=== PATIENT | female | born 1930 | race Caucasian/White ===

== ENCOUNTER 2017-01-17 16:22 | Outpatient (CLI) | payer MEDICARE ==
[~2017-01-17] VITALS: Ht 157.5 cm; Wt 68.5 kg
[2017-01-17 16:15] VITALS: BP 144/67
[~2017-01-17 16:22] MED LIST: AMT50T PO; ATRV10T PO; CEFU250T PO; CLCX100C PO; CLOP75TA PO; HYDR-3714 PO; LVT.1T PO; METO25TA2 PO; MULT-856 PO; TRAM1TAB7 PO; VITA-185 PO; [UNRECOGNIZED DRUG - OTHER] PO
[2017-01-17] MEDS ORDERED: NS IV 1000 ML 1,000 ML ONE (16:26)
[2017-01-17] MEDS ORDERED: NS IV 1000 ML 1,000 ML IV ONE (17:15)
[2017-01-17 17:34] LABS: ALBUMIN 3.4 GM/DL (3.2-4.5); BILIRUBIN,TOTAL 0.8 MG/DL (0.1-1.0); CALCIUM 10.3 MG/DL (8.5-10.1); CREATININE SERUM 1.24 MG/DL (0.60-1.30); POTASSIUM 4.2 MMOL/L (3.6-5.0); TOTAL PROTEIN 5.9 GM/DL (6.4-8.2)
== END 2017-01-17 19:40 | disposition home or self-care (01) ==
LOC: SDC 16:22
PROVIDERS: ATTEND Nurse Practitioner Family
DX: E86.0 Dehydration (principal); R10.11 Right upper quadrant pain
CPT/HCPCS: 36415; 80053; 96360; 96361

== ENCOUNTER → 2017-01-18 | Outpatient (CLI) | payer MEDICARE ==
--- NOTE | 2017-01-18 11:48 | Diagnostic Imaging Report ---
PROCEDURE: US Gallbladder. TECHNIQUE: Multiple real-time grayscale images were obtained over the right upper quadrant in various projections. INDICATION: Right upper quadrant pain and nausea. FINDINGS: The liver is normal in size. There is no biliary ductal dilatation. The common bile duct measures less than 5 mm. There is no cholelithiasis, gallbladder wall thickening or pericholecystic fluid. Pancreas is largely obscured by bowel gas. The right kidney is normal in appearance. There is no ascites. IMPRESSION: Essentially unremarkable right upper quadrant ultrasound Dictated by: Dictated on workstation # [id number]
== END ==
LOC: RAD 09:53
PROVIDERS: ATTEND Nurse Practitioner Family
DX: R10.11 Right upper quadrant pain (principal)
CPT/HCPCS: 76705

== ENCOUNTER → 2017-03-11 | Outpatient (CLI) | payer MEDICARE ==
--- NOTE | 2017-03-14 14:16 | Diagnostic Imaging Report ---
EXAMINATION: Bilateral screening mammogram 2D views with tomosynthesis. The current study was also evaluated with a Computer Aided Detection (CAD) system. INDICATION: Screening. PERSONAL HISTORY: No current complaints stated on the questionnaire. COMPARISON: 03/05/2016. FINDINGS: The breasts are composed of heterogeneously dense parenchyma which may decrease mammographic sensitivity. Benign-appearing calcifications are seen. Allowing for technique and positional differences, no suspicious change is seen. IMPRESSION: Dense breasts with no definite change. ACR BI-RADS Category 2: Benign findings. Result letter will be mailed to the patient. Note: At least 10% of breast cancer is not imaged by mammography. Dictated by: Dictated on workstation # [id number]
== END ==
LOC: RAD 12:50
PROVIDERS: ATTEND Nurse Practitioner Family
DX: Z12.31 Encounter for screening mammogram for malignant neoplasm of breast (principal)
CPT/HCPCS: 77067

== ENCOUNTER 2017-10-04 05:53 | Outpatient (CLI) | payer MEDICARE ==
[~2017-10-04] VITALS: Ht 157.5 cm; Wt 68.5 kg
[2017-10-04] MEDS ORDERED: AMIT50TA3 PO (14:56)
[2017-10-04] MEDS ORDERED: CLOP75TA28 PO (14:56)
[2017-10-04] MEDS ORDERED: METO-333 PO (14:56)
[2017-10-04] MEDS ORDERED: CELE-63 PO (14:56)
[2017-10-04] MEDS ORDERED: LEVO50TA6 PO (14:56)
[2017-10-04] MEDS ORDERED: PANT40TA3 PO (14:59)
[2017-10-04] MEDS ORDERED: FOLI0.8C PO (14:59)
[2017-10-04] MEDS ORDERED: CHOL100045 PO (14:59)
== END 2017-10-04 15:01 ==
LOC: PREOP 05:53
PROVIDERS: ATTEND Surgery
DX: Z01.818 Encounter for other preprocedural examination (principal); D50.9 Iron deficiency anemia, unspecified; K92.2 Gastrointestinal hemorrhage, unspecified

== ENCOUNTER 2017-10-10 09:36 | Day surgery (SDC) | payer MEDICARE ==
[~2017-10-10] VITALS: Ht 157.5 cm; Wt 68.5 kg
[~2017-10-10 09:36] MED LIST changes: +AMIT50TA3 PO; +CELE-63 PO; +CHOL100045 PO; +CLOP75TA28 PO; +FOLI0.8C PO; +LEVO50TA6 PO; +METO-333 PO; +PANT40TA3 PO
[2017-10-10] MEDS ORDERED: NS IV 500 ML 500 ML IV PRN (09:49)
[2017-10-10] MEDS ORDERED: HURRICAINE EXT TUBE (BENZOCAINE) XX PRN (10:00)
[2017-10-10 10:07] VITALS: BP 146/78
[2017-10-10] MEDS ORDERED: HURRICAINE EXT TUBE (BENZOCAINE) ONE (12:34)
[2017-10-10] MEDS ORDERED: MIDAZOLAM 2 MG/2 ML (VERSED) VIAL ONE ×4 (12:34→12:49)
[2017-10-10] MEDS ORDERED: fentaNYL INJECTION 100 MCG/2 ML AMP ONE ×2 (12:34)
[2017-10-10] MEDS: fentaNYL INJECTION 100 MCG/2 ML AMP IVP PRN ×4 (12:37→12:58)
[2017-10-10] MEDS: MIDAZOLAM 2 MG/2 ML (VERSED) VIAL IVP PRN ×4 (12:40→12:52)
--- NOTE | 2017-10-10 13:10 | Endo Procedure Record ---
Endo Procedure Report Date of Procedure Last Colonoscopy: Yes October 10, 2017 Surgeon (s) ERNA BANDA MD Post Procedure/Op Diagnosis EGD: Normal Colonoscopy: 2 mm sigmoid polyp. Incidental, 3 mm, submucosal lipoma at the cecum Procedure Performed Upper GI endoscopy Colonoscopy to cecum Hot biopsy polypectomy Description of Procedure Anesthesia Type: Conscious Sedation Specimen(s) collected/removed Sigmoid polyp Description of the Procedure Indication for the procedures: This lady came in for an upper endoscopy with colonoscopy to evaluate ongoing iron deficiency anemia with a history of melena in addition, she reported a family history of polyps as well. Informed consent was obtained after reviewing the procedures in detail. Description of the procedures: EGD: She was placed in left lateral rectus position and her vital signs were monitored. Conscious sedation was achieved using Versed and fentanyl. The flexible gastroscope was introduced down the esophagus, past the stomach, into the proximal duodenum. There was no abnormality. She tolerated the procedure well and was turned around in preparation for colonoscopy. Impression: Iron deficiency anemia with a history of melena. No ulcers found. Colonoscopy/polypectomy: Digital rectal examination was unremarkable. The colonoscope was then introduced into the rectum and advanced all the way up to the cecum. The quality of bowel preparation was reasonable. The scope was then withdrawn slowly and the mucosa examined in a systematic fashion. Findings: 1. 2 mm polyp at the mid sigmoid colon, that was excised with hot biopsy forceps 2. Very few sigmoid diverticula 3. 3 mm, incidental submucosal lipoma at the cecum. She tolerated the procedures well and was taken to the nursing area in a stable condition. Impression: Iron deficiency anemia with a history of melena. Incidental, small sigmoid polyp excised. Note: At this point, her hemoglobin will be followed serially. If there is any decrease, Endoscopy to Evaluate the Small Bowel Due To Arranged. Copy Copies To 1: TANIA STEVE MD, XAVIER M MD October 10, 2017 1:10 pm
--- NOTE | 2017-10-10 13:13 | History & Physicial ---
History of Present Illness History of Present Illness Reason for visit/HPI To undergo an upper endoscopy with concomitant colonoscopy to investigate iron deficiency anemia with a history of melena. She reports a family history of polyps as well. Date of Admission 10/10/17 Date Seen by Provider: October 10, 2017 Time Seen by Provider: 11:55 I consulted on this patient on 10/10/17 13:10 Attending Physician Erna Carmen MD Admitting Physician Marilyn Delaney MD Consult Allergies and Home Medications Allergies Coded Allergies: No Known Drug Allergies (Unverified , 02/26/11) Home Medications Amitriptyline HCl 50 Mg Tablet, 50 MG PO HS, (Reported) Celecoxib 200 Mg Capsule, 200 MG PO DAILY, (Reported) Cholecalciferol (Vitamin D3) 1,000 Unit Tablet, 1,000 UNIT PO DAILY, (Reported) Clopidogrel Bisulfate 75 Mg Tablet, 75 MG PO DAILY, (Reported) Folic Acid 0.8 Mg Capsule, 0.8 MG PO DAILY, (Reported) Levothyroxine Sodium 50 Mcg Tablet, 50 MCG PO DAILY, (Reported) Metoprolol Tartrate 25 Mg Tablet, 12.5 MG PO BID, (Reported) TAKE 1/2 OF 25MG TAB Pantoprazole Sodium 40 Mg Tablet.dr, 40 MG PO DAILY, (Reported) Patient Home Medication List Home Medication List Reviewed: Yes Past Cioaxvg-Nxoaqd-Wusbtl Hx Patient Social History Marrital Status: Employed/Student: retired Alcohol Use: Denies Use Recreational Drug Use: No Smoking Status: Never a Smoker Recent Foreign Travel: No Contact w/other who traveled: No Recent Hopitalizations: No Recent Infectious Disease Expo: No Immunizations Up To Date Tetanus Booster (TDap): Unknown Date of Influenza Vaccine: Mar 05, 2015 Seasonal Allergies Seasonal Allergies: No Surgeries Yes Respiratory No Cardiovascular No Neurological TIA Reproductive System Hx Reproductive Disorders: No Genitourinary No Gastrointestinal Yes Gastrointestinal Bleed, Ulcer Musculoskeletal Yes Arthritis Endocrine History of Endocrine Disorders: Yes Endocrine Disorders: Hypothyroidsim HEENT HEENT Disorders: Cataract Cancer No Blood Transfusions Adverse Reaction to a Blood Tr: No Constitutional: no symptoms reported EENTM: no symptoms reported Respiratory: no symptoms reported Cardiovascular: no symptoms reported Gastrointestinal: see HPI Genitourinary: no symptoms reported Musculoskeletal: joint pain Skin: no symptoms reported Psychiatric/Neurological: No Symptoms Reported Physical Exam Vital Signs Vital Signs - First Documented 10/10/17 10:07 Temp 97.8 Pulse 60 Resp 16 B/P (MAP) 146/78 (100) Pulse Ox 95 O2 Delivery Room Air Capillary Refill : General Appearance: No Apparent Distress Neck: Normal Inspection Respiratory: Lungs Clear Cardiovascular: Regular Rate, Rhythm Gastrointestinal: Non Tender, Soft Rectal: Deferred Back: Normal Inspection Extremity: Normal Inspection Neurologic/Psychiatric: Alert, Oriented x3 Skin: Warm/Dry Assessment/Plan Assessment and Plan Lady with iron deficiency anemia. History of melena. Family history of polyps. For upper endoscopy with colonoscopy Admission Diagnosis Admission Status: Other (Outpt Proc) ERNA CARMEN MD October 10, 2017 1:13 pm
--- NOTE | 2017-10-10 13:15 | Discharge Inst-Simple/Standard ---
Discharge Inst-Standard Discharge Medications New, Converted or Re-Newed RX: Other Patient Instructions/Follow Up Plan of Care/Instructions/FU: Follow hemoglobin Activity as Tolerated: Yes Discharge Diet: No Restrictions ERNA BANDA MD October 10, 2017 1:15 pm
--- NOTE | 2017-10-10 13:32 | Conscious Sedation/ASA ---
Conscious Sedation Pre-Proced Time Reviewed: 11:55 ASA Class: 2 Airway Mallampati Classification: ([place] appropriate class) I. II. III, IV Lungs Heart ASA score ASA 1: a normal healthy patient ASA 2: a patient with a mild systemic disease (mid diabetes, controlled hypertension, obesity ASA 3: a patient with a severe systemic disease that limits activity (angina , COPD, prior Myocardial infarction) ASA 4: a patient with an incapacitating disease that is a constant threat to life (CHF, renal failure) ASA 5: a moribund patient not expected to survive 24 hrs. (ruptured aneurysm) ASA 6: a declared brain patient whose organs are being harvested. For emergent operations, add the letter E after the classification Grade 1 Sedation Plan: Discussed options with patient/fam Note The patient is an appropriate candidate to undergo the planned procedure, sedation, and anesthesia. The patient immediately re-assessed prior to indication. ERNA BANDA MD October 10, 2017 1:32 pm
[2017-10-10 13:50] VITALS: BP 132/77
[2017-10-10 14:19] VITALS: BP 152/66
[2017-10-10 14:21] VITALS: BP 152/66
--- OUTSIDE RECORDS SUMMARY | 2017-10-10 18:20 | XMS REPORT | CCD ---
Author Author Marilyn Delaney Organization Marilyn Delaney MD, [facility] Address [address] [place] [address] Phone Care Team Providers Care Union Contract Representative Name Role Phone PP Unavailable CCM Unavailable Summary Purpose Interface Exchange Insurance Providers Payer name Policy type / Coverage type Covered constitution party ID Effective Begin Date Effective End Date WPS Medicare Part B Medicare Part B [id number] 2013 Unknown AARP Medicare Part B [id number] 2013 Unknown Family history Brother Diagnosis Age At Onset No Family Disease Entered N/A Daughter Diagnosis Age At Onset No Family Disease Entered N/A Father Diagnosis Age At Onset No Family Disease Entered N/A Mother Diagnosis Age At Onset Heart disease Unknown Daughter Diagnosis Age At Onset No Family Disease Entered N/A Social History Social History Element Codes Description Effective Dates Marital status Unknown 03/13/2015 Living arrangements Unknown House 02/26/[address]: 561219948 Never smoker 02/25/[address]: 863446316 Never drinks alcohol 02/25/2011 Has the patient ever used illegal drugs? Unknown Has never used illegal drugs 02/25/2011 Allergies, Adverse Reactions, Alerts Allergies, Adverse Reactions, Alerts data not found Past Medical History Illness Codes Condition Status Onset Date Resolved Date Encounter for immunization ICD-9: V04.81 ICD-10: Z23 Active 02/09/2017 Unknown Dysuria ICD-9: 788.1 ICD-10: R30.0 Active 04/20/2016 Unknown Essential (primary) hypertension ICD-9: 401.9 ICD-10: I10 Active 05/10/2016 Unknown Urinary tract infection, site not specified ICD-9: 599.0 ICD-10: N39.0 Active 07/14/2015 Unknown Dehydration ICD-9: 276.51 ICD-10: E86.0 Active 01/17/2017 Unknown Right upper quadrant pain ICD-9: 789.01 ICD-10: R10.11 Active 01/17/2017 Unknown Candidiasis of vulva and vagina ICD-9: 112.1 ICD-10: B37.3 Active 01/07/2017 Unknown Other fatigue ICD-9: 780.79 ICD-10: R53.83 Active 12/29/2016 Unknown Other malaise ICD-9: 780.79 ICD-10: R53.81 Active 12/29/2016 Unknown Migraine without aura, intractable, without status migrainosus ICD-9: 346.11 ICD-10: G43.019 Active 05/10/2016 Unknown Atrophy of thyroid (acquired) ICD-9: 244.8 ICD-10: E03.4 Active 04/19/2016 Unknown Mixed hyperlipidemia ICD-9: 272.4 ICD-10: E78.2 Active 07/17/2014 Unknown Hypothyroidism, unspecified ICD-9: 244.9 ICD-10: E03.9 Active 01/11/2014 Unknown Candidal stomatitis ICD-9: 112.0 ICD-10: B37.0 Active 03/09/2016 Unknown Gastro-esophageal reflux disease without esophagitis ICD-9: 530.81 ICD-10: K21.9 Active 03/09/2016 Unknown Major depressive disorder, recurrent, moderate ICD-9: 296.32 ICD-10: F33.1 Active 03/09/2016 Unknown Other seborrheic keratosis ICD-9: 702.19 ICD-10: L82.1 Active 11/17/2015 Unknown Epigastric pain ICD-9 : 789.06 ICD-10: R10.13 Active 08/05/2015 Unknown Low back pain ICD-9: 724.2 ICD-10: M54.5 Active 07/14/2015 Unknown Other insomnia ICD-9: 780.52 ICD-10: G47.09 Active 07/04/2015 Unknown Abdominal pain ICD-9: 789.00 Active 10/07/2014 Unknown Hematuria ICD-9: 599.70 Active 10/07/2014 Unknown HYPERLIPIDEMIA ICD-9: 272.4 Active 07/17/2014 Unknown Need for Streptococcus pneumoniae vaccination ICD-9: V03.82 Active 07/17/2014 Unknown CELLULITIS OF HAND ICD -9: 682.4 Active 01/11/2014 Unknown ESSENTIAL HYPERTENSION ICD-9: 401.9 Active 01/11/2014 Unknown HYPOTHYROIDISM ICD-9: 244.9 Active 01/11/2014 Unknown Abnormal blood sugar ICD-9: 790.29 Active 10/18/2012 Unknown History of TIA (transient ischemic attack) ICD-9: V12.54 Active 10/18/2012 Unknown Basal cell carcinoma, leg ICD-9: 173.71 Active 02/08/2012 Unknown INFLAMED SEBORR KERATOS ICD-9: 702.11 Active 11/30/2011 Unknown Skin lesion of left leg ICD-9: 709.9 Active 11/30/2011 Unknown Encounter for long-term (current) use of medications ICD-9: V58.69 Active 11/18/2011 Unknown Bruising ICD-9: 924.9 Active 10/13/2011 Unknown Chest wall pain ICD-9 : 786.52 Active 10/13/2011 Unknown ANEMIA ICD-9: 285.9 Active 05/12/2011 Unknown Migraine ICD-9: 346.90 Active 05/12/2011 Unknown Angular cheilosis ICD- 9: 528.5 Active 03/17/2011 Unknown INSOMNIA NOS ICD-9: 780.52 Active 03/17/2011 Unknown Mouth dryness ICD-9: 527.7 Active 03/17/2011 Unknown Hypertension Unknown Active 02/26/2011 Unknown BACTERIAL PNEUMONIA NEC ICD-9: 482.89 Active 02/26/2011 Unknown Dizziness ICD-9: 780.4 Active 02/26/2011 Unknown MALAISE AND FATIGUE ICD-9: 780.79 Active 02/26/2011 Unknown VACCIN FOR INFLUENZA ICD-9: V04.81 Active 02/26/2011 Unknown Arthritis Unknown Active 02/25/2011 Unknown Hyperlipidemia Unknown Active 02/25/2011 Unknown Hypothryroidism Unknown Active 02/25/2011 Unknown kidney stone Unknown Active 11/19/2008 Unknown Migraine Unknown Active 02/25/2011 Unknown Skin cancer Unknown Active 02/25/2011 Unknown Problems Condition Codes Effective Dates Condition Status Encounter for immunization ICD-9: V04.81 ICD-10: Z23 02/09/2017 Active Dysuria ICD-9: 788.1 ICD-10: R30.0 04/20/2016 Active Essential (primary) hypertension ICD-9: 401.9 ICD-10: I10 05/10/2016 Active Urinary tract infection, site not specified ICD-9: 599.0 ICD-10: N39.0 07/14/2015 Active Dehydration ICD-9: 276.51 ICD-10: E86.0 01/17/2017 Active Right upper quadrant pain ICD-9: 789.01 ICD-10: R10.11 01/17/2017 Active Candidiasis of vulva and vagina ICD-9: 112.1 ICD-10: B37.3 01/07/2017 Active Other fatigue ICD-9: 780.79 ICD-10: R53.83 12/29/2016 Active Other malaise ICD-9: 780.79 ICD-10: R53.81 12/29/2016 Active Migraine without aura, intractable, without status migrainosus ICD-9: 346.11 ICD-10: G43.019 05/10/2016 Active Atrophy of thyroid (acquired) ICD-9: 244.8 ICD-10: E03.4 04/19/2016 Active Mixed hyperlipidemia ICD-9: 272.4 ICD-10: E78.2 07/17/2014 Active Hypothyroidism, unspecified ICD-9: 244.9 ICD-10: E03.9 01/11/2014 Active Candidal stomatitis ICD-9: 112.0 ICD-10: B37.0 03/09/2016 Active Gastro-esophageal reflux disease without esophagitis ICD-9: 530.81 ICD-10: K21.9 03/09/2016 Active Major depressive disorder, recurrent, moderate ICD-9: 296.32 ICD-10: F33.1 03/09/2016 Active Other seborrheic keratosis ICD-9: 702.19 ICD-10: L82.1 11/17/2015 Active Epigastric pain ICD-9 : 789.06 ICD-10: R10.13 08/05/2015 Active Low back pain ICD-9: 724.2 ICD-10: M54.5 07/14/2015 Active Other insomnia ICD-9: 780.52 ICD-10: G47.09 07/04/2015 Active Abdominal pain ICD-9: 789.00 10/07/2014 Active Hematuria ICD-9: 599.70 10/07/2014 Active HYPERLIPIDEMIA ICD-9: 272.4 07/17/2014 Active Need for Streptococcus pneumoniae vaccination ICD-9: V03.82 07/17/2014 Active CELLULITIS OF HAND ICD -9: 682.4 01/11/2014 Active ESSENTIAL HYPERTENSION ICD-9: 401.9 01/11/2014 Active HYPOTHYROIDISM ICD-9: 244.9 01/11/2014 Active Abnormal blood sugar ICD-9: 790.29 10/18/2012 Active History of TIA (transient ischemic attack) ICD-9: V12.54 10/18/2012 Active Basal cell carcinoma, leg ICD-9: 173.71 02/08/2012 Active INFLAMED SEBORR KERATOS ICD-9: 702.11 11/30/2011 Active Skin lesion of left leg ICD-9: 709.9 11/30/2011 Active Encounter for long-term (current) use of medications ICD-9: V58.69 11/18/2011 Active Bruising ICD-9: 924.9 10/13/2011 Active Chest wall pain ICD-9 : 786.52 10/13/2011 Active ANEMIA ICD-9: 285.9 05/12/2011 Active Migraine ICD-9: 346.90 05/12/2011 Active Angular cheilosis ICD- 9: 528.5 03/17/2011 Active INSOMNIA NOS ICD-9: 780.52 03/17/2011 Active Mouth dryness ICD-9: 527.7 03/17/2011 Active Hypertension Unknown 02/26/2011 Active BACTERIAL PNEUMONIA NEC ICD-9: 482.89 02/26/2011 Active Dizziness ICD-9: 780.4 02/26/2011 Active MALAISE AND FATIGUE ICD-9: 780.79 02/26/2011 Active VACCIN FOR INFLUENZA ICD-9: V04.81 02/26/2011 Active Arthritis Unknown 02/25/2011 Active Hyperlipidemia Unknown 02/25/2011 Active Hypothryroidism Unknown 02/25/2011 Active kidney stone Unknown 11/19/2008 Active Migraine Unknown 02/25/2011 Active Skin cancer Unknown 02/25/2011 Active Medications Medication Codes Instructions Start Date Stop Date Status Fill Instructions Ultracet 37.5 mg-325 mg tablet RxNorm: 058270 TAKE 1 TABLET BY MOUTH NEEDED 06/27/2017 07/26/2017 Active Plavix 75 mg tablet RxNorm: 374652 TAKE ONE TABLET BY MOUTH ONCE DAILY 06/22/2017 No Stop Date Active triamcinolone acetonide 0.5 % topical ointment RxNorm: 0045585 APPLY OINTMENT TOPICALLY TO AFFECTED AREA EVERY 6 HOURS NEEDED 2017 No Stop Date Active metoprolol tartrate 25 mg tablet RxNorm: 329100 TAKE ONE-HALF TABLET BY MOUTH TWICE DAILY 05/30/2017 No Stop Date Active Plavix 75 mg tablet RxNorm: 218098 TAKE ONE TABLET BY MOUTH ONCE DAILY 03/28/2017 06/21/2017 Inactive Ultracet 37.5 mg-325 mg tablet RxNorm: 889991 Tablet(s) PO Q6 as needed TAKE 1 TABLET BY MOUTH NEEDED 03/16/201704/28 Inactive Synthroid 75 mcg tablet RxNorm: 450488 TAKE ONE TABLET BY MOUTH ONCE DAILY 02/24/2017 08/22/2017 Active mupirocin 2 % topical ointment RxNorm: 922106 1 Application TOP BID 01/27/2017 02/02/2017 Inactive Diflucan 150 mg tablet RxNorm: 340708 1 Tablet(s) PO daily 11/201601/31/2017 Inactive Protonix 40 mg tablet,delayed release RxNorm: 623719 1 Tablet(s) PO daily 01/17/2017 02/15/2017 Inactive Carafate 1 gram tablet RxNorm: 852968 1 Tablet(s) PO QID as needed 01/17/2017 01/26/2017 Inactive nystatin 100,000 unit/gram topical cream RxNorm: 458976 1 Application TOP TID 01/12/2017 01/16/2017 Inactive Diflucan 150 mg tablet RxNorm: 211561 1 Tablet(s) PO daily 01/07/2017 Inactive nystatin 100,000 unit/gram topical cream RxNorm: 718430 1 Application TOP TID 01/07/2017 01/11/2017 Inactive Ultracet 37.5 mg-325 mg tablet RxNorm: 487504 Tablet(s) PO TAKE 1 TABLET BY MOUTH NEEDED 01/04/2017 03/15/2017 Inactive Cipro 500 mg tablet RxNorm: 759002 1 Tablet(s) PO BID 201601/07/2017 Inactive Keflex 500 mg capsule RxNorm: 044072 1 Capsule(s) PO TID 201612/19/2016 Inactive Keflex 500 mg capsule RxNorm: 977775 1 Capsule(s) PO TID 201612/26/2016 Inactive ketorolac 60 mg/2 mL intramuscular solution RxNorm: 276826 Milliliter(s) IM 12/16/2016 12/16/2016 Inactive Topamax 25 mg tablet RxNorm: 796775 1 Tablet(s) PO daily 201601/14/2017 Inactive promethazine 25 mg/mL injection solution RxNorm: 948229 Milliliter(s) Inj 12/16/2016 12/16/2016 Inactive Ultracet 37.5 mg-325 mg tablet RxNorm: 588465 TAKE ONE TABLET BY MOUTH EVERY SIX HOURS NEEDED FOR PAIN 11/01/20162016 Inactive Celebrex 200 mg capsule RxNorm: 347324 Capsule(s) TAKE ONE CAPSULE BY MOUTH ONCE DAILY 09/21/2016 09/15/2017 Active Synthroid 75 mcg tablet RxNorm: 922989 Tablet(s) TAKE ONE TABLET BY MOUTH DAILY EXCEXPT 12TAB ON TUE AND Tuesday09/16/2016 No Stop Date Active Lipitor 20 mg tablet RxNorm: 766184 1/2 Tablet(s) PO every other day 08/25/2016 01/26/2017 Inactive amitriptyline 50 mg tablet RxNorm: 147049 1 Tablet(s) PO QPM 08/13/2017 Active Synthroid 75 mcg tablet RxNorm: 502803 TAKE ONE TABLET BY MOUTH ONCE DAILY 08/03/2016 09/15/2016 Inactive triamcinolone acetonide 0.5 % topical ointment RxNorm: 8279927 APPLY TO AFFECTED AREA(S) EVERY 6 HOURS NEEDED 06/03/2016 08/13/2016 Inactive Celebrex 200 mg capsule RxNorm: 142698 TAKE ONE CAPSULE BY MOUTH ONCE DAILY 05/18/2016 09/20/2016 Inactive promethazine 25 mg/mL injection solution RxNorm: 917330 Milliliter(s) Inj 05/11/2016 05/11/2016 Inactive ketorolac 60 mg/2 mL intramuscular solution RxNorm: 212201 Milliliter(s) IM 05/11/2016 05/11/2016 Inactive amitriptyline 50 mg tablet RxNorm: 968970 1 Tablet(s) PO QPM 08/18/2016 Inactive amitriptyline 50 mg tablet RxNorm: 041552 1 Tablet(s) PO QPM 05/04/2016 Inactive Cipro 500 mg tablet RxNorm: 052040 1 Tablet(s) PO BID 201504/27/2016 Inactive Celebrex 200 mg capsule RxNorm: 421570 TAKE ONE CAPSULE BY MOUTH ONCE DAILY 04/20/2016 05/17/2016 Inactive Ultracet 37.5 mg-325 mg tablet RxNorm: 941230 1 Tablet(s) PO QID as needed for back pain TAKE ONE TABLET BY MOUTH NEEDED 03/10/2016 11/03/2016 Inactive amitriptyline 25 mg tablet RxNorm: 136509 2 Tablet(s) PO QPM 05/02/2016 Inactive nystatin 100,000 unit/mL oral suspension RxNorm: 329772 5 Unit(s) PO TID 03/10/2016 03/23/2016 Inactive metoprolol tartrate 25 mg tablet RxNorm: 812223 TAKE ONE-HALF TABLET BY MOUTH TWICE DAILY 02/26/2016 11/21/2016 Inactive Protonix 40 mg tablet,delayed release RxNorm: 662387 TAKE ONE TABLET BY MOUTH ONCE DAILY 02/17/2016 03/23/2016 Inactive amitriptyline 25 mg tablet RxNorm: 041467 1-2 Tablet(s) PO QPM 01/27/2016 03/09/2016 Inactive Ultracet 37.5 mg-325 mg tablet RxNorm: 139970 Tablet(s) PO TAKE 1 TABLET BY MOUTH NEEDED 01/12/2016 01/12/2016 Inactive Ultracet 37.5 mg-325 mg tablet RxNorm: 528155 TAKE ONE TABLET BY MOUTH NEEDED 01/12/2016 03/09/2016 Inactive Plavix 75 mg tablet RxNorm: 296925 TAKE ONE TABLET BY MOUTH ONCE DAILY 12/23/2015 03/27/2017 Inactive amitriptyline 25 mg tablet RxNorm: 729014 1 Tablet(s) PO QPM 01/26/2016 Inactive Pennsaid 20 mg/gram/actuation (2 %) topical soln in metered -dose pump RxNorm: 3845028 1 Application TOP BID 11/03/201511/05 Inactive Celebrex 200 mg capsule RxNorm: 277034 Capsule(s) TAKE ONE CAPSULE BY MOUTH DAILY 10/22/2015 04/18/2016 Inactive Protonix 40 mg tablet,delayed release RxNorm: 838780 1 Tablet(s) PO daily 08/13/2015 02/08/2016 Inactive Lipitor 20 mg tablet RxNorm: 604712 Tablet(s) TAKE 1 TABLET BY MOUTH EVERY OTHER DAY, OR , TAKE 1/2 TABLET BY MOUTH ONCE DAILY 08/06/2015 07/30/2016 Inactive Synthroid 75 mcg tablet RxNorm: 267092 Tablet(s) PO TAKE ONE TABLET BY MOUTH EVERY DAY 08/06/2015 07/30/2016 Inactive Ultracet 37.5 mg-325 mg tablet RxNorm: 800269 Tablet(s) PO TAKE 1 TABLET BY MOUTH NEEDED 08/06/2015 01/03/2017 Inactive Protonix 40 mg tablet,delayed release RxNorm: 391987 1 Tablet(s) PO daily 08/06/2015 08/12/2015 Inactive Carafate 1 gram tablet RxNorm: 467300 1 Tablet(s) dissolved in 10mL of water PO AC and hs x 1 week then just AC thereafter 08/06/2015 11/17/2015 Inactive Ultracet 37.5 mg-325 mg tablet RxNorm: 403410 Tablet(s) PO TAKE 1 TABLET BY MOUTH NEEDED 07/22/2015 08/05/2015 Inactive Levaquin 500 mg tablet RxNorm: 729782 1 Tablet(s) PO daily 07/21/2015 Inactive amitriptyline 50 mg tablet RxNorm: 822857 1 Tablet(s) PO QPM 10/31/2015 Inactive Celebrex 200 mg capsule RxNorm: 076505 TAKE ONE CAPSULE BY MOUTH DAILY 06/23/2015 10/20/2015 Inactive Ultracet 37.5 mg-325 mg tablet RxNorm: 366342 TAKE ONE TABLET BY MOUTH EVERY 6 HOURS NEEDED FOR PAIN 04/15/20152015 Inactive amitriptyline 50 mg tablet RxNorm: 730881 1.5 Tablet(s) PO QPM 03/13/2015 07/03/2015 Inactive Plavix 75 mg tablet RxNorm: 164976 TAKE ONE TABLET BY MOUTH EVERY DAY 02/24/2015 12/20/2015 Inactive metoprolol tartrate 25 mg tablet RxNorm: 790174 TAKE 1/2 TABLET BY MOUTH TWO TIMES A DAY 01/27/2015 01/21/2016 Inactive Celebrex 200 mg capsule RxNorm: 392615 TAKE ONE CAPSULE BY MOUTH DAILY 01/20/2015 06/18/2015 Inactive Lipitor 20 mg tablet RxNorm: 707173 TAKE 1 TABLET BY MOUTH EVERY OTHER DAY, OR , TAKE 1/2 TABLET BY MOUTH ONCE DAILY 12/02/2014 08/05/2015 Inactive triamcinolone acetonide 0.5 % topical ointment RxNorm: 7143962 APPLY TO AFFECTED AREA(S) EVERY 6 HOURS NEEDED 11/25/2014 02/04/2015 Inactive Flagyl 500 mg tablet RxNorm: 630767 1 Tablet(s) PO TID 201410/17/2014 Inactive Cipro 500 mg tablet RxNorm: 763005 1 Tablet(s) PO BID 201410/14/2014 Inactive Ultracet 37.5 mg-325 mg tablet RxNorm: 333788 1 Tablet(s) PO Q6 as needed TAKE 1 TABLET BY MOUTH NEEDED 09/19/201409/19 Inactive amitriptyline 100 mg tablet RxNorm: 473793 TAKE ONE TABLET BY MOUTH EVERY NIGHT AT BEDTIME 09/19/2014 03/12/2015 Inactive Ultracet 37.5 mg-325 mg tablet RxNorm: 405603 TAKE ONE TABLET BY MOUTH EVERY 6 HOURS NEEDED FOR PAIN 09/19/20142014 Inactive (Response to an electronic controlled substance refill request - RxReferenceNumber: [id number]) Synthroid 75 mcg tablet RxNorm: 514414 Tablet(s) PO TAKE ONE TABLET BY MOUTH EVERY DAY 08/15/2014 08/05/2015 Inactive checking labs in 3 months metoprolol tartrate 25 mg tablet RxNorm: 574386 TAKE 1/2 TABLET BY MOUTH TWO TIMES A DAY 08/06/2014 01/26/2015 Inactive Celebrex 200 mg capsule RxNorm: 717635 TAKE ONE CAPSULE BY MOUTH DAILY 07/15/2014 01/10/2015 Inactive Synthroid 88 mcg tablet RxNorm: 750797 TAKE ONE TABLET BY MOUTH EVERY DAY 06/18/2014 08/14/2014 Inactive Synthroid 88 mcg tablet RxNorm: 599924 1 Tablet(s) PO 201412/14/2014 Inactive Celebrex 200 mg capsule RxNorm: 734997 TAKE ONE CAPSULE BY MOUTH EVERY DAY 05/21/2014 07/14/2014 Inactive metoprolol tartrate 25 mg tablet RxNorm: 317418 TAKE 1/2 TABLET BY MOUTH TWO TIMES A DAY 04/02/2014 07/30/2014 Inactive Plavix 75 mg tablet RxNorm: 960595 TAKE ONE TABLET BY MOUTH EVERY DAY 03/25/2014 02/17/2015 Inactive Celebrex 200 mg capsule RxNorm: 478340 TAKE ONE CAPSULE BY MOUTH EVERY DAY 02/18/2014 05/18/2014 Inactive Ultracet 37.5 mg-325 mg tablet RxNorm: 323319 Tablet(s) PO TAKE 1 TABLET BY MOUTH NEEDED 01/30/2014 07/21/2015 Inactive Vitamin D2 50,000 unit capsule RxNorm: 327087 1 Capsule(s) PO weekly x12 weeks 01/24/2014 11/17/2015 Inactive fluconazole 150 mg tablet RxNorm: 100874 1 Tablet(s) PO daily 01/11/2014 01/15/2014 Inactive sulfamethoxazole 800 mg-trimethoprim 160 mg tablet RxNorm: 069093 1 Tablet(s) PO BID 01/11/2014 01/17/2014 Inactive amitriptyline 100 mg tablet RxNorm: 444198 Tablet(s) PO TAKE ONE TABLET BY MOUTH EVERY NIGHT AT BEDTIME 10/30/20132014 Inactive Celebrex 200 mg capsule RxNorm: 261978 Capsule(s) PO TAKE ONE CAPSULE BY MOUTH EVERY DAY 10/23/2013 02/17/2014 Inactive Lipitor 20 mg tablet RxNorm: 231119 1 Tablet(s) PO every other day TAKE 1/2 TABLET BY MOUTH DAILY 09/27/20132014 Inactive Ultracet 37.5 mg-325 mg tablet RxNorm: 436895 Tablet(s) PO TAKE 1 TABLET BY MOUTH NEEDED 08/20/2013 01/29/2014 Inactive Lipitor 20 mg tablet RxNorm: 252697 1 Tablet(s) PO every other day TAKE 1/2 TABLET BY MOUTH DAILY 07/02/20132013 Inactive Synthroid 88 mcg tablet RxNorm: 517221 1 Tablet(s) PO 201306/17/2014 Inactive triamcinolone acetonide 0.5 % topical ointment RxNorm: 3876020 1 Application TOP Q6 PRN 07/02/2013 01/27/2014 Inactive Celebrex 200 mg capsule RxNorm: 091373 Capsule(s) PO TAKE ONE CAPSULE BY MOUTH EVERY DAY 05/22/2013 10/22/2013 Inactive Lipitor 20 mg tablet RxNorm: 012006 Tablet(s) PO TAKE 1/2 TABLET BY MOUTH DAILY 04/09/2013 07/01/2013 Inactive metoprolol tartrate 25 mg tablet RxNorm: 105811 Tablet(s) PO TAKE 1/2 TABLET BY MOUTH TWO TIMES A DAY 04/09/20132013 Inactive Plavix 75 mg tablet RxNorm: 863395 Tablet(s) PO TAKE ONE TABLET BY MOUTH EVERY DAY 03/26/2013 03/24/2014 Inactive Synthroid 100 mcg tablet RxNorm: 440764 100mcg alternate 88mcg Tablet(s) PO daily 03/01/2013 07/01/2013 Inactive estropipate 1.5 mg tablet RxNorm: 759893 Tablet(s) PO TAKE TWO TABLETS BY MOUTH EVERY DAY 01/18/2013 07/18/2013 Inactive Celebrex 200 mg capsule RxNorm: 313529 Capsule(s) PO TAKE ONE CAPSULE BY MOUTH EVERY DAY 11/28/2012 05/21/2013 Inactive Ultracet 37.5 mg-325 mg tablet RxNorm: 548721 Tablet(s) PO TAKE 1 TABLET BY MOUTH NEEDED 11/22/2012 08/19/2013 Inactive Ultracet 37.5 mg-325 mg tablet RxNorm: 614422 Tablet(s) PO TAKE 1 TABLET BY MOUTH NEEDED 11/22/2012 11/21/2012 Inactive amitriptyline 100 mg tablet RxNorm: 247970 Tablet(s) PO TAKE ONE TABLET BY MOUTH EVERY NIGHT AT BEDTIME 10/31/20122013 Inactive Synthroid 100 mcg tablet RxNorm: 258419 1 Tablet(s) PO daily 02/28/2013 Inactive amitriptyline 100 mg tablet RxNorm: 297294 Tablet(s) PO 1 TABLET BY MOUTH AT BEDTIME 08/30/2012 10/30/2012 Inactive Ultracet 37.5 mg-325 mg tablet RxNorm: 986074 Tablet(s) PO TAKE 1 TABLET BY MOUTH NEEDED 08/14/2012 11/21/2012 Inactive amitriptyline 100 mg tablet RxNorm: 197498 Tablet(s) PO 1 TABLET BY MOUTH AT BEDTIME 06/05/2012 08/29/2012 Inactive Celebrex 200 mg capsule RxNorm: 962031 1 Capsule(s) PO daily 11/02/2012 Inactive Lipitor 10 mg tablet RxNorm: 404061 1 Tablet(s) PO daily 201109/11/2012 Inactive levothyroxine 100 mcg capsule RxNorm: 621860 1 Capsule(s) PO daily 03/08/2012 02/27/2013 Inactive metoprolol tartrate 25 mg tablet RxNorm: 930309 1/2 Tablet(s) PO BID 03/08/2012 04/01/2013 Inactive Ultracet 37.5 mg-325 mg tablet RxNorm: 830365 1 Tablet(s) PO PRN 03/08/2012 08/13/2012 Inactive Plavix 75 mg tablet RxNorm: 739616 1 Tablet(s) PO daily 201103/25/2013 Inactive Lipitor 10 mg tablet RxNorm: 205505 1 Tablet(s) PO daily 201103/07/2012 Inactive amitriptyline 100 mg tablet RxNorm: 545808 1 Tablet(s) PO HS 06/04/2012 Inactive metoprolol tartrate 25 mg tablet RxNorm: 360287 1/2 Tablet(s) PO BID 02/11/2012 03/07/2012 Inactive Lipitor 10 mg tablet RxNorm: 573181 1 Tablet(s) PO daily 201102/10/2012 Inactive metoprolol tartrate 25 mg tablet RxNorm: 789618 1/2 Tablet(s) PO BID 02/10/2012 02/10/2012 Inactive Influenza Virus Vaccine 0.5 mL RxNorm: IM 02/08/2012 02/08/2012 Inactive amitriptyline 100 mg tablet RxNorm: 190621 1 Tablet(s) PO HS 02/10/2012 Inactive estropipate 1.5 mg tablet RxNorm: 378179 2 Tablet(s) PO daily 11/26/2011 12/19/2012 Inactive Ultracet 37.5 mg-325 mg tablet RxNorm: 658019 1 Tablet(s) PO PRN 10/04/2011 03/07/2012 Inactive Celebrex 200 mg Cap RxNorm: 259312 1 Capsule(s) PO daily 09/0609/06/2011 Inactive Celebrex 200 mg capsule RxNorm: 038465 1 Capsule(s) PO daily 04/03/2012 Inactive Ultracet 37.5 mg-325 mg Tab RxNorm: 115851 1 Tablet(s) PO PRN 08/25/2011 10/03/2011 Inactive Lipitor 10 mg tablet RxNorm: 297556 1 Tablet(s) PO daily 201102/06/2012 Inactive Ultracet 37.5 mg-325 mg Tab RxNorm: 039415 1 Tablet(s) PO Q6 PRN 07/15/2011 07/29/2011 Inactive amitriptyline 100 mg tablet RxNorm: 804385 1 Tablet(s) PO HS 11/28/2011 Inactive promethazine 25 mg/mL Injection RxNorm: 672563 Milliliter(s) Inj 05/12/2011 05/12/2011 Inactive triamcinolone acetonide 0.5 % topical ointment RxNorm: 7994027 1 Application TOP Q6 PRN 05/12/2011 09/08/2011 Inactive ketorolac 60 mg/2 mL IM RxNorm: 753426 Milliliter(s) IM 201005/12/2011 Inactive amitriptyline 100 mg Tab RxNorm: 138928 1/2 - 1 Tablet(s) PO HS PRN 05/12/2011 06/01/2011 Inactive Protonix 40 mg Tab RxNorm: 176554 1 Tablet(s) PO daily 201010/03/2011 Inactive Ultracet 37.5 mg-325 mg Tab RxNorm: 387203 1 Tablet(s) PO Q6 PRN 03/26/2011 07/14/2011 Inactive Plavix 75 mg Tab RxNorm: 316598 1 Tablet(s) PO daily 201002/09/2012 Inactive Bactroban 2 % Ointment RxNorm: 456035 1 [place] TOP TID apply three times a day x 5 days in the nose and three times a day x 7 days on the lips 03/17/2011 03/23/2011 Inactive Bactrim DS 800 mg-160 mg Tab RxNorm: 429932 1 Tablet(s) PO BID 03/17/2011 03/26/2011 Inactive amitriptyline 50 mg Tab RxNorm: 870438 2 Tablet(s) PO QHS 03/1505/11/2011 Inactive Celebrex 200 mg Cap RxNorm: 806420 1 Capsule(s) PO daily 03/1209/06/2011 Inactive Influenza Virus Vaccine 0.5 mL RxNorm: IM 02/26/2011 02/26/2011 Inactive metoprolol tartrate 25 mg Tab RxNorm: 755426 1/2 Tablet(s) PO BID 02/02/2011 04/02/2011 Inactive Lipitor 10 mg Tab RxNorm: 348724 1 Tablet(s) PO daily 201003/03/2011 Inactive Vitamin D3 2,000 unit tablet RxNorm: 635756 1 Tablet(s) PO daily No Start Date Active aspirin 81 mg Tab, Delayed Release RxNorm: 314200 1 Tablet(s) PO daily No Start Date Active Ultracet 37.5 mg-325 mg Tab RxNorm: 277942 1 Tablet(s) PO Q6 PRN No Start Date 03/25/2011 Inactive Lipitor 10 mg Tab RxNorm: 401841 1 Tablet(s) PO daily No Start Date 08/10/2011 Inactive levothyroxine 100 mcg capsule RxNorm: 941953 Capsule(s) PO No Start Date 03/07/2012 Inactive 3 times weekly amitriptyline 50 mg Tab RxNorm: 319611 2 Tablet(s) PO daily No Start Date 03/14/2011 Inactive Vitamin B-12 1,000 mcg Tab RxNorm: 685600 1 Tablet(s) PO daily No Start Date 09/11/2012 Inactive estropipate 1.5 mg Tab RxNorm: 383501 1 Tablet(s) PO daily No Start Date 11/25/2011 Inactive multivitamin Cap RxNorm: 1 Capsule(s) PO daily No Start Date 10/03/2011 Inactive metoprolol tartrate 25 mg tablet RxNorm: 795504 1/2 Tablet(s) PO BID No Start Date 02/09/2012 Inactive Celebrex 200 mg Cap RxNorm: 180448 1 Capsule(s) PO daily No Start Date 03/11/2011 Inactive Ultracet 37.5 mg-325 mg Tab RxNorm: 075068 Tablet(s) PO PRN No Start Date 08/24/2011 Inactive Vitamin B & C Cap RxNorm: 1 Capsule(s) PO daily No Start Date 10/03/2011 Inactive Lipitor 20 mg tablet RxNorm: 540659 1 Tablet(s) PO 3 x week No Start Date 04/08/2013 Inactive Plavix 75 mg tablet RxNorm: 172868 1 Tablet(s) PO daily No Start Date 02/29/2012 Inactive Vitamin D2 50,000 unit capsule RxNorm: 204335 1 Capsule(s) PO weekly x12 weeks No Start Date 01/23/2014 Inactive Medication Administered Medication Codes Instructions Start Date Status ketorolac 60 mg/2 mL intramuscular solution RxNorm: 090518 Milliliter 12/16/2016 No longer Active promethazine 25 mg/mL injection solution RxNorm: 010463 Milliliter 12/16/2016 No longer Active ketorolac 60 mg/2 mL intramuscular solution RxNorm: 639318 Milliliter 05/11/2016 No longer Active promethazine 25 mg/mL injection solution RxNorm: 683426 Milliliter 05/11/2016 No longer Active Influenza Virus Vaccine 0.5 mL RxNorm: 02/08/2012 No longer Active ketorolac 60 mg/2 mL IM RxNorm: 380041 Milliliter 05/12/2011 No longer Active promethazine 25 mg/mL Injection RxNorm: 529623 Milliliter 05/12/2011 No longer Active Influenza Virus Vaccine 0.5 mL RxNorm: 02/26/2011 No longer Active Immunizations Vaccine Codes Date Status Influenza CVX: 141 02/09/2017 completed Influenza CVX: 141 04/21/2016 completed Pneumococcal (Adult) CVX: 33 07/17/2014 completed Influenza CVX: 141 04/03/2014 completed Influenza CVX: 141 02/26/2013 completed Influenza CVX: 141 02/08/2012 completed Influenza CVX: 141 02/26/2011 completed Assessments Condition Codes Effective Dates Encounter for immunization ICD-10: Z23 ICD-9: V04.81 02/09/2017 Dysuria ICD-10: R30.0 ICD-9: 788.1 02/01/2017 Urinary tract infection, site not specified ICD-10: N39.0 ICD-9: 599.0 01/27/2017 Dehydration ICD-10: E86.0 ICD-9: 276.51 01/17/2017 Right upper quadrant pain ICD-10: R10.11 ICD-9: 789.01 01/17/2017 Candidiasis of vulva and vagina ICD-10: B37.3 ICD-9: 112.1 01/07/2017 Other fatigue ICD-10: R53.83 ICD-9: 780.79 12/29/2016 Other malaise ICD-10: R53.81 ICD-9: 780.79 12/29/2016 Migraine without aura, intractable, without status migrainosus ICD-10: G43.019 ICD-9: 346.11 12/16/2016 Atrophy of thyroid (acquired) ICD-10: E03.4 ICD-9: 244.8 08/25/2016 Mixed hyperlipidemia ICD-10: E78.2 ICD-9: 272.4 08/25/2016 Essential (primary) hypertension ICD-10: I10 ICD-9: 401.9 08/25/2016 Hypothyroidism, unspecified ICD-10: E03.9 ICD-9: 244.9 08/19/2016 Gastro-esophageal reflux disease without esophagitis ICD-10 : K21.9 ICD-9: 530.81 03/10/2016 Candidal stomatitis ICD-10: B37.0 ICD-9: 112.0 03/10/2016 Major depressive disorder, recurrent, moderate ICD-10: F33.1 ICD-9: 296.32 03/10/2016 Other seborrheic keratosis ICD-10: L82.1 ICD-9: 702.19 11/18/2015 Epigastric pain ICD-10: R10.13 ICD-9: 789.06 08/06/2015 Low back pain ICD-10: M54.5 ICD-9: 724.2 07/15/2015 Other insomnia ICD-10: G47.09 ICD-9: 780.52 07/04/2015 Abdominal pain ICD-9: 789.00 10/08/2014 Hematuria ICD-9: 599.70 10/08/2014 HYPERLIPIDEMIA ICD-9: 272.4 07/17/2014 Need for Streptococcus pneumoniae vaccination ICD-9: V03.82 07/17/2014 HYPOTHYROIDISM ICD-9: 244.9 07/17/2014 ESSENTIAL HYPERTENSION ICD-9: 401.9 07/17 CELLULITIS OF HAND ICD-9: 682.4 2013 ENCNTR LONG-RX USE NEC ICD-9: V58.69 OTHER ABNORMAL GLUCOSE ICD-9: 790.29 12/2012 ANEMIA ICD-9: 285.9 02/27/2013 VACCIN FOR INFLUENZA ICD-9: V04.81 2012 MALAISE AND FATIGUE ICD-9: 780.79 2012 History of TIA (transient ischemic attack) ICD-9: V12.54 10/18/2012 Basal cell carcinoma, leg ICD-9: 173.71 02/22/2012 Skin lesion of left leg ICD-9: 709.9 02/2012 INFLAMED SEBORR KERATOS ICD-9: 702.11 02/2012 Bruising ICD-9: 924.9 10/13/2011 Chest wall pain ICD-9: 786.52 10/13/2011 Dry mouth ICD-9: 527.7 10/04/2011 INSOMNIA NOS ICD-9: 780.52 10/04/2011 DISEASES OF LIPS ICD-9: 528.5 05/12/2011 Migraine ICD-9: 346.90 05/12/2011 Dizziness ICD-9: 780.4 02/26/2011 BACTERIAL PNEUMONIA NEC ICD-9: 482.89 11/2010 Reason For Visit Reason For Visit Effective Dates Notes vaccination against influenza 02/09/2017 abdominal pain 01/27/2017 resolved abdominal pain 01/17/2017 rash 01/07/2017 fatigue 12/29/2016 headache 12/16/2016 hypertension 08/25/2016 headache 05/11/2016 hypertension 04/20/2016 hypertension 03/10/2016 hypertension 11/18/2015 gastroesophageal reflux 09/11/2015 abdominal pain 08/06/2015 low back pain 07/15/2015 hypertension 07/04/2015 hypertension 03/13/2015 abdominal pain 10/08/2014 urinary incontinence 07/17/2014 rash 01/11/2014 between fingers on left hand hypertension 07/02/2013 hypertension 02/26/2013 hypertension 10/24/2012 hypertension 09/12/2012 hypertension 05/30/2012 Post-op wound 02/22/2012 vaccination against influenza 02/08/2012 skin lesion 11/30/2011 breast complaint 10/13/2011 hypertension 10/04/2011 insomnia 05/12/2011 hypertension 03/17/2011 dizziness 02/26/2011 Results Observation Observation Code Item Item Code Result Date Urine Culture Ucult Complete NO Growth Day 2 12/31/2016 Urine Culture Ucult Preliminary NO Growth Day 1 12/31/2016 Cbc With Differential Ord2 WBC 5.18 K/ul 12/29/2016 Cbc With Differential Ord2 RBC 3.90 M/ul 12/29/2016 Cbc With Differential Ord2 HGB 12.0 g/dl 12/29/2016 Cbc With Differential Ord2 Neut% 63.2 % 12/29/2016 Cbc With Differential Ord2 HCT 38.4 % 12/29/2016 Cbc With Differential Ord2 MCV 98.5 fl 12/29/2016 Cbc With Differential Ord2 Lymph% 21.6 % 12/29/2016 Cbc With Differential Ord2 MCH 30.8 pg 12/29/2016 Cbc With Differential Ord2 [place]% 10.6 % 12/29/2016 Cbc With Differential Ord2 MCHC 31.3 pg 12/29/2016 Cbc With Differential Ord2 Eos% 2.5 % 12/29/2016 Cbc With Differential Ord2 Baso% 2.1 % 12/29/2016 Cbc With Differential Ord2 PLT 519 K/ul 12/29/2016 Cbc With Differential Ord2 RDW 14.6 % 12/29/2016 Cbc With Differential Ord2 Neut ABS# 3.27 K/ul 12/29/2016 Cbc With Differential Ord2 Lymph ABS# 1.12 K/ul 12/29/2016 Cbc With Differential Ord2 [place] ABS# 0.6 K/ul 12/29/2016 Cbc With Differential Ord2 Eos ABS# 0.1 K/ul 12/29/2016 Cbc With Differential Ord2 Baso ABS# 0.1 K/ul 12/29/2016 Tsh Ord6 hTSH II 1.34 uIU/mL 12/29/2016 Free T4 [id number] FREE T4 1.16 ng/dL 12/29/2016 Lipid Ord30 CHOL 165 mg/dL 12/29/2016 Lipid Ord30 HDL 40.0 mg/dl 12/29/2016 Lipid Ord30 TRIG 126 mg/dL 12/29/2016 Lipid Ord30 LDL 100 mg/dL 12/29/2016 Lipid Ord30 C/HDL 4.1 Ratio 12/29/2016 Vitamin D 25 Oh [id number] VITAMIN D, 25 HYDROXY 58.55 ng/mL Culture Urine [id number] URINE CULTURE SEE NOTES 12/24/2016 Culture Urine [id number] Continued Results 12/24/2016 Urine Culture Ucult Complete >100,000 col/ml aerobic growth sent to ref lab 12/22/2016 LIPID GRP CHOLESTEROL 145 mg/dL 08/20/2016 LIPID GRP Triglyceride 132 mg/dL 08/20/2016 LIPID GRP HDL CHOLESTEROL 47 mg/dL 08/20/2016 LIPID GRP Chol/HDL Ratio 3.09 ratio 08/20/2016 LIPID GRP NON-HDL Chol 98 mg/dL 08/20/2016 LIPID GRP LDL Cholesterol 72 mg/dL 08/20/2016 CBC 8733178 WBC 5.0 10e9/L 08/20/2016 CBC 4768732 RBC 4.07 10e12/L 08/20/2016 CBC 8215620 HEMOGLOBIN 12.6 g/dL 08/20/2016 CBC 5400083 HEMATOCRIT 39.4 % 08/20/2016 CBC 3447531 MCV 96.8 fL 08/20/2016 CBC 7823353 MCH 31.0 pg 08/20/2016 CBC 4433674 MCHC 32.0 g/dL 08/20/2016 CBC 6030245 PLATELET COUNT 211 10e9/L 08/20/2016 CBC 1129792 Mean Plt Volume 10.2 fL 08/20/2016 CBC 0561099 Neut Auto 37.7 % 08/20/2016 CBC 1916523 Lymph Auto 47.1 % 08/20/2016 CBC 7150391 [place] Auto 8.2 % 08/20/2016 CBC 2574718 Eos Auto 5.0 % 08/20/2016 CBC 3813994 RDW 14.8 % 08/20/2016 CBC 9193578 Baso Auto 2.0 % 08/20/2016 CBC 7806653 Neutrophil Abs 1.88 10e9/L 08/20/2016 CBC 0823395 Lymphocyte Abs 2.36 10e9/L 08/20/2016 CBC 2444523 Monocyte Abs 0.41 10e9/L 08/20/2016 CBC 8146827 Eosinophil Abs 0.25 10e9/L 08/20/2016 CBC 6822190 Basophil Abs 0.10 10e9/L 08/20/2016 CBC 6226369 RDW-SD 50.5 fL 08/20/2016 CHEM 14 1816707 AST 18 U/L 08/20/2016 CHEM 14 8711090 ALT 14 U/L 08/20/2016 CHEM 14 0495942 BUN 22 mg/dL 08/20/2016 CHEM 14 4717090 ALBUMIN 3.6 g/dL 08/20/2016 CHEM 14 8339086 CHLORIDE 107 mmol/L 08/20/2016 CHEM 14 4125913 Bili Total 0.4 mg/dL 08/20/2016 CHEM 14 6308185 ALK PHOS 89 U/L 08/20/2016 CHEM 14 1437911 SODIUM 144 mmol/L 08/20/2016 CHEM 14 4451699 CREATININE 0.87 mg/dL 08/20/2016 CHEM 14 2998427 CALCIUM 10.5 mg/dL 08/20/2016 CHEM 14 6035365 POTASSIUM 4.3 mmol/L 08/20/2016 CHEM 14 7994806 TOTAL PROTEIN 5.6 g/dL 08/20/2016 CHEM 14 8119262 GLUCOSE 96 mg/dL 08/20/2016 CHEM 14 3394530 Bicarbonate 30 mmol/L 08/20/2016 CHEM 14 7952658 AGAP 7 mmol/L 08/20/2016 Urine Culture Ucult Complete >100,000 col/ml aerobic growth sent to ref lab 04/22/2016 Cbc With Differential Ord2 WBC 3.97 K/ul 04/14/2016 Cbc With Differential Ord2 RBC 3.79 M/ul 04/14/2016 Cbc With Differential Ord2 HGB 11.5 g/dl 04/14/2016 Cbc With Differential Ord2 Neut% 41.6 % 04/14/2016 Cbc With Differential Ord2 HCT 36.2 % 04/14/2016 Cbc With Differential Ord2 MCV 95.5 fl 04/14/2016 Cbc With Differential Ord2 Lymph% 38.5 % 04/14/2016 Cbc With Differential Ord2 [place]% 11.3 % 04/14/2016 Cbc With Differential Ord2 MCH 30.3 pg 04/14/2016 Cbc With Differential Ord2 MCHC 31.8 pg 04/14/2016 Cbc With Differential Ord2 Eos% 6.8 % 04/14/2016 Cbc With Differential Ord2 PLT 212 K/ul 04/14/2016 Cbc With Differential Ord2 Baso% 1.8 % 04/14/2016 Cbc With Differential Ord2 RDW 15.9 % 04/14/2016 Cbc With Differential Ord2 Neut ABS# 1.65 K/ul 04/14/2016 Cbc With Differential Ord2 Lymph ABS# 1.53 K/ul 04/14/2016 Cbc With Differential Ord2 [place] ABS# 0.5 K/ul 04/14/2016 Cbc With Differential Ord2 Eos ABS# 0.3 K/ul 04/14/2016 Cbc With Differential Ord2 Baso ABS# 0.1 K/ul 04/14/2016 Cbc With Differential Ord2 WBC 3.87 K/ul 03/05/2016 Cbc With Differential Ord2 RBC 3.84 M/ul 03/05/2016 Cbc With Differential Ord2 HGB 11.6 g/dl 03/05/2016 Cbc With Differential Ord2 Neut% 39.5 % 03/05/2016 Cbc With Differential Ord2 HCT 36.6 % 03/05/2016 Cbc With Differential Ord2 MCV 95.3 fl 03/05/2016 Cbc With Differential Ord2 Lymph% 42.4 % 03/05/2016 Cbc With Differential Ord2 [place]% 10.1 % 03/05/2016 Cbc With Differential Ord2 MCH 30.2 pg 03/05/2016 Cbc With Differential Ord2 Eos% 6.2 % 03/05/2016 Cbc With Differential Ord2 MCHC 31.7 pg 03/05/2016 Cbc With Differential Ord2 PLT 223 K/ul 03/05/2016 Cbc With Differential Ord2 Baso% 1.8 % 03/05/2016 Cbc With Differential Ord2 Neut ABS# 1.53 K/ul 03/05/2016 Cbc With Differential Ord2 RDW 15.6 % 03/05/2016 Cbc With Differential Ord2 Lymph ABS# 1.64 K/ul 03/05/2016 Cbc With Differential Ord2 [place] ABS# 0.4 K/ul 03/05/2016 Cbc With Differential Ord2 Eos ABS# 0.2 K/ul 03/05/2016 Cbc With Differential Ord2 Baso ABS# 0.1 K/ul 03/05/2016 Lipid Ord30 CHOL 158 mg/dL 03/05/2016 Lipid Ord30 HDL 53.0 mg/dl 03/05/2016 Lipid Ord30 TRIG 91 mg/dL 03/05/2016 Lipid Ord30 LDL 87 mg/dL 03/05/2016 Lipid Ord30 C/HDL 3.0 Ratio 03/05/2016 Comp Metabolic Zox322 NA 142 mEq/L 03/05/2016 Comp Metabolic Gbd379 K 4.2 mEq/L 03/05/2016 Comp Metabolic Egh114 CL 109 mEq/L 03/05/2016 Comp Metabolic Xba945 CO2 29.0 mEq/L 03/05/2016 Comp Metabolic Egk542 ANION GAP 8 03/05/2016 Comp Metabolic Vnn164 GLUCOSE 86 mg/dL 03/05/2016 Comp Metabolic Rpq902 Creat 0.8 mg/dL 03/05/2016 Comp Metabolic Pdq559 eGFR 75 ml/min/1.73m2 03/05/2016 Comp Metabolic Dfj694 BUN 15 mg/dL 03/05/2016 Comp Metabolic Ews284 B/C Ratio 19.2 Ratio 03/05/2016 Comp Metabolic Bhx479 CALCIUM 9.4 mg/dL 03/05/2016 Comp Metabolic Msw194 ALK PHOS 95 U/L 03/05/2016 Comp Metabolic Xml190 AST(SGOT) 20 U/L 03/05/2016 Comp Metabolic Kfj695 ALT(SGPT) 18 U/L 03/05/2016 Comp Metabolic Mip054 BILI T 0.5 mg/dL 03/05/2016 Comp Metabolic Xxv614 ALBUMIN 3.5 g/dL 03/05/2016 Comp Metabolic Mus766 TPRO 5.5 g/dL 03/05/2016 Comp Metabolic Qcj343 GLOB 2.0 g/dL 03/05/2016 Comp Metabolic Sub706 A/G Ratio 1.8 Ratio 03/05/2016 Comp Metabolic Kgu329 Osmo 283 mOsmo 03/05/2016 Free T4 Rls125 FREE T4 0.88 ng/dL 03/05/2016 Tsh Ord6 hTSH II 1.17 uIU/mL 03/05/2016 Urine Culture Ucult Complete No Growth Day 2 07/18/2015 Urine Culture Ucult Preliminary No Growth Day 1 07/18/2015 Tsh Ord6 hTSH II 0.60 uIU/mL 03/10/2015 Free T4 Idv356 FREE T4 1.05 ng/dL 03/10/2015 Comp Metabolic Pnt583 NA 139 mEq/L 03/10/2015 Comp Metabolic Gnb259 K 4.2 mEq/L 03/10/2015 Comp Metabolic Ush096 CL 104 mEq/L 03/10/2015 Comp Metabolic Emu006 CO2 33.0 mEq/L 03/10/2015 Comp Metabolic Lou871 ANION GAP 6 03/10/2015 Comp Metabolic Pmq921 GLUCOSE 95 mg/dL 03/10/2015 Comp Metabolic Azx166 Creat 0.9 mg/dL 03/10/2015 Comp Metabolic Qpf382 eGFR 68 ml/min/1.73m2 03/10/2015 Comp Metabolic Ntv168 BUN 18 mg/dL 03/10/2015 Comp Metabolic Rrs430 B/C Ratio 21.2 Ratio 03/10/2015 Comp Metabolic Wdx819 CALCIUM 10.4 mg/dL 03/10/2015 Comp Metabolic Xah283 ALK PHOS 96 U/L 03/10/2015 Comp Metabolic Sas247 AST(SGOT) 23 U/L 03/10/2015 Comp Metabolic Ona824 ALT(SGPT) 22 U/L 03/10/2015 Comp Metabolic Cah294 BILI T 0.5 mg/dL 03/10/2015 Comp Metabolic Kjp678 ALBUMIN 3.7 g/dL 03/10/2015 Comp Metabolic Ben823 TPRO 5.5 g/dL 03/10/2015 Comp Metabolic Qad869 GLOB 1.8 g/dL 03/10/2015 Comp Metabolic Szw793 A/G Ratio 2.1 Ratio 03/10/2015 Comp Metabolic Cxg450 Osmo 279 mOsmo 03/10/2015 Lipid Ord30 CHOL 158 mg/dL 03/10/2015 Lipid Ord30 HDL 50.0 mg/dl 03/10/2015 Lipid Ord30 TRIG 99 mg/dL 03/10/2015 Lipid Ord30 LDL 88 mg/dL 03/10/2015 Lipid Ord30 C/HDL 3.2 Ratio 03/10/2015 Cbc With Differential Ord2 WBC 3.9 K/uL 03/10/2015 Cbc With Differential Ord2 LYM 1.5 K/uL 03/10/2015 Cbc With Differential Ord2 LYM% 39.0 % 03/10/2015 Cbc With Differential Ord2 NEUT/GRAN 2.0 K/uL 03/10/2015 Cbc With Differential Ord2 NEUT/GRAN % 51.5 % 03/10/2015 Cbc With Differential Ord2 MID 0.4 K/uL 03/10/2015 Cbc With Differential Ord2 MID% 9.5 % 03/10/2015 Cbc With Differential Ord2 RBC 4.12 M/uL 03/10/2015 Cbc With Differential Ord2 HGB 12.6 g/dL 03/10/2015 Cbc With Differential Ord2 HCT 40.7 % 03/10/2015 Cbc With Differential Ord2 MCV 99 fL 03/10/2015 Cbc With Differential Ord2 MCH 31 pg 03/10/2015 Cbc With Differential Ord2 MCHC 31 g/dL 03/10/2015 Cbc With Differential Ord2 PLT 213 K/uL 03/10/2015 Cbc With Differential Ord2 RDW 14.2 % 03/10/2015 VIT D TOTL 0778274 VIT D TOTL 55 NG/ML 05/08/2014 TSH 2683706 TSH 0.478 uIU/ML 01/14/2014 VIT D TOTL 1717185 VIT D TOTL 15 NG/ML 01/14/2014 FREE T4 9957044 FREE T4 1.42 NG/DL 01/14/2014 CHEM 14 7876245 AST 19 U/L 01/14/2014 CHEM 14 8516529 ALT 11 IU/L 01/14/2014 CHEM 14 0683777 BUN 19 MG/DL 01/14/2014 CHEM 14 1015588 ALBUMIN 4.0 GM/DL 01/14/2014 CHEM 14 5061012 CHLORIDE 105 MMOL/L 01/14/2014 CHEM 14 6547282 BILI TOT 0.5 MG/DL 01/14/2014 CHEM 14 6108681 ALK PHOS 75 U/L 01/14/2014 CHEM 14 3271769 SODIUM 136 MMOL/L 01/14/2014 CHEM 14 7617959 CREATININE 1.12 MG/DL 01/14/2014 CHEM 14 2344893 CALCIUM 10.1 MG/DL 01/14/2014 CHEM 14 4127184 POTASSIUM 4.2 MMOL/L 01/14/2014 CHEM 14 4598701 PROT TOT 6.3 GM/DL 01/14/2014 CHEM 14 0097841 GLUCOSE 90 MG/DL 01/14/2014 CHEM 14 0253123 BICARB 26 MMOL/L 01/14/2014 CHEM 14 1511089 ANION GAP 5 MEQ/L 01/14/2014 CBC 1779868 WBC 5.0 10e9/L 01/14/2014 CBC 2773097 RBC 4.02 10e12/L 01/14/2014 CBC 5196384 HGB 12.8 g/dL 01/14/2014 CBC 9519211 HCT DET 39.1 % 01/14/2014 CBC 5243661 MCV 97.3 fL 01/14/2014 CBC 7579519 MCH 31.8 pg 01/14/2014 CBC 9273776 MCHC 32.7 g/dL 01/14/2014 CBC 8886068 PLT 256 10e9/L 01/14/2014 CBC 0723971 MPV 11.2 fL 01/14/2014 CBC 2458419 [place] % 64.4 % 01/14/2014 CBC 1020635 LY % 23.4 % 01/14/2014 CBC 5293192 MON % 8.2 % 01/14/2014 CBC 2245033 EOS % 3.0 % 01/14/2014 CBC 7562983 BASO % 1.0 % 01/14/2014 CBC 6508412 RDW 14.5 % 01/14/2014 CBC 2594340 ABS [place] 3.22 10e9/L 01/14/2014 CBC 6118464 ABS LYMPH 1.17 10e9/L 01/14/2014 CBC 2759674 ABS MONO 0.41 10e9/L 01/14/2014 CBC 2281185 ABS EOS 0.15 10e9/L 01/14/2014 CBC 6648693 ABS BASO 0.05 10e9/L 01/14/2014 CBC 6019220 RDW-SD 50.3 fL 01/14/2014 GFR CALC 7302641 GFR AA 56.0L ML/MIN 01/14/2014 GFR CALC 6165994 GFR NON-AA 47.0L ML/MIN 01/14/2014 CHEM 14 0129081 AST 14 U/L 06/08/2013 CHEM 14 0123684 ALT 11 IU/L 06/08/2013 CHEM 14 1739782 BUN 21 MG/DL 06/08/2013 CHEM 14 5230199 ALBUMIN 3.7 GM/DL 06/08/2013 CHEM 14 3484530 CHLORIDE 105 MMOL/L 06/08/2013 CHEM 14 3957370 BILI TOT 0.5 MG/DL 06/08/2013 CHEM 14 1964886 ALK PHOS 68 U/L 06/08/2013 CHEM 14 0428396 SODIUM 138 MMOL/L 06/08/2013 CHEM 14 7731476 CREATININE 0.81 MG/DL 06/08/2013 CHEM 14 4216207 CALCIUM 9.8 MG/DL 06/08/2013 CHEM 14 7388787 POTASSIUM 3.9 MMOL/L 06/08/2013 CHEM 14 3684971 PROT TOT 5.7 GM/DL 06/08/2013 CHEM 14 4900591 GLUCOSE 86 MG/DL 06/08/2013 CHEM 14 8012525 BICARB 30 MMOL/L 06/08/2013 CHEM 14 5168767 ANION GAP 3 MEQ/L 06/08/2013 TSH 6372312 TSH 4.215 uIU/ML 06/08/2013 A1C HPLC 9209358 A1C HPLC 04624-2 5.5 % 06/08/2013 LIPID GRP HDL TEST 52 MG/DL 06/08/2013 LIPID GRP TRIG 166 MG/DL 06/08/2013 LIPID GRP TEST LDL 83 MG/DL 06/08/2013 LIPID GRP CHOL 168 MG/DL 06/08/2013 LIPID GRP RCHOL/HDL 3.23 RATIO 06/08/2013 CBC 7452065 WBC 4.2 10e9/L 06/08/2013 CBC 8583240 RBC 4.03 10e12/L 06/08/2013 CBC 8255966 HGB 12.7 g/dL 06/08/2013 CBC 9268919 HCT DET 39.4 % 06/08/2013 CBC 3169535 MCV 97.8 fL 06/08/2013 CBC 7415965 MCH 31.5 pg 06/08/2013 CBC 6740938 MCHC 32.2 g/dL 06/08/2013 CBC 2992899 PLT 216 10e9/L 06/08/2013 CBC 3890706 MPV 10.9 fL 06/08/2013 CBC 1804405 [place] % 55.2 % 06/08/2013 CBC 2517850 LY % 29.0 % 06/08/2013 CBC 7710565 MON % 9.8 % 06/08/2013 CBC 7161552 EOS % 4.8 % 06/08/2013 CBC 5143086 BASO % 1.2 % 06/08/2013 CBC 7509864 RDW 14.3 % 06/08/2013 CBC 2156391 ABS [place] 2.32 10e9/L 06/08/2013 CBC 9239578 ABS LYMPH 1.22 10e9/L 06/08/2013 CBC 1751929 ABS MONO 0.41 10e9/L 06/08/2013 CBC 4328788 ABS EOS 0.20 10e9/L 06/08/2013 CBC 5692909 ABS BASO 0.05 10e9/L 06/08/2013 CBC 4738512 RDW-SD 50.0 fL 06/08/2013 FREE T4 3335290 FREE T4 1.30 NG/DL 06/08/2013 GFR CALC 9652141 GFR AA >60 ML/MIN 06/08/2013 GFR CALC 6685394 GFR NON-AA >60 ML/MIN 06/08/2013 CBC 4987603 WBC 5.2 10e9/L 02/27/2013 CBC 5918637 RBC 3.98 10e12/L 02/27/2013 CBC 6480253 HGB 12.4 g/dL 02/27/2013 CBC 9414490 HCT DET 38.4 % 02/27/2013 CBC 6118398 MCV 96.5 fL 02/27/2013 CBC 8157708 MCH 31.2 pg 02/27/2013 CBC 3836722 MCHC 32.3 g/dL 02/27/2013 CBC 0602619 PLT 228 10e9/L 02/27/2013 CBC 7671873 MPV 11.0 fL 02/27/2013 CBC 6598397 [place] % 66.0 % 02/27/2013 CBC 8651728 LY % 24.5 % 02/27/2013 CBC 6365081 MON % 7.3 % 02/27/2013 CBC 7379357 EOS % 1.4 % 02/27/2013 CBC 8100107 BASO % 0.8 % 02/27/2013 CBC 7136582 RDW 14.1 % 02/27/2013 CBC 2697066 ABS [place] 3.43 10e9/L 02/27/2013 CBC 0460135 ABS LYMPH 1.27 10e9/L 02/27/2013 CBC 6619635 ABS MONO 0.38 10e9/L 02/27/2013 CBC 8972121 ABS EOS 0.07 10e9/L 02/27/2013 CBC 9394993 ABS BASO 0.04 10e9/L 02/27/2013 CBC 9475050 RDW-SD 48.2 fL 02/27/2013 A1C HPLC 9212297 A1C HPLC 15567-4 5.1 % 02/27/2013 LIPID GRP 1403513 HDL TEST 52 MG/DL 02/27/2013 LIPID GRP TRIG 151 MG/DL 02/27/2013 LIPID GRP TEST LDL 128 MG/DL 02/27/2013 LIPID GRP 4299333 CHOL 210 MG/DL 02/27/2013 LIPID GRP 0364941 RCHOL/HDL 4.04 RATIO 02/27/2013 GFR CALC 7255033 GFR AA >60 ML/MIN 02/27/2013 GFR CALC 0390606 GFR NON-AA >60 ML/MIN 02/27/2013 TSH 6077736 TSH 0.169 uIU/ML 02/27/2013 CHEM 14 4017472 AST 14 U/L 02/27/2013 CHEM 14 6690466 ALT 9 IU/L 02/27/2013 CHEM 14 6206455 BUN 13 MG/DL 02/27/2013 CHEM 14 4600930 ALBUMIN 3.8 GM/DL 02/27/2013 CHEM 14 2742370 CHLORIDE 107 MMOL/L 02/27/2013 CHEM 14 6243298 BILI TOT 0.5 MG/DL 02/27/2013 CHEM 14 4025015 ALK PHOS 69 U/L 02/27/2013 CHEM 14 9523888 SODIUM 140 MMOL/L 02/27/2013 CHEM 14 9076240 CREATININE 0.62 MG/DL 02/27/2013 CHEM 14 5341600 CALCIUM 10.1 MG/DL 02/27/2013 CHEM 14 5430607 POTASSIUM 4.4 MMOL/L 02/27/2013 CHEM 14 8678088 PROT TOT 5.1 GM/DL 02/27/2013 CHEM 14 9282452 GLUCOSE 89 MG/DL 02/27/2013 CHEM 14 6016434 BICARB 29 MMOL/L 02/27/2013 CHEM 14 3454296 ANION GAP 4 MEQ/L 02/27/2013 FREE T4 3887960 FREE T4 1.33 NG/DL 02/27/2013 A1C HPLC 3873116 A1C HPLC 04222-4 5.6 % 10/19/2012 T3 FREE 2376306 T3 FREE 2.6 PG/ML 10/18/2012 FREE T4 2368693 FREE T4 1.10 NG/DL 10/18/2012 TSH 2285601 TSH 2.187 uIU/ML 10/18/2012 CBC 7241805 WBC 4.2 10e9/L 10/18/2012 CBC 8548284 RBC 3.97 10e12/L 10/18/2012 CBC 6848071 HGB 12.6 g/dL 10/18/2012 CBC 7258824 HCT DET 38.1 % 10/18/2012 CBC 9791577 MCV 96.0 fL 10/18/2012 CBC 3653260 MCH 31.7 pg 10/18/2012 CBC 1677590 MCHC 33.1 g/dL 10/18/2012 CBC 2299446 PLT 318 10e9/L 10/18/2012 CBC 3729073 MPV 10.2 fL 10/18/2012 CBC 5411180 [place] % 54.2 % 10/18/2012 CBC 8148471 LY % 32.1 % 10/18/2012 CBC 9214589 MON % 7.9 % 10/18/2012 CBC 8053958 EOS % 4.1 % 10/18/2012 CBC 5339400 BASO % 1.7 % 10/18/2012 CBC 5034899 RDW 13.9 % 10/18/2012 CBC 3981813 ABS [place] 2.28 10e9/L 10/18/2012 CBC 6788002 ABS LYMPH 1.35 10e9/L 10/18/2012 CBC 1656676 ABS MONO 0.33 10e9/L 10/18/2012 CBC 3918346 ABS EOS 0.17 10e9/L 10/18/2012 CBC 3210137 ABS BASO 0.07 10e9/L 10/18/2012 CBC 4367416 RDW-SD 47.5 fL 10/18/2012 GFR CALC 4507321 GFR AA >60 ML/MIN 10/18/2012 GFR CALC 9272346 GFR NON-AA >60 ML/MIN 10/18/2012 LIPID GRP HDL TEST 48 MG/DL 10/18/2012 LIPID GRP TRIG 194 MG/DL 10/18/2012 LIPID GRP TEST LDL 138 MG/DL 10/18/2012 LIPID GRP CHOL 225 MG/DL 10/18/2012 LIPID GRP RCHOL/HDL 4.69 RATIO 10/18/2012 CHEM 14 5258668 AST 16 U/L 10/18/2012 CHEM 14 20271125 ALT 15 IU/L 10/18/2012 CHEM 14 6901370 BUN 21 MG/DL 10/18/2012 CHEM 14 8871891 ALBUMIN 3.9 GM/DL 10/18/2012 CHEM 14 0936916 CHLORIDE 107 MMOL/L 10/18/2012 CHEM 14 2449163 BILI TOT 0.5 MG/DL 10/18/2012 CHEM 14 2681399 ALK PHOS 126 U/L 10/18/2012 CHEM 14 9293126 SODIUM 138 MMOL/L 10/18/2012 CHEM 14 6344153 CREATININE 0.73 MG/DL 10/18/2012 CHEM 14 9584498 CALCIUM 10.2 MG/DL 10/18/2012 CHEM 14 4339119 POTASSIUM 3.9 MMOL/L 10/18/2012 CHEM 14 9462951 PROT TOT 5.9 GM/DL 10/18/2012 CHEM 14 3495063 GLUCOSE 101 MG/DL 10/18/2012 CHEM 14 7368252 BICARB 25 MMOL/L 10/18/2012 CHEM 14 1229592 ANION GAP 6 MEQ/L 10/18/2012 CHEM 14 6268787 AST 15 U/L 06/01/2012 CHEM 14 5349884 ALT 11 IU/L 06/01/2012 CHEM 14 0906584 BUN 20 MG/DL 06/01/2012 CHEM 14 4583247 ALBUMIN 3.7 GM/DL 06/01/2012 CHEM 14 9984706 CHLORIDE 110 MMOL/L 06/01/2012 CHEM 14 7533810 BILI TOT 0.5 MG/DL 06/01/2012 CHEM 14 2176478 ALK PHOS 66 U/L 06/01/2012 CHEM 14 6964644 SODIUM 142 MMOL/L 06/01/2012 CHEM 14 2609067 CREATININE 0.69 MG/DL 06/01/2012 CHEM 14 5907532 CALCIUM 9.8 MG/DL 06/01/2012 CHEM 14 8719621 POTASSIUM 4.6 MMOL/L 06/01/2012 CHEM 14 9874414 PROT TOT 5.8 GM/DL 06/01/2012 CHEM 14 5180079 GLUCOSE 84 MG/DL 06/01/2012 CHEM 14 2850415 BICARB 25 MMOL/L 06/01/2012 CHEM 14 3883805 ANION GAP 7 MEQ/L 06/01/2012 FREE T4 6252199 FREE T4 1.24 NG/DL 06/01/2012 TSH 2275072 TSH 1.748 uIU/ML 06/01/2012 LIPID GRP HDL TEST 55 MG/DL 06/01/2012 LIPID GRP TRIG 128 MG/DL 06/01/2012 LIPID GRP TEST LDL 90 MG/DL 06/01/2012 LIPID GRP CHOL 171 MG/DL 06/01/2012 LIPID GRP RCHOL/HDL 3.11 RATIO 06/01/2012 CBC 2560353 WBC 3.7 10e9/L 06/01/2012 CBC 7841243 RBC 3.97 10e12/L 06/01/2012 CBC 7595976 HGB 12.6 g/dL 06/01/2012 CBC 5547718 HCT DET 38.9 % 06/01/2012 CBC 4653352 MCV 98.0 fL 06/01/2012 CBC 9936169 MCH 31.7 pg 06/01/2012 CBC 6587822 MCHC 32.4 g/dL 06/01/2012 CBC 2534923 PLT 217 10e9/L 06/01/2012 CBC 5708249 MPV 11.1 fL 06/01/2012 CBC 2416603 NATALYA % 60.1 % 06/01/2012 CBC 5605929 LY % 25.5 % 06/01/2012 CBC 6423037 MON % 8.1 % 06/01/2012 CBC 8773525 EOS % 4.1 % 06/01/2012 CBC 8240974 BASO % 2.2 % 06/01/2012 CBC 7298532 RDW 14.0 % 06/01/2012 CBC 7403044 ABS NATALYA 2.22 10e9/L 06/01/2012 CBC 5877501 ABS LYMPH 0.94 10e9/L 06/01/2012 CBC 5247084 ABS MONO 0.30 10e9/L 06/01/2012 CBC 3975736 ABS EOS 0.15 10e9/L 06/01/2012 CBC 5793064 ABS BASO 0.08 10e9/L 06/01/2012 CBC 7536737 RDW-SD 48.9 fL 06/01/2012 GFR CALC 7153705 GFR AA >60 ML/MIN 06/01/2012 GFR CALC 1546005 GFR NON-AA >60 ML/MIN 06/01/2012 GFR CALC 5905443 GFR AA >60 ML/MIN 11/18/2011 GFR CALC 7661819 GFR NON-AA >60 ML/MIN 11/18/2011 CBC 6169799 WBC 3.6 10e9/L 11/18/2011 CBC 9076036 RBC 4.03 10e12/L 11/18/2011 CBC 4155381 HGB 12.5 g/dL 11/18/2011 CBC 1056755 HCT DET 38.2 % 11/18/2011 CBC 6514290 MCV 94.8 fL 11/18/2011 CBC 2075144 MCH 31.0 pg 11/18/2011 CBC 2156829 MCHC 32.7 g/dL 11/18/2011 CBC 8710127 PLT 218 10e9/L 11/18/2011 CBC 3977572 MPV 10.5 fL 11/18/2011 CBC 3548475 NATALYA % 58.1 % 11/18/2011 CBC 3362362 LY % 27.1 % 11/18/2011 CBC 0633760 MON % 10.1 % 11/18/2011 CBC 9392300 EOS % 3.9 % 11/18/2011 CBC 9693452 BASO % 0.8 % 11/18/2011 CBC 2878169 RDW 14.6 % 11/18/2011 CBC 0874468 ABS NATALYA 2.09 10e9/L 11/18/2011 CBC 3182570 ABS LYMPH 0.98 10e9/L 11/18/2011 CBC 5139844 ABS MONO 0.36 10e9/L 11/18/2011 CBC 9890382 ABS EOS 0.14 10e9/L 11/18/2011 CBC 6275315 ABS BASO 0.03 10e9/L 11/18/2011 CBC 3056743 RDW-SD 49.2 fL 11/18/2011 CHEM 14 1242255 AST 14 U/L 11/18/2011 CHEM 14 6978458 ALT 9 IU/L 11/18/2011 CHEM 14 5647708 BUN 18 MG/DL 11/18/2011 CHEM 14 3692127 ALBUMIN 4.0 GM/DL 11/18/2011 CHEM 14 2917725 CHLORIDE 107 MMOL/L 11/18/2011 CHEM 14 0700830 BILI TOT 0.6 MG/DL 11/18/2011 CHEM 14 0132364 ALK PHOS 77 U/L 11/18/2011 CHEM 14 6576087 SODIUM 140 MMOL/L 11/18/2011 CHEM 14 [id number] CREATININE 0.77 MG/DL 11/18/2011 CHEM 14 [id number] CALCIUM 9.9 MG/DL 11/18/2011 CHEM 14 [id number] POTASSIUM 4.1 MMOL/L 11/18/2011 CHEM 14 [id number] PROT TOT 6.1 GM/DL 11/18/2011 CHEM 14 [id number] GLUCOSE 88 MG/DL 11/18/2011 CHEM 14 [id number] BICARB 26 MMOL/L 11/18/2011 CHEM 14 [id number] ANION GAP 7 MEQ/L 11/18/2011 LIPID GRP HDL TEST 48 MG/DL 11/18/2011 LIPID GRP TRIG 145 MG/DL 11/18/2011 LIPID GRP TEST LDL 87 MG/DL 11/18/2011 LIPID GRP CHOL 164 MG/DL 11/18/2011 LIPID GRP RCHOL/HDL 3.42 RATIO 11/18/2011 FREE T4 [id number] FREE T4 1.16 NG/DL 11/18/2011 TSH [id number] TSH 2.039 uIU/ML 11/18/2011 Review of Systems System Result Effective Dates Constitutional No recent illness 2016 Constitutional No anorexia 01/27/2017 Constitutional No diaphoresis 01/27/2017 Constitutional fatigue 01/27/2017 Constitutional No fever 01/27/2017 Constitutional No insomnia 01/27/2017 Constitutional malaise 01/27/2017 Eyes No vision change 01/27/2017 Cardiovascular No chest pain/pressure 11/2016 Cardiovascular No dyspnea 01/27/2017 Cardiovascular No edema 01/27/2017 Respiratory No chest congestion 2016 Respiratory No cough 01/27/2017 Gastrointestinal No abdominal pain 2016 Gastrointestinal No anorexia 01/27/2017 Gastrointestinal No constipation 2016 Gastrointestinal No diarrhea 01/27/2017 Gastrointestinal No gastroesophageal reflux 01/27/2017 Gastrointestinal No nausea 01/27/2017 Gastrointestinal No vomiting 01/27/2017 Genitourinary/Nephrology urinary incontinence 01/27/2017 Musculoskeletal No stiffness 01/27/2017 Musculoskeletal No swelling 01/27/2017 Musculoskeletal No back pain 01/27/2017 Musculoskeletal No bone pain 01/27/2017 Musculoskeletal No muscle weakness 2016 Musculoskeletal No myalgias 01/27/2017 Dermatologic No rash 01/27/2017 Dermatologic No sores 01/27/2017 Dermatologic No scar 01/27/2017 Neurologic No dizziness 01/27/2017 Neurologic No headache 01/27/2017 Neurologic No neck pain 01/27/2017 Neurologic No syncope 01/27/2017 Psychiatric No anxiety 01/27/2017 Psychiatric depression 01/27/2017 Genitourinary/Nephrology urinary urgency 01/27/2017 Constitutional recent illness 01/17/2017 Constitutional No chills 01/17/2017 Constitutional No diaphoresis 01/17/2017 Constitutional No fever 01/17/2017 Eyes No eye erythema 01/17/2017 Ears/Nose/Throat/Neck No nasal discharge 01/17/2017 Ears/Nose/Throat/Neck No nasal allergies 01/17/2017 Cardiovascular No chest pain/pressure Cardiovascular No dyspnea 01/17/2017 Respiratory No cough 01/17/2017 Respiratory No dyspnea 01/17/2017 Gastrointestinal abdominal pain 2016 Gastrointestinal No constipation 2016 Gastrointestinal No diarrhea 01/17/2017 Gastrointestinal gastroesophageal reflux 01/17/2017 Gastrointestinal No jaundice 01/17/2017 Gastrointestinal No hematochezia 2016 Gastrointestinal No vomiting 01/17/2017 Gastrointestinal nausea 01/17/2017 Genitourinary/Nephrology No dysuria 01/17 Neurologic No alteration of consciousness 01/17/2017 Neurologic No mental status change 2016 Constitutional recent illness 01/07/2017 Constitutional No chills 01/07/2017 Constitutional No diaphoresis 01/07/2017 Constitutional No fever 01/07/2017 Eyes No eye erythema 01/07/2017 Ears/Nose/Throat/Neck No nasal allergies 01/07/2017 Ears/Nose/Throat/Neck No nasal discharge 01/07/2017 Cardiovascular No chest pain/pressure Cardiovascular No dyspnea 01/07/2017 Respiratory No cough 01/07/2017 Respiratory No dyspnea 01/07/2017 Gastrointestinal No abdominal pain 2016 Dermatologic rash 01/07/2017 Neurologic No alteration of consciousness 01/07/2017 Neurologic No mental status change 2016 Constitutional recent illness 12/29/2016 Constitutional No chills 12/29/2016 Constitutional No diaphoresis 12/29/2016 Constitutional fatigue 12/29/2016 Constitutional malaise 12/29/2016 Constitutional No fever 12/29/2016 Eyes No eye erythema 12/29/2016 Ears/Nose/Throat/Neck No nasal discharge 12/29/2016 Ears/Nose/Throat/Neck No nasal allergies 12/29/2016 Cardiovascular No chest pain/pressure 01/2017 Cardiovascular No dyspnea 12/29/2016 Respiratory No cough 12/29/2016 Respiratory No dyspnea 12/29/2016 Gastrointestinal No abdominal pain 2016 Genitourinary/Nephrology dysuria 2016 Dermatologic No rash 12/29/2016 Neurologic No alteration of consciousness 12/29/2016 Neurologic No mental status change 2016 Constitutional No chills 12/16/2016 Constitutional No diaphoresis 12/16/2016 Constitutional No fever 12/16/2016 Constitutional No recent illness 2016 Eyes No eye erythema 12/16/2016 Ears/Nose/Throat/Neck headache 2016 Ears/Nose/Throat/Neck No nasal allergies 12/16/2016 Ears/Nose/Throat/Neck No nasal discharge 12/16/2016 Ears/Nose/Throat/Neck No sinus congestion 12/16/2016 Eyes photophobia 12/16/2016 Cardiovascular No chest pain/pressure Cardiovascular No dyspnea 12/16/2016 Respiratory No cough 12/16/2016 Respiratory No dyspnea 12/16/2016 Gastrointestinal No abdominal pain 2016 Gastrointestinal No constipation 2016 Gastrointestinal diarrhea 12/16/2016 Gastrointestinal nausea 12/16/2016 Gastrointestinal No vomiting 12/16/2016 Musculoskeletal No joint complaint 2016 Dermatologic No rash 12/16/2016 Neurologic No alteration of consciousness 12/16/2016 Neurologic No mental status change 2016 Neurologic headache 12/16/2016 Neurologic No aphasia 12/16/2016 Neurologic No weakness 12/16/2016 Neurologic No speech difficulties 2016 Neurologic No gait abnormality 2016 Constitutional No recent illness 2016 Constitutional No anorexia 08/25/2016 Constitutional No diaphoresis 08/25/2016 Constitutional fatigue 08/25/2016 Constitutional No fever 08/25/2016 Constitutional No insomnia 08/25/2016 Constitutional malaise 08/25/2016 Eyes No vision change 08/25/2016 Cardiovascular No chest pain/pressure 09/2016 Cardiovascular No dyspnea 08/25/2016 Cardiovascular No edema 08/25/2016 Respiratory No chest congestion 2016 Respiratory No cough 08/25/2016 Gastrointestinal No abdominal pain 2016 Gastrointestinal No anorexia 08/25/2016 Gastrointestinal No constipation 2016 Gastrointestinal No diarrhea 08/25/2016 Gastrointestinal No gastroesophageal reflux 08/25/2016 Gastrointestinal No nausea 08/25/2016 Gastrointestinal No vomiting 08/25/2016 Genitourinary/Nephrology urinary incontinence 08/25/2016 Musculoskeletal No stiffness 08/25/2016 Musculoskeletal No swelling 08/25/2016 Musculoskeletal No back pain 08/25/2016 Musculoskeletal No bone pain 08/25/2016 Musculoskeletal No muscle weakness 2016 Musculoskeletal No myalgias 08/25/2016 Dermatologic No rash 08/25/2016 Dermatologic No sores 08/25/2016 Dermatologic No scar 08/25/2016 Neurologic No dizziness 08/25/2016 Neurologic No headache 08/25/2016 Neurologic No neck pain 08/25/2016 Neurologic No syncope 08/25/2016 Psychiatric No anxiety 08/25/2016 Psychiatric depression 08/25/2016 Constitutional No diaphoresis 05/11/2016 Constitutional No fever 05/11/2016 Eyes No vision change 05/11/2016 Respiratory No cough 05/11/2016 Neurologic headache 05/11/2016 Ears/Nose/Throat/Neck No nasal discharge 05/11/2016 Cardiovascular No chest pain/pressure Cardiovascular No dyspnea 05/11/2016 Respiratory No dyspnea 05/11/2016 Gastrointestinal nausea 05/11/2016 Gastrointestinal No vomiting 05/11/2016 Musculoskeletal No joint complaint 2015 Neurologic No alteration of consciousness 05/11/2016 Neurologic No mental status change 2015 Constitutional No recent illness 2015 Constitutional No anorexia 04/20/2016 Constitutional No diaphoresis 04/20/2016 Constitutional fatigue 04/20/2016 Constitutional No fever 04/20/2016 Constitutional No insomnia 04/20/2016 Constitutional malaise 04/20/2016 Eyes No vision change 04/20/2016 Cardiovascular No chest pain/pressure Cardiovascular No dyspnea 04/20/2016 Cardiovascular No edema 04/20/2016 Respiratory No chest congestion 2015 Respiratory No cough 04/20/2016 Gastrointestinal No abdominal pain 2015 Gastrointestinal No anorexia 04/20/2016 Gastrointestinal No constipation 2015 Gastrointestinal No diarrhea 04/20/2016 Gastrointestinal No gastroesophageal reflux 04/20/2016 Gastrointestinal No nausea 04/20/2016 Gastrointestinal No vomiting 04/20/2016 Genitourinary/Nephrology urinary incontinence 04/20/2016 Musculoskeletal No stiffness 04/20/2016 Musculoskeletal No swelling 04/20/2016 Musculoskeletal No back pain 04/20/2016 Musculoskeletal No bone pain 04/20/2016 Musculoskeletal No muscle weakness 2015 Musculoskeletal No myalgias 04/20/2016 Dermatologic No rash 04/20/2016 Dermatologic No sores 04/20/2016 Dermatologic No scar 04/20/2016 Neurologic No dizziness 04/20/2016 Neurologic No headache 04/20/2016 Neurologic No neck pain 04/20/2016 Neurologic No syncope 04/20/2016 Psychiatric No anxiety 04/20/2016 Psychiatric depression 04/20/2016 Constitutional No recent illness 2015 Constitutional No anorexia 03/10/2016 Constitutional No diaphoresis 03/10/2016 Constitutional fatigue 03/10/2016 Constitutional No fever 03/10/2016 Constitutional No insomnia 03/10/2016 Eyes No vision change 03/10/2016 Cardiovascular No chest pain/pressure Cardiovascular No dyspnea 03/10/2016 Cardiovascular No edema 03/10/2016 Respiratory No chest congestion 2015 Respiratory No cough 03/10/2016 Gastrointestinal No abdominal pain 2015 Gastrointestinal No anorexia 03/10/2016 Gastrointestinal No constipation 2015 Gastrointestinal No diarrhea 03/10/2016 Gastrointestinal No gastroesophageal reflux 03/10/2016 Gastrointestinal No nausea 03/10/2016 Gastrointestinal No vomiting 03/10/2016 Genitourinary/Nephrology urinary incontinence 03/10/2016 Musculoskeletal No stiffness 03/10/2016 Musculoskeletal No swelling 03/10/2016 Musculoskeletal No back pain 03/10/2016 Musculoskeletal No bone pain 03/10/2016 Musculoskeletal No muscle weakness 2015 Musculoskeletal No myalgias 03/10/2016 Dermatologic No rash 03/10/2016 Dermatologic No sores 03/10/2016 Dermatologic No scar 03/10/2016 Neurologic No dizziness 03/10/2016 Neurologic No headache 03/10/2016 Neurologic No neck pain 03/10/2016 Neurologic No syncope 03/10/2016 Psychiatric No anxiety 03/10/2016 Psychiatric depression 03/10/2016 Constitutional malaise 03/10/2016 Constitutional No recent illness 2015 Constitutional No anorexia 11/18/2015 Constitutional No diaphoresis 11/18/2015 Constitutional fatigue 11/18/2015 Constitutional No fever 11/18/2015 Constitutional No insomnia 11/18/2015 Eyes No vision change 11/18/2015 Cardiovascular No chest pain/pressure Cardiovascular No dyspnea 11/18/2015 Cardiovascular No edema 11/18/2015 Respiratory No chest congestion 2015 Respiratory No cough 11/18/2015 Gastrointestinal No abdominal pain 2015 Gastrointestinal No anorexia 11/18/2015 Gastrointestinal No constipation 2015 Gastrointestinal No diarrhea 11/18/2015 Gastrointestinal No gastroesophageal reflux 11/18/2015 Gastrointestinal No nausea 11/18/2015 Gastrointestinal No vomiting 11/18/2015 Genitourinary/Nephrology urinary incontinence 11/18/2015 Musculoskeletal No stiffness 11/18/2015 Musculoskeletal No swelling 11/18/2015 Musculoskeletal No back pain 11/18/2015 Musculoskeletal No bone pain 11/18/2015 Musculoskeletal No muscle weakness 2015 Musculoskeletal No myalgias 11/18/2015 Dermatologic No rash 11/18/2015 Dermatologic No sores 11/18/2015 Dermatologic No scar 11/18/2015 Neurologic No dizziness 11/18/2015 Neurologic No headache 11/18/2015 Neurologic No neck pain 11/18/2015 Neurologic No syncope 11/18/2015 Psychiatric No anxiety 11/18/2015 Psychiatric No depression 11/18/2015 Constitutional No recent illness 2015 Constitutional No anorexia 09/11/2015 Constitutional No night sweats 2015 Constitutional No chills 09/11/2015 Constitutional No diaphoresis 09/11/2015 Constitutional fatigue 09/11/2015 Constitutional No fever 09/11/2015 Constitutional No insomnia 09/11/2015 Constitutional No malaise 09/11/2015 Constitutional No weight loss 09/11/2015 Constitutional No weight gain 09/11/2015 Eyes No eye discharge 09/11/2015 Eyes No eye erythema 09/11/2015 Ears/Nose/Throat/Neck No dizziness 2015 Ears/Nose/Throat/Neck No headache 2015 Cardiovascular No chest pain/pressure Cardiovascular No dyspnea 09/11/2015 Respiratory No cough 09/11/2015 Gastrointestinal No abdominal pain 2015 Gastrointestinal No constipation 2015 Gastrointestinal No diarrhea 09/11/2015 Genitourinary/Nephrology No dysuria 09/10 Musculoskeletal No joint complaint 2015 Dermatologic No rash 09/11/2015 Neurologic No aphasia 09/11/2015 Constitutional No recent illness 2015 Constitutional No anorexia 08/06/2015 Constitutional No diaphoresis 08/06/2015 Constitutional fatigue 08/06/2015 Constitutional No fever 08/06/2015 Constitutional No insomnia 08/06/2015 Eyes No vision change 08/06/2015 Cardiovascular No chest pain/pressure Cardiovascular No dyspnea 08/06/2015 Cardiovascular No edema 08/06/2015 Respiratory No chest congestion 2015 Respiratory No cough 08/06/2015 Gastrointestinal abdominal pain 2015 Gastrointestinal No anorexia 08/06/2015 Gastrointestinal No constipation 2015 Gastrointestinal No diarrhea 08/06/2015 Gastrointestinal No gastroesophageal reflux 08/06/2015 Gastrointestinal No nausea 08/06/2015 Gastrointestinal No vomiting 08/06/2015 Genitourinary/Nephrology urinary incontinence 08/06/2015 Musculoskeletal No stiffness 08/06/2015 Musculoskeletal No swelling 08/06/2015 Musculoskeletal No back pain 08/06/2015 Musculoskeletal No bone pain 08/06/2015 Musculoskeletal No muscle weakness 2015 Musculoskeletal No myalgias 08/06/2015 Dermatologic No rash 08/06/2015 Dermatologic No sores 08/06/2015 Dermatologic No scar 08/06/2015 Neurologic No dizziness 08/06/2015 Neurologic No headache 08/06/2015 Neurologic No neck pain 08/06/2015 Neurologic No syncope 08/06/2015 Psychiatric No anxiety 08/06/2015 Psychiatric No depression 08/06/2015 Genitourinary/Nephrology No dysuria 07/15 Genitourinary/Nephrology flank pain 07/15 Musculoskeletal No swelling 07/15/2015 Musculoskeletal No stiffness 07/15/2015 Musculoskeletal back pain 07/15/2015 Musculoskeletal No muscle weakness 2015 Musculoskeletal No myalgias 07/15/2015 Musculoskeletal No joint complaint 2015 Gastrointestinal No diarrhea 07/15/2015 Gastrointestinal No constipation 2015 Gastrointestinal No nausea 07/15/2015 Gastrointestinal No vomiting 07/15/2015 Psychiatric No disturbances of consciousness 07/15/2015 Psychiatric No disturbances of emotion Constitutional No recent illness 2015 Constitutional No anorexia 07/15/2015 Constitutional No night sweats 2015 Constitutional No chills 07/15/2015 Constitutional No diaphoresis 07/15/2015 Constitutional No fatigue 07/15/2015 Constitutional No fever 07/15/2015 Constitutional No insomnia 07/15/2015 Constitutional No malaise 07/15/2015 Constitutional No weight loss 07/15/2015 Constitutional No weight gain 07/15/2015 Constitutional No obesity 07/15/2015 Respiratory No cough 07/15/2015 Respiratory No cigarette smoking 2015 Respiratory No chest tightness 2015 Respiratory No chest congestion 2015 Respiratory No dyspnea 07/15/2015 Respiratory No dyspnea on exertion 2015 Cardiovascular No chest pain/pressure Ears/Nose/Throat/Neck No headache 2015 Ears/Nose/Throat/Neck No nasal allergies 07/15/2015 Ears/Nose/Throat/Neck No nasal discharge 07/15/2015 Dermatologic No sores 07/15/2015 Dermatologic No rash 07/15/2015 Dermatologic seborrheic keratosis 2015 Constitutional No recent illness 2015 Constitutional No anorexia 07/04/2015 Constitutional No diaphoresis 07/04/2015 Constitutional fatigue 07/04/2015 Constitutional No fever 07/04/2015 Constitutional No insomnia 07/04/2015 Eyes No vision change 07/04/2015 Cardiovascular No chest pain/pressure 04/2016 Cardiovascular No dyspnea 07/04/2015 Cardiovascular No edema 07/04/2015 Respiratory No chest congestion 2015 Respiratory No cough 07/04/2015 Gastrointestinal No abdominal pain 2015 Gastrointestinal No anorexia 07/04/2015 Gastrointestinal No constipation 2015 Gastrointestinal No diarrhea 07/04/2015 Gastrointestinal No gastroesophageal reflux 07/04/2015 Gastrointestinal No nausea 07/04/2015 Gastrointestinal No vomiting 07/04/2015 Genitourinary/Nephrology urinary incontinence 07/04/2015 Musculoskeletal No stiffness 07/04/2015 Musculoskeletal No swelling 07/04/2015 Musculoskeletal No back pain 07/04/2015 Musculoskeletal No bone pain 07/04/2015 Musculoskeletal No muscle weakness 2015 Musculoskeletal No myalgias 07/04/2015 Dermatologic No rash 07/04/2015 Dermatologic No sores 07/04/2015 Dermatologic No scar 07/04/2015 Neurologic No dizziness 07/04/2015 Neurologic No headache 07/04/2015 Neurologic No neck pain 07/04/2015 Neurologic No syncope 07/04/2015 Psychiatric No anxiety 07/04/2015 Psychiatric No depression 07/04/2015 Constitutional No recent illness 2014 Constitutional No anorexia 03/13/2015 Constitutional No diaphoresis 03/13/2015 Constitutional fatigue 03/13/2015 Constitutional No fever 03/13/2015 Constitutional No insomnia 03/13/2015 Eyes No vision change 03/13/2015 Cardiovascular No chest pain/pressure Cardiovascular No dyspnea 03/13/2015 Cardiovascular No edema 03/13/2015 Respiratory No chest congestion 2014 Respiratory No cough 03/13/2015 Gastrointestinal No abdominal pain 2014 Gastrointestinal No anorexia 03/13/2015 Gastrointestinal No constipation 2014 Gastrointestinal No diarrhea 03/13/2015 Gastrointestinal No gastroesophageal reflux 03/13/2015 Gastrointestinal No nausea 03/13/2015 Gastrointestinal No vomiting 03/13/2015 Genitourinary/Nephrology urinary incontinence 03/13/2015 Musculoskeletal No stiffness 03/13/2015 Musculoskeletal No swelling 03/13/2015 Musculoskeletal No back pain 03/13/2015 Musculoskeletal No bone pain 03/13/2015 Musculoskeletal No muscle weakness 2014 Musculoskeletal No myalgias 03/13/2015 Dermatologic No rash 03/13/2015 Dermatologic No sores 03/13/2015 Dermatologic No scar 03/13/2015 Neurologic No dizziness 03/13/2015 Neurologic No headache 03/13/2015 Neurologic No neck pain 03/13/2015 Neurologic No syncope 03/13/2015 Psychiatric No anxiety 03/13/2015 Psychiatric No depression 03/13/2015 Ears/Nose/Throat/Neck No dental pain Ears/Nose/Throat/Neck No dizziness 2014 Ears/Nose/Throat/Neck No dysphagia 2014 Ears/Nose/Throat/Neck No headache 2014 Ears/Nose/Throat/Neck No hearing loss Ears/Nose/Throat/Neck No nasal allergies 03/13/2015 Ears/Nose/Throat/Neck No sore throat Ears/Nose/Throat/Neck No postnasal drip 03/13/2015 Ears/Nose/Throat/Neck No sinus congestion 03/13/2015 Gastrointestinal abdominal pain 2014 Gastrointestinal No constipation 2014 Gastrointestinal No diarrhea 10/08/2014 Gastrointestinal nausea 10/08/2014 Gastrointestinal No vomiting 10/08/2014 Genitourinary/Nephrology No dysuria 10/08 Genitourinary/Nephrology No urinary frequency 10/08/2014 Genitourinary/Nephrology No urinary urgency 10/08/2014 Constitutional recent illness 10/08/2014 Constitutional No fatigue 10/08/2014 Constitutional No fever 10/08/2014 Constitutional No diaphoresis 10/08/2014 Constitutional anorexia 10/08/2014 Constitutional No night sweats 2014 Constitutional No chills 10/08/2014 Constitutional insomnia 10/08/2014 Eyes No eye discharge 10/08/2014 Eyes No eye erythema 10/08/2014 Ears/Nose/Throat/Neck No dizziness 2014 Ears/Nose/Throat/Neck No headache 2014 Cardiovascular No chest pain/pressure Cardiovascular No dyspnea 10/08/2014 Cardiovascular No edema 10/08/2014 Respiratory No productive sputum 2014 Respiratory No chest congestion 2014 Respiratory No cough 10/08/2014 Musculoskeletal No joint complaint 2014 Dermatologic No rash 10/08/2014 Neurologic No alteration of consciousness 10/08/2014 Psychiatric No anxiety 10/08/2014 Constitutional No recent illness 2014 Constitutional No insomnia 07/17/2014 Constitutional fatigue 07/17/2014 Cardiovascular No chest pain/pressure Cardiovascular No dyspnea 07/17/2014 Cardiovascular No edema 07/17/2014 Respiratory No chest congestion 2014 Respiratory No cough 07/17/2014 Gastrointestinal No vomiting 07/17/2014 Gastrointestinal No nausea 07/17/2014 Gastrointestinal No diarrhea 07/17/2014 Gastrointestinal No constipation 2014 Gastrointestinal No abdominal pain 2014 Genitourinary/Nephrology urinary incontinence 07/17/2014 Psychiatric No anxiety 07/17/2014 Psychiatric No depression 07/17/2014 Dermatologic No rash 07/17/2014 Dermatologic No scar 07/17/2014 Dermatologic No sores 07/17/2014 Neurologic No dizziness 07/17/2014 Neurologic No headache 07/17/2014 Neurologic No neck pain 07/17/2014 Neurologic No syncope 07/17/2014 Musculoskeletal No stiffness 07/17/2014 Musculoskeletal No swelling 07/17/2014 Musculoskeletal No muscle weakness 2014 Musculoskeletal No myalgias 07/17/2014 Constitutional No anorexia 07/17/2014 Constitutional No diaphoresis 07/17/2014 Constitutional No fever 07/17/2014 Eyes No vision change 07/17/2014 Gastrointestinal No anorexia 07/17/2014 Gastrointestinal No gastroesophageal reflux 07/17/2014 Musculoskeletal No back pain 07/17/2014 Musculoskeletal No bone pain 07/17/2014 Constitutional No anorexia 01/11/2014 Constitutional No diaphoresis 01/11/2014 Constitutional No fever 01/11/2014 Eyes No vision change 01/11/2014 Respiratory No cough 01/11/2014 Gastrointestinal No anorexia 01/11/2014 Gastrointestinal No constipation 2013 Gastrointestinal No gastroesophageal reflux 01/11/2014 Dermatologic No rash 01/11/2014 Dermatologic No sores 01/11/2014 Neurologic No headache 01/11/2014 Psychiatric No anxiety 01/11/2014 Psychiatric No depression 01/11/2014 Cardiovascular No chest pain/pressure Cardiovascular No dyspnea 01/11/2014 Cardiovascular No edema 01/11/2014 Cardiovascular No exercise intolerance Cardiovascular No fatigue 01/11/2014 Cardiovascular No near-syncope/dizziness 01/11/2014 Constitutional No anorexia 07/02/2013 Constitutional No diaphoresis 07/02/2013 Constitutional No fever 07/02/2013 Eyes No vision change 07/02/2013 Respiratory No cough 07/02/2013 Gastrointestinal No anorexia 07/02/2013 Gastrointestinal No constipation 2013 Gastrointestinal No gastroesophageal reflux 07/02/2013 Musculoskeletal No back pain 07/02/2013 Musculoskeletal No bone pain 07/02/2013 Dermatologic No rash 07/02/2013 Dermatologic No sores 07/02/2013 Neurologic No headache 07/02/2013 Psychiatric No anxiety 07/02/2013 Psychiatric No depression 07/02/2013 Constitutional No anorexia 02/26/2013 Constitutional No diaphoresis 02/26/2013 Constitutional No fever 02/26/2013 Eyes No vision change 02/26/2013 Respiratory No cough 02/26/2013 Gastrointestinal No anorexia 02/26/2013 Gastrointestinal No constipation 2012 Gastrointestinal No gastroesophageal reflux 02/26/2013 Musculoskeletal No back pain 02/26/2013 Musculoskeletal No bone pain 02/26/2013 Dermatologic No rash 02/26/2013 Dermatologic No sores 02/26/2013 Neurologic No headache 02/26/2013 Psychiatric No anxiety 02/26/2013 Psychiatric No depression 02/26/2013 Constitutional No anorexia 10/24/2012 Constitutional No diaphoresis 10/24/2012 Constitutional No fever 10/24/2012 Eyes No vision change 10/24/2012 Respiratory No cough 10/24/2012 Gastrointestinal No anorexia 10/24/2012 Gastrointestinal No constipation 2012 Gastrointestinal No gastroesophageal reflux 10/24/2012 Musculoskeletal No back pain 10/24/2012 Musculoskeletal No bone pain 10/24/2012 Dermatologic No rash 10/24/2012 Dermatologic No sores 10/24/2012 Neurologic No headache 10/24/2012 Psychiatric No anxiety 10/24/2012 Psychiatric No depression 10/24/2012 Constitutional No anorexia 09/12/2012 Constitutional No diaphoresis 09/12/2012 Constitutional No fever 09/12/2012 Eyes No vision change 09/12/2012 Respiratory No cough 09/12/2012 Gastrointestinal No anorexia 09/12/2012 Gastrointestinal No constipation 2012 Gastrointestinal No gastroesophageal reflux 09/12/2012 Musculoskeletal No back pain 09/12/2012 Musculoskeletal No bone pain 09/12/2012 Dermatologic No rash 09/12/2012 Dermatologic No sores 09/12/2012 Neurologic No headache 09/12/2012 Psychiatric No anxiety 09/12/2012 Psychiatric No depression 09/12/2012 Dermatologic No sores 05/30/2012 Neurologic No headache 05/30/2012 Psychiatric No anxiety 05/30/2012 Psychiatric No depression 05/30/2012 Constitutional No anorexia 05/30/2012 Constitutional No diaphoresis 05/30/2012 Constitutional No fever 05/30/2012 Eyes No vision change 05/30/2012 Respiratory No cough 05/30/2012 Gastrointestinal No anorexia 05/30/2012 Gastrointestinal No constipation 2012 Gastrointestinal No gastroesophageal reflux 05/30/2012 Musculoskeletal No back pain 05/30/2012 Musculoskeletal No bone pain 05/30/2012 Dermatologic No rash 05/30/2012 Constitutional No recent illness 2011 Constitutional No fatigue 02/22/2012 Constitutional No fever 02/22/2012 Constitutional No recent illness 2011 Constitutional No fatigue 02/08/2012 Constitutional No fever 02/08/2012 Ears/Nose/Throat/Neck No oral lesion Ears/Nose/Throat/Neck No oral pain 2011 Cardiovascular No chest pain/pressure Cardiovascular No dyspnea 02/08/2012 Cardiovascular No edema 02/08/2012 Respiratory No chest congestion 2011 Respiratory No chest tightness 2011 Respiratory No cough 02/08/2012 Neurologic No dizziness 02/08/2012 Psychiatric No anxiety 02/08/2012 Constitutional No recent illness 2011 Constitutional No fatigue 11/30/2011 Constitutional No fever 11/30/2011 Cardiovascular No chest pain/pressure 02/2012 Cardiovascular No dyspnea 11/30/2011 Cardiovascular No edema 11/30/2011 Ears/Nose/Throat/Neck No oral lesion 02/2012 Ears/Nose/Throat/Neck No oral pain 2011 Respiratory No cough 11/30/2011 Respiratory No chest tightness 2011 Respiratory No chest congestion 2011 Neurologic No dizziness 11/30/2011 Psychiatric No anxiety 11/30/2011 Constitutional No recent illness 2011 Constitutional No chills 10/13/2011 Constitutional No fatigue 10/13/2011 Constitutional No fever 10/13/2011 Cardiovascular chest pain/pressure 2011 Cardiovascular No dyspnea 10/13/2011 Cardiovascular No fatigue 10/13/2011 Cardiovascular No near-syncope/dizziness 10/13/2011 Respiratory No chest congestion 2011 Respiratory No chest tightness 2011 Respiratory No cough 10/13/2011 Respiratory No dyspnea 10/13/2011 Psychiatric No anxiety 10/13/2011 Psychiatric No depression 10/13/2011 Dermatologic pigmentation change 2011 Constitutional No anorexia 10/04/2011 Constitutional No diaphoresis 10/04/2011 Constitutional No fever 10/04/2011 Eyes No vision change 10/04/2011 Respiratory No cough 10/04/2011 Gastrointestinal No anorexia 10/04/2011 Gastrointestinal No constipation 2011 Gastrointestinal No gastroesophageal reflux 10/04/2011 Musculoskeletal No back pain 10/04/2011 Musculoskeletal No bone pain 10/04/2011 Dermatologic No rash 10/04/2011 Dermatologic No sores 10/04/2011 Neurologic No headache 10/04/2011 Psychiatric No anxiety 10/04/2011 Psychiatric No depression 10/04/2011 Constitutional No anorexia 05/12/2011 Constitutional No diaphoresis 05/12/2011 Constitutional No fever 05/12/2011 Eyes No vision change 05/12/2011 Respiratory No cough 05/12/2011 Musculoskeletal No back pain 05/12/2011 Musculoskeletal No bone pain 05/12/2011 Neurologic headache 05/12/2011 Psychiatric No anxiety 05/12/2011 Psychiatric No depression 05/12/2011 Genitourinary/Nephrology No dysuria 05/12 Constitutional No anorexia 03/17/2011 Constitutional No diaphoresis 03/17/2011 Constitutional No fever 03/17/2011 Eyes No vision change 03/17/2011 Respiratory No cough 03/17/2011 Gastrointestinal No gastroesophageal reflux 03/17/2011 Gastrointestinal No anorexia 03/17/2011 Gastrointestinal No constipation 2010 Musculoskeletal No back pain 03/17/2011 Musculoskeletal No bone pain 03/17/2011 Dermatologic No rash 03/17/2011 Dermatologic No sores 03/17/2011 Neurologic No headache 03/17/2011 Psychiatric No anxiety 03/17/2011 Psychiatric No depression 03/17/2011 Constitutional No insomnia 02/26/2011 Constitutional No fever 02/26/2011 Constitutional No chills 02/26/2011 Constitutional malaise 02/26/2011 Musculoskeletal muscle weakness 2010 Dermatologic No rash 02/26/2011 Dermatologic No sores 02/26/2011 Neurologic dizziness 02/26/2011 Neurologic gait abnormality 02/26/2011 Neurologic No headache 02/26/2011 Neurologic No pain, back 02/26/2011 Neurologic No pain, generalized 2010 Neurologic No seizure 02/26/2011 Psychiatric No anxiety 02/26/2011 Psychiatric No depression 02/26/2011 Endocrine No cold sensitivity 02/26/2011 Endocrine No dry or coarse skin 2010 Hematologic/Lymphatic No abnormal bleeding and bruising 02/26/2011 Hematologic/Lymphatic No anemia 2010 Gastrointestinal No constipation 2010 Gastrointestinal No diarrhea 02/26/2011 Constitutional fatigue 02/26/2011 Constitutional No night sweats 2010 Constitutional No anorexia 02/26/2011 Eyes vision change 02/26/2011 Ears/Nose/Throat/Neck No dental pain 11/2010 Ears/Nose/Throat/Neck dizziness 2010 Ears/Nose/Throat/Neck No headache 2010 Ears/Nose/Throat/Neck No hoarseness 02/26 Cardiovascular No chest pain/pressure 11/2010 Cardiovascular No claudication 2010 Cardiovascular No dyspnea 02/26/2011 Cardiovascular No edema 02/26/2011 Cardiovascular No exercise intolerance Cardiovascular fatigue 02/26/2011 Cardiovascular near-syncope/dizziness 11/2010 Respiratory No chest congestion 2010 Respiratory No chest tightness 2010 Respiratory No cough 02/26/2011 Respiratory No apneic events 02/26/2011 Respiratory No aspiration 02/26/2011 Respiratory No dyspnea on exertion 2010 Respiratory No pedal edema 02/26/2011 Genitourinary/Nephrology No urinary urgency 02/26/2011 Gastrointestinal No vomiting 02/26/2011 Genitourinary/Nephrology No urinary frequency 02/26/2011 Genitourinary/Nephrology No urinary incontinence 02/26/2011 Musculoskeletal No swelling 02/26/2011 Musculoskeletal No arthralgia(s) 2010 Musculoskeletal No joint complaint 2010 Musculoskeletal No myalgias 02/26/2011 Physical Exam Exam Name System Name Item Name Status Result Effective Dates Notes Full Exam - General 1994 Constitutional general appearance Overall: well developed 01/27/2017 None Full Exam - General 1994 Constitutional general appearance Overall: in no acute distress 01/27/2017 None Full Exam - General 1994 Constitutional general appearance Overall: well nourished 01/27/2017 None Full Exam - General 1994 Eyes pupils and irises Overall: pupils equal, round, reactive to light and accomodation 01/27/2017 None Full Exam - General 1994 Ears/Nose/Throat otoscopic exam Overall: external auditory canals clear 01/27/2017 None Full Exam - General 1994 Ears/Nose/Throat otoscopic exam Overall: tympanic membranes clear 01/27/2017 None Full Exam - General 1994 Ears/Nose/Throat oral cavity/pharynx/larynx Overall: no masses 01/27/2017 None Full Exam - General 1994 Ears/Nose/Throat oral cavity/pharynx/larynx Oral mucosa: thrush 01/27/2017 None Full Exam - General 1994 Respiratory auscultation Overall: breath sounds clear bilaterally 01/27/2017 None Full Exam - General 1994 Respiratory respiratory effort/rhythm Overall: no retractions 01/27/2017 None Full Exam - General 1994 Respiratory respiratory effort/rhythm Overall: normal rate 01/27/2017 None Full Exam - General 1994 Cardiovascular auscultation of heart Overall: regular rate 01/27/2017 None Full Exam - General 1994 Cardiovascular auscultation of heart Overall: normal heart sounds 01/27/2017 None Full Exam - General 1994 Abdomen abdominal exam Overall: no tenderness 01/27/2017 None Full Exam - General 1994 Abdomen abdominal exam Overall: normal bowel sounds 01/27/2017 None Full Exam - General 1994 Musculoskeletal head and neck Overall: head atraumatic 01/27/2017 None Full Exam - General 1994 Musculoskeletal head and neck Overall: cervical spine benign 01/27/2017 None Full Exam - General 1994 Neurologic gait Overall: no ataxia, no unsteadiness 01/27/2017 None Full Exam - General 1994 Neurologic cranial nerves Overall: crainial nerves 2 - 12 grossly intact 01/27/2017 None Full Exam - General 1994 Psychiatric orientation/consciousness Overall: oriented to person, place and time 01/27/2017 None Full Exam - General 1994 Psychiatric mood and affect Overall: normal mood and affect 01/27/2017 None Full Exam - General 1994 Genitourinary urethra Overall: no masses 01/27/2017 None Full Exam - General 1994 Genitourinary urethra Inspection: non-tender 01/27/2017 None Full Exam - General 1994 Genitourinary urethra Inspection: no lesions 01/27/2017 None Full Exam - General 1994 Constitutional general appearance Overall: well developed 01/17/2017 None Full Exam - General 1994 Constitutional general appearance Overall: in no acute distress 01/17/2017 None Full Exam - General 1994 Constitutional general appearance Overall: well nourished 01/17/2017 None Full Exam - General 1994 Eyes conjunctiva /eyelids Overall: conjunctiva clear 01/17/2017 None Full Exam - General 1994 Eyes conjunctiva /eyelids Overall: eyelids normal 01/17/2017 None Full Exam - General 1994 Ears/Nose/Throat lips/teeth/gingiva Overall: benign lips 01/17/2017 None Full Exam - General 1994 Ears/Nose/Throat oral cavity/pharynx/larynx Overall: oral mucosa clear 01/17/2017 None Full Exam - General 1994 Ears/Nose/Throat oral cavity/pharynx/larynx Oral mucosa: dry 01/17/2017 None Full Exam - General 1994 Respiratory respiratory effort/rhythm Overall: no retractions 01/17/2017 None Full Exam - General 1994 Respiratory respiratory effort/rhythm Overall: normal rate 01/17/2017 None Full Exam - General 1994 Respiratory auscultation Overall: breath sounds clear bilaterally 01/17/2017 None Full Exam - General 1994 Cardiovascular auscultation of heart Overall: normal heart sounds 01/17/2017 None Full Exam - General 1994 Cardiovascular auscultation of heart Overall: regular rate 01/17/2017 None Full Exam - General 1994 Abdomen abdominal exam Bowel sounds: hypoactive 01/17/2017 None Full Exam - General 1994 Abdomen abdominal exam Upper quadrant: tender to palpation 01/17/2017 None Full Exam - General 1994 Abdomen abdominal exam Upper quadrant: no guarding 01/17/2017 None Full Exam - General 1994 Abdomen abdominal exam Upper quadrant: no rebound tenderness 01/17/2017 None Full Exam - General 1994 Abdomen abdominal exam Upper quadrant: soft 01/17/2017 None Full Exam - General 1994 Abdomen abdominal exam Upper quadrant: non-tender to palpation 01/17/2017 None Full Exam - General 1994 Abdomen abdominal exam Lower quadrant: tender to palpation 01/17/2017 mild Full Exam - General 1994 Abdomen abdominal exam Lower quadrant: non-tender to palpation 01/17/2017 None Full Exam - General 1994 Abdomen abdominal exam Lower quadrant: no guarding 01/17/2017 None Full Exam - General 1994 Abdomen abdominal exam Lower quadrant: no rebound tenderness 01/17/2017 None Full Exam - General 1994 Abdomen abdominal exam Lower quadrant: soft 01/17/2017 None Full Exam - General 1994 Musculoskeletal head and neck Overall: head atraumatic 01/17/2017 None Full Exam - General 1994 Neurologic cranial nerves Overall: crainial nerves 2 - 12 grossly intact 01/17/2017 None Full Exam - General 1994 Psychiatric orientation/consciousness Overall: oriented to person, place and time 01/17/2017 None Full Exam - General 1994 Psychiatric mood and affect Overall: normal mood and affect 01/17/2017 None Full Exam - General 1994 Psychiatric appearance Overall: well-groomed, good eye contact 01/17/2017 None Full Exam - Dermatology Constitutional general appearance Overall: well nourished 01/07/2017 None Full Exam - Dermatology Constitutional general appearance Overall: well developed 01/07/2017 None Full Exam - Dermatology Constitutional general appearance Overall: in no acute distress 01/07/2017 None Full Exam - Dermatology Eyes conjunctiva/ eyelids Overall: clear conjunctiva bilaterally 01/07/2017 None Full Exam - Dermatology Ears/Nose/Throat lips/teeth/gingiva Overall: benign lips 01/07/2017 None Full Exam - Dermatology Ears/Nose/Throat oropharynx Overall: clear oral mucosa 01/07/2017 None Full Exam - Dermatology Respiratory respiratory effort/rhythm Overall: no retractions 01/07/2017 None Full Exam - Dermatology Respiratory respiratory effort/rhythm Overall: normal rate 01/07/2017 None Full Exam - Dermatology Integument insp & palp - genitalia/groin/buttocks Location: on the perineum 01/07/2017 None Full Exam - Dermatology Integument insp & palp - genitalia/groin/buttocks Location: on the left vulva 01/07/2017 None Full Exam - Dermatology Integument insp & palp - genitalia/groin/buttocks Location: on the right vulva 01/07/2017 None Full Exam - Dermatology Integument insp & palp - genitalia/groin/buttocks Color: erythematous 01/07/2017 None Full Exam - Dermatology Integument insp & palp - genitalia/groin/buttocks Lesion: patch 01/07/2017 None Full Exam - Dermatology Psychiatric orientation Overall: oriented to person, place and time 01/07/2017 None Full Exam - Dermatology Psychiatric mood and affect Overall: normal mood and affect 01/07/2017 None Full Exam - General 1994 Constitutional general appearance Overall: well developed 12/29/2016 None Full Exam - General 1995 Constitutional general appearance Overall: in no acute distress 12/29/2016 None Full Exam - General 1994 Constitutional general appearance Overall: well nourished 12/29/2016 None Full Exam - General 1995 Eyes conjunctiva /eyelids Overall: conjunctiva clear 12/29/2016 None Full Exam - General 1995 Eyes conjunctiva /eyelids Overall: eyelids normal 12/29/2016 None Full Exam - General 1995 Ears/Nose/Throat otoscopic exam External auditory canal: partial cerumen occlusion 12/29/2016 None Full Exam - General 1994 Ears/Nose/Throat otoscopic exam Overall: tympanic membranes clear 12/29/2016 None Full Exam - General 1994 Ears/Nose/Throat lips/teeth/gingiva Overall: benign lips 12/29/2016 None Full Exam - General 1994 Ears/Nose/Throat oral cavity/pharynx/larynx Overall: oral mucosa clear 12/29/2016 None Full Exam - General 1994 Respiratory respiratory effort/rhythm Overall: no retractions 12/29/2016 None Full Exam - General 1994 Respiratory respiratory effort/rhythm Overall: normal rate 12/29/2016 None Full Exam - General 1994 Respiratory auscultation Overall: breath sounds clear bilaterally 12/29/2016 None Full Exam - General 1994 Cardiovascular auscultation of heart Overall: regular rate 12/29/2016 None Full Exam - General 1994 Cardiovascular auscultation of heart Overall: normal heart sounds 12/29/2016 None Full Exam - General 1994 Abdomen abdominal exam Overall: normal bowel sounds 12/29/2016 None Full Exam - General 1994 Lymphatic neck nodes Overall: posterior cervical chain benign 12/29/2016 None Full Exam - General 1994 Lymphatic neck nodes Overall: anterior cervical chain benign 12/29/2016 None Full Exam - General 1994 Musculoskeletal head and neck Overall: head atraumatic 12/29/2016 None Full Exam - General 1994 Neurologic cranial nerves Overall: crainial nerves 2 - 12 grossly intact 12/29/2016 None Full Exam - General 1994 Psychiatric orientation/consciousness Overall: oriented to person, place and time 12/29/2016 None Full Exam - General 1994 Psychiatric mood and affect Mood: flat 12/29/2016 None Full Exam - General 1994 Psychiatric appearance Overall: well-groomed, good eye contact 12/29/2016 None Full Exam - General 1994 Constitutional general appearance Overall: well developed 12/16/2016 None Full Exam - General 1994 Constitutional general appearance Overall: well nourished 12/16/2016 None Full Exam - General 1994 Constitutional general appearance Evidence of Distress: mild distress 12/16/2016 None Full Exam - General 1994 Constitutional general appearance Evidence of Distress: in distress secondary to pain 12/16/2016 None Full Exam - General 1994 Eyes conjunctiva /eyelids Overall: conjunctiva clear 12/16/2016 None Full Exam - General 1994 Eyes conjunctiva /eyelids Overall: eyelids normal 12/16/2016 None Full Exam - General 1994 Eyes pupils and irises Overall: pupils equal, round, reactive to light and accomodation 12/16/2016 None Full Exam - General 1994 Ears/Nose/Throat otoscopic exam Overall: external auditory canals clear 12/16/2016 None Full Exam - General 1994 Ears/Nose/Throat otoscopic exam Overall: tympanic membranes clear 12/16/2016 None Full Exam - General 1994 Ears/Nose/Throat lips/teeth/gingiva Overall: benign lips 12/16/2016 None Full Exam - General 1994 Ears/Nose/Throat oral cavity/pharynx/larynx Overall: oral mucosa clear 12/16/2016 None Full Exam - General 1994 Respiratory respiratory effort/rhythm Overall: no retractions 12/16/2016 None Full Exam - General 1994 Respiratory respiratory effort/rhythm Overall: normal rate 12/16/2016 None Full Exam - General 1994 Respiratory auscultation Overall: breath sounds clear bilaterally 12/16/2016 None Full Exam - General 1994 Cardiovascular auscultation of heart Overall: regular rate 12/16/2016 None Full Exam - General 1994 Cardiovascular auscultation of heart Overall: normal heart sounds 12/16/2016 None Full Exam - General 1994 Lymphatic neck nodes Overall: anterior cervical chain benign 12/16/2016 None Full Exam - General 1994 Lymphatic neck nodes Overall: posterior cervical chain benign 12/16/2016 None Full Exam - General 1994 Musculoskeletal gait and station Overall: normal gait 12/16/2016 None Full Exam - General 1994 Musculoskeletal gait and station Overall: normal station 12/16/2016 None Full Exam - General 1994 Musculoskeletal head and neck Overall: head atraumatic 12/16/2016 None Full Exam - General 1994 Musculoskeletal head and neck Overall: cervical spine benign 12/16/2016 None Full Exam - General 1994 Neurologic cranial nerves Overall: crainial nerves 2 - 12 grossly intact 12/16/2016 None Full Exam - General 1994 Psychiatric orientation/consciousness Overall: oriented to person, place and time 12/16/2016 None Full Exam - General 1994 Psychiatric mood and affect Mood: flat 12/16/2016 None Full Exam - General 1994 Psychiatric mood and affect Affect: flat 12/16/2016 None Full Exam - General 1994 Psychiatric appearance Overall: well-groomed, good eye contact 12/16/2016 None Full Exam - General 1994 Psychiatric mood and affect Mood: irritable 12/16/2016 None Full Exam - General 1994 Constitutional general appearance Overall: well developed 08/25/2016 None Full Exam - General 1994 Constitutional general appearance Overall: in no acute distress 08/25/2016 None Full Exam - General 1994 Constitutional general appearance Overall: well nourished 08/25/2016 None Full Exam - General 1994 Eyes pupils and irises Overall: pupils equal, round, reactive to light and accomodation 08/25/2016 None Full Exam - General 1994 Ears/Nose/Throat otoscopic exam Overall: external auditory canals clear 08/25/2016 None Full Exam - General 1994 Ears/Nose/Throat otoscopic exam Overall: tympanic membranes clear 08/25/2016 None Full Exam - General 1994 Ears/Nose/Throat oral cavity/pharynx/larynx Overall: no masses 08/25/2016 None Full Exam - General 1994 Ears/Nose/Throat oral cavity/pharynx/larynx Oral mucosa: thrush 08/25/2016 None Full Exam - General 1994 Respiratory auscultation Overall: breath sounds clear bilaterally 08/25/2016 None Full Exam - General 1994 Respiratory respiratory effort/rhythm Overall: no retractions 08/25/2016 None Full Exam - General 1994 Respiratory respiratory effort/rhythm Overall: normal rate 08/25/2016 None Full Exam - General 1994 Cardiovascular auscultation of heart Overall: regular rate 08/25/2016 None Full Exam - General 1994 Cardiovascular auscultation of heart Overall: normal heart sounds 08/25/2016 None Full Exam - General 1994 Abdomen abdominal exam Overall: no tenderness 08/25/2016 None Full Exam - General 1994 Abdomen abdominal exam Overall: normal bowel sounds 08/25/2016 None Full Exam - General 1994 Musculoskeletal head and neck Overall: head atraumatic 08/25/2016 None Full Exam - General 1994 Musculoskeletal head and neck Overall: cervical spine benign 08/25/2016 None Full Exam - General 1994 Integument inspection of skin Location: face 08/25/2016 on the lips Full Exam - General 1994 Integument inspection of skin Location: left foot 08/25/2016 3rd toe - cyst on dorsum of toe Full Exam - General 1994 Neurologic gait Overall: no ataxia, no unsteadiness 08/25/2016 None Full Exam - General 1994 Neurologic cranial nerves Overall: crainial nerves 2 - 12 grossly intact 08/25/2016 None Full Exam - General 1994 Psychiatric orientation/consciousness Overall: oriented to person, place and time 08/25/2016 None Full Exam - General 1994 Psychiatric mood and affect Overall: normal mood and affect 08/25/2016 None Full Exam - General 1994 Constitutional general appearance Overall: well nourished 05/11/2016 None Full Exam - General 1994 Constitutional general appearance Overall: well developed 05/11/2016 None Full Exam - General 1994 Constitutional general appearance Overall: in no acute distress 05/11/2016 None Full Exam - General 1994 Ears/Nose/Throat otoscopic exam Overall: external auditory canals clear 05/11/2016 None Full Exam - General 1994 Ears/Nose/Throat otoscopic exam Overall: tympanic membranes clear 05/11/2016 None Full Exam - General 1994 Ears/Nose/Throat oral cavity/pharynx/larynx Overall: oral mucosa clear 05/11/2016 None Full Exam - General 1994 Ears/Nose/Throat oral cavity/pharynx/larynx Overall: oropharyngeal mucosa clear 05/11/2016 None Full Exam - General 1994 Ears/Nose/Throat oral cavity/pharynx/larynx Overall: no masses 05/11/2016 None Full Exam - General 1994 Respiratory auscultation Overall: breath sounds clear bilaterally 05/11/2016 None Full Exam - General 1994 Respiratory respiratory effort/rhythm Overall: no retractions 05/11/2016 None Full Exam - General 1994 Respiratory respiratory effort/rhythm Overall: normal rate 05/11/2016 None Full Exam - General 1994 Cardiovascular auscultation of heart Overall: regular rate 05/11/2016 None Full Exam - General 1994 Cardiovascular auscultation of heart Overall: normal heart sounds 05/11/2016 None Full Exam - General 1994 Musculoskeletal head and neck Overall: head atraumatic 05/11/2016 None Full Exam - General 1994 Neurologic gait Overall: no ataxia, no unsteadiness 05/11/2016 None Full Exam - General 1994 Neurologic cranial nerves Overall: crainial nerves 2 - 12 grossly intact 05/11/2016 None Full Exam - General 1994 Psychiatric orientation/consciousness Overall: oriented to person, place and time 05/11/2016 None Full Exam - General 1994 Psychiatric mood and affect Overall: normal mood and affect 05/11/2016 None Full Exam - General 1994 Eyes conjunctiva /eyelids Overall: conjunctiva clear 05/11/2016 None Full Exam - General 1994 Eyes conjunctiva /eyelids Overall: eyelids normal 05/11/2016 None Full Exam - General 1994 Eyes pupils and irises Overall: pupils equal, round, reactive to light and accomodation 05/11/2016 None Full Exam - General 1994 Ears/Nose/Throat lips/teeth/gingiva Overall: benign lips 05/11/2016 None Full Exam - General 1994 Musculoskeletal gait and station Overall: normal gait 05/11/2016 None Full Exam - General 1994 Musculoskeletal gait and station Overall: normal station 05/11/2016 None Full Exam - General 1994 Psychiatric appearance Overall: well-groomed, good eye contact 05/11/2016 None Full Exam - General 1994 Psychiatric speech Overall: normal quality, no aphasia 05/11/2016 None Full Exam - General 1994 Psychiatric speech Overall: normal quality, quantity, rate 05/11/2016 None Full Exam - General 1994 Constitutional general appearance Overall: well developed 04/20/2016 None Full Exam - General 1994 Constitutional general appearance Overall: in no acute distress 04/20/2016 None Full Exam - General 1994 Constitutional general appearance Overall: well nourished 04/20/2016 None Full Exam - General 1994 Eyes pupils and irises Overall: pupils equal, round, reactive to light and accomodation 04/20/2016 None Full Exam - General 1994 Ears/Nose/Throat otoscopic exam Overall: external auditory canals clear 04/20/2016 None Full Exam - General 1994 Ears/Nose/Throat otoscopic exam Overall: tympanic membranes clear 04/20/2016 None Full Exam - General 1994 Ears/Nose/Throat oral cavity/pharynx/larynx Overall: no masses 04/20/2016 None Full Exam - General 1994 Ears/Nose/Throat oral cavity/pharynx/larynx Oral mucosa: thrush 04/20/2016 None Full Exam - General 1994 Respiratory auscultation Overall: breath sounds clear bilaterally 04/20/2016 None Full Exam - General 1994 Respiratory respiratory effort/rhythm Overall: no retractions 04/20/2016 None Full Exam - General 1994 Respiratory respiratory effort/rhythm Overall: normal rate 04/20/2016 None Full Exam - General 1994 Cardiovascular auscultation of heart Overall: regular rate 04/20/2016 None Full Exam - General 1994 Cardiovascular auscultation of heart Overall: normal heart sounds 04/20/2016 None Full Exam - General 1994 Abdomen abdominal exam Overall: no tenderness 04/20/2016 None Full Exam - General 1994 Abdomen abdominal exam Overall: normal bowel sounds 04/20/2016 None Full Exam - General 1994 Musculoskeletal head and neck Overall: head atraumatic 04/20/2016 None Full Exam - General 1994 Musculoskeletal head and neck Overall: cervical spine benign 04/20/2016 None Full Exam - General 1994 Integument inspection of skin Location: face 04/20/2016 on the lips Full Exam - General 1994 Integument inspection of skin Location: left foot 04/20/2016 3rd toe - cyst on dorsum of toe Full Exam - General 1994 Neurologic gait Overall: no ataxia, no unsteadiness 04/20/2016 None Full Exam - General 1994 Neurologic cranial nerves Overall: crainial nerves 2 - 12 grossly intact 04/20/2016 None Full Exam - General 1994 Psychiatric orientation/consciousness Overall: oriented to person, place and time 04/20/2016 None Full Exam - General 1994 Psychiatric mood and affect Overall: normal mood and affect 04/20/2016 None Full Exam - General 1994 Constitutional general appearance Overall: well developed 03/10/2016 None Full Exam - General 1994 Constitutional general appearance Overall: in no acute distress 03/10/2016 None Full Exam - General 1994 Constitutional general appearance Overall: well nourished 03/10/2016 None Full Exam - General 1994 Eyes pupils and irises Overall: pupils equal, round, reactive to light and accomodation 03/10/2016 None Full Exam - General 1994 Ears/Nose/Throat otoscopic exam Overall: external auditory canals clear 03/10/2016 None Full Exam - General 1994 Ears/Nose/Throat otoscopic exam Overall: tympanic membranes clear 03/10/2016 None Full Exam - General 1994 Ears/Nose/Throat oral cavity/pharynx/larynx Overall: no masses 03/10/2016 None Full Exam - General 1994 Respiratory auscultation Overall: breath sounds clear bilaterally 03/10/2016 None Full Exam - General 1994 Respiratory respiratory effort/rhythm Overall: no retractions 03/10/2016 None Full Exam - General 1994 Respiratory respiratory effort/rhythm Overall: normal rate 03/10/2016 None Full Exam - General 1994 Cardiovascular auscultation of heart Overall: regular rate 03/10/2016 None Full Exam - General 1994 Cardiovascular auscultation of heart Overall: normal heart sounds 03/10/2016 None Full Exam - General 1994 Abdomen abdominal exam Overall: no tenderness 03/10/2016 None Full Exam - General 1994 Abdomen abdominal exam Overall: normal bowel sounds 03/10/2016 None Full Exam - General 1994 Musculoskeletal head and neck Overall: head atraumatic 03/10/2016 None Full Exam - General 1994 Musculoskeletal head and neck Overall: cervical spine benign 03/10/2016 None Full Exam - General 1994 Integument inspection of skin Location: face 03/10/2016 on the lips Full Exam - General 1994 Neurologic gait Overall: no ataxia, no unsteadiness 03/10/2016 None Full Exam - General 1994 Neurologic cranial nerves Overall: crainial nerves 2 - 12 grossly intact 03/10/2016 None Full Exam - General 1994 Psychiatric orientation/consciousness Overall: oriented to person, place and time 03/10/2016 None Full Exam - General 1994 Psychiatric mood and affect Overall: normal mood and affect 03/10/2016 None Full Exam - General 1994 Integument inspection of skin Location: left foot 03/10/2016 3rd toe - cyst on dorsum of toe Full Exam - General 1994 Ears/Nose/Throat oral cavity/pharynx/larynx Oral mucosa: thrush 03/10/2016 None Full Exam - General 1994 Constitutional general appearance Overall: well developed 11/18/2015 None Full Exam - General 1994 Constitutional general appearance Overall: in no acute distress 11/18/2015 None Full Exam - General 1994 Constitutional general appearance Overall: well nourished 11/18/2015 None Full Exam - General 1994 Eyes pupils and irises Overall: pupils equal, round, reactive to light and accomodation 11/18/2015 None Full Exam - General 1994 Ears/Nose/Throat otoscopic exam Overall: external auditory canals clear 11/18/2015 None Full Exam - General 1994 Ears/Nose/Throat otoscopic exam Overall: tympanic membranes clear 11/18/2015 None Full Exam - General 1994 Ears/Nose/Throat oral cavity/pharynx/larynx Overall: oral mucosa clear 11/18/2015 None Full Exam - General 1994 Ears/Nose/Throat oral cavity/pharynx/larynx Overall: oropharyngeal mucosa clear 11/18/2015 None Full Exam - General 1994 Ears/Nose/Throat oral cavity/pharynx/larynx Overall: no masses 11/18/2015 None Full Exam - General 1994 Respiratory auscultation Overall: breath sounds clear bilaterally 11/18/2015 None Full Exam - General 1994 Respiratory respiratory effort/rhythm Overall: no retractions 11/18/2015 None Full Exam - General 1994 Respiratory respiratory effort/rhythm Overall: normal rate 11/18/2015 None Full Exam - General 1994 Cardiovascular auscultation of heart Overall: regular rate 11/18/2015 None Full Exam - General 1994 Cardiovascular auscultation of heart Overall: normal heart sounds 11/18/2015 None Full Exam - General 1994 Abdomen abdominal exam Overall: no tenderness 11/18/2015 None Full Exam - General 1994 Abdomen abdominal exam Overall: normal bowel sounds 11/18/2015 None Full Exam - General 1994 Musculoskeletal head and neck Overall: head atraumatic 11/18/2015 None Full Exam - General 1994 Musculoskeletal head and neck Overall: cervical spine benign 11/18/2015 None Full Exam - General 1994 Integument inspection of skin Dermatitis: dryness/ flaking 11/18/2015 None Full Exam - General 1994 Integument inspection of skin Location: face 11/18/2015 on the lips Full Exam - General 1994 Neurologic gait Overall: no ataxia, no unsteadiness 11/18/2015 None Full Exam - General 1994 Neurologic cranial nerves Overall: crainial nerves 2 - 12 grossly intact 11/18/2015 None Full Exam - General 1994 Psychiatric orientation/consciousness Overall: oriented to person, place and time 11/18/2015 None Full Exam - General 1994 Psychiatric mood and affect Overall: normal mood and affect 11/18/2015 None Full Exam - General 1994 Constitutional general appearance Overall: well developed 09/11/2015 None Full Exam - General 1994 Constitutional general appearance Overall: in no acute distress 09/11/2015 None Full Exam - General 1994 Constitutional general appearance Overall: well nourished 09/11/2015 None Full Exam - General 1994 Eyes pupils and irises Overall: pupils equal, round, reactive to light and accomodation 09/11/2015 None Full Exam - General 1994 Ears/Nose/Throat otoscopic exam Overall: external auditory canals clear 09/11/2015 None Full Exam - General 1994 Ears/Nose/Throat otoscopic exam Overall: tympanic membranes clear 09/11/2015 None Full Exam - General 1994 Ears/Nose/Throat oral cavity/pharynx/larynx Overall: oral mucosa clear 09/11/2015 None Full Exam - General 1994 Ears/Nose/Throat oral cavity/pharynx/larynx Overall: oropharyngeal mucosa clear 09/11/2015 None Full Exam - General 1994 Ears/Nose/Throat oral cavity/pharynx/larynx Overall: no masses 09/11/2015 None Full Exam - General 1994 Respiratory auscultation Overall: breath sounds clear bilaterally 09/11/2015 None Full Exam - General 1994 Respiratory respiratory effort/rhythm Overall: no retractions 09/11/2015 None Full Exam - General 1994 Respiratory respiratory effort/rhythm Overall: normal rate 09/11/2015 None Full Exam - General 1994 Cardiovascular auscultation of heart Overall: regular rate 09/11/2015 None Full Exam - General 1994 Cardiovascular auscultation of heart Overall: normal heart sounds 09/11/2015 None Full Exam - General 1994 Abdomen abdominal exam Overall: no tenderness 09/11/2015 None Full Exam - General 1994 Abdomen abdominal exam Overall: normal bowel sounds 09/11/2015 None Full Exam - General 1994 Integument inspection of skin Dermatitis: dryness/ flaking 09/11/2015 None Full Exam - General 1994 Integument inspection of skin Location: face 09/11/2015 on the lips Full Exam - General 1994 Psychiatric orientation/consciousness Overall: oriented to person, place and time 09/11/2015 None Full Exam - General 1994 Psychiatric mood and affect Overall: normal mood and affect 09/11/2015 None Full Exam - General 1994 Constitutional general appearance Overall: well developed 08/06/2015 None Full Exam - General 1994 Constitutional general appearance Overall: in no acute distress 08/06/2015 None Full Exam - General 1994 Constitutional general appearance Overall: well nourished 08/06/2015 None Full Exam - General 1994 Eyes pupils and irises Overall: pupils equal, round, reactive to light and accomodation 08/06/2015 None Full Exam - General 1994 Ears/Nose/Throat otoscopic exam Overall: external auditory canals clear 08/06/2015 None Full Exam - General 1994 Ears/Nose/Throat otoscopic exam Overall: tympanic membranes clear 08/06/2015 None Full Exam - General 1994 Ears/Nose/Throat oral cavity/pharynx/larynx Overall: oral mucosa clear 08/06/2015 None Full Exam - General 1994 Ears/Nose/Throat oral cavity/pharynx/larynx Overall: oropharyngeal mucosa clear 08/06/2015 None Full Exam - General 1994 Ears/Nose/Throat oral cavity/pharynx/larynx Overall: no masses 08/06/2015 None Full Exam - General 1994 Respiratory auscultation Overall: breath sounds clear bilaterally 08/06/2015 None Full Exam - General 1994 Respiratory respiratory effort/rhythm Overall: no retractions 08/06/2015 None Full Exam - General 1994 Respiratory respiratory effort/rhythm Overall: normal rate 08/06/2015 None Full Exam - General 1994 Cardiovascular auscultation of heart Overall: regular rate 08/06/2015 None Full Exam - General 1994 Cardiovascular auscultation of heart Overall: normal heart sounds 08/06/2015 None Full Exam - General 1994 Abdomen abdominal exam Overall: no tenderness 08/06/2015 None Full Exam - General 1994 Abdomen abdominal exam Overall: normal bowel sounds 08/06/2015 None Full Exam - General 1994 Integument inspection of skin Dermatitis: dryness/ flaking 08/06/2015 None Full Exam - General 1994 Integument inspection of skin Location: face 08/06/2015 on the lips Full Exam - General 1994 Psychiatric orientation/consciousness Overall: oriented to person, place and time 08/06/2015 None Full Exam - General 1994 Psychiatric mood and affect Overall: normal mood and affect 08/06/2015 None Full Exam - General 1994 Constitutional general appearance Overall: well developed 07/15/2015 None Full Exam - General 1994 Constitutional general appearance Overall: in no acute distress 07/15/2015 None Full Exam - General 1994 Constitutional general appearance Overall: well nourished 07/15/2015 None Full Exam - General 1994 Eyes pupils and irises Overall: pupils equal, round, reactive to light and accomodation 07/15/2015 None Full Exam - General 1994 Ears/Nose/Throat otoscopic exam Overall: external auditory canals clear 07/15/2015 None Full Exam - General 1994 Ears/Nose/Throat otoscopic exam Overall: tympanic membranes clear 07/15/2015 None Full Exam - General 1994 Ears/Nose/Throat oral cavity/pharynx/larynx Overall: oral mucosa clear 07/15/2015 None Full Exam - General 1994 Ears/Nose/Throat oral cavity/pharynx/larynx Overall: oropharyngeal mucosa clear 07/15/2015 None Full Exam - General 1994 Ears/Nose/Throat oral cavity/pharynx/larynx Overall: no masses 07/15/2015 None Full Exam - General 1994 Respiratory auscultation Overall: breath sounds clear bilaterally 07/15/2015 None Full Exam - General 1994 Respiratory respiratory effort/rhythm Overall: no retractions 07/15/2015 None Full Exam - General 1994 Respiratory respiratory effort/rhythm Overall: normal rate 07/15/2015 None Full Exam - General 1994 Cardiovascular auscultation of heart Overall: regular rate 07/15/2015 None Full Exam - General 1994 Cardiovascular auscultation of heart Overall: normal heart sounds 07/15/2015 None Full Exam - General 1994 Abdomen abdominal exam Overall: no tenderness 07/15/2015 None Full Exam - General 1994 Abdomen abdominal exam Overall: normal bowel sounds 07/15/2015 None Full Exam - General 1994 Musculoskeletal head and neck Overall: head atraumatic 07/15/2015 None Full Exam - General 1994 Musculoskeletal head and neck Overall: cervical spine benign 07/15/2015 None Full Exam - General 1994 Neurologic gait Overall: no ataxia, no unsteadiness 07/15/2015 None Full Exam - General 1994 Neurologic cranial nerves Overall: crainial nerves 2 - 12 grossly intact 07/15/2015 None Full Exam - General 1994 Psychiatric orientation/consciousness Overall: oriented to person, place and time 07/15/2015 None Full Exam - General 1994 Psychiatric mood and affect Overall: normal mood and affect 07/15/2015 None Full Exam - General 1994 Constitutional general appearance Overall: well developed 07/04/2015 None Full Exam - General 1994 Constitutional general appearance Overall: in no acute distress 07/04/2015 None Full Exam - General 1994 Constitutional general appearance Overall: well nourished 07/04/2015 None Full Exam - General 1994 Eyes pupils and irises Overall: pupils equal, round, reactive to light and accomodation 07/04/2015 None Full Exam - General 1994 Ears/Nose/Throat otoscopic exam Overall: external auditory canals clear 07/04/2015 None Full Exam - General 1994 Ears/Nose/Throat otoscopic exam Overall: tympanic membranes clear 07/04/2015 None Full Exam - General 1994 Ears/Nose/Throat oral cavity/pharynx/larynx Overall: oral mucosa clear 07/04/2015 None Full Exam - General 1994 Ears/Nose/Throat oral cavity/pharynx/larynx Overall: oropharyngeal mucosa clear 07/04/2015 None Full Exam - General 1994 Ears/Nose/Throat oral cavity/pharynx/larynx Overall: no masses 07/04/2015 None Full Exam - General 1994 Respiratory auscultation Overall: breath sounds clear bilaterally 07/04/2015 None Full Exam - General 1994 Respiratory respiratory effort/rhythm Overall: no retractions 07/04/2015 None Full Exam - General 1994 Respiratory respiratory effort/rhythm Overall: normal rate 07/04/2015 None Full Exam - General 1994 Cardiovascular auscultation of heart Overall: regular rate 07/04/2015 None Full Exam - General 1994 Cardiovascular auscultation of heart Overall: normal heart sounds 07/04/2015 None Full Exam - General 1994 Abdomen abdominal exam Overall: no tenderness 07/04/2015 None Full Exam - General 1994 Abdomen abdominal exam Overall: normal bowel sounds 07/04/2015 None Full Exam - General 1994 Musculoskeletal head and neck Overall: head atraumatic 07/04/2015 None Full Exam - General 1994 Musculoskeletal head and neck Overall: cervical spine benign 07/04/2015 None Full Exam - General 1994 Integument inspection of skin Dermatitis: dryness/ flaking 07/04/2015 None Full Exam - General 1994 Integument inspection of skin Location: face 07/04/2015 on the lips Full Exam - General 1994 Neurologic gait Overall: no ataxia, no unsteadiness 07/04/2015 None Full Exam - General 1994 Neurologic cranial nerves Overall: crainial nerves 2 - 12 grossly intact 07/04/2015 None Full Exam - General 1994 Psychiatric orientation/consciousness Overall: oriented to person, place and time 07/04/2015 None Full Exam - General 1994 Psychiatric mood and affect Overall: normal mood and affect 07/04/2015 None Full Exam - General 1994 Constitutional general appearance Overall: well developed 03/13/2015 None Full Exam - General 1994 Constitutional general appearance Overall: in no acute distress 03/13/2015 None Full Exam - General 1994 Constitutional general appearance Overall: well nourished 03/13/2015 None Full Exam - General 1994 Eyes pupils and irises Overall: pupils equal, round, reactive to light and accomodation 03/13/2015 None Full Exam - General 1994 Ears/Nose/Throat otoscopic exam Overall: external auditory canals clear 03/13/2015 None Full Exam - General 1994 Ears/Nose/Throat otoscopic exam Overall: tympanic membranes clear 03/13/2015 None Full Exam - General 1994 Ears/Nose/Throat oral cavity/pharynx/larynx Overall: oral mucosa clear 03/13/2015 None Full Exam - General 1994 Ears/Nose/Throat oral cavity/pharynx/larynx Overall: oropharyngeal mucosa clear 03/13/2015 None Full Exam - General 1994 Ears/Nose/Throat oral cavity/pharynx/larynx Overall: no masses 03/13/2015 None Full Exam - General 1994 Respiratory auscultation Overall: breath sounds clear bilaterally 03/13/2015 None Full Exam - General 1994 Respiratory respiratory effort/rhythm Overall: no retractions 03/13/2015 None Full Exam - General 1994 Respiratory respiratory effort/rhythm Overall: normal rate 03/13/2015 None Full Exam - General 1994 Cardiovascular auscultation of heart Overall: regular rate 03/13/2015 None Full Exam - General 1994 Cardiovascular auscultation of heart Overall: normal heart sounds 03/13/2015 None Full Exam - General 1994 Abdomen abdominal exam Overall: no tenderness 03/13/2015 None Full Exam - General 1994 Abdomen abdominal exam Overall: normal bowel sounds 03/13/2015 None Full Exam - General 1994 Musculoskeletal head and neck Overall: head atraumatic 03/13/2015 None Full Exam - General 1994 Musculoskeletal head and neck Overall: cervical spine benign 03/13/2015 None Full Exam - General 1994 Integument inspection of skin Dermatitis: dryness/ flaking 03/13/2015 None Full Exam - General 1994 Integument inspection of skin Location: face 03/13/2015 on the lips Full Exam - General 1994 Neurologic gait Overall: no ataxia, no unsteadiness 03/13/2015 None Full Exam - General 1994 Neurologic cranial nerves Overall: crainial nerves 2 - 12 grossly intact 03/13/2015 None Full Exam - General 1994 Psychiatric orientation/consciousness Overall: oriented to person, place and time 03/13/2015 None Full Exam - General 1994 Psychiatric mood and affect Overall: normal mood and affect 03/13/2015 None Full Exam - General 1994 Constitutional general appearance Overall: well developed 10/08/2014 None Full Exam - General 1994 Constitutional general appearance Overall: in no acute distress 10/08/2014 None Full Exam - General 1994 Constitutional general appearance Overall: well nourished 10/08/2014 None Full Exam - General 1994 Eyes pupils and irises Overall: pupils equal, round, reactive to light and accomodation 10/08/2014 None Full Exam - General 1994 Ears/Nose/Throat otoscopic exam Overall: external auditory canals clear 10/08/2014 None Full Exam - General 1994 Ears/Nose/Throat otoscopic exam Overall: tympanic membranes clear 10/08/2014 None Full Exam - General 1994 Ears/Nose/Throat oral cavity/pharynx/larynx Overall: oral mucosa clear 10/08/2014 None Full Exam - General 1994 Ears/Nose/Throat oral cavity/pharynx/larynx Overall: oropharyngeal mucosa clear 10/08/2014 None Full Exam - General 1994 Ears/Nose/Throat oral cavity/pharynx/larynx Overall: no masses 10/08/2014 None Full Exam - General 1994 Respiratory auscultation Overall: breath sounds clear bilaterally 10/08/2014 None Full Exam - General 1994 Respiratory respiratory effort/rhythm Overall: no retractions 10/08/2014 None Full Exam - General 1994 Respiratory respiratory effort/rhythm Overall: normal rate 10/08/2014 None Full Exam - General 1994 Cardiovascular auscultation of heart Overall: regular rate 10/08/2014 None Full Exam - General 1994 Cardiovascular auscultation of heart Overall: normal heart sounds 10/08/2014 None Full Exam - General 1994 Musculoskeletal head and neck Overall: head atraumatic 10/08/2014 None Full Exam - General 1994 Musculoskeletal head and neck Overall: cervical spine benign 10/08/2014 None Full Exam - General 1994 Neurologic gait Overall: no ataxia, no unsteadiness 10/08/2014 None Full Exam - General 1994 Neurologic cranial nerves Overall: crainial nerves 2 - 12 grossly intact 10/08/2014 None Full Exam - General 1994 Psychiatric orientation/consciousness Overall: oriented to person, place and time 10/08/2014 None Full Exam - General 1994 Psychiatric mood and affect Overall: normal mood and affect 10/08/2014 None Full Exam - General 1994 Abdomen abdominal exam Contour: rounded 10/08/2014 None Full Exam - General 1994 Abdomen abdominal exam Bowel sounds: hyperactive 10/08/2014 None Full Exam - General 1994 Abdomen abdominal exam Percussion: tympanitic 10/08/2014 None Full Exam - General 1994 Abdomen abdominal exam Upper quadrant: tender to palpation 10/08/2014 mild Full Exam - General 1994 Abdomen abdominal exam Lower quadrant: non-tender to palpation 10/08/2014 None Full Exam - General 1994 Constitutional general appearance Overall: well developed 07/17/2014 None Full Exam - General 1994 Constitutional general appearance Overall: in no acute distress 07/17/2014 None Full Exam - General 1994 Constitutional general appearance Overall: well nourished 07/17/2014 None Full Exam - General 1994 Eyes pupils and irises Overall: pupils equal, round, reactive to light and accomodation 07/17/2014 None Full Exam - General 1994 Ears/Nose/Throat otoscopic exam Overall: external auditory canals clear 07/17/2014 None Full Exam - General 1994 Ears/Nose/Throat otoscopic exam Overall: tympanic membranes clear 07/17/2014 None Full Exam - General 1994 Ears/Nose/Throat oral cavity/pharynx/larynx Overall: oral mucosa clear 07/17/2014 None Full Exam - General 1994 Ears/Nose/Throat oral cavity/pharynx/larynx Overall: oropharyngeal mucosa clear 07/17/2014 None Full Exam - General 1994 Ears/Nose/Throat oral cavity/pharynx/larynx Overall: no masses 07/17/2014 None Full Exam - General 1994 Respiratory auscultation Overall: breath sounds clear bilaterally 07/17/2014 None Full Exam - General 1994 Respiratory respiratory effort/rhythm Overall: no retractions 07/17/2014 None Full Exam - General 1994 Respiratory respiratory effort/rhythm Overall: normal rate 07/17/2014 None Full Exam - General 1994 Cardiovascular auscultation of heart Overall: regular rate 07/17/2014 None Full Exam - General 1994 Cardiovascular auscultation of heart Overall: normal heart sounds 07/17/2014 None Full Exam - General 1994 Abdomen abdominal exam Overall: no tenderness 07/17/2014 None Full Exam - General 1994 Abdomen abdominal exam Overall: normal bowel sounds 07/17/2014 None Full Exam - General 1994 Musculoskeletal head and neck Overall: head atraumatic 07/17/2014 None Full Exam - General 1994 Musculoskeletal head and neck Overall: cervical spine benign 07/17/2014 None Full Exam - General 1994 Integument inspection of skin Dermatitis: dryness/ flaking 07/17/2014 None Full Exam - General 1994 Integument inspection of skin Location: face 07/17/2014 on the lips Full Exam - General 1994 Neurologic gait Overall: no ataxia, no unsteadiness 07/17/2014 None Full Exam - General 1994 Neurologic cranial nerves Overall: crainial nerves 2 - 12 grossly intact 07/17/2014 None Full Exam - General 1994 Psychiatric orientation/consciousness Overall: oriented to person, place and time 07/17/2014 None Full Exam - General 1994 Psychiatric mood and affect Overall: normal mood and affect 07/17/2014 None Full Exam - General 1994 Constitutional general appearance Overall: well developed 01/11/2014 None Full Exam - General 1994 Constitutional general appearance Overall: in no acute distress 01/11/2014 None Full Exam - General 1994 Constitutional general appearance Overall: well nourished 01/11/2014 None Full Exam - General 1994 Eyes pupils and irises Overall: pupils equal, round, reactive to light and accomodation 01/11/2014 None Full Exam - General 1994 Ears/Nose/Throat otoscopic exam Overall: external auditory canals clear 01/11/2014 None Full Exam - General 1994 Ears/Nose/Throat otoscopic exam Overall: tympanic membranes clear 01/11/2014 None Full Exam - General 1994 Ears/Nose/Throat oral cavity/pharynx/larynx Overall: oral mucosa clear 01/11/2014 None Full Exam - General 1994 Ears/Nose/Throat oral cavity/pharynx/larynx Overall: oropharyngeal mucosa clear 01/11/2014 None Full Exam - General 1994 Ears/Nose/Throat oral cavity/pharynx/larynx Overall: no masses 01/11/2014 None Full Exam - General 1994 Respiratory auscultation Overall: breath sounds clear bilaterally 01/11/2014 None Full Exam - General 1994 Respiratory respiratory effort/rhythm Overall: no retractions 01/11/2014 None Full Exam - General 1994 Respiratory respiratory effort/rhythm Overall: normal rate 01/11/2014 None Full Exam - General 1994 Cardiovascular auscultation of heart Overall: regular rate 01/11/2014 None Full Exam - General 1994 Cardiovascular auscultation of heart Overall: normal heart sounds 01/11/2014 None Full Exam - General 1994 Abdomen abdominal exam Overall: no tenderness 01/11/2014 None Full Exam - General 1994 Abdomen abdominal exam Overall: normal bowel sounds 01/11/2014 None Full Exam - General 1994 Musculoskeletal head and neck Overall: head atraumatic 01/11/2014 None Full Exam - General 1994 Musculoskeletal head and neck Overall: cervical spine benign 01/11/2014 None Full Exam - General 1994 Neurologic gait Overall: no ataxia, no unsteadiness 01/11/2014 None Full Exam - General 1994 Neurologic cranial nerves Overall: crainial nerves 2 - 12 grossly intact 01/11/2014 None Full Exam - General 1994 Psychiatric orientation/consciousness Overall: oriented to person, place and time 01/11/2014 None Full Exam - General 1994 Psychiatric mood and affect Overall: normal mood and affect 01/11/2014 None Full Exam - General 1994 Musculoskeletal upper extremity Inspection - wrist: a normal exam 01/11/2014 pt with cast on left arm - rash on fingers of left hand from rubbing of cast Full Exam - General 1994 Integument inspection of skin Location: left hand 01/11/2014 oozing open sores on fingers of left hand from recurrent rubbing of cast - cutlure taken Full Exam - General 1994 Constitutional general appearance Overall: well developed 07/02/2013 None Full Exam - General 1994 Constitutional general appearance Overall: in no acute distress 07/02/2013 None Full Exam - General 1994 Constitutional general appearance Overall: well nourished 07/02/2013 None Full Exam - General 1994 Eyes pupils and irises Overall: pupils equal, round, reactive to light and accomodation 07/02/2013 None Full Exam - General 1994 Ears/Nose/Throat otoscopic exam Overall: external auditory canals clear 07/02/2013 None Full Exam - General 1994 Ears/Nose/Throat otoscopic exam Overall: tympanic membranes clear 07/02/2013 None Full Exam - General 1994 Ears/Nose/Throat oral cavity/pharynx/larynx Overall: oral mucosa clear 07/02/2013 None Full Exam - General 1994 Ears/Nose/Throat oral cavity/pharynx/larynx Overall: oropharyngeal mucosa clear 07/02/2013 None Full Exam - General 1994 Ears/Nose/Throat oral cavity/pharynx/larynx Overall: no masses 07/02/2013 None Full Exam - General 1994 Respiratory auscultation Overall: breath sounds clear bilaterally 07/02/2013 None Full Exam - General 1994 Respiratory respiratory effort/rhythm Overall: no retractions 07/02/2013 None Full Exam - General 1994 Respiratory respiratory effort/rhythm Overall: normal rate 07/02/2013 None Full Exam - General 1994 Cardiovascular auscultation of heart Overall: regular rate 07/02/2013 None Full Exam - General 1994 Cardiovascular auscultation of heart Overall: normal heart sounds 07/02/2013 None Full Exam - General 1994 Abdomen abdominal exam Overall: no tenderness 07/02/2013 None Full Exam - General 1994 Abdomen abdominal exam Overall: normal bowel sounds 07/02/2013 None Full Exam - General 1994 Musculoskeletal head and neck Overall: head atraumatic 07/02/2013 None Full Exam - General 1994 Musculoskeletal head and neck Overall: cervical spine benign 07/02/2013 None Full Exam - General 1994 Integument inspection of skin Dermatitis: dryness/ flaking 07/02/2013 None Full Exam - General 1994 Integument inspection of skin Location: face 07/02/2013 on the lips Full Exam - General 1994 Neurologic gait Overall: no ataxia, no unsteadiness 07/02/2013 None Full Exam - General 1994 Neurologic cranial nerves Overall: crainial nerves 2 - 12 grossly intact 07/02/2013 None Full Exam - General 1994 Psychiatric orientation/consciousness Overall: oriented to person, place and time 07/02/2013 None Full Exam - General 1994 Psychiatric mood and affect Overall: normal mood and affect 07/02/2013 None Full Exam - General 1994 Constitutional general appearance Overall: well developed 02/26/2013 None Full Exam - General 1994 Constitutional general appearance Overall: in no acute distress 02/26/2013 None Full Exam - General 1994 Constitutional general appearance Overall: well nourished 02/26/2013 None Full Exam - General 1994 Ears/Nose/Throat otoscopic exam Overall: external auditory canals clear 02/26/2013 None Full Exam - General 1994 Ears/Nose/Throat otoscopic exam Overall: tympanic membranes clear 02/26/2013 None Full Exam - General 1994 Ears/Nose/Throat oral cavity/pharynx/larynx Overall: oral mucosa clear 02/26/2013 None Full Exam - General 1994 Ears/Nose/Throat oral cavity/pharynx/larynx Overall: oropharyngeal mucosa clear 02/26/2013 None Full Exam - General 1994 Ears/Nose/Throat oral cavity/pharynx/larynx Overall: no masses 02/26/2013 None Full Exam - General 1994 Respiratory auscultation Overall: breath sounds clear bilaterally 02/26/2013 None Full Exam - General 1994 Respiratory respiratory effort/rhythm Overall: no retractions 02/26/2013 None Full Exam - General 1994 Respiratory respiratory effort/rhythm Overall: normal rate 02/26/2013 None Full Exam - General 1994 Cardiovascular auscultation of heart Overall: regular rate 02/26/2013 None Full Exam - General 1994 Cardiovascular auscultation of heart Overall: normal heart sounds 02/26/2013 None Full Exam - General 1994 Abdomen abdominal exam Overall: no tenderness 02/26/2013 None Full Exam - General 1995 Abdomen abdominal exam Overall: normal bowel sounds 02/26/2013 None Full Exam - General 1994 Musculoskeletal head and neck Overall: head atraumatic 02/26/2013 None Full Exam - General 1994 Musculoskeletal head and neck Overall: cervical spine benign 02/26/2013 None Full Exam - General 1994 Integument inspection of skin Dermatitis: dryness/ flaking 02/26/2013 None Full Exam - General 1994 Integument inspection of skin Location: face 02/26/2013 on the lips Full Exam - General 1994 Neurologic gait Overall: no ataxia, no unsteadiness 02/26/2013 None Full Exam - General 1994 Neurologic cranial nerves Overall: crainial nerves 2 - 12 grossly intact 02/26/2013 None Full Exam - General 1994 Psychiatric orientation/consciousness Overall: oriented to person, place and time 02/26/2013 None Full Exam - General 1994 Psychiatric mood and affect Overall: normal mood and affect 02/26/2013 None Full Exam - General 1994 Eyes pupils and irises Overall: pupils equal, round, reactive to light and accomodation 02/26/2013 None Full Exam - General 1994 Constitutional general appearance Overall: well developed 10/24/2012 None Full Exam - General 1994 Constitutional general appearance Overall: in no acute distress 10/24/2012 None Full Exam - General 1994 Constitutional general appearance Overall: well nourished 10/24/2012 None Full Exam - General 1994 Ears/Nose/Throat otoscopic exam Overall: external auditory canals clear 10/24/2012 None Full Exam - General 1994 Ears/Nose/Throat otoscopic exam Overall: tympanic membranes clear 10/24/2012 None Full Exam - General 1994 Ears/Nose/Throat oral cavity/pharynx/larynx Overall: oral mucosa clear 10/24/2012 None Full Exam - General 1995 Ears/Nose/Throat oral cavity/pharynx/larynx Overall: oropharyngeal mucosa clear 10/24/2012 None Full Exam - General 1995 Ears/Nose/Throat oral cavity/pharynx/larynx Overall: no masses 10/24/2012 None Full Exam - General 1994 Respiratory auscultation Overall: breath sounds clear bilaterally 10/24/2012 None Full Exam - General 1995 Respiratory respiratory effort/rhythm Overall: no retractions 10/24/2012 None Full Exam - General 1994 Respiratory respiratory effort/rhythm Overall: normal rate 10/24/2012 None Full Exam - General 1994 Cardiovascular auscultation of heart Overall: regular rate 10/24/2012 None Full Exam - General 1994 Cardiovascular auscultation of heart Overall: normal heart sounds 10/24/2012 None Full Exam - General 1994 Abdomen abdominal exam Overall: no tenderness 10/24/2012 None Full Exam - General 1994 Abdomen abdominal exam Overall: normal bowel sounds 10/24/2012 None Full Exam - General 1995 Musculoskeletal head and neck Overall: head atraumatic 10/24/2012 None Full Exam - General 1995 Musculoskeletal head and neck Overall: cervical spine benign 10/24/2012 None Full Exam - General 1995 Integument inspection of skin Dermatitis: dryness/ flaking 10/24/2012 None Full Exam - General 1995 Integument inspection of skin Location: face 10/24/2012 on the lips Full Exam - General 1994 Neurologic gait Overall: no ataxia, no unsteadiness 10/24/2012 None Full Exam - General 1994 Neurologic cranial nerves Overall: crainial nerves 2 - 12 grossly intact 10/24/2012 None Full Exam - General 1994 Psychiatric orientation/consciousness Overall: oriented to person, place and time 10/24/2012 None Full Exam - General 1994 Psychiatric mood and affect Overall: normal mood and affect 10/24/2012 None Full Exam - General 1994 Respiratory auscultation Overall: breath sounds clear bilaterally 09/12/2012 None Full Exam - General 1994 Respiratory respiratory effort/rhythm Overall: no retractions 09/12/2012 None Full Exam - General 1994 Respiratory respiratory effort/rhythm Overall: normal rate 09/12/2012 None Full Exam - General 1994 Cardiovascular auscultation of heart Overall: regular rate 09/12/2012 None Full Exam - General 1994 Cardiovascular auscultation of heart Overall: normal heart sounds 09/12/2012 None Full Exam - General 1994 Abdomen abdominal exam Overall: no tenderness 09/12/2012 None Full Exam - General 1994 Abdomen abdominal exam Overall: normal bowel sounds 09/12/2012 None Full Exam - General 1994 Musculoskeletal head and neck Overall: head atraumatic 09/12/2012 None Full Exam - General 1994 Musculoskeletal head and neck Overall: cervical spine benign 09/12/2012 None Full Exam - General 1994 Integument inspection of skin Dermatitis: dryness/ flaking 09/12/2012 None Full Exam - General 1994 Integument inspection of skin Location: face 09/12/2012 on the lips Full Exam - General 1994 Neurologic gait Overall: no ataxia, no unsteadiness 09/12/2012 None Full Exam - General 1994 Neurologic cranial nerves Overall: crainial nerves 2 - 12 grossly intact 09/12/2012 None Full Exam - General 1994 Psychiatric orientation/consciousness Overall: oriented to person, place and time 09/12/2012 None Full Exam - General 1994 Constitutional general appearance Overall: well developed 09/12/2012 None Full Exam - General 1994 Constitutional general appearance Overall: in no acute distress 09/12/2012 None Full Exam - General 1994 Constitutional general appearance Overall: well nourished 09/12/2012 None Full Exam - General 1994 Ears/Nose/Throat otoscopic exam Overall: external auditory canals clear 09/12/2012 None Full Exam - General 1994 Ears/Nose/Throat otoscopic exam Overall: tympanic membranes clear 09/12/2012 None Full Exam - General 1994 Ears/Nose/Throat oral cavity/pharynx/larynx Overall: oral mucosa clear 09/12/2012 None Full Exam - General 1995 Ears/Nose/Throat oral cavity/pharynx/larynx Overall: oropharyngeal mucosa clear 09/12/2012 None Full Exam - General 1995 Ears/Nose/Throat oral cavity/pharynx/larynx Overall: no masses 09/12/2012 None Full Exam - General 1994 Psychiatric mood and affect Overall: normal mood and affect 09/12/2012 None Full Exam - General 1994 Constitutional general appearance Overall: well nourished 05/30/2012 None Full Exam - General 1994 Constitutional general appearance Overall: well developed 05/30/2012 None Full Exam - General 1994 Constitutional general appearance Overall: in no acute distress 05/30/2012 None Full Exam - General 1994 Ears/Nose/Throat otoscopic exam Overall: external auditory canals clear 05/30/2012 None Full Exam - General 1994 Ears/Nose/Throat otoscopic exam Overall: tympanic membranes clear 05/30/2012 None Full Exam - General 1995 Ears/Nose/Throat oral cavity/pharynx/larynx Overall: oral mucosa clear 05/30/2012 None Full Exam - General 1995 Ears/Nose/Throat oral cavity/pharynx/larynx Overall: oropharyngeal mucosa clear 05/30/2012 None Full Exam - General 1995 Ears/Nose/Throat oral cavity/pharynx/larynx Overall: no masses 05/30/2012 None Full Exam - General 1994 Respiratory auscultation Overall: breath sounds clear bilaterally 05/30/2012 None Full Exam - General 1994 Respiratory respiratory effort/rhythm Overall: no retractions 05/30/2012 None Full Exam - General 1994 Respiratory respiratory effort/rhythm Overall: normal rate 05/30/2012 None Full Exam - General 1994 Cardiovascular auscultation of heart Overall: regular rate 05/30/2012 None Full Exam - General 1994 Cardiovascular auscultation of heart Overall: normal heart sounds 05/30/2012 None Full Exam - General 1994 Abdomen abdominal exam Overall: no tenderness 05/30/2012 None Full Exam - General 1994 Abdomen abdominal exam Overall: normal bowel sounds 05/30/2012 None Full Exam - General 1994 Musculoskeletal head and neck Overall: head atraumatic 05/30/2012 None Full Exam - General 1994 Musculoskeletal head and neck Overall: cervical spine benign 05/30/2012 None Full Exam - General 1994 Integument inspection of skin Dermatitis: dryness/ flaking 05/30/2012 None Full Exam - General 1994 Integument inspection of skin Location: face 05/30/2012 on the lips Full Exam - General 1994 Neurologic gait Overall: no ataxia, no unsteadiness 05/30/2012 None Full Exam - General 1994 Neurologic cranial nerves Overall: crainial nerves 2 - 12 grossly intact 05/30/2012 None Full Exam - General 1994 Psychiatric orientation/consciousness Overall: oriented to person, place and time 05/30/2012 None Full Exam - General 1994 Psychiatric mood and affect Overall: normal mood and affect 05/30/2012 None Full Exam - General 1994 Constitutional general appearance Overall: well developed 02/08/2012 None Full Exam - General 1994 Constitutional general appearance Overall: in no acute distress 02/08/2012 None Full Exam - General 1994 Constitutional general appearance Overall: well nourished 02/08/2012 None Full Exam - General 1994 Psychiatric orientation/consciousness Overall: oriented to person, place and time 02/08/2012 None Full Exam - General 1994 Psychiatric mood and affect Overall: normal mood and affect 02/08/2012 None Full Exam - General 1994 Psychiatric mood and affect Mood: happy 02/08/2012 None Full Exam - General 1994 Integument inspection of skin Location: left leg 02/08/2012 None Full Exam - General 1994 Integument inspection of skin Pigmentation: presence of a scar 02/08/2012 from previous shave biopsy of the lesion on left lower lateral anterior tibia Full Exam - General 1994 Constitutional general appearance Overall: well nourished 11/30/2011 None Full Exam - General 1994 Constitutional general appearance Overall: well developed 11/30/2011 None Full Exam - General 1994 Constitutional general appearance Overall: in no acute distress 11/30/2011 None Full Exam - General 1994 Psychiatric orientation/consciousness Overall: oriented to person, place and time 11/30/2011 None Full Exam - General 1994 Psychiatric mood and affect Mood: happy 11/30/2011 None Full Exam - General 1994 Psychiatric mood and affect Overall: normal mood and affect 11/30/2011 None Full Exam - General 1994 Integument inspection of skin Dermatitis: dryness/ flaking 11/30/2011 None Full Exam - General 1994 Integument inspection of skin Dermatitis: scaling 11/30/2011 over entire back, pt has MULTIPLE seborrheic keratosis, lesion on right forearm is irritated at [facility] due to repeated trauma, will be removed today with electrocautery Full Exam - General 1994 Integument inspection of skin Dermatitis: erythema 11/30/2011 lesion on left lower leg - anterior tibial surface, 1 x .5 cm and was removed with 11 blad and bleeding was stopped with silver nitrate. Full Exam - General 1994 Constitutional general appearance Overall: well developed 10/13/2011 None Full Exam - General 1994 Constitutional general appearance Overall: in no acute distress 10/13/2011 None Full Exam - General 1994 Abdomen abdominal exam Skin: presence of a scar 10/13/2011 and bruising across lower abdomen and over right flank Full Exam - General 1994 Psychiatric orientation/consciousness Overall: oriented to person, place and time 10/13/2011 None Full Exam - General 1994 Psychiatric mood and affect Mood: happy 10/13/2011 None Full Exam - General 1994 Psychiatric mood and affect Overall: normal mood and affect 10/13/2011 None Full Exam - General 1994 Neurologic gait Overall: no ataxia, no unsteadiness 10/13/2011 None Full Exam - General 1994 Neurologic cranial nerves Overall: crainial nerves 2 - 12 grossly intact 10/13/2011 None Full Exam - General 1994 Eyes pupils and irises Pupil: round None Full Exam - General 1994 Eyes pupils and irises Pupil: reactive to light 10/13/2011 None Full Exam - General 1994 Respiratory respiratory effort/rhythm Overall: normal rate 10/13/2011 None Full Exam - General 1994 Respiratory respiratory effort/rhythm Overall: no retractions 10/13/2011 None Full Exam - General 1994 Respiratory auscultation Overall: breath sounds clear bilaterally 10/13/2011 None Full Exam - General 1994 Respiratory palpation of chest Right upper lung field: pain to deep pressure 10/13/2011 None Full Exam - General 1994 Respiratory palpation of chest Right upper lung field: pain to light pressure 10/13/2011 None Full Exam - General 1994 Respiratory palpation of chest Chest wall pain: pain to light pressure 10/13/2011 None Full Exam - General 1994 Respiratory palpation of chest Chest wall pain: pain to deep pressure 10/13/2011 None Full Exam - General 1994 Cardiovascular auscultation of heart Overall: regular rate 10/13/2011 None Full Exam - General 1994 Cardiovascular auscultation of heart Overall: normal heart sounds 10/13/2011 None Full Exam - General 1994 Cardiovascular extremities Overall: no clubbing 10/13/2011 None Full Exam - General 1994 Abdomen abdominal exam Overall: no tenderness 10/13/2011 None Full Exam - General 1994 Abdomen abdominal exam Overall: normal bowel sounds 10/13/2011 None Full Exam - General 1994 Constitutional general appearance Overall: well nourished 10/13/2011 None Full Exam - General 1994 Ears/Nose/Throat otoscopic exam Overall: tympanic membranes clear 10/04/2011 None Full Exam - General 1994 Ears/Nose/Throat oral cavity/pharynx/larynx Overall: oral mucosa clear 10/04/2011 None Full Exam - General 1994 Ears/Nose/Throat oral cavity/pharynx/larynx Overall: oropharyngeal mucosa clear 10/04/2011 None Full Exam - General 1994 Ears/Nose/Throat oral cavity/pharynx/larynx Overall: no masses 10/04/2011 None Full Exam - General 1994 Respiratory auscultation Overall: breath sounds clear bilaterally 10/04/2011 None Full Exam - General 1994 Respiratory respiratory effort/rhythm Overall: no retractions 10/04/2011 None Full Exam - General 1994 Respiratory respiratory effort/rhythm Overall: normal rate 10/04/2011 None Full Exam - General 1994 Cardiovascular auscultation of heart Overall: regular rate 10/04/2011 None Full Exam - General 1994 Cardiovascular auscultation of heart Overall: normal heart sounds 10/04/2011 None Full Exam - General 1994 Abdomen abdominal exam Overall: no tenderness 10/04/2011 None Full Exam - General 1994 Abdomen abdominal exam Overall: normal bowel sounds 10/04/2011 None Full Exam - General 1994 Musculoskeletal head and neck Overall: head atraumatic 10/04/2011 None Full Exam - General 1994 Musculoskeletal head and neck Overall: cervical spine benign 10/04/2011 None Full Exam - General 1994 Integument inspection of skin Dermatitis: dryness/ flaking 10/04/2011 None Full Exam - General 1994 Constitutional general appearance Overall: well nourished 10/04/2011 None Full Exam - General 1994 Constitutional general appearance Overall: well developed 10/04/2011 None Full Exam - General 1994 Constitutional general appearance Overall: in no acute distress 10/04/2011 None Full Exam - General 1994 Ears/Nose/Throat otoscopic exam Overall: external auditory canals clear 10/04/2011 None Full Exam - General 1994 Integument inspection of skin Location: face 10/04/2011 on the lips Full Exam - General 1994 Neurologic gait Overall: no ataxia, no unsteadiness 10/04/2011 None Full Exam - General 1994 Neurologic cranial nerves Overall: crainial nerves 2 - 12 grossly intact 10/04/2011 None Full Exam - General 1994 Psychiatric orientation/consciousness Overall: oriented to person, place and time 10/04/2011 None Full Exam - General 1994 Psychiatric mood and affect Overall: normal mood and affect 10/04/2011 None Full Exam - General 1994 Musculoskeletal head and neck Overall: head atraumatic 05/12/2011 None Full Exam - General 1994 Musculoskeletal head and neck Overall: cervical spine benign 05/12/2011 None Full Exam - General 1994 Integument inspection of skin Dermatitis: dryness/ flaking 05/12/2011 None Full Exam - General 1994 Integument inspection of skin Location: face 05/12/2011 on the lips Full Exam - General 1994 Neurologic gait Overall: no ataxia, no unsteadiness 05/12/2011 None Full Exam - General 1994 Neurologic cranial nerves Overall: crainial nerves 2 - 12 grossly intact 05/12/2011 None Full Exam - General 1994 Psychiatric orientation/consciousness Overall: oriented to person, place and time 05/12/2011 None Full Exam - General 1994 Psychiatric mood and affect Overall: normal mood and affect 05/12/2011 None Full Exam - General 1994 Constitutional general appearance Overall: well nourished 05/12/2011 None Full Exam - General 1994 Constitutional general appearance Overall: well developed 05/12/2011 None Full Exam - General 1994 Constitutional general appearance Overall: in no acute distress 05/12/2011 None Full Exam - General 1994 Ears/Nose/Throat otoscopic exam Overall: external auditory canals clear 05/12/2011 None Full Exam - General 1994 Ears/Nose/Throat otoscopic exam Overall: tympanic membranes clear 05/12/2011 None Full Exam - General 1994 Ears/Nose/Throat oral cavity/pharynx/larynx Overall: oral mucosa clear 05/12/2011 None Full Exam - General 1994 Ears/Nose/Throat oral cavity/pharynx/larynx Overall: oropharyngeal mucosa clear 05/12/2011 None Full Exam - General 1994 Ears/Nose/Throat oral cavity/pharynx/larynx Overall: no masses 05/12/2011 None Full Exam - General 1994 Respiratory auscultation Overall: breath sounds clear bilaterally 05/12/2011 None Full Exam - General 1994 Respiratory respiratory effort/rhythm Overall: no retractions 05/12/2011 None Full Exam - General 1994 Respiratory respiratory effort/rhythm Overall: normal rate 05/12/2011 None Full Exam - General 1994 Cardiovascular auscultation of heart Overall: regular rate 05/12/2011 None Full Exam - General 1994 Cardiovascular auscultation of heart Overall: normal heart sounds 05/12/2011 None Full Exam - General 1994 Abdomen abdominal exam Overall: no tenderness 05/12/2011 None Full Exam - General 1994 Abdomen abdominal exam Overall: normal bowel sounds 05/12/2011 None Full Exam - General 1994 Psychiatric orientation/consciousness Overall: oriented to person, place and time 03/17/2011 None Full Exam - General 1994 Psychiatric mood and affect Overall: normal mood and affect 03/17/2011 None Full Exam - General 1994 Neurologic gait Overall: no ataxia, no unsteadiness 03/17/2011 None Full Exam - General 1994 Neurologic cranial nerves Overall: crainial nerves 2 - 12 grossly intact 03/17/2011 None Full Exam - General 1994 Musculoskeletal head and neck Overall: cervical spine benign 03/17/2011 None Full Exam - General 1994 Musculoskeletal head and neck Overall: head atraumatic 03/17/2011 None Full Exam - General 1994 Integument inspection of skin Dermatitis: dryness/ flaking 03/17/2011 None Full Exam - General 1994 Integument inspection of skin Location: face 03/17/2011 on the lips Full Exam - General 1994 Abdomen abdominal exam Overall: no tenderness 03/17/2011 None Full Exam - General 1994 Abdomen abdominal exam Overall: normal bowel sounds 03/17/2011 None Full Exam - General 1994 Cardiovascular auscultation of heart Overall: regular rate 03/17/2011 None Full Exam - General 1994 Cardiovascular auscultation of heart Overall: normal heart sounds 03/17/2011 None Full Exam - General 1994 Respiratory respiratory effort/rhythm Overall: normal rate 03/17/2011 None Full Exam - General 1994 Respiratory respiratory effort/rhythm Overall: no retractions 03/17/2011 None Full Exam - General 1994 Respiratory auscultation Overall: breath sounds clear bilaterally 03/17/2011 None Full Exam - General 1994 Ears/Nose/Throat otoscopic exam Overall: tympanic membranes clear 03/17/2011 None Full Exam - General 1994 Ears/Nose/Throat otoscopic exam Overall: external auditory canals clear 03/17/2011 None Full Exam - General 1994 Ears/Nose/Throat oral cavity/pharynx/larynx Overall: oropharyngeal mucosa clear 03/17/2011 None Full Exam - General 1994 Ears/Nose/Throat oral cavity/pharynx/larynx Overall: no masses 03/17/2011 None Full Exam - General 1994 Ears/Nose/Throat oral cavity/pharynx/larynx Overall: oral mucosa clear 03/17/2011 None Full Exam - General 1994 Constitutional general appearance Overall: well nourished 03/17/2011 None Full Exam - General 1994 Constitutional general appearance Overall: well developed 03/17/2011 None Full Exam - General 1994 Constitutional general appearance Overall: in no acute distress 03/17/2011 None Full Exam - General 1994 Respiratory respiratory effort/rhythm Overall: normal rate 02/26/2011 None Full Exam - General 1994 Cardiovascular auscultation of heart Overall: regular rate 02/26/2011 None Full Exam - General 1994 Cardiovascular auscultation of heart Overall: normal heart sounds 02/26/2011 None Full Exam - General 1994 Cardiovascular extremities Overall: no clubbing 02/26/2011 None Full Exam - General 1994 Abdomen abdominal exam Overall: no tenderness 02/26/2011 None Full Exam - General 1994 Abdomen abdominal exam Overall: normal bowel sounds 02/26/2011 None Full Exam - General 1994 Lymphatic neck nodes Overall: anterior cervical chain benign 02/26/2011 None Full Exam - General 1994 Musculoskeletal head and neck Overall: head atraumatic 02/26/2011 None Full Exam - General 1994 Musculoskeletal head and neck Overall: cervical spine benign 02/26/2011 None Full Exam - General 1994 Psychiatric orientation/consciousness Overall: oriented to person, place and time 02/26/2011 None Full Exam - General 1994 Psychiatric mood and affect Mood: depressed 02/26/2011 None Full Exam - General 1994 Psychiatric mood and affect Affect: flat 02/26/2011 None Full Exam - General 1994 Neurologic cranial nerves Overall: crainial nerves 2 - 12 grossly intact 02/26/2011 None Full Exam - General 1994 Constitutional general appearance Hygiene/Attention to Grooming: good hygiene 02/26/2011 None Full Exam - General 1994 Eyes pupils and irises Overall: pupils equal, round, reactive to light and accomodation 02/26/2011 None Full Exam - General 1994 Constitutional general appearance Development: appears stated age 1002/26/2011 None Full Exam - General 1994 Constitutional general appearance Stature/Body Habitus: normal body habitus 02/26/2011 None Full Exam - General 1994 Constitutional general appearance Nourishment: well nourished 02/26/2011 None Full Exam - General 1994 Constitutional general appearance Evidence of Distress: in no acute distress 02/26/2011 None Full Exam - General 1994 Ears/Nose/Throat otoscopic exam Overall: external auditory canals clear 02/26/2011 None Full Exam - General 1994 Ears/Nose/Throat otoscopic exam Overall: tympanic membranes clear 02/26/2011 None Full Exam - General 1994 Ears/Nose/Throat oral cavity/pharynx/larynx Oral mucosa: dry 02/26/2011 None Full Exam - General 1994 Ears/Nose/Throat oral cavity/pharynx/larynx Mobile tongue: a normal exam 02/26/2011 None Full Exam - General 1994 Ears/Nose/Throat oral cavity/pharynx/larynx Oropharynx: a normal exam 02/26/2011 None Full Exam - General 1994 Neck inspection of neck Overall: normal size 02/26/2011 None Full Exam - General 1994 Neck inspection of neck Overall: no masses 02/26/2011 None Full Exam - General 1994 Respiratory auscultation Upper lung field: a normal exam 02/26/2011 None Full Exam - General 1994 Respiratory auscultation Lower lung field: a normal exam 02/26/2011 None Full Exam - General 1994 Respiratory auscultation Lower lung field: crackles 02/26/2011 None Full Exam - General 1994 Respiratory auscultation Upper lung field: diminished 02/26/2011 None Full Exam - General 1994 Respiratory respiratory effort/rhythm Overall: no retractions 02/26/2011 None Procedures Procedure Codes Date ADMIN INFLUENZA VIRUS VAC CPT-4: G0008 02/09/2017 FLU VACC PRSV FREE INC ANTIG CPT-4: 35137 02/09/2017 URINALYSIS NONAUTO W/O SCOPE CPT-4: 56307 02/01/2017 URINALYSIS NONAUTO W/O SCOPE CPT-4: 29917 12/20/2016 THER/PROPH/DIAG INJ SC/IM CPT-4: 81656 12/16/2016 KETOROLAC TROMETHAMINE INJ CPT-4: J1885 12/16/2016 PROMETHAZINE HCL INJECTION CPT-4: J2550 12/16/2016 PROMETHAZINE HCL INJECTION CPT-4: J2550 05/11/2016 KETOROLAC TROMETHAMINE INJ CPT-4: J1885 05/11/2016 URINALYSIS NONAUTO W/O SCOPE CPT-4: 56906 04/21/2016 URINALYSIS NONAUTO W/O SCOPE CPT-4: 18173 07/15/2015 URINALYSIS NONAUTO W/O SCOPE CPT-4: 59921 10/08/2014 Pneumococcal Polysaccharide Vaccine, 23-Valent, Ad Assigned to/Mery Parry CPT-4: [id number] 07/17/2014 ADMIN PNEUMOCOCCAL VACCINE SNOMED CT: [id number] CPT-4: G0009 07/17/2014 ROUTINE VENIPUNCTURE CPT-4: 46004 06/08/2013 ROUTINE VENIPUNCTURE CPT-4: 34842 02/27/2013 ADMIN INFLUENZA VIRUS VAC CPT-4: G0008 02/26/2013 FLULAVAL VACC, 3 YRS & >, IM CPT-4: Q2036 02/26/2013 PRESCRIP TRANSMIT VIA ERX SY CPT-4: G8553 10/24/2012 ROUTINE VENIPUNCTURE CPT-4: 35835 10/18/2012 ROUTINE VENIPUNCTURE CPT-4: 60902 06/01/2012 ADMIN INFLUENZA VIRUS VAC CPT-4: G0008 02/08/2012 FLULAVAL VACC, 3 YRS & >, IM CPT-4: Q2036 02/08/2012 EXC TR-EXT B9+ELENA 1.1-2 CM CPT-4: 59387 02/08/2012 DESTRUCT PREMALG LESION CPT-4: 33966 11/30/2011 BIOPSY SKIN LESION CPT -4: 09760 11/30/2011 ROUTINE VENIPUNCTURE CPT-4: 52648 11/18/2011 PROMETHAZINE HCL INJECTION CPT-4: J2550 05/12/2011 KETOROLAC TROMETHAMINE INJ CPT-4: J1885 05/12/2011 PRESCRIP TRANSMIT VIA ERX SY CPT-4: G8553 05/12/2011 PRESCRIP TRANSMIT VIA ERX SY CPT-4: G8553 03/17/2011 ADMIN INFLUENZA VIRUS VAC CPT-4: G0008 02/26/2011 FLULAVAL VACC, 3 YRS & >, IM CPT-4: Q2036 02/26/2011 Vital Signs Date Vital 01/27/2017 Blood Pressure 1: 142/80 Code : 8480-6 BMI: 29.5 Code : 29858-3 Heart Rate 1 : 78 bpm Height: 5'2" SpO2: 92% Weight: 161 lbs 8 oz 01/17/2017 Blood Pressure 1: 110/70 Code : 8480-6 BMI: 29.3 Code : 02427-2 Heart Rate 1 : 82 bpm Height: 5'2" SpO2: 97% Weight: 160 lbs 01/07/2017 Blood Pressure 1: 122/54 Code : 8480-6 BMI: 29.6 Code : 34182-0 Heart Rate 1 : 76 bpm Height: 5'2" SpO2: 97% Weight: 162 lbs 12/29/2016 Blood Pressure 1: 122/54 Code : 8480-6 BMI: 29.6 Code : 04739-1 Heart Rate 1 : 74 bpm Height: 5'2" SpO2: 95% Weight: 162 lbs 12/16/2016 Blood Pressure 1: 148/60 Code : 8480-6 BMI: 30.4 Code : 09693-2 Heart Rate 1 : 81 bpm Height: 5'2" SpO2: 94% Weight: 166 lbs 08/25/2016 Blood Pressure 1: 160/80 Code : 8480-6 BMI: 29.4 Code : 70312-1 Heart Rate 1 : 64 bpm Height: 5'2" SpO2: 95% Weight: 161 lbs 05/11/2016 Blood Pressure 1: 168/68 Code : 8480-6 Blood Pressure 1: 168/70 Code: 8480-6 BMI: 30.4 Code: 70982-0 Heart Rate 1: 66 bpm Height: 5'2" SpO2: 93% Weight: 166 lbs 04/20/2016 Blood Pressure 1: 138/77 Code : 8480-6 BMI: 31.0 Code : 51365-0 Heart Rate 1 : 70 bpm Height: 5'2" Respiratory Rate: 18 bpm SpO2: 95% Weight: 169 lbs 8 oz 03/10/2016 Blood Pressure 1: 130/80 Code : 8480-6 BMI: 30.3 Code : 34212-0 Heart Rate 1 : 61 bpm Height: 5'2" SpO2: 96% Weight: 165 lbs 8 oz 11/18/2015 Blood Pressure 1: 148/72 Code : 8480-6 BMI: 28.5 Code : 50437-1 Heart Rate 1 : 69 bpm Height: 5'3" SpO2: 97% Weight: 161 lbs 09/11/2015 Blood Pressure 1: 124/76 Code : 8480-6 BMI: 27.1 Code : 24421-5 Heart Rate 1 : 70 bpm Height: 5'3" SpO2: 97% Weight: 153 lbs 08/06/2015 Blood Pressure 1: 120/68 Code : 8480-6 BMI: 26.2 Code : 14701-3 Heart Rate 1 : 66 bpm Height: 5'3" Weight: 148 lbs 07/15/2015 Blood Pressure 1: 134/60 Code : 8480-6 BMI: 26.9 Code : 47236-3 Heart Rate 1 : 76 bpm Height: 5'3" SpO2: 97% Weight: 152 lbs 07/04/2015 Blood Pressure 1: 122/84 Code : 8480-6 BMI: 26.9 Code : 72854-8 Heart Rate 1 : 84 bpm Height: 5'3" SpO2: 98% Weight: 152 lbs 03/13/2015 Blood Pressure 1: 154/78 Code : 8480-6 BMI: 27.5 Code : 75535-3 Heart Rate 1 : 68 bpm Height: 5'3" SpO2: 96% Weight: 155 lbs 10/08/2014 Blood Pressure 1: 128/70 Code : 8480-6 BMI: 28.0 Code : 08673-2 Heart Rate 1 : 74 bpm Height: 5'3" Weight: 158 lbs 07/17/2014 Blood Pressure 1: 142/82 Code : 8480-6 BMI: 27.3 Code : 80179-7 Heart Rate 1 : 76 bpm Height: 5'3" Weight: 154 lbs 01/11/2014 Blood Pressure 1: 120/72 Code : 8480-6 Heart Rate 1: 68 bpm SpO2: 96% Weight: 168 lbs 07/02/2013 Blood Pressure 1: 162/72 Code : 8480-6 BMI: 29.6 Code : 23622-2 Heart Rate 1 : 64 bpm Height: 5'3" Weight: 167 lbs 02/26/2013 Blood Pressure 1: 132/68 Code : 8480-6 BMI: 29.2 Code : 71001-5 Heart Rate 1 : 72 bpm Height: 5'3" Weight: 165 lbs 10/24/2012 Blood Pressure 1: 132/82 Code : 8480-6 BMI: 29.9 Code : 48710-6 Heart Rate 1 : 68 bpm Height: 5'3" Weight: 169 lbs 10/18/2012 Blood Pressure 1: 140/70 Code : 8480-6 09/12/2012 Blood Pressure 1: 124/70 Code : 8480-6 BMI: 30.1 Code : 67055-4 Heart Rate 1 : 64 bpm Height: 5'3" Weight: 170 lbs 05/30/2012 Blood Pressure 1: 134/88 Code : 8480-6 BMI: 30.6 Code : 90571-1 Heart Rate 1 : 76 bpm Height: 5'3" Weight: 173 lbs 02/22/2012 Blood Pressure 1: 146/62 Code : 8480-6 Heart Rate 1: 80 bpm Respiratory Rate : 16 bpm Weight: 169 lbs 02/08/2012 Blood Pressure 1: 150/74 Code : 8480-6 Heart Rate 1: 76 bpm 11/30/2011 Blood Pressure 1: 140/64 Code : 8480-6 Heart Rate 1: 71 bpm SpO2: 95% 10/13/2011 Blood Pressure 1: 134/56 Code : 8480-6 Heart Rate 1: 76 bpm Weight: 169 lbs 10/04/2011 Blood Pressure 1: 146/62 Code : 8480-6 BMI: 30.3 Code : 54950-8 Height: 5'3" Weight: 171 lbs 05/12/2011 Blood Pressure 1: 158/90 Code : 8480-6 BMI: 29.9 Code : 68303-0 Heart Rate 1 : 68 bpm Height: 5'3" Respiratory Rate: 16 bpm Weight: 169 lbs 03/17/2011 Blood Pressure 1: 128/84 Code : 8480-6 BMI: 31.1 Code : 82659-7 Heart Rate 1 : 68 bpm Height: 5'3" Respiratory Rate: 16 bpm Weight: 175 lbs 8 oz 02/26/2011 Blood Pressure 1: 152/70 Code : 8480-6 BMI: 32.2 Code : 54105-8 Heart Rate 1 : 66 bpm Height: 5'2" Respiratory Rate: 16 bpm Weight: 176 lbs Functional Status No Functional Status data History of Present Illness Symptom Name Status Result Effective Date Notes abdominal pain Location in the RUQ 01/27/2017 None abdominal pain Quality acute 01/27/2017 None abdominal pain Onset and Resolution sudden in onset 01/27/2017 None abdominal pain Limitation on Activities moderately limits activities 01/27/2017 None abdominal pain Timing of Episodes after meals 01/27/2017 None abdominal pain Exacerbating Factors eating 01/27/2017 None abdominal pain Pertinent Findings Denies dyspnea 01/27/2017 None abdominal pain Pertinent Findings Denies fever 01/27/2017 None abdominal pain Pertinent Findings Denies melena 01/27/2017 None abdominal pain Pertinent Findings nausea 01/27/2017 mild abdominal pain Location in the RUQ 01/17/2017 None abdominal pain Quality acute 01/17/2017 None abdominal pain Onset and Resolution sudden in onset 01/17/2017 None abdominal pain Limitation on Activities moderately limits activities 01/17/2017 None abdominal pain Timing of Episodes after meals 01/17/2017 None abdominal pain Exacerbating Factors eating 01/17/2017 None abdominal pain Pertinent Findings Denies dyspnea 01/17/2017 None abdominal pain Pertinent Findings Denies fever 01/17/2017 None abdominal pain Pertinent Findings nausea 01/17/2017 mild abdominal pain Pertinent Findings Denies melena 01/17/2017 None rash Location-Major in the groin area 01/07/2017 None rash Location-Trunk on the perineum 01/07/2017 None rash Color red 2016 None rash Onset and Resolution sudden in onset 01/07/2017 None rash Onset of Symptom 6 days ago 01/07/2017 None rash Pertinent Findings itching 01/07/2017 None fatigue Onset of Symptom 2 weeks ago 12/29/2016 None fatigue Frequency of Episodes daily 12/29/2016 None fatigue Limitation on Activities moderately limits activities 12/29/2016 None fatigue Onset and Resolution ongoing 12/29/2016 None headache Location diffusely 12/16/2016 None headache Quality aching 12/16/2016 None headache Quality constant 12/16/2016 None headache Quality pressure 12/16/2016 None headache Quality squeezing 12/16/2016 None headache Onset and Resolution sudden in onset 12/16/2016 None headache Onset of Symptom 2 days ago 12/16/2016 None headache Alleviating Factors quiet/ silence 12/16/2016 None headache Exacerbating Factors activity 12/16/2016 None headache Exacerbating Factors loud noises 12/16/2016 None headache Exacerbating Factors sunlight 12/16/2016 None headache Pertinent Findings Denies blurred vision 12/16/2016 None headache Pertinent Findings Denies dizziness 12/16/2016 None headache Pertinent Findings lightheadedness 12/16/2016 None hypertension Onset and Resolution ongoing 08/25/2016 None hypertension Onset of Symptom during adulthood 08/25/2016 None hypertension Alleviating Factors medication 08/25/2016 None hypertension Pertinent Findings Denies dizziness 08/25/2016 None hypertension Pertinent Findings Denies dyspnea 08/25/2016 None hypertension Pertinent Findings Denies edema 08/25/2016 None hypothyroid Onset and Resolution ongoing 08/25/2016 None hypothyroid Alleviating Factors medication 08/25/2016 None hypertension Blood Pressure Values patient checking blood pressure at home - did not bring in readings 08/25/2016 None hypertension Quality intermittent 08/25/2016 None headache Location diffusely 05/11/2016 None headache Quality constant 05/11/2016 None headache Quality aching 05/11/2016 None headache Onset and Resolution sudden in onset 05/11/2016 None headache Onset of Symptom 3 days ago 05/11/2016 None headache Frequency of Episodes daily 05/11/2016 None headache Pertinent Findings blurred vision 05/11/2016 None headache Pertinent Findings dizziness 05/11/2016 None headache Pertinent Findings nausea 05/11/2016 None hypertension Onset and Resolution ongoing 04/20/2016 None hypertension Onset of Symptom during adulthood 04/20/2016 None hypertension Blood Pressure Values not checking blood pressure at home 04/20/2016 None hypertension Alleviating Factors medication 04/20/2016 None hypertension Pertinent Findings Denies dizziness 04/20/2016 None hypertension Pertinent Findings Denies dyspnea 04/20/2016 None hypertension Pertinent Findings Denies edema 04/20/2016 None hypothyroid Onset and Resolution ongoing 04/20/2016 None hypothyroid Alleviating Factors medication 04/20/2016 None hypertension Onset and Resolution ongoing 03/10/2016 None hypertension Onset of Symptom during adulthood 03/10/2016 None hypertension Alleviating Factors medication 03/10/2016 None hypertension Pertinent Findings Denies dizziness 03/10/2016 None hypertension Pertinent Findings Denies dyspnea 03/10/2016 None hypertension Pertinent Findings Denies edema 03/10/2016 None hypothyroid Onset and Resolution ongoing 03/10/2016 None hypothyroid Alleviating Factors medication 03/10/2016 None hyperlipidemia Onset and Resolution gradual in onset 03/10/2016 None hyperlipidemia Onset and Resolution ongoing 03/10/2016 None hyperlipidemia Onset of Symptom during adulthood 03/10/2016 None hyperlipidemia Alleviating Factors medication 03/10/2016 None hyperlipidemia Exacerbating Factors diet 03/10/2016 None hypertension Blood Pressure Values not checking blood pressure at home 03/10/2016 None skin lesion Quality raised 03/10/2016 None skin lesion Quality fixed 03/10/2016 None skin lesion Onset and Resolution ongoing 03/10/2016 None skin lesion Location left foot 03/10/2016 middle toe hypertension Onset and Resolution ongoing 11/18/2015 None hypertension Onset of Symptom during adulthood 11/18/2015 None hypertension Blood Pressure Values patient checking blood pressure at home - did not bring in readings 11/18/2015 -Checks occasionally hypertension Alleviating Factors medication 11/18/2015 None hypertension Pertinent Findings Denies dizziness 11/18/2015 None hypertension Pertinent Findings Denies dyspnea 11/18/2015 None hypertension Pertinent Findings Denies edema 11/18/2015 None hypothyroid Onset and Resolution ongoing 11/18/2015 None hypothyroid Alleviating Factors medication 11/18/2015 None hyperlipidemia Onset and Resolution gradual in onset 11/18/2015 None hyperlipidemia Onset and Resolution ongoing 11/18/2015 None hyperlipidemia Onset of Symptom during adulthood 11/18/2015 None hyperlipidemia Alleviating Factors medication 11/18/2015 None hyperlipidemia Exacerbating Factors diet 11/18/2015 None new lesion Location-Major on the legs 11/18/2015 None new lesion Location-Major on the toes 11/18/2015 None new lesion Location-Extremities on the left leg 11/18/2015 posterior new lesion Location-Extremities on the left (3rd) toe 11/18/2015 None gastroesophageal reflux Quality intermittent 09/11/2015 None gastroesophageal reflux Onset and Resolution resolved 09/11/2015 None gastroesophageal reflux Pertinent Findings Denies cough 09/11/2015 None gastroesophageal reflux Pertinent Findings Denies facial pain 09/11/2015 None gastroesophageal reflux Pertinent Findings Denies nausea 09/11/2015 None gastroesophageal reflux Onset of Symptom during adulthood 09/11/2015 None gastroesophageal reflux Severity mild 09/11/2015 None gastroesophageal reflux Frequency of Episodes decreasing 09/11/2015 None gastroesophageal reflux Diet solids 09/11/2015 None gastroesophageal reflux Significant Medications antacid 09/11/2015 None gastroesophageal reflux Alleviating Factors proton pump inhibitor 09/11/2015 None gastroesophageal reflux Alleviating Factors medication 09/11/2015 None abdominal pain Location in the epigastric area 08/06/2015 None abdominal pain Quality intermittent 08/06/2015 None abdominal pain Onset of Symptom 1 weeks ago 08/06/2015 None abdominal pain Pertinent Findings Denies back pain 08/06/2015 None abdominal pain Pertinent Findings Denies cough 08/06/2015 None abdominal pain Pertinent Findings Denies fever 08/06/2015 None low back pain Location on both sides 07/15/2015 None low back pain Quality dull pain 07/15/2015 None low back pain Quality intermittent 07/15/2015 None low back pain Quality aching 07/15/2015 None low back pain Onset and Resolution sudden in onset 07/15/2015 None low back pain Onset of Symptom 4 days ago 07/15/2015 None low back pain Limitation on Activities allows weight bearing activity 07/15/2015 None low back pain Mechanism of injury unknown 07/15/2015 None low back pain Exacerbating Factors stooping 07/15/2015 None low back pain Exacerbating Factors twisting 07/15/2015 None low back pain Exacerbating Factors standing or walking 07/15/2015 None low back pain Alleviating Factors rest 07/15/2015 None low back pain Alleviating Factors heat 07/15/2015 None hypertension Quality chronic 07/04/2015 None hypertension Onset and Resolution ongoing 07/04/2015 None hypertension Onset of Symptom during adulthood 07/04/2015 None hypertension Blood Pressure Values patient checking blood pressure at home - did not bring in readings 07/04/2015 not checking on a regular basis hypertension Alleviating Factors medication 07/04/2015 None hypertension Pertinent Findings Denies dizziness 07/04/2015 None hypertension Pertinent Findings dyspnea 07/04/2015 with exertion hypertension Pertinent Findings Denies edema 07/04/2015 None hypertension Quality chronic 03/13/2015 None hypertension Onset and Resolution ongoing 03/13/2015 None hypertension Onset of Symptom during adulthood 03/13/2015 None hypertension Alleviating Factors medication 03/13/2015 None hypertension Pertinent Findings Denies dizziness 03/13/2015 None hypertension Pertinent Findings Denies dyspnea 03/13/2015 None hypertension Pertinent Findings Denies edema 03/13/2015 None hypertension Blood Pressure Values patient checking blood pressure at home - did not bring in readings 03/13/2015 not checking on a regular basis abdominal pain Location in the RUQ 10/08/2014 at waist band abdominal pain Radiating the back 10/08/2014 None abdominal pain Quality constant 10/08/2014 None abdominal pain Onset of Symptom 5 days ago 10/08/2014 None abdominal pain Frequency of Episodes hourly 10/08/2014 worse when laying down abdominal pain Timing of Episodes in the morning 10/08/2014 None abdominal pain Timing of Episodes in the afternoon 10/08/2014 None abdominal pain Timing of Episodes in the evening 10/08/2014 None abdominal pain Timing of Episodes at night 10/08/2014 worst at night abdominal pain Pertinent Findings bloating 10/08/2014 None abdominal pain Pertinent Findings Denies melena 10/08/2014 None abdominal pain Pertinent Findings Denies increased appetite 10/08/2014 None abdominal pain Pertinent Findings Denies vomiting 10/08/2014 None abdominal pain Pertinent Findings nausea 10/08/2014 occasionally, not right now skin lesion Quality red 10/08/2014 None skin lesion Location left lower leg 10/08/2014 None skin lesion Onset and Resolution ongoing 10/08/2014 None abdominal pain Triggers no known associated factors 10/08/2014 None hypertension Quality chronic 07/17/2014 None hypertension Onset and Resolution ongoing 07/17/2014 None hypertension Onset of Symptom during adulthood 07/17/2014 None hypertension Blood Pressure Values pt checking blood pressure - see scanned document 07/17/2014 None hypertension Alleviating Factors medication 07/17/2014 None hypertension Pertinent Findings Denies dizziness 07/17/2014 None hypertension Pertinent Findings Denies dyspnea 07/17/2014 None hypertension Pertinent Findings Denies edema 07/17/2014 None urinary incontinence Onset of Symptom 1 months ago 07/17/2014 None urinary incontinence Frequency of Episodes daily 07/17/2014 None urinary incontinence Timing of Episodes in the morning 07/17/2014 None urinary incontinence Pertinent Findings Denies back pain 07/17/2014 None urinary incontinence Pertinent Findings Denies bladder pain 07/17/2014 None urinary incontinence Quality chronic 07/17/2014 None urinary incontinence Quality intermittent 07/17/2014 None rash Location-Major on the fingers 01/11/2014 left hand 2 3 4th fingers on inner lateral area rash Quality acute None rash Color erythematous 01/11/2014 None rash Onset of Symptom yesterday 01/11/2014 None rash Triggers no known triggers 01/11/2014 None rash Pertinent Findings Denies itching 01/11/2014 None rash Pertinent Findings Denies pain 01/11/2014 None bone fracture Location on the left wrist 01/11/2014 left distal radius bone fracture Onset of Symptom 10 days ago 01/11/2014 None bone fracture Mechanism of injury direct trauma 01/11/2014 fall at home hypertension Blood Pressure Values pt checking blood pressure - see scanned document 07/02/2013 None hypertension Pertinent Findings Denies dizziness 07/02/2013 None hypertension Pertinent Findings Denies dyspnea 07/02/2013 None hypertension Pertinent Findings Denies edema 07/02/2013 None hypertension Quality chronic 07/02/2013 None hypertension Onset and Resolution ongoing 07/02/2013 None hypertension Onset of Symptom during adulthood 07/02/2013 None hypertension Alleviating Factors medication 07/02/2013 None hypertension Quality chronic 02/26/2013 None hypertension Quality stable 02/26/2013 None hypertension Onset and Resolution ongoing 02/26/2013 None hypertension Blood Pressure Values patient checking blood pressure at home - did not bring in readings 02/26/2013 None hypertension Pertinent Findings Denies dizziness 02/26/2013 None hypertension Pertinent Findings Denies dyspnea 02/26/2013 None hypertension Pertinent Findings Denies edema 02/26/2013 None hypertension Pertinent Findings Denies orthostatic hypotension 02/26/2013 None hypertension Pertinent Findings Denies palpitations 02/26/2013 None hypertension Pertinent Findings Denies tachycardia 02/26/2013 None hypertension Quality chronic 10/24/2012 None hypertension Quality stable 10/24/2012 None hypertension Onset and Resolution ongoing 10/24/2012 None hypertension Blood Pressure Values not checking blood pressure at home 10/24/2012 None hypertension Pertinent Findings Denies dyspnea 10/24/2012 None hypertension Pertinent Findings Denies dizziness 10/24/2012 None hypertension Pertinent Findings Denies decreased energy 10/24/2012 None hypertension Pertinent Findings Denies tachycardia 10/24/2012 None hypertension Pertinent Findings Denies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
--- OUTSIDE RECORDS SUMMARY | 2017-10-10 18:26 | XMS REPORT | CCD ---
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 [employer] Name Role Phone PP Unavailable CCM Unavailable Summary Purpose Interface Exchange Insurance Providers Payer name Policy type / Coverage type Covered democrat ID Effective Begin Date Effective End Date WPS Medicare Part B Medicare Part B [id number] 2013 Unknown AARP Medicare Part B [id number] 2013 Unknown Family history Brother Diagnosis Age [...] Unknown House 02/26/[address]: 357547128 Never smoker 02/25/[address]: 462442101 Never drinks alcohol 02/25/2011 Has the patient [...] Instructions Ultracet 37.5 mg-325 mg tablet RxNorm: 290839 Tablet(s) TAKE 1 TABLET BY MOUTH Q6hrs NEEDED 06/27/2017 No Stop Date Active Ultracet 37.5 mg-325 mg tablet RxNorm: 314789 TAKE 1 TABLET BY MOUTH NEEDED 06/27/2017 06/26/2017 Inactive Plavix 75 mg tablet RxNorm: 318886 TAKE ONE TABLET BY MOUTH ONCE DAILY 06/22/2017 No Stop Date Active triamcinolone acetonide 0.5 % topical ointment RxNorm: 5938070 APPLY OINTMENT TOPICALLY TO AFFECTED AREA EVERY 6 HOURS NEEDED 2017 No Stop Date Active metoprolol tartrate 25 mg tablet RxNorm: 635035 TAKE ONE-HALF TABLET BY MOUTH TWICE DAILY 05/30/2017 No Stop Date Active Plavix 75 mg tablet RxNorm: 064852 TAKE ONE TABLET BY MOUTH ONCE DAILY 03/28/2017 06/21/2017 Inactive Ultracet 37.5 mg-325 mg tablet RxNorm: 429741 Tablet(s) PO Q6 as needed TAKE 1 TABLET BY MOUTH NEEDED 03/16/201704/28 Inactive Synthroid 75 mcg tablet RxNorm: 868078 TAKE ONE TABLET BY MOUTH ONCE DAILY 02/24/2017 08/22/2017 Active mupirocin 2 % topical ointment RxNorm: 135041 1 Application TOP BID 01/27/2017 02/02/2017 Inactive Diflucan 150 mg tablet RxNorm: 921150 1 Tablet(s) PO daily 11/201601/31/2017 Inactive Protonix 40 mg tablet,delayed release RxNorm: 033780 1 Tablet(s) PO daily 01/17/2017 02/15/2017 Inactive Carafate 1 gram tablet RxNorm: 626875 1 Tablet(s) PO QID as needed 01/17/2017 01/26/2017 Inactive nystatin 100,000 unit/gram topical cream RxNorm: 728267 1 Application TOP TID 01/12/2017 01/16/2017 Inactive Diflucan 150 mg tablet RxNorm: 251828 1 Tablet(s) PO daily 01/07/2017 Inactive nystatin 100,000 unit/gram topical cream RxNorm: 533474 1 Application TOP TID 01/07/2017 01/11/2017 Inactive Ultracet 37.5 mg-325 mg tablet RxNorm: 495879 Tablet(s) PO TAKE 1 TABLET BY MOUTH NEEDED 01/04/2017 03/15/2017 Inactive Cipro 500 mg tablet RxNorm: 643607 1 Tablet(s) PO BID 201601/07/2017 Inactive Keflex 500 mg capsule RxNorm: 089754 1 Capsule(s) PO TID 201612/19/2016 Inactive Keflex 500 mg capsule RxNorm: 002629 1 Capsule(s) PO TID 201612/26/2016 Inactive ketorolac 60 mg/2 mL intramuscular solution RxNorm: 799142 Milliliter(s) IM 12/16/2016 12/16/2016 Inactive Topamax 25 mg tablet RxNorm: 311154 1 Tablet(s) PO daily 201601/14/2017 Inactive promethazine 25 mg/mL injection solution RxNorm: 364100 Milliliter(s) Inj 12/16/2016 12/16/2016 Inactive Ultracet 37.5 mg-325 mg tablet RxNorm: 754611 TAKE ONE TABLET BY MOUTH EVERY SIX HOURS NEEDED FOR PAIN 11/01/20162016 Inactive Celebrex 200 mg capsule RxNorm: 881446 Capsule(s) TAKE ONE CAPSULE BY MOUTH ONCE DAILY 09/21/2016 09/15/2017 Active Synthroid 75 mcg tablet RxNorm: 784817 Tablet(s) TAKE ONE TABLET BY MOUTH DAILY EXCEXPT 12TAB ON TUE AND Tuesday09/16/2016 No Stop Date Active Lipitor 20 mg tablet RxNorm: 514122 1/2 Tablet(s) PO every other day 08/25/2016 01/26/2017 Inactive amitriptyline 50 mg tablet RxNorm: 204958 1 Tablet(s) PO QPM 08/13/2017 Active Synthroid 75 mcg tablet RxNorm: 383846 TAKE ONE TABLET BY MOUTH ONCE DAILY 08/03/2016 09/15/2016 Inactive triamcinolone acetonide 0.5 % topical ointment RxNorm: 5379893 APPLY TO AFFECTED AREA(S) EVERY 6 HOURS NEEDED 06/03/2016 08/13/2016 Inactive Celebrex 200 mg capsule RxNorm: 143580 TAKE ONE CAPSULE BY MOUTH ONCE DAILY 05/18/2016 09/20/2016 Inactive promethazine 25 mg/mL injection solution RxNorm: 372013 Milliliter(s) Inj 05/11/2016 05/11/2016 Inactive ketorolac 60 mg/2 mL intramuscular solution RxNorm: 935757 Milliliter(s) IM 05/11/2016 05/11/2016 Inactive amitriptyline 50 mg tablet RxNorm: 591629 1 Tablet(s) PO QPM 08/18/2016 Inactive amitriptyline 50 mg tablet RxNorm: 000440 1 Tablet(s) PO QPM 05/04/2016 Inactive Cipro 500 mg tablet RxNorm: 168574 1 Tablet(s) PO BID 201504/27/2016 Inactive Celebrex 200 mg capsule RxNorm: 774013 TAKE ONE CAPSULE BY MOUTH ONCE DAILY 04/20/2016 05/17/2016 Inactive Ultracet 37.5 mg-325 mg tablet RxNorm: 946975 1 Tablet(s) PO QID as needed for back pain TAKE ONE TABLET BY MOUTH NEEDED 03/10/2016 11/03/2016 Inactive amitriptyline 25 mg tablet RxNorm: 839640 2 Tablet(s) PO QPM 05/02/2016 Inactive nystatin 100,000 unit/mL oral suspension RxNorm: 994762 5 Unit(s) PO TID 03/10/2016 03/23/2016 Inactive metoprolol tartrate 25 mg tablet RxNorm: 890493 TAKE ONE-HALF TABLET BY MOUTH TWICE DAILY 02/26/2016 11/21/2016 Inactive Protonix 40 mg tablet,delayed release RxNorm: 381294 TAKE ONE TABLET BY MOUTH ONCE DAILY 02/17/2016 03/23/2016 Inactive amitriptyline 25 mg tablet RxNorm: 149250 1-2 Tablet(s) PO QPM 01/27/2016 03/09/2016 Inactive Ultracet 37.5 mg-325 mg tablet RxNorm: 613315 Tablet(s) PO TAKE 1 TABLET BY MOUTH NEEDED 01/12/2016 01/12/2016 Inactive Ultracet 37.5 mg-325 mg tablet RxNorm: 750032 TAKE ONE TABLET BY MOUTH NEEDED 01/12/2016 03/09/2016 Inactive Plavix 75 mg tablet RxNorm: 365050 TAKE ONE TABLET BY MOUTH ONCE DAILY 12/23/2015 03/27/2017 Inactive amitriptyline 25 mg tablet RxNorm: 469547 1 Tablet(s) PO QPM 01/26/2016 Inactive Pen[place]aid 20 mg/gram/actuation (2 %) topical soln in metered -dose pump RxNorm: 1586495 1 Application TOP BID 11/03/201511/05 Inactive Celebrex 200 mg capsule RxNorm: 743970 Capsule(s) TAKE ONE CAPSULE BY MOUTH DAILY 10/22/2015 04/18/2016 Inactive Protonix 40 mg tablet,delayed release RxNorm: 087938 1 Tablet(s) PO daily 08/13/2015 02/08/2016 Inactive Lipitor 20 mg tablet RxNorm: 924637 Tablet(s) TAKE 1 TABLET BY MOUTH EVERY OTHER DAY, OR , TAKE 1/2 TABLET BY MOUTH ONCE DAILY 08/06/2015 07/30/2016 Inactive Synthroid 75 mcg tablet RxNorm: 834966 Tablet(s) PO TAKE ONE TABLET BY MOUTH EVERY DAY 08/06/2015 07/30/2016 Inactive Ultracet 37.5 mg-325 mg tablet RxNorm: 181470 Tablet(s) PO TAKE 1 TABLET BY MOUTH NEEDED 08/06/2015 01/03/2017 Inactive Protonix 40 mg tablet,delayed release RxNorm: 112537 1 Tablet(s) PO daily 08/06/2015 08/12/2015 Inactive Carafate 1 gram tablet RxNorm: 517176 1 Tablet(s) dissolved in 10mL of water PO AC and hs x 1 week then just AC thereafter 08/06/2015 11/17/2015 Inactive Ultracet 37.5 mg-325 mg tablet RxNorm: 905604 Tablet(s) PO TAKE 1 TABLET BY MOUTH NEEDED 07/22/2015 08/05/2015 Inactive Levaquin 500 mg tablet RxNorm: 993060 1 Tablet(s) PO daily 07/21/2015 Inactive amitriptyline 50 mg tablet RxNorm: 637815 1 Tablet(s) PO QPM 10/31/2015 Inactive Celebrex 200 mg capsule RxNorm: 180553 TAKE ONE CAPSULE BY MOUTH DAILY 06/23/2015 10/20/2015 Inactive Ultracet 37.5 mg-325 mg tablet RxNorm: 189949 TAKE ONE TABLET BY MOUTH EVERY 6 HOURS NEEDED FOR PAIN 04/15/20152015 Inactive amitriptyline 50 mg tablet RxNorm: 527530 1.5 Tablet(s) PO QPM 03/13/2015 07/03/2015 Inactive Plavix 75 mg tablet RxNorm: 433161 TAKE ONE TABLET BY MOUTH EVERY DAY 02/24/2015 12/20/2015 Inactive metoprolol tartrate 25 mg tablet RxNorm: 269276 TAKE 1/2 TABLET BY MOUTH TWO TIMES A DAY 01/27/2015 01/21/2016 Inactive Celebrex 200 mg capsule RxNorm: 743658 TAKE ONE CAPSULE BY MOUTH DAILY 01/20/2015 06/18/2015 Inactive Lipitor 20 mg tablet RxNorm: 389786 TAKE 1 TABLET BY MOUTH EVERY OTHER DAY, OR , TAKE 1/2 TABLET BY MOUTH ONCE DAILY 12/02/2014 08/05/2015 Inactive triamcinolone acetonide 0.5 % topical ointment RxNorm: 1980768 APPLY TO AFFECTED AREA(S) EVERY 6 HOURS NEEDED 11/25/2014 02/04/2015 Inactive Flagyl 500 mg tablet RxNorm: 169503 1 Tablet(s) PO TID 201410/17/2014 Inactive Cipro 500 mg tablet RxNorm: 758679 1 Tablet(s) PO BID 201410/14/2014 Inactive Ultracet 37.5 mg-325 mg tablet RxNorm: 436774 1 Tablet(s) PO Q6 as needed TAKE 1 TABLET BY MOUTH NEEDED 09/19/201409/19 Inactive amitriptyline 100 mg tablet RxNorm: 013826 TAKE ONE TABLET BY MOUTH EVERY NIGHT AT BEDTIME 09/19/2014 03/12/2015 Inactive Ultracet 37.5 mg-325 mg tablet RxNorm: 417622 TAKE ONE TABLET BY MOUTH EVERY 6 HOURS NEEDED FOR PAIN 09/19/20142014 Inactive (Response to an electronic controlled substance refill request - RxReferenceNumber: [id number]) Synthroid 75 mcg tablet RxNorm: 079271 Tablet(s) PO TAKE ONE TABLET BY MOUTH EVERY DAY 08/15/2014 08/05/2015 Inactive checking labs in 3 months metoprolol tartrate 25 mg tablet RxNorm: 240775 TAKE 1/2 TABLET BY MOUTH TWO TIMES A DAY 08/06/2014 01/26/2015 Inactive Celebrex 200 mg capsule RxNorm: 305561 TAKE ONE CAPSULE BY MOUTH DAILY 07/15/2014 01/10/2015 Inactive Synthroid 88 mcg tablet RxNorm: 766610 TAKE ONE TABLET BY MOUTH EVERY DAY 06/18/2014 08/14/2014 Inactive Synthroid 88 mcg tablet RxNorm: 156661 1 Tablet(s) PO 201412/14/2014 Inactive Celebrex 200 mg capsule RxNorm: 980355 TAKE ONE CAPSULE BY MOUTH EVERY DAY 05/21/2014 07/14/2014 Inactive metoprolol tartrate 25 mg tablet RxNorm: 140500 TAKE 1/2 TABLET BY MOUTH TWO TIMES A DAY 04/02/2014 07/30/2014 Inactive Plavix 75 mg tablet RxNorm: 596399 TAKE ONE TABLET BY MOUTH EVERY DAY 03/25/2014 02/17/2015 Inactive Celebrex 200 mg capsule RxNorm: 565966 TAKE ONE CAPSULE BY MOUTH EVERY DAY 02/18/2014 05/18/2014 Inactive Ultracet 37.5 mg-325 mg tablet RxNorm: 813492 Tablet(s) PO TAKE 1 TABLET BY MOUTH NEEDED 01/30/2014 07/21/2015 Inactive Vitamin D2 50,000 unit capsule RxNorm: 969879 1 Capsule(s) PO weekly x12 weeks 01/24/2014 11/17/2015 Inactive fluconazole 150 mg tablet RxNorm: 373563 1 Tablet(s) PO daily 01/11/2014 01/15/2014 Inactive sulfamethoxazole 800 mg-trimethoprim 160 mg tablet RxNorm: 769027 1 Tablet(s) PO BID 01/11/2014 01/17/2014 Inactive amitriptyline 100 mg tablet RxNorm: 665699 Tablet(s) PO TAKE ONE TABLET BY MOUTH EVERY NIGHT AT BEDTIME 10/30/20132014 Inactive Celebrex 200 mg capsule RxNorm: 812707 Capsule(s) PO TAKE ONE CAPSULE BY MOUTH EVERY DAY 10/23/2013 02/17/2014 Inactive Lipitor 20 mg tablet RxNorm: 572342 1 Tablet(s) PO every other day TAKE 1/2 TABLET BY MOUTH DAILY 09/27/20132014 Inactive Ultracet 37.5 mg-325 mg tablet RxNorm: 890638 Tablet(s) PO TAKE 1 TABLET BY MOUTH NEEDED 08/20/2013 01/29/2014 Inactive Lipitor 20 mg tablet RxNorm: 149907 1 Tablet(s) PO every other day TAKE 1/2 TABLET BY MOUTH DAILY 07/02/20132013 Inactive Synthroid 88 mcg tablet RxNorm: 243623 1 Tablet(s) PO 201306/17/2014 Inactive triamcinolone acetonide 0.5 % topical ointment RxNorm: 5772181 1 Application TOP Q6 PRN 07/02/2013 01/27/2014 Inactive Celebrex 200 mg capsule RxNorm: 416733 Capsule(s) PO TAKE ONE CAPSULE BY MOUTH EVERY DAY 05/22/2013 10/22/2013 Inactive Lipitor 20 mg tablet RxNorm: 404351 Tablet(s) PO TAKE 1/2 TABLET BY MOUTH DAILY 04/09/2013 07/01/2013 Inactive metoprolol tartrate 25 mg tablet RxNorm: 446469 Tablet(s) PO TAKE 1/2 TABLET BY MOUTH TWO TIMES A DAY 04/09/20132013 Inactive Plavix 75 mg tablet RxNorm: 484481 Tablet(s) PO TAKE ONE TABLET BY MOUTH EVERY DAY 03/26/2013 03/24/2014 Inactive Synthroid 100 mcg tablet RxNorm: 759044 100mcg alternate 88mcg Tablet(s) PO daily 03/01/2013 07/01/2013 Inactive estropipate 1.5 mg tablet RxNorm: 095454 Tablet(s) PO TAKE TWO TABLETS BY MOUTH EVERY DAY 01/18/2013 07/18/2013 Inactive Celebrex 200 mg capsule RxNorm: 280505 Capsule(s) PO TAKE ONE CAPSULE BY MOUTH EVERY DAY 11/28/2012 05/21/2013 Inactive Ultracet 37.5 mg-325 mg tablet RxNorm: 002523 Tablet(s) PO TAKE 1 TABLET BY MOUTH NEEDED 11/22/2012 08/19/2013 Inactive Ultracet 37.5 mg-325 mg tablet RxNorm: 892630 Tablet(s) PO TAKE 1 TABLET BY MOUTH NEEDED 11/22/2012 11/21/2012 Inactive amitriptyline 100 mg tablet RxNorm: 483571 Tablet(s) PO TAKE ONE TABLET BY MOUTH EVERY NIGHT AT BEDTIME 10/31/20122013 Inactive Synthroid 100 mcg tablet RxNorm: 976728 1 Tablet(s) PO daily 02/28/2013 Inactive amitriptyline 100 mg tablet RxNorm: 355716 Tablet(s) PO 1 TABLET BY MOUTH AT BEDTIME 08/30/2012 10/30/2012 Inactive Ultracet 37.5 mg-325 mg tablet RxNorm: 674976 Tablet(s) PO TAKE 1 TABLET BY MOUTH NEEDED 08/14/2012 11/21/2012 Inactive amitriptyline 100 mg tablet RxNorm: 695661 Tablet(s) PO 1 TABLET BY MOUTH AT BEDTIME 06/05/2012 08/29/2012 Inactive Celebrex 200 mg capsule RxNorm: 452122 1 Capsule(s) PO daily 11/02/2012 Inactive Lipitor 10 mg tablet RxNorm: 709593 1 Tablet(s) PO daily 201109/11/2012 Inactive levothyroxine 100 mcg capsule RxNorm: 208019 1 Capsule(s) PO daily 03/08/2012 02/27/2013 Inactive metoprolol tartrate 25 mg tablet RxNorm: 872131 1/2 Tablet(s) PO BID 03/08/2012 04/01/2013 Inactive Ultracet 37.5 mg-325 mg tablet RxNorm: 446234 1 Tablet(s) PO PRN 03/08/2012 08/13/2012 Inactive Plavix 75 mg tablet RxNorm: 775833 1 Tablet(s) PO daily 201103/25/2013 Inactive Lipitor 10 mg tablet RxNorm: 409326 1 Tablet(s) PO daily 201103/07/2012 Inactive amitriptyline 100 mg tablet RxNorm: 771584 1 Tablet(s) PO HS 06/04/2012 Inactive metoprolol tartrate 25 mg tablet RxNorm: 385905 1/2 Tablet(s) PO BID 02/11/2012 03/07/2012 Inactive Lipitor 10 mg tablet RxNorm: 270098 1 Tablet(s) PO daily 201102/10/2012 Inactive metoprolol tartrate 25 mg tablet RxNorm: 927009 1/2 Tablet(s) PO BID 02/10/2012 02/10/2012 Inactive Influenza Virus Vaccine 0.5 mL RxNorm: IM 02/08/2012 02/08/2012 Inactive amitriptyline 100 mg tablet RxNorm: 756469 1 Tablet(s) PO HS 02/10/2012 Inactive estropipate 1.5 mg tablet RxNorm: 957434 2 Tablet(s) PO daily 11/26/2011 12/19/2012 Inactive Ultracet 37.5 mg-325 mg tablet RxNorm: 964756 1 Tablet(s) PO PRN 10/04/2011 03/07/2012 Inactive Celebrex 200 mg Cap RxNorm: 515442 1 Capsule(s) PO daily 09/0609/06/2011 Inactive Celebrex 200 mg capsule RxNorm: 290101 1 Capsule(s) PO daily 04/03/2012 Inactive Ultracet 37.5 mg-325 mg Tab RxNorm: 007601 1 Tablet(s) PO PRN 08/25/2011 10/03/2011 Inactive Lipitor 10 mg tablet RxNorm: 912399 1 Tablet(s) PO daily 201102/06/2012 Inactive Ultracet 37.5 mg-325 mg Tab RxNorm: 703486 1 Tablet(s) PO Q6 PRN 07/15/2011 07/29/2011 Inactive amitriptyline 100 mg tablet RxNorm: 662071 1 Tablet(s) PO HS 11/28/2011 Inactive promethazine 25 mg/mL Injection RxNorm: 488372 Milliliter(s) Inj 05/12/2011 05/12/2011 Inactive triamcinolone acetonide 0.5 % topical ointment RxNorm: 4870166 1 Application TOP Q6 PRN 05/12/2011 09/08/2011 Inactive ketorolac 60 mg/2 mL IM RxNorm: 237008 Milliliter(s) IM 201005/12/2011 Inactive amitriptyline 100 mg Tab RxNorm: 923900 1/2 - 1 Tablet(s) PO HS PRN 05/12/2011 06/01/2011 Inactive Protonix 40 mg Tab RxNorm: 130610 1 Tablet(s) PO daily 201010/03/2011 Inactive Ultracet 37.5 mg-325 mg Tab RxNorm: 592434 1 Tablet(s) PO Q6 PRN 03/26/2011 07/14/2011 Inactive Plavix 75 mg Tab RxNorm: 819580 1 Tablet(s) PO daily 201002/09/2012 Inactive Bactroban 2 % Ointment RxNorm: 145817 1 [place] TOP TID apply three times a day x 5 days in the nose and three times a day x 7 days on the lips 03/17/2011 03/23/2011 Inactive Bactrim DS 800 mg-160 mg Tab RxNorm: 659151 1 Tablet(s) PO BID 03/17/2011 03/26/2011 Inactive amitriptyline 50 mg Tab RxNorm: 901488 2 Tablet(s) PO QHS 03/1505/11/2011 Inactive Celebrex 200 mg Cap RxNorm: 808733 1 Capsule(s) PO daily 03/1209/06/2011 Inactive Influenza Virus Vaccine 0.5 mL RxNorm: IM 02/26/2011 02/26/2011 Inactive metoprolol tartrate 25 mg Tab RxNorm: 035531 1/2 Tablet(s) PO BID 02/02/2011 04/02/2011 Inactive Lipitor 10 mg Tab RxNorm: 268959 1 Tablet(s) PO daily 201003/03/2011 Inactive Vitamin D3 2,000 unit tablet RxNorm: 734290 1 Tablet(s) PO daily No Start Date Active aspirin 81 mg Tab, Delayed Release RxNorm: 414149 1 Tablet(s) PO daily No Start Date Active Ultracet 37.5 mg-325 mg Tab RxNorm: 932983 1 Tablet(s) PO Q6 PRN No Start Date 03/25/2011 Inactive Lipitor 10 mg Tab RxNorm: 786273 1 Tablet(s) PO daily No Start Date 08/10/2011 Inactive levothyroxine 100 mcg capsule RxNorm: 397188 Capsule(s) PO No Start Date 03/07/2012 Inactive 3 times weekly amitriptyline 50 mg Tab RxNorm: 773401 2 Tablet(s) PO daily No Start Date 03/14/2011 Inactive Vitamin B-12 1,000 mcg Tab RxNorm: 503014 1 Tablet(s) PO daily No Start Date 09/11/2012 Inactive estropipate 1.5 mg Tab RxNorm: 966895 1 Tablet(s) PO daily No Start Date 11/25/2011 Inactive multivitamin Cap RxNorm: 1 Capsule(s) PO daily No Start Date 10/03/2011 Inactive metoprolol tartrate 25 mg tablet RxNorm: 283694 1/2 Tablet(s) PO BID No Start Date 02/09/2012 Inactive Celebrex 200 mg Cap RxNorm: 953859 1 Capsule(s) PO daily No Start Date 03/11/2011 Inactive Ultracet 37.5 mg-325 mg Tab RxNorm: 122388 Tablet(s) PO PRN No Start Date 08/24/2011 Inactive Vitamin B & C Cap RxNorm: 1 Capsule(s) PO daily No Start Date 10/03/2011 Inactive Lipitor 20 mg tablet RxNorm: 479127 1 Tablet(s) PO 3 x week No Start Date 04/08/2013 Inactive Plavix 75 mg tablet RxNorm: 224679 1 Tablet(s) PO daily No Start Date 02/29/2012 Inactive Vitamin D2 50,000 unit capsule RxNorm: 633220 1 Capsule(s) PO weekly x12 weeks No Start Date 01/23/2014 Inactive Medication Administered Medication Codes Instructions Start Date Status ketorolac 60 mg/2 mL intramuscular solution RxNorm: 521246 Milliliter 12/16/2016 No longer Active promethazine 25 mg/mL injection solution RxNorm: 472181 Milliliter 12/16/2016 No longer Active ketorolac 60 mg/2 mL intramuscular solution RxNorm: 520484 Milliliter 05/11/2016 No longer Active promethazine 25 mg/mL injection solution RxNorm: 671809 Milliliter 05/11/2016 No longer Active Influenza Virus Vaccine 0.5 mL RxNorm: 02/08/2012 No longer Active ketorolac 60 mg/2 mL IM RxNorm: 567477 Milliliter 05/12/2011 No longer Active promethazine 25 mg/mL Injection RxNorm: 043684 Milliliter 05/12/2011 No longer Active Influenza Virus [...] 30.8 pg 12/29/2016 Cbc With Differential Ord2 Russell% 10.6 % 12/29/2016 Cbc With Differential Ord2 [...] 1.12 K/ul 12/29/2016 Cbc With Differential Ord2 Russell ABS# 0.6 K/ul 12/29/2016 Cbc With Differential Ord2 Eos ABS# 0.1 K/ul 12/29/2016 Cbc With Differential Ord2 Baso ABS# 0.1 K/ul 12/29/2016 Tsh Ord6 hTSH II 1.34 uIU/mL 12/29/2016 Free T4 [id number] FREE T4 1.16 ng/dL 12/29/2016 Lipid Ord30 CHOL 165 mg/dL 12/29/2016 Lipid Ord30 HDL 40.0 mg/dl 12/29/2016 Lipid Ord30 TRIG 126 mg/dL 12/29/2016 Lipid Ord30 LDL 100 mg/dL 12/29/2016 Lipid Ord30 C/HDL 4.1 Ratio 12/29/2016 Vitamin D 25 Oh [id number] VITAMIN D, 25 HYDROXY 58.55 ng/mL Culture Urine [id number] URINE CULTURE SEE NOTES 12/24/2016 Culture Urine [id number] Continued Results 12/24/2016 Urine Culture Ucult Complete >100,000 col/ml aerobic growth sent to ref lab 12/22/2016 LIPID GRP CHOLESTEROL 145 mg/dL 08/20/2016 LIPID GRP Triglyceride 132 mg/dL 08/20/2016 LIPID GRP [id number] HDL CHOLESTEROL 47 mg/dL 08/20/2016 LIPID GRP [id number] Chol/HDL Ratio 3.09 ratio 08/20/2016 LIPID GRP [id number] NON-HDL Chol 98 mg/dL 08/20/2016 LIPID GRP [id number] LDL Cholesterol 72 mg/dL 08/20/2016 CBC [id number] WBC 5.0 10e9/L 08/20/2016 CBC 6734580 RBC 4.07 10e12/L 08/20/2016 CBC 3530760 HEMOGLOBIN 12.6 g/dL 08/20/2016 CBC 2422234 HEMATOCRIT 39.4 % 08/20/2016 CBC 6653172 MCV 96.8 fL 08/20/2016 CBC 3178387 MCH 31.0 pg 08/20/2016 CBC 1250742 MCHC 32.0 g/dL 08/20/2016 CBC 2052701 PLATELET COUNT 211 10e9/L 08/20/2016 CBC 7098742 Mean Plt Volume 10.2 fL 08/20/2016 CBC 9957224 Neut Auto 37.7 % 08/20/2016 CBC 9049716 Lymph Auto 47.1 % 08/20/2016 CBC 8491413 Russell Auto 8.2 % 08/20/2016 CBC 3969470 Eos Auto 5.0 % 08/20/2016 CBC 9594520 RDW 14.8 % 08/20/2016 CBC 1151043 Baso Auto 2.0 % 08/20/2016 CBC 7524257 Neutrophil Abs 1.88 10e9/L 08/20/2016 CBC 6164993 Lymphocyte Abs 2.36 10e9/L 08/20/2016 CBC 2177394 Monocyte Abs 0.41 10e9/L 08/20/2016 CBC 9460717 Eosinophil Abs 0.25 10e9/L 08/20/2016 CBC 7367180 Basophil Abs 0.10 10e9/L 08/20/2016 CBC 0283527 RDW-SD 50.5 fL 08/20/2016 CHEM 14 6174722 AST 18 U/L 08/20/2016 CHEM 14 3257369 ALT 14 U/L 08/20/2016 CHEM 14 5007955 BUN 22 mg/dL 08/20/2016 CHEM 14 2050824 ALBUMIN 3.6 g/dL 08/20/2016 CHEM 14 8841583 CHLORIDE 107 mmol/L 08/20/2016 CHEM 14 2654863 Bili Total 0.4 mg/dL 08/20/2016 CHEM 14 5999323 ALK PHOS 89 U/L 08/20/2016 CHEM 14 7779399 SODIUM 144 mmol/L 08/20/2016 CHEM 14 4631503 CREATININE 0.87 mg/dL 08/20/2016 CHEM 14 1564906 CALCIUM 10.5 mg/dL 08/20/2016 CHEM 14 6681515 POTASSIUM 4.3 mmol/L 08/20/2016 CHEM 14 7208062 TOTAL PROTEIN 5.6 g/dL 08/20/2016 CHEM 14 0066714 GLUCOSE 96 mg/dL 08/20/2016 CHEM 14 9371429 Bicarbonate 30 mmol/L 08/20/2016 CHEM 14 6443443 AGAP 7 mmol/L 08/20/2016 Urine Culture Ucult [...] 38.5 % 04/14/2016 Cbc With Differential Ord2 Russell% 11.3 % 04/14/2016 Cbc With Differential Ord2 [...] 1.53 K/ul 04/14/2016 Cbc With Differential Ord2 [place] ABS# 0.5 K/ul 04/14/2016 Cbc With Differential [...] 42.4 % 03/05/2016 Cbc With Differential Ord2 [place]% 10.1 % 03/05/2016 Cbc With Differential Ord2 [...] 1.64 K/ul 03/05/2016 Cbc With Differential Ord2 [place] ABS# 0.4 K/ul 03/05/2016 Cbc With Differential Ord2 Eos ABS# 0.2 K/ul 03/05/2016 Cbc With Differential Ord2 Baso ABS# 0.1 K/ul 03/05/2016 Lipid Ord30 CHOL 158 mg/dL 03/05/2016 Lipid Ord30 HDL 53.0 mg/dl 03/05/2016 Lipid Ord30 TRIG 91 mg/dL 03/05/2016 Lipid Ord30 LDL 87 mg/dL 03/05/2016 Lipid Ord30 C/HDL 3.0 Ratio 03/05/2016 Comp Metabolic Hwm905 NA 142 mEq/L 03/05/2016 Comp Metabolic Rua735 K 4.2 mEq/L 03/05/2016 Comp Metabolic Vtp860 CL 109 mEq/L 03/05/2016 Comp Metabolic Aww177 CO2 29.0 mEq/L 03/05/2016 Comp Metabolic Ysp498 ANION GAP 8 03/05/2016 Comp Metabolic Yng197 GLUCOSE 86 mg/dL 03/05/2016 Comp Metabolic Czj184 Creat 0.8 mg/dL 03/05/2016 Comp Metabolic Fma922 eGFR 75 ml/min/1.73m2 03/05/2016 Comp Metabolic Hzl144 BUN 15 mg/dL 03/05/2016 Comp Metabolic Mjl471 B/C Ratio 19.2 Ratio 03/05/2016 Comp Metabolic Wbk755 CALCIUM 9.4 mg/dL 03/05/2016 Comp Metabolic Sdn506 ALK PHOS 95 U/L 03/05/2016 Comp Metabolic Tbl567 AST(SGOT) 20 U/L 03/05/2016 Comp Metabolic Uti581 ALT(SGPT) 18 U/L 03/05/2016 Comp Metabolic Cef124 BILI T 0.5 mg/dL 03/05/2016 Comp Metabolic Jan132 ALBUMIN 3.5 g/dL 03/05/2016 Comp Metabolic Mnq825 TPRO 5.5 g/dL 03/05/2016 Comp Metabolic Qcz106 GLOB 2.0 g/dL 03/05/2016 Comp Metabolic Gji061 A/G Ratio 1.8 Ratio 03/05/2016 Comp Metabolic Jja053 Osmo 283 mOsmo 03/05/2016 Free T4 Qbr981 FREE T4 0.88 ng/dL 03/05/2016 Tsh Ord6 hTSH II 1.17 uIU/mL 03/05/2016 Urine Culture Ucult Complete No Growth Day 2 07/18/2015 Urine Culture Ucult Preliminary No Growth Day 1 07/18/2015 Tsh Ord6 hTSH II 0.60 uIU/mL 03/10/2015 Free T4 Trp044 FREE T4 1.05 ng/dL 03/10/2015 Comp Metabolic Gso259 NA 139 mEq/L 03/10/2015 Comp Metabolic Dut451 K 4.2 mEq/L 03/10/2015 Comp Metabolic Vmv608 CL 104 mEq/L 03/10/2015 Comp Metabolic Kov039 CO2 33.0 mEq/L 03/10/2015 Comp Metabolic Rsr628 ANION GAP 6 03/10/2015 Comp Metabolic Oid316 GLUCOSE 95 mg/dL 03/10/2015 Comp Metabolic Pap589 Creat 0.9 mg/dL 03/10/2015 Comp Metabolic Vwf863 eGFR 68 ml/min/1.73m2 03/10/2015 Comp Metabolic Ypk789 BUN 18 mg/dL 03/10/2015 Comp Metabolic Aqm867 B/C Ratio 21.2 Ratio 03/10/2015 Comp Metabolic Euc442 CALCIUM 10.4 mg/dL 03/10/2015 Comp Metabolic Vcw041 ALK PHOS 96 U/L 03/10/2015 Comp Metabolic Zsz234 AST(SGOT) 23 U/L 03/10/2015 Comp Metabolic Tjo288 ALT(SGPT) 22 U/L 03/10/2015 Comp Metabolic Ign722 BILI T 0.5 mg/dL 03/10/2015 Comp Metabolic Uex195 ALBUMIN 3.7 g/dL 03/10/2015 Comp Metabolic Ycp366 TPRO 5.5 g/dL 03/10/2015 Comp Metabolic Vle115 GLOB 1.8 g/dL 03/10/2015 Comp Metabolic Xsm864 A/G Ratio 2.1 Ratio 03/10/2015 Comp Metabolic Yml696 Osmo 279 mOsmo 03/10/2015 Lipid Ord30 CHOL [...] RDW 14.2 % 03/10/2015 VIT D TOTL 3480064 VIT D TOTL 55 NG/ML 05/08/2014 TSH 3353218 TSH 0.478 uIU/ML 01/14/2014 VIT D TOTL 1940365 VIT D TOTL 15 NG/ML 01/14/2014 FREE T4 8725758 FREE T4 1.42 NG/DL 01/14/2014 CHEM 14 [id number] AST 19 U/L 01/14/2014 CHEM 14 7928655 ALT 11 IU/L 01/14/2014 CHEM 14 8666267 BUN 19 MG/DL 01/14/2014 CHEM 14 8759452 ALBUMIN 4.0 GM/DL 01/14/2014 CHEM 14 7860777 CHLORIDE 105 MMOL/L 01/14/2014 CHEM 14 3055314 BILI TOT 0.5 MG/DL 01/14/2014 CHEM 14 9068836 ALK PHOS 75 U/L 01/14/2014 CHEM 14 9443827 SODIUM 136 MMOL/L 01/14/2014 CHEM 14 1480795 CREATININE 1.12 MG/DL 01/14/2014 CHEM 14 1823867 CALCIUM 10.1 MG/DL 01/14/2014 CHEM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 Delaney MD [facility] CPT-4: 29832 10/04/2011 ([id number]) 49279 EST. PATIENT, LEVEL IV Diagnosis: ESSENTIAL HYPERTENSION[SNOMED: 05446497] Diagnosis: INSOMNIA NOS[ICD9: 780.52] Diagnosis: MALAISE AND FATIGUE[ICD9: 780.79] Diagnosis: ANEMIA[ICD9: 285.9] Diagnosis: DISEASES OF LIPS[ICD9: 528.5] Diagnosis: Migraine[ICD9: 346.90] Marilyn Delaney MD, [facility] CPT-4: 68970 05/12/2011 95429 EST. PATIENT, LEVEL IV Diagnosis: ESSENTIAL HYPERTENSION[SNOMED: 95966272] Diagnosis: Angular cheilosis[ICD9: 528.5] Diagnosis: INSOMNIA NOS[ICD9: 780.52] Diagnosis: Mouth dryness[ICD9: 527.7] Marilyn Delaney MD, [facility] CPT- 4: 85620 03/17/2011 Patient admitted to the hospital from clinic (NO CHARGE) Diagnosis: BACTERIAL PNEUMONIA NEC[ICD9: 482.89] Diagnosis: MALAISE AND FATIGUE[ICD9: 780.79] Diagnosis: ESSENTIAL HYPERTENSION[SNOMED: 59384777] Diagnosis: Dizziness[ICD9: 780.4] Diagnosis: VACCIN FOR INFLUENZA[ICD9: V04.81] [facility] CPT-4: 42433V 02/26/2011 Plan of Care Planned Activity Notes Codes Status Date Appointment: [phone] [place] ([facility] min) Moderate 03/09/2017 Appointment: Injection 02/09/2017 Patient Education: Patient Medication Summary Completed 02/09/2017 Appointment: Lab Draw 02/01/2017 Patient Education: Patient Medication Summary Completed 02/01/2017 Visit Plan: Recurrent Urinary tract infection - check repeat ua - start on diflucan 150mg daily. 01/27/2017 Appointment: [phone] [facility] [place] (15 min) Moderate 01/27/2017 Patient [...] or concerns. 12/29/2016 App[facility]ment[phone] ([facility]) Complex 12/29/2016 Patient Education: Patient [...] or concerns. 12/16/2016 Appointment: [facility]uent[phone] [facility] (15 min) Moderate 12/16/2016 Patient Education: Patient [...] of control. 08/25/2016 Appointment: [phone] [facility] (15 min) Moderate 08/25/2016 Patient Education: [...] acute concerns. 05/11/2016 Appointment: [facility]uent[phone] ([facility] min) Moderate 05/11/2016 Patient Education: Patient Medication Summary Completed 05/11/2016 Patient Education: Hypertension Completed 05/11/2016 Visit Plan: UA fabiana - Estefaníaro sent to the pharmacy. Will order C&S. [...] of control. 04/20/2016 Appointment: [facility] [address] [facility] (15 min) Moderate 04/20/2016 Patient Education: [...] swallow 03/10/2016 Appointment: [phone] [facility] (15 min) Moderate 03/10/2016 Patient Education: [...] carafate. 09/11/2015 Appointment: Tigist Wolf WPtel: [phone] [phone] (15 min) Moderate 09/11/2015 Patient Education: Patient [...] feeling 08/06/2015 Appointment: [phone] [facility] [place] (15 min) Moderate 08/06/2015 Patient Education: [...] of plan. 07/15/2015 Appointment: Tigist Wolf WPtel: [phone] [phone] (30 min) Complex 07/15/2015 Patient Education: Patient [...] Summary Completed 07/04/2015 Appointment: Marilyn Delaney WPtel: [phone] [facility] (15 min) Moderate 07/02/2015 Appointment: (30 min) Complex 06/18/2015 Appointment: [phone] [facility] (15 min) Moderate 06/12/2015 Visit Plan: Hypothyroidism [...] if possible. 03/13/2015 Appointment: Marilyn Delaney WPtel: [address] [place], [place] [address] (15 min) Moderate 03/13/2015 Patient Education: Patient Medication Summary Completed 03/13/2015 Patient Education: Hypertension Completed 03/13/2015 Visit Plan: Abdominal ebsu-adzekxbne-sduzpcr kidney stone- patient sent to the hospital [...] Plan: X-RAY EXAM OF ABDOMEN LOINC : 11391-0 Ordered 10/08/2014 Care Plan: COMPLETE CBC AUTOMATED LOINC : 99479-9 Ordered 10/08/2014 Visit Plan: Hypertension - well [...] medications. 07/17/2014 Appointment: [facility] [phone] [facility] Follow up 07/17/2014 Patient Education: Patient [...] yeast infections. 01/11/2014 Appointment: Marilyn Delaney WPtel: [facility] Follow up 01/11/2014 Patient Education: Patient Medication Summary Completed 01/11/2014 Patient Education: Hypertension Completed 01/11/2014 Appointment: [phone] [facility] Follow up 01/04/2014 Appointment: Marilyn Delaney WPtel: [address] [place] [address] Follow up 12/31/2013 Visit Plan: Hypertension - [...] to medications. 07/02/2013 Appointment: Marilyn Delaney WPtel: [facility] Follow [facility] 07/02/2013 Patient Education: Patient Medication Summary Completed 07/02/2013 Patient Education: Hypertension Completed 07/02/2013 App[facility]ment[facility] Tig[facility] Wolf [phone] Lab Draw 06/08/2013 Patient Education: Patient Medication [...] control. 02/26/2013 Appointment: Marilyn Delaney WPtel: [phone] [facility] Follow up 02/26/2013 Patient Education: Patient Medication [...] to medications. 10/24/2012 Appointment: Marilyn Delaney WPtel: [phone] [facility] Follow up 10/24/2012 Patient Education: Patient Medication [...] control. 09/12/2012 Appointment: [phone] Other 09/12/2012 Patient Education: Patient Medication Summary Completed 09/12/2012 Patient Education: Hypertension Completed 09/12/2012 Appointment: [phone] [facility] Lab Draw 06/01/2012 Patient Education: Patient [...] of control. 05/30/2012 Appointment: [phone] [facility] Follow up 05/30/2012 Patient Education: Patient Medication Summary Completed 05/30/2012 Patient Education: Hypertension Completed 05/30/2012 Appointment: [facility] [phone] [facility] Follow [facility] 03/07/2012 Visit Plan: sutures removed, steri strips placed 02/22/2012 Appointment: [phone] [facility] Other 02/22/2012 Patient Education: Patient Medication [...] lesion. The removed specimen was taken to [facility] for pathologic review. 02/08/2012 Appointment: Marilyn Delaney WPtel: [phone] [facility] Surgical Procedure 02/08/2012 Patient Education: Patient Medication Summary Completed 02/08/2012 Visit Plan: Wound Instructions - Pt was instruced to keep the wound clean, wash with antibacterial soap, use triple antibiotic ointment, call if redness, pustular drainage, or any other acute conerns. 11/30/2011 Appointment: Marilyn Delaney WPtel: [facility] Surgical Procedure 11/30/2011 Patient Education: Patient Medication Summary Completed 11/30/2011 Appointment: Marilyn Delaney WPtel: [facility] Lab Draw 11/18/2011 Patient Education: Patient Medication [...] for pain. 10/13/2011 Appointment: Marilyn Delaney WPtel: [phone] [facility] Other 10/13/2011 Patient Education: Patient Medication Summary [...] be stopeed. 10/04/2011 Appointment: Marilyn Delaney WPtel: [address] [place] [address] Other 10/04/2011 Patient Education: Patient Medication Summary [...] as needed. 05/12/2011 Appointment: Marilyn Delaney WPtel: [address] [place] [address] Other 05/12/2011 Patient Education: Patient Medication Summary Completed 05/12/2011 Patient Education: High Blood Pressure: Essential Hypertension Completed 2010 Appointment: Marilyn Delaney WPtel: [address] [place] [address] Other 03/30/2011 Visit Plan: Hypertension - well [...] to use on mouth. 03/17/2011 Appointment: Marilyn Dealney WPtel: [facility] [address] Other 03/17/2011 Patient Education: Patient Medication Summary [...] CLINIC TODAY. 02/26/2011 Appointment: Marilyn Delaney WPtel: [address] [place] [address] Other 02/26/2011 Patient Education: Patient Medication Summary [...] lesion. The removed specimen was taken to [facility] for pathologic review. . UA positive - [...] YOU A SAMPLE OF THIS . Abdominal kyut-tabudhyus-djpeufk kidney stone-patient sent to the hospital for [...] nystatin swish and swallow Take a probiotic Looptlle, [employer], or generic are all fine - take [...]
--- OUTSIDE RECORDS SUMMARY | 2017-10-10 18:31 | XMS REPORT | CCD ---
Author Author Marilyn Delaney Organization Marilyn Delaney MD, [facility] Address [address] [place] [address] Phone Care Team Providers Care Floor Care Specialist Name Role Phone PP Unavailable CCM Unavailable Summary Purpose Interface Exchange Insurance Providers Payer name Policy type / Coverage type Covered constitution party ID Effective Begin Date Effective End Date WPS Medicare Part B Medicare Part B [id number] 2013 Unknown AARP Medicare Part B [id number] 2013 Unknown Family history Brother Diagnosis Age [...] Unknown House 02/26/[address]: 872726256 Never smoker 02/25/[address]: 920010099 Never drinks alcohol 02/25/2011 Has the patient [...] Start Date Stop Date Status Fill Instructions triamcinolone acetonide 0.5 % topical ointment RxNorm: 7768848 APPLY OINTMENT TOPICALLY TO AFFECTED AREA EVERY 6 HOURS NEEDED 2017 No Stop Date Active metoprolol tartrate 25 mg tablet RxNorm: 099577 TAKE ONE-HALF TABLET BY MOUTH TWICE DAILY 05/30/2017 No Stop Date Active Plavix 75 mg tablet RxNorm: 143759 TAKE ONE TABLET BY MOUTH ONCE DAILY 03/28/2017 No Stop Date Active Ultracet 37.5 mg-325 mg tablet RxNorm: 950149 Tablet(s) PO Q6 as needed TAKE 1 TABLET BY MOUTH NEEDED 03/16/201704/29 Inactive Synthroid 75 mcg tablet RxNorm: 106146 TAKE ONE TABLET BY MOUTH ONCE DAILY 02/24/2017 08/22/2017 Active mupirocin 2 % topical ointment RxNorm: 356873 1 Application TOP BID 01/27/2017 02/02/2017 Inactive Diflucan 150 mg tablet RxNorm: 277687 1 Tablet(s) PO daily 11/201601/31/2017 Inactive Protonix 40 mg tablet,delayed release RxNorm: 844922 1 Tablet(s) PO daily 01/17/2017 02/15/2017 Inactive Carafate 1 gram tablet RxNorm: 287259 1 Tablet(s) PO QID as needed 01/17/2017 01/26/2017 Inactive nystatin 100,000 unit/gram topical cream RxNorm: 700282 1 Application TOP TID 01/12/2017 01/16/2017 Inactive Diflucan 150 mg tablet RxNorm: 496600 1 Tablet(s) PO daily 01/07/2017 Inactive nystatin 100,000 unit/gram topical cream RxNorm: 163795 1 Application TOP TID 01/07/2017 01/11/2017 Inactive Ultracet 37.5 mg-325 mg tablet RxNorm: 816366 Tablet(s) PO TAKE 1 TABLET BY MOUTH NEEDED 01/04/2017 03/15/2017 Inactive Cipro 500 mg tablet RxNorm: 460335 1 Tablet(s) PO BID 201601/07/2017 Inactive Keflex 500 mg capsule RxNorm: 758368 1 Capsule(s) PO TID 201612/19/2016 Inactive Keflex 500 mg capsule RxNorm: 381299 1 Capsule(s) PO TID 201612/26/2016 Inactive ketorolac 60 mg/2 mL intramuscular solution RxNorm: 774672 Milliliter(s) IM 12/16/2016 12/16/2016 Inactive Topamax 25 mg tablet RxNorm: 923488 1 Tablet(s) PO daily 201601/14/2017 Inactive promethazine 25 mg/mL injection solution RxNorm: 325507 Milliliter(s) Inj 12/16/2016 12/16/2016 Inactive Ultracet 37.5 mg-325 mg tablet RxNorm: 996594 TAKE ONE TABLET BY MOUTH EVERY SIX HOURS NEEDED FOR PAIN 11/01/20162016 Inactive Celebrex 200 mg capsule RxNorm: 624414 Capsule(s) TAKE ONE CAPSULE BY MOUTH ONCE DAILY 09/21/2016 09/15/2017 Active Synthroid 75 mcg tablet RxNorm: 081976 Tablet(s) TAKE ONE TABLET BY MOUTH DAILY EXCEXPT 12TAB ON TUE AND Tuesday09/16/2016 No Stop Date Active Lipitor 20 mg tablet RxNorm: 039700 1/2 Tablet(s) PO every other day 08/25/2016 01/26/2017 Inactive amitriptyline 50 mg tablet RxNorm: 405610 1 Tablet(s) PO QPM 08/13/2017 Active Synthroid 75 mcg tablet RxNorm: 617128 TAKE ONE TABLET BY MOUTH ONCE DAILY 08/03/2016 09/15/2016 Inactive triamcinolone acetonide 0.5 % topical ointment RxNorm: 1272390 APPLY TO AFFECTED AREA(S) EVERY 6 HOURS NEEDED 06/03/2016 08/13/2016 Inactive Celebrex 200 mg capsule RxNorm: 092081 TAKE ONE CAPSULE BY MOUTH ONCE DAILY 05/18/2016 09/20/2016 Inactive promethazine 25 mg/mL injection solution RxNorm: 300041 Milliliter(s) Inj 05/11/2016 05/11/2016 Inactive ketorolac 60 mg/2 mL intramuscular solution RxNorm: 642951 Milliliter(s) IM 05/11/2016 05/11/2016 Inactive amitriptyline 50 mg tablet RxNorm: 723482 1 Tablet(s) PO QPM 08/18/2016 Inactive amitriptyline 50 mg tablet RxNorm: 923495 1 Tablet(s) PO QPM 05/04/2016 Inactive Cipro 500 mg tablet RxNorm: 100450 1 Tablet(s) PO BID 201504/27/2016 Inactive Celebrex 200 mg capsule RxNorm: 416913 TAKE ONE CAPSULE BY MOUTH ONCE DAILY 04/20/2016 05/17/2016 Inactive Ultracet 37.5 mg-325 mg tablet RxNorm: 315626 1 Tablet(s) PO QID as needed for back pain TAKE ONE TABLET BY MOUTH NEEDED 03/10/2016 11/03/2016 Inactive amitriptyline 25 mg tablet RxNorm: 771074 2 Tablet(s) PO QPM 05/02/2016 Inactive nystatin 100,000 unit/mL oral suspension RxNorm: 950659 5 Unit(s) PO TID 03/10/2016 03/23/2016 Inactive metoprolol tartrate 25 mg tablet RxNorm: 686426 TAKE ONE-HALF TABLET BY MOUTH TWICE DAILY 02/26/2016 11/21/2016 Inactive Protonix 40 mg tablet,delayed release RxNorm: 616852 TAKE ONE TABLET BY MOUTH ONCE DAILY 02/17/2016 03/23/2016 Inactive amitriptyline 25 mg tablet RxNorm: 064768 1-2 Tablet(s) PO QPM 01/27/2016 03/09/2016 Inactive Ultracet 37.5 mg-325 mg tablet RxNorm: 499717 Tablet(s) PO TAKE 1 TABLET BY MOUTH NEEDED 01/12/2016 01/12/2016 Inactive Ultracet 37.5 mg-325 mg tablet RxNorm: 134983 TAKE ONE TABLET BY MOUTH NEEDED 01/12/2016 03/09/2016 Inactive Plavix 75 mg tablet RxNorm: 018188 TAKE ONE TABLET BY MOUTH ONCE DAILY 12/23/2015 03/27/2017 Inactive amitriptyline 25 mg tablet RxNorm: 187941 1 Tablet(s) PO QPM 01/26/2016 Inactive Pen[place]aid 20 mg/gram/actuation (2 %) topical soln in metered -dose pump RxNorm: 7886171 1 Application TOP BID 11/03/201511/05 Inactive Celebrex 200 mg capsule RxNorm: 043408 Capsule(s) TAKE ONE CAPSULE BY MOUTH DAILY 10/22/2015 04/18/2016 Inactive Protonix 40 mg tablet,delayed release RxNorm: 115282 1 Tablet(s) PO daily 08/13/2015 02/08/2016 Inactive Lipitor 20 mg tablet RxNorm: 028829 Tablet(s) TAKE 1 TABLET BY MOUTH EVERY OTHER DAY, OR , TAKE 1/2 TABLET BY MOUTH ONCE DAILY 08/06/2015 07/30/2016 Inactive Synthroid 75 mcg tablet RxNorm: 261123 Tablet(s) PO TAKE ONE TABLET BY MOUTH EVERY DAY 08/06/2015 07/30/2016 Inactive Ultracet 37.5 mg-325 mg tablet RxNorm: 781172 Tablet(s) PO TAKE 1 TABLET BY MOUTH NEEDED 08/06/2015 01/03/2017 Inactive Protonix 40 mg tablet,delayed release RxNorm: 513904 1 Tablet(s) PO daily 08/06/2015 08/12/2015 Inactive Carafate 1 gram tablet RxNorm: 735886 1 Tablet(s) dissolved in 10mL of water PO AC and hs x 1 week then just AC thereafter 08/06/2015 11/17/2015 Inactive Ultracet 37.5 mg-325 mg tablet RxNorm: 262665 Tablet(s) PO TAKE 1 TABLET BY MOUTH NEEDED 07/22/2015 08/05/2015 Inactive Levaquin 500 mg tablet RxNorm: 472197 1 Tablet(s) PO daily 07/21/2015 Inactive amitriptyline 50 mg tablet RxNorm: 133841 1 Tablet(s) PO QPM 10/31/2015 Inactive Celebrex 200 mg capsule RxNorm: 110674 TAKE ONE CAPSULE BY MOUTH DAILY 06/23/2015 10/20/2015 Inactive Ultracet 37.5 mg-325 mg tablet RxNorm: 043574 TAKE ONE TABLET BY MOUTH EVERY 6 HOURS NEEDED FOR PAIN 04/15/20152015 Inactive amitriptyline 50 mg tablet RxNorm: 371109 1.5 Tablet(s) PO QPM 03/13/2015 07/03/2015 Inactive Plavix 75 mg tablet RxNorm: 258886 TAKE ONE TABLET BY MOUTH EVERY DAY 02/24/2015 12/20/2015 Inactive metoprolol tartrate 25 mg tablet RxNorm: 768513 TAKE 1/2 TABLET BY MOUTH TWO TIMES A DAY 01/27/2015 01/21/2016 Inactive Celebrex 200 mg capsule RxNorm: 041143 TAKE ONE CAPSULE BY MOUTH DAILY 01/20/2015 06/18/2015 Inactive Lipitor 20 mg tablet RxNorm: 732433 TAKE 1 TABLET BY MOUTH EVERY OTHER DAY, OR , TAKE 1/2 TABLET BY MOUTH ONCE DAILY 12/02/2014 08/05/2015 Inactive triamcinolone acetonide 0.5 % topical ointment RxNorm: 3498971 APPLY TO AFFECTED AREA(S) EVERY 6 HOURS NEEDED 11/25/2014 02/04/2015 Inactive Flagyl 500 mg tablet RxNorm: 154718 1 Tablet(s) PO TID 201410/17/2014 Inactive Cipro 500 mg tablet RxNorm: 948421 1 Tablet(s) PO BID 201410/14/2014 Inactive Ultracet 37.5 mg-325 mg tablet RxNorm: 965310 1 Tablet(s) PO Q6 as needed TAKE 1 TABLET BY MOUTH NEEDED 09/19/201409/19 Inactive amitriptyline 100 mg tablet RxNorm: 253668 TAKE ONE TABLET BY MOUTH EVERY NIGHT AT BEDTIME 09/19/2014 03/12/2015 Inactive Ultracet 37.5 mg-325 mg tablet RxNorm: 097620 TAKE ONE TABLET BY MOUTH EVERY 6 HOURS NEEDED FOR PAIN 09/19/20142014 Inactive (Response to an electronic controlled substance refill request - RxReferenceNumber: [id number]) Synthroid 75 mcg tablet RxNorm: 824253 Tablet(s) PO TAKE ONE TABLET BY MOUTH EVERY DAY 08/15/2014 08/05/2015 Inactive checking labs in 3 months metoprolol tartrate 25 mg tablet RxNorm: 744853 TAKE 1/2 TABLET BY MOUTH TWO TIMES A DAY 08/06/2014 01/26/2015 Inactive Celebrex 200 mg capsule RxNorm: 118690 TAKE ONE CAPSULE BY MOUTH DAILY 07/15/2014 01/10/2015 Inactive Synthroid 88 mcg tablet RxNorm: 146375 TAKE ONE TABLET BY MOUTH EVERY DAY 06/18/2014 08/14/2014 Inactive Synthroid 88 mcg tablet RxNorm: 315296 1 Tablet(s) PO 201412/14/2014 Inactive Celebrex 200 mg capsule RxNorm: 310243 TAKE ONE CAPSULE BY MOUTH EVERY DAY 05/21/2014 07/14/2014 Inactive metoprolol tartrate 25 mg tablet RxNorm: 991637 TAKE 1/2 TABLET BY MOUTH TWO TIMES A DAY 04/02/2014 07/30/2014 Inactive Plavix 75 mg tablet RxNorm: 785963 TAKE ONE TABLET BY MOUTH EVERY DAY 03/25/2014 02/17/2015 Inactive Celebrex 200 mg capsule RxNorm: 085667 TAKE ONE CAPSULE BY MOUTH EVERY DAY 02/18/2014 05/18/2014 Inactive Ultracet 37.5 mg-325 mg tablet RxNorm: 586331 Tablet(s) PO TAKE 1 TABLET BY MOUTH NEEDED 01/30/2014 07/21/2015 Inactive Vitamin D2 50,000 unit capsule RxNorm: 717600 1 Capsule(s) PO weekly x12 weeks 01/24/2014 11/17/2015 Inactive fluconazole 150 mg tablet RxNorm: 425216 1 Tablet(s) PO daily 01/11/2014 01/15/2014 Inactive sulfamethoxazole 800 mg-trimethoprim 160 mg tablet RxNorm: 408999 1 Tablet(s) PO BID 01/11/2014 01/17/2014 Inactive amitriptyline 100 mg tablet RxNorm: 960553 Tablet(s) PO TAKE ONE TABLET BY MOUTH EVERY NIGHT AT BEDTIME 10/30/20132014 Inactive Celebrex 200 mg capsule RxNorm: 068855 Capsule(s) PO TAKE ONE CAPSULE BY MOUTH EVERY DAY 10/23/2013 02/17/2014 Inactive Lipitor 20 mg tablet RxNorm: 388860 1 Tablet(s) PO every other day TAKE 1/2 TABLET BY MOUTH DAILY 09/27/20132014 Inactive Ultracet 37.5 mg-325 mg tablet RxNorm: 902970 Tablet(s) PO TAKE 1 TABLET BY MOUTH NEEDED 08/20/2013 01/29/2014 Inactive Lipitor 20 mg tablet RxNorm: 214318 1 Tablet(s) PO every other day TAKE 1/2 TABLET BY MOUTH DAILY 07/02/20132013 Inactive Synthroid 88 mcg tablet RxNorm: 442261 1 Tablet(s) PO 201306/17/2014 Inactive triamcinolone acetonide 0.5 % topical ointment RxNorm: 1697456 1 Application TOP Q6 PRN 07/02/2013 01/27/2014 Inactive Celebrex 200 mg capsule RxNorm: 885511 Capsule(s) PO TAKE ONE CAPSULE BY MOUTH EVERY DAY 05/22/2013 10/22/2013 Inactive Lipitor 20 mg tablet RxNorm: 260641 Tablet(s) PO TAKE 1/2 TABLET BY MOUTH DAILY 04/09/2013 07/01/2013 Inactive metoprolol tartrate 25 mg tablet RxNorm: 770561 Tablet(s) PO TAKE 1/2 TABLET BY MOUTH TWO TIMES A DAY 04/09/20132013 Inactive Plavix 75 mg tablet RxNorm: 934564 Tablet(s) PO TAKE ONE TABLET BY MOUTH EVERY DAY 03/26/2013 03/24/2014 Inactive Synthroid 100 mcg tablet RxNorm: 094544 100mcg alternate 88mcg Tablet(s) PO daily 03/01/2013 07/01/2013 Inactive estropipate 1.5 mg tablet RxNorm: 287262 Tablet(s) PO TAKE TWO TABLETS BY MOUTH EVERY DAY 01/18/2013 07/18/2013 Inactive Celebrex 200 mg capsule RxNorm: 050166 Capsule(s) PO TAKE ONE CAPSULE BY MOUTH EVERY DAY 11/28/2012 05/21/2013 Inactive Ultracet 37.5 mg-325 mg tablet RxNorm: 508994 Tablet(s) PO TAKE 1 TABLET BY MOUTH NEEDED 11/22/2012 08/19/2013 Inactive Ultracet 37.5 mg-325 mg tablet RxNorm: 082784 Tablet(s) PO TAKE 1 TABLET BY MOUTH NEEDED 11/22/2012 11/21/2012 Inactive amitriptyline 100 mg tablet RxNorm: 660656 Tablet(s) PO TAKE ONE TABLET BY MOUTH EVERY NIGHT AT BEDTIME 10/31/20122013 Inactive Synthroid 100 mcg tablet RxNorm: 683093 1 Tablet(s) PO daily 02/28/2013 Inactive amitriptyline 100 mg tablet RxNorm: 746892 Tablet(s) PO 1 TABLET BY MOUTH AT BEDTIME 08/30/2012 10/30/2012 Inactive Ultracet 37.5 mg-325 mg tablet RxNorm: 936861 Tablet(s) PO TAKE 1 TABLET BY MOUTH NEEDED 08/14/2012 11/21/2012 Inactive amitriptyline 100 mg tablet RxNorm: 195143 Tablet(s) PO 1 TABLET BY MOUTH AT BEDTIME 06/05/2012 08/29/2012 Inactive Celebrex 200 mg capsule RxNorm: 018715 1 Capsule(s) PO daily 11/02/2012 Inactive Lipitor 10 mg tablet RxNorm: 324207 1 Tablet(s) PO daily 201109/11/2012 Inactive levothyroxine 100 mcg capsule RxNorm: 146577 1 Capsule(s) PO daily 03/08/2012 02/27/2013 Inactive metoprolol tartrate 25 mg tablet RxNorm: 253646 1/2 Tablet(s) PO BID 03/08/2012 04/01/2013 Inactive Ultracet 37.5 mg-325 mg tablet RxNorm: 056913 1 Tablet(s) PO PRN 03/08/2012 08/13/2012 Inactive Plavix 75 mg tablet RxNorm: 900781 1 Tablet(s) PO daily 201103/25/2013 Inactive Lipitor 10 mg tablet RxNorm: 866301 1 Tablet(s) PO daily 201103/07/2012 Inactive amitriptyline 100 mg tablet RxNorm: 288646 1 Tablet(s) PO HS 06/04/2012 Inactive metoprolol tartrate 25 mg tablet RxNorm: 405801 1/2 Tablet(s) PO BID 02/11/2012 03/07/2012 Inactive Lipitor 10 mg tablet RxNorm: 783986 1 Tablet(s) PO daily 201102/10/2012 Inactive metoprolol tartrate 25 mg tablet RxNorm: 520967 1/2 Tablet(s) PO BID 02/10/2012 02/10/2012 Inactive Influenza Virus Vaccine 0.5 mL RxNorm: IM 02/08/2012 02/08/2012 Inactive amitriptyline 100 mg tablet RxNorm: 260565 1 Tablet(s) PO HS 02/10/2012 Inactive estropipate 1.5 mg tablet RxNorm: 713288 2 Tablet(s) PO daily 11/26/2011 12/19/2012 Inactive Ultracet 37.5 mg-325 mg tablet RxNorm: 489316 1 Tablet(s) PO PRN 10/04/2011 03/07/2012 Inactive Celebrex 200 mg Cap RxNorm: 117263 1 Capsule(s) PO daily 09/0609/06/2011 Inactive Celebrex 200 mg capsule RxNorm: 859126 1 Capsule(s) PO daily 04/03/2012 Inactive Ultracet 37.5 mg-325 mg Tab RxNorm: 892946 1 Tablet(s) PO PRN 08/25/2011 10/03/2011 Inactive Lipitor 10 mg tablet RxNorm: 772935 1 Tablet(s) PO daily 201102/06/2012 Inactive Ultracet 37.5 mg-325 mg Tab RxNorm: 053101 1 Tablet(s) PO Q6 PRN 07/15/2011 07/29/2011 Inactive amitriptyline 100 mg tablet RxNorm: 944758 1 Tablet(s) PO HS 11/28/2011 Inactive promethazine 25 mg/mL Injection RxNorm: 933347 Milliliter(s) Inj 05/12/2011 05/12/2011 Inactive triamcinolone acetonide 0.5 % topical ointment RxNorm: 3967140 1 Application TOP Q6 PRN 05/12/2011 09/08/2011 Inactive ketorolac 60 mg/2 mL IM RxNorm: 432729 Milliliter(s) IM 201005/12/2011 Inactive amitriptyline 100 mg Tab RxNorm: 438903 1/2 - 1 Tablet(s) PO HS PRN 05/12/2011 06/01/2011 Inactive Protonix 40 mg Tab RxNorm: 429761 1 Tablet(s) PO daily 201010/03/2011 Inactive Ultracet 37.5 mg-325 mg Tab RxNorm: 726078 1 Tablet(s) PO Q6 PRN 03/26/2011 07/14/2011 Inactive Plavix 75 mg Tab RxNorm: 727509 1 Tablet(s) PO daily 201002/09/2012 Inactive Bactroban 2 % Ointment RxNorm: 573688 1 [place] TOP TID apply three times a day x 5 days in the nose and three times a day x 7 days on the lips 03/17/2011 03/23/2011 Inactive Bactrim DS 800 mg-160 mg Tab RxNorm: 101900 1 Tablet(s) PO BID 03/17/2011 03/26/2011 Inactive amitriptyline 50 mg Tab RxNorm: 692745 2 Tablet(s) PO QHS 03/1505/11/2011 Inactive Celebrex 200 mg Cap RxNorm: 091025 1 Capsule(s) PO daily 03/1209/06/2011 Inactive Influenza Virus Vaccine 0.5 mL RxNorm: IM 02/26/2011 02/26/2011 Inactive metoprolol tartrate 25 mg Tab RxNorm: 143784 1/2 Tablet(s) PO BID 02/02/2011 04/02/2011 Inactive Lipitor 10 mg Tab RxNorm: 889470 1 Tablet(s) PO daily 201003/03/2011 Inactive Vitamin D3 2,000 unit tablet RxNorm: 304920 1 Tablet(s) PO daily No Start Date Active aspirin 81 mg Tab, Delayed Release RxNorm: 455618 1 Tablet(s) PO daily No Start Date Active Ultracet 37.5 mg-325 mg Tab RxNorm: 702954 1 Tablet(s) PO Q6 PRN No Start Date 03/25/2011 Inactive Lipitor 10 mg Tab RxNorm: 587808 1 Tablet(s) PO daily No Start Date 08/10/2011 Inactive levothyroxine 100 mcg capsule RxNorm: 369202 Capsule(s) PO No Start Date 03/07/2012 Inactive 3 times weekly amitriptyline 50 mg Tab RxNorm: 823741 2 Tablet(s) PO daily No Start Date 03/14/2011 Inactive Vitamin B-12 1,000 mcg Tab RxNorm: 933670 1 Tablet(s) PO daily No Start Date 09/11/2012 Inactive estropipate 1.5 mg Tab RxNorm: 976522 1 Tablet(s) PO daily No Start Date 11/25/2011 Inactive multivitamin Cap RxNorm: 1 Capsule(s) PO daily No Start Date 10/03/2011 Inactive metoprolol tartrate 25 mg tablet RxNorm: 709253 1/2 Tablet(s) PO BID No Start Date 02/09/2012 Inactive Celebrex 200 mg Cap RxNorm: 753748 1 Capsule(s) PO daily No Start Date 03/11/2011 Inactive Ultracet 37.5 mg-325 mg Tab RxNorm: 272163 Tablet(s) PO PRN No Start Date 08/24/2011 Inactive Vitamin B & C Cap RxNorm: 1 Capsule(s) PO daily No Start Date 10/03/2011 Inactive Lipitor 20 mg tablet RxNorm: 807328 1 Tablet(s) PO 3 x week No Start Date 04/08/2013 Inactive Plavix 75 mg tablet RxNorm: 491059 1 Tablet(s) PO daily No Start Date 02/29/2012 Inactive Vitamin D2 50,000 unit capsule RxNorm: 456455 1 Capsule(s) PO weekly x12 weeks No Start Date 01/23/2014 Inactive Medication Administered Medication Codes Instructions Start Date Status ketorolac 60 mg/2 mL intramuscular solution RxNorm: 523051 Milliliter 12/16/2016 No longer Active promethazine 25 mg/mL injection solution RxNorm: 906351 Milliliter 12/16/2016 No longer Active ketorolac 60 mg/2 mL intramuscular solution RxNorm: 087107 Milliliter 05/11/2016 No longer Active promethazine 25 mg/mL injection solution RxNorm: 298327 Milliliter 05/11/2016 No longer Active Influenza Virus Vaccine 0.5 mL RxNorm: 02/08/2012 No longer Active ketorolac 60 mg/2 mL IM RxNorm: 589022 Milliliter 05/12/2011 No longer Active promethazine 25 mg/mL Injection RxNorm: 341082 Milliliter 05/12/2011 No longer Active Influenza Virus [...] Item Code Result Date Urine Culture Ucult Preliminary NO Growth Day 1 12/31/2016 Urine Culture Ucult Complete NO Growth Day 2 12/31/2016 Lipid Ord30 CHOL 165 mg/dL 12/29/2016 Lipid Ord30 HDL 40.0 mg/dl 12/29/2016 Lipid Ord30 TRIG 126 mg/dL 12/29/2016 Lipid Ord30 LDL 100 mg/dL 12/29/2016 Lipid Ord30 C/HDL 4.1 Ratio 12/29/2016 Vitamin D 25 Oh [id number] VITAMIN D, 25 HYDROXY 58.55 ng/mL Tsh Ord6 hTSH II 1.34 uIU/mL 12/29/2016 Cbc With Differential Ord2 WBC 5.18 K/ul 12/29/2016 Cbc With Differential Ord2 RBC 3.90 M/ul 12/29/2016 Cbc With Differential Ord2 HGB 12.0 g/dl 12/29/2016 Cbc With Differential Ord2 HCT 38.4 % 12/29/2016 Cbc With Differential Ord2 Neut% 63.2 % 12/29/2016 Cbc With Differential Ord2 MCV 98.5 fl 12/29/2016 Cbc With Differential Ord2 Lymph% 21.6 % 12/29/2016 Cbc With Differential Ord2 MCH 30.8 pg 12/29/2016 Cbc With Differential Ord2 [place]% 10.6 % 12/29/2016 Cbc With Differential Ord2 Eos% 2.5 % 12/29/2016 Cbc With Differential Ord2 MCHC 31.3 pg 12/29/2016 Cbc With Differential Ord2 Baso% 2.1 % 12/29/2016 Cbc With Differential Ord2 PLT 519 K/ul 12/29/2016 Cbc With Differential Ord2 RDW 14.6 % 12/29/2016 Cbc With Differential Ord2 Neut ABS# 3.27 K/ul 12/29/2016 Cbc With Differential Ord2 Lymph ABS# 1.12 K/ul 12/29/2016 Cbc With Differential Ord2 [place] ABS# 0.6 K/ul 12/29/2016 Cbc With Differential Ord2 Eos ABS# 0.1 K/ul 12/29/2016 Cbc With Differential Ord2 Baso ABS# 0.1 K/ul 12/29/2016 Free T4 [id number] FREE T4 1.16 ng/dL 12/29/2016 Culture Urine [id number] URINE CULTURE SEE NOTES 12/24/2016 Culture Urine [id number] Continued Results 12/24/2016 Urine Culture Ucult Complete >100,000 col/ml aerobic growth sent to ref lab 12/22/2016 CHEM 14 [id number] AST 18 U/L 08/20/2016 CHEM 14 [id number] ALT 14 U/L 08/20/2016 CHEM 14 [id number] BUN 22 mg/dL 08/20/2016 CHEM 14 1624250 ALBUMIN 3.6 g/dL 08/20/2016 CHEM 14 2270215 CHLORIDE 107 mmol/L 08/20/2016 CHEM 14 6724527 Bili Total 0.4 mg/dL 08/20/2016 CHEM 14 1782594 ALK PHOS 89 U/L 08/20/2016 CHEM 14 [id number] SODIUM 144 mmol/L 08/20/2016 CHEM 14 0658006 CREATININE 0.87 mg/dL 08/20/2016 CHEM 14 9898586 CALCIUM 10.5 mg/dL 08/20/2016 CHEM 14 3857806 POTASSIUM 4.3 mmol/L 08/20/2016 CHEM 14 2078024 TOTAL PROTEIN 5.6 g/dL 08/20/2016 CHEM 14 7933745 GLUCOSE 96 mg/dL 08/20/2016 CHEM 14 2500402 Bicarbonate 30 mmol/L 08/20/2016 CHEM 14 3947695 AGAP 7 mmol/L 08/20/2016 LIPID GRP CHOLESTEROL 145 mg/dL 08/20/2016 LIPID GRP Triglyceride 132 mg/dL 08/20/2016 LIPID GRP HDL CHOLESTEROL 47 mg/dL 08/20/2016 LIPID GRP Chol/HDL Ratio 3.09 ratio 08/20/2016 LIPID GRP NON-HDL Chol 98 mg/dL 08/20/2016 LIPID GRP LDL Cholesterol 72 mg/dL 08/20/2016 CBC 1998111 WBC 5.0 10e9/L 08/20/2016 CBC [id number] RBC 4.07 10e12/L 08/20/2016 CBC 1423865 HEMOGLOBIN 12.6 g/dL 08/20/2016 CBC 3620882 HEMATOCRIT 39.4 % 08/20/2016 CBC 9755998 MCV 96.8 fL 08/20/2016 CBC [id number] MCH 31.0 pg 08/20/2016 CBC 3385341 MCHC 32.0 g/dL 08/20/2016 CBC 0698030 PLATELET COUNT 211 10e9/L 08/20/2016 CBC 0451018 Mean Plt Volume 10.2 fL 08/20/2016 CBC 7344649 Neut Auto 37.7 % 08/20/2016 CBC 2564059 Lymph Auto 47.1 % 08/20/2016 CBC [id number] [place] Auto 8.2 % 08/20/2016 CBC 0621348 RDW 14.8 % 08/20/2016 CBC 0558227 Eos Auto 5.0 % 08/20/2016 CBC 1919746 Baso Auto 2.0 % 08/20/2016 CBC 3913697 Neutrophil Abs 1.88 10e9/L 08/20/2016 CBC 9616425 Lymphocyte Abs 2.36 10e9/L 08/20/2016 CBC 0363396 Monocyte Abs 0.41 10e9/L 08/20/2016 CBC 3967537 Eosinophil Abs 0.25 10e9/L 08/20/2016 CBC [id number] Basophil Abs 0.10 10e9/L 08/20/2016 CBC [id number] RDW-SD 50.5 fL 08/20/2016 Urine Culture Ucult Complete >100,000 col/ml aerobic growth sent to ref lab 04/22/2016 Cbc With Differential Ord2 WBC 3.97 K/ul 04/14/2016 Cbc With Differential Ord2 RBC 3.79 M/ul 04/14/2016 Cbc With Differential Ord2 HGB 11.5 g/dl 04/14/2016 Cbc With Differential Ord2 HCT 36.2 % 04/14/2016 Cbc With Differential Ord2 Neut% 41.6 % 04/14/2016 Cbc With Differential Ord2 MCV 95.5 fl 04/14/2016 Cbc With Differential Ord2 Lymph% 38.5 % 04/14/2016 Cbc With Differential Ord2 MCH 30.3 pg 04/14/2016 Cbc With Differential Ord2 [place]% 11.3 % 04/14/2016 Cbc With Differential Ord2 MCHC 31.8 pg 04/14/2016 Cbc With Differential Ord2 Eos% 6.8 % 04/14/2016 Cbc With Differential Ord2 Baso% 1.8 % 04/14/2016 Cbc With Differential Ord2 PLT 212 K/ul 04/14/2016 Cbc With Differential Ord2 Neut ABS# 1.65 K/ul 04/14/2016 Cbc With Differential Ord2 RDW 15.9 % 04/14/2016 Cbc With Differential Ord2 Lymph ABS# 1.53 K/ul 04/14/2016 Cbc With Differential Ord2 [place] ABS# 0.5 K/ul 04/14/2016 Cbc With Differential Ord2 Eos ABS# 0.3 K/ul 04/14/2016 Cbc With Differential Ord2 Baso ABS# 0.1 K/ul 04/14/2016 Tsh Ord6 hTSH II 1.17 uIU/mL 03/05/2016 Free T4 [id number] FREE T4 0.88 ng/dL 03/05/2016 Comp Metabolic Zzu175 NA 142 mEq/L 03/05/2016 Comp Metabolic Mvx345 K 4.2 mEq/L 03/05/2016 Comp Metabolic Amn144 CL 109 mEq/L 03/05/2016 Comp Metabolic Ixi454 CO2 29.0 mEq/L 03/05/2016 Comp Metabolic Tdp164 ANION GAP 8 03/05/2016 Comp Metabolic Gqb032 GLUCOSE 86 mg/dL 03/05/2016 Comp Metabolic Orh242 Creat 0.8 mg/dL 03/05/2016 Comp Metabolic Ftx181 eGFR 75 ml/min/1.73m2 03/05/2016 Comp Metabolic Rbo124 BUN 15 mg/dL 03/05/2016 Comp Metabolic Izc268 B/C Ratio 19.2 Ratio 03/05/2016 Comp Metabolic Hmq750 CALCIUM 9.4 mg/dL 03/05/2016 Comp Metabolic Wyo362 ALK PHOS 95 U/L 03/05/2016 Comp Metabolic Vdu067 AST(SGOT) 20 U/L 03/05/2016 Comp Metabolic Jzz718 ALT(SGPT) 18 U/L 03/05/2016 Comp Metabolic Ptb054 BILI T 0.5 mg/dL 03/05/2016 Comp Metabolic Sio160 ALBUMIN 3.5 g/dL 03/05/2016 Comp Metabolic Zdi621 TPRO 5.5 g/dL 03/05/2016 Comp Metabolic Hmn782 GLOB 2.0 g/dL 03/05/2016 Comp Metabolic Khc332 A/G Ratio 1.8 Ratio 03/05/2016 Comp Metabolic Ifr749 Osmo 283 mOsmo 03/05/2016 Lipid Ord30 CHOL 158 mg/dL 03/05/2016 Lipid Ord30 HDL 53.0 mg/dl 03/05/2016 Lipid Ord30 TRIG 91 mg/dL 03/05/2016 Lipid Ord30 LDL 87 mg/dL 03/05/2016 Lipid Ord30 C/HDL 3.0 Ratio 03/05/2016 Cbc With Differential Ord2 WBC 3.87 K/ul 03/05/2016 Cbc With Differential Ord2 RBC 3.84 M/ul 03/05/2016 Cbc With Differential Ord2 HGB 11.6 g/dl 03/05/2016 Cbc With Differential Ord2 Neut% 39.5 % 03/05/2016 Cbc With Differential Ord2 HCT 36.6 % 03/05/2016 Cbc With Differential Ord2 Lymph% 42.4 % 03/05/2016 Cbc With Differential Ord2 MCV 95.3 fl 03/05/2016 Cbc With Differential Ord2 MCH 30.2 pg 03/05/2016 Cbc With Differential Ord2 [place]% 10.1 % 03/05/2016 Cbc With Differential Ord2 MCHC 31.7 pg 03/05/2016 Cbc With Differential Ord2 Eos% 6.2 % 03/05/2016 Cbc With Differential Ord2 Baso% 1.8 % 03/05/2016 Cbc With Differential Ord2 PLT 223 K/ul 03/05/2016 Cbc With Differential Ord2 RDW 15.6 % 03/05/2016 Cbc With Differential Ord2 Neut ABS# 1.53 K/ul 03/05/2016 Cbc With Differential Ord2 Lymph ABS# 1.64 K/ul 03/05/2016 Cbc With Differential Ord2 [place] ABS# 0.4 K/ul 03/05/2016 Cbc With Differential Ord2 Eos ABS# 0.2 K/ul 03/05/2016 Cbc With Differential Ord2 Baso ABS# 0.1 K/ul 03/05/2016 Urine Culture Ucult Preliminary No Growth Day 1 07/18/2015 Urine Culture Ucult Complete No Growth Day 2 07/18/2015 Free T4 Wub090 FREE T4 1.05 ng/dL 03/10/2015 Comp Metabolic Yyj046 NA 139 mEq/L 03/10/2015 Comp Metabolic Glq599 K 4.2 mEq/L 03/10/2015 Comp Metabolic Lcz422 CL 104 mEq/L 03/10/2015 Comp Metabolic Gna501 CO2 33.0 mEq/L 03/10/2015 Comp Metabolic Yll462 ANION GAP 6 03/10/2015 Comp Metabolic Bpy950 GLUCOSE 95 mg/dL 03/10/2015 Comp Metabolic Aef267 Creat 0.9 mg/dL 03/10/2015 Comp Metabolic Bdv867 eGFR 68 ml/min/1.73m2 03/10/2015 Comp Metabolic Llz325 BUN 18 mg/dL 03/10/2015 Comp Metabolic Rtu073 B/C Ratio 21.2 Ratio 03/10/2015 Comp Metabolic Czh806 CALCIUM 10.4 mg/dL 03/10/2015 Comp Metabolic Pfj068 ALK PHOS 96 U/L 03/10/2015 Comp Metabolic Wbg311 AST(SGOT) 23 U/L 03/10/2015 Comp Metabolic Dje921 ALT(SGPT) 22 U/L 03/10/2015 Comp Metabolic Asq912 BILI T 0.5 mg/dL 03/10/2015 Comp Metabolic Rom062 ALBUMIN 3.7 g/dL 03/10/2015 Comp Metabolic Ywo598 TPRO 5.5 g/dL 03/10/2015 Comp Metabolic Yyo387 GLOB 1.8 g/dL 03/10/2015 Comp Metabolic Yqz451 A/G Ratio 2.1 Ratio 03/10/2015 Comp Metabolic Ewg106 Osmo 279 mOsmo 03/10/2015 Tsh Ord6 hTSH II 0.60 uIU/mL 03/10/2015 Lipid Ord30 CHOL 158 mg/dL 03/10/2015 [...] RDW 14.2 % 03/10/2015 VIT D TOTL 6757281 VIT D TOTL 55 NG/ML 05/08/2014 TSH 9330919 TSH 0.478 uIU/ML 01/14/2014 VIT D TOTL 9968247 VIT D TOTL 15 NG/ML 01/14/2014 FREE T4 6354577 FREE T4 1.42 NG/DL 01/14/2014 CHEM 14 4780926 AST 19 U/L 01/14/2014 CHEM 14 8824276 ALT 11 IU/L 01/14/2014 CHEM 14 8590866 BUN 19 MG/DL 01/14/2014 CHEM 14 9419130 ALBUMIN 4.0 GM/DL 01/14/2014 CHEM 14 2746933 CHLORIDE 105 MMOL/L 01/14/2014 CHEM 14 6353472 BILI TOT 0.5 MG/DL 01/14/2014 CHEM 14 7971151 ALK PHOS 75 U/L 01/14/2014 CHEM 14 4193440 SODIUM 136 MMOL/L 01/14/2014 CHEM 14 7788410 CREATININE 1.12 MG/DL 01/14/2014 CHEM 14 1603673 CALCIUM 10.1 MG/DL 01/14/2014 CHEM 14 4143516 POTASSIUM 4.2 MMOL/L 01/14/2014 CHEM 14 1717003 PROT TOT 6.3 GM/DL 01/14/2014 CHEM 14 4844171 GLUCOSE 90 MG/DL 01/14/2014 CHEM 14 9817220 BICARB 26 MMOL/L 01/14/2014 CHEM 14 3443577 ANION GAP 5 MEQ/L 01/14/2014 CBC 8673732 WBC 5.0 10e9/L 01/14/2014 CBC 9330444 RBC 4.02 10e12/L 01/14/2014 CBC 7575293 HGB 12.8 g/dL 01/14/2014 CBC 4797525 HCT DET 39.1 % 01/14/2014 CBC 0977645 MCV 97.3 fL 01/14/2014 CBC 0976106 MCH 31.8 pg 01/14/2014 CBC 3909158 MCHC 32.7 g/dL 01/14/2014 CBC 5548211 PLT 256 10e9/L 01/14/2014 CBC 7936744 MPV 11.2 fL 01/14/2014 CBC 2004264 NATALYA % 64.4 % 01/14/2014 CBC 3864796 LY % 23.4 % 01/14/2014 CBC 9781299 MON % 8.2 % 01/14/2014 CBC 2143073 EOS % 3.0 % 01/14/2014 CBC 2318493 BASO % 1.0 % 01/14/2014 CBC 2998570 RDW 14.5 % 01/14/2014 CBC 0029971 ABS NATALYA 3.22 10e9/L 01/14/2014 CBC 9048942 ABS LYMPH 1.17 10e9/L 01/14/2014 CBC 0188691 ABS MONO 0.41 10e9/L 01/14/2014 CBC 3465348 ABS EOS 0.15 10e9/L 01/14/2014 CBC 1132090 ABS BASO 0.05 10e9/L 01/14/2014 CBC 0441476 RDW-SD 50.3 fL 01/14/2014 GFR CALC 4462342 GFR AA 56.0L ML/MIN 01/14/2014 GFR CALC 3055476 GFR NON-AA 47.0L ML/MIN 01/14/2014 A1C HPLC 3525331 A1C HPLC 62126-5 5.5 % 06/08/2013 CBC 9613438 WBC 4.2 10e9/L 06/08/2013 CBC 5680019 RBC 4.03 10e12/L 06/08/2013 CBC 3599164 HGB 12.7 g/dL 06/08/2013 CBC 2451426 HCT DET 39.4 % 06/08/2013 CBC 6847756 MCV 97.8 fL 06/08/2013 CBC 8257340 MCH 31.5 pg 06/08/2013 CBC 8049450 MCHC 32.2 g/dL 06/08/2013 CBC 9757771 PLT 216 10e9/L 06/08/2013 CBC 5426497 MPV 10.9 fL 06/08/2013 CBC 3684846 NATALYA % 55.2 % 06/08/2013 CBC 5377761 LY % 29.0 % 06/08/2013 CBC 6980721 MON % 9.8 % 06/08/2013 CBC 7253876 EOS % 4.8 % 06/08/2013 CBC 2022485 BASO % 1.2 % 06/08/2013 CBC 2749809 RDW 14.3 % 06/08/2013 CBC 2066469 ABS NATALYA 2.32 10e9/L 06/08/2013 CBC 2112285 ABS LYMPH 1.22 10e9/L 06/08/2013 CBC 7911117 ABS MONO 0.41 10e9/L 06/08/2013 CBC 7177149 ABS EOS 0.20 10e9/L 06/08/2013 CBC 6767415 ABS BASO 0.05 10e9/L 06/08/2013 CBC 7247743 RDW-SD 50.0 fL 06/08/2013 FREE T4 4497994 FREE T4 1.30 NG/DL 06/08/2013 CHEM 14 1269751 AST 14 U/L 06/08/2013 CHEM 14 1771039 ALT 11 IU/L 06/08/2013 CHEM 14 8541942 BUN 21 MG/DL 06/08/2013 CHEM 14 0597356 ALBUMIN 3.7 GM/DL 06/08/2013 CHEM 14 6334920 CHLORIDE 105 MMOL/L 06/08/2013 CHEM 14 3437785 BILI TOT 0.5 MG/DL 06/08/2013 CHEM 14 8526316 ALK PHOS 68 U/L 06/08/2013 CHEM 14 6376539 SODIUM 138 MMOL/L 06/08/2013 CHEM 14 4546294 CREATININE 0.81 MG/DL 06/08/2013 CHEM 14 2785835 CALCIUM 9.8 MG/DL 06/08/2013 CHEM 14 9032786 POTASSIUM 3.9 MMOL/L 06/08/2013 CHEM 14 4341319 PROT TOT 5.7 GM/DL 06/08/2013 CHEM 14 1889801 GLUCOSE 86 MG/DL 06/08/2013 CHEM 14 9693963 BICARB 30 MMOL/L 06/08/2013 CHEM 14 7130171 ANION GAP 3 MEQ/L 06/08/2013 LIPID GRP HDL TEST 52 MG/DL 06/08/2013 LIPID GRP TRIG 166 MG/DL 06/08/2013 LIPID GRP TEST LDL 83 MG/DL 06/08/2013 LIPID GRP CHOL 168 MG/DL 06/08/2013 LIPID GRP RCHOL/HDL 3.23 RATIO 06/08/2013 TSH 6979924 TSH 4.215 uIU/ML 06/08/2013 GFR CALC 0551220 GFR AA >60 ML/MIN 06/08/2013 GFR CALC 2667867 GFR NON-AA >60 ML/MIN 06/08/2013 CBC 0066489 WBC 5.2 10e9/L 02/27/2013 CBC 5923306 RBC 3.98 10e12/L 02/27/2013 CBC 9817788 HGB 12.4 g/dL 02/27/2013 CBC 4386387 HCT DET 38.4 % 02/27/2013 CBC 2913040 MCV 96.5 fL 02/27/2013 CBC 9982199 MCH 31.2 pg 02/27/2013 CBC 8868290 MCHC 32.3 g/dL 02/27/2013 CBC 2475336 PLT 228 10e9/L 02/27/2013 CBC 5457221 MPV 11.0 fL 02/27/2013 CBC 5547990 NATALYA % 66.0 % 02/27/2013 CBC 6894226 LY % 24.5 % 02/27/2013 CBC 4750852 MON % 7.3 % 02/27/2013 CBC 5367900 EOS % 1.4 % 02/27/2013 CBC 8126256 BASO % 0.8 % 02/27/2013 CBC 0624071 RDW 14.1 % 02/27/2013 CBC 4365927 ABS NATALYA 3.43 10e9/L 02/27/2013 CBC 5446803 ABS LYMPH 1.27 10e9/L 02/27/2013 CBC 9003275 ABS MONO 0.38 10e9/L 02/27/2013 CBC 7998544 ABS EOS 0.07 10e9/L 02/27/2013 CBC 6665450 ABS BASO 0.04 10e9/L 02/27/2013 CBC 0373080 RDW-SD 48.2 fL 02/27/2013 A1C HPLC 5836464 A1C HPLC 05470-1 5.1 % 02/27/2013 LIPID GRP HDL TEST 52 MG/DL 02/27/2013 LIPID GRP TRIG 151 MG/DL 02/27/2013 LIPID GRP TEST LDL 128 MG/DL 02/27/2013 LIPID GRP CHOL 210 MG/DL 02/27/2013 LIPID GRP RCHOL/HDL 4.04 RATIO 02/27/2013 GFR CALC 5645181 GFR AA >60 ML/MIN 02/27/2013 GFR CALC 3153813 GFR NON-AA >60 ML/MIN 02/27/2013 TSH 1722349 TSH 0.169 uIU/ML 02/27/2013 CHEM 14 6226567 AST 14 U/L 02/27/2013 CHEM 14 2511206 ALT 9 IU/L 02/27/2013 CHEM 14 5686495 BUN 13 MG/DL 02/27/2013 CHEM 14 2185529 ALBUMIN 3.8 GM/DL 02/27/2013 CHEM 14 5158541 CHLORIDE 107 MMOL/L 02/27/2013 CHEM 14 3854192 BILI TOT 0.5 MG/DL 02/27/2013 CHEM 14 6534389 ALK PHOS 69 U/L 02/27/2013 CHEM 14 9359586 SODIUM 140 MMOL/L 02/27/2013 CHEM 14 7103147 CREATININE 0.62 MG/DL 02/27/2013 CHEM 14 7515360 CALCIUM 10.1 MG/DL 02/27/2013 CHEM 14 5267432 POTASSIUM 4.4 MMOL/L 02/27/2013 CHEM 14 0712517 PROT TOT 5.1 GM/DL 02/27/2013 CHEM 14 4827591 GLUCOSE 89 MG/DL 02/27/2013 CHEM 14 4764976 BICARB 29 MMOL/L 02/27/2013 CHEM 14 1242017 ANION GAP 4 MEQ/L 02/27/2013 FREE T4 7153130 FREE T4 1.33 NG/DL 02/27/2013 A1C HPLC 3547220 A1C HPLC 97219-0 5.6 % 10/19/2012 FREE T4 4205106 FREE T4 1.10 NG/DL 10/18/2012 TSH 5060976 TSH 2.187 uIU/ML 10/18/2012 LIPID GRP HDL TEST 48 MG/DL 10/18/2012 LIPID GRP TRIG 194 MG/DL 10/18/2012 LIPID GRP TEST LDL 138 MG/DL 10/18/2012 LIPID GRP CHOL 225 MG/DL 10/18/2012 LIPID GRP RCHOL/HDL 4.69 RATIO 10/18/2012 CHEM 14 6300702 AST 16 U/L 10/18/2012 CHEM 14 9328824 ALT 15 IU/L 10/18/2012 CHEM 14 4693885 BUN 21 MG/DL 10/18/2012 CHEM 14 9706156 ALBUMIN 3.9 GM/DL 10/18/2012 CHEM 14 3297561 CHLORIDE 107 MMOL/L 10/18/2012 CHEM 14 7385724 BILI TOT 0.5 MG/DL 10/18/2012 CHEM 14 3165227 ALK PHOS 126 U/L 10/18/2012 CHEM 14 2647202 SODIUM 138 MMOL/L 10/18/2012 CHEM 14 9301122 CREATININE 0.73 MG/DL 10/18/2012 CHEM 14 5598158 CALCIUM 10.2 MG/DL 10/18/2012 CHEM 14 4941420 POTASSIUM 3.9 MMOL/L 10/18/2012 CHEM 14 2266936 PROT TOT 5.9 GM/DL 10/18/2012 CHEM 14 6732290 GLUCOSE 101 MG/DL 10/18/2012 CHEM 14 8263477 BICARB 25 MMOL/L 10/18/2012 CHEM 14 2485426 ANION GAP 6 MEQ/L 10/18/2012 GFR CALC 1404954 GFR AA >60 ML/MIN 10/18/2012 GFR CALC 1821417 GFR NON-AA >60 ML/MIN 10/18/2012 T3 FREE 9834418 T3 FREE 2.6 PG/ML 10/18/2012 CBC 4479399 WBC 4.2 10e9/L 10/18/2012 CBC 5430337 RBC 3.97 10e12/L 10/18/2012 CBC 3460609 HGB 12.6 g/dL 10/18/2012 CBC 7205446 HCT DET 38.1 % 10/18/2012 CBC 8799123 MCV 96.0 fL 10/18/2012 CBC 5971455 MCH 31.7 pg 10/18/2012 CBC 5217753 MCHC 33.1 g/dL 10/18/2012 CBC 4201340 PLT 318 10e9/L 10/18/2012 CBC 4401352 MPV 10.2 fL 10/18/2012 CBC 4266227 NATALYA % 54.2 % 10/18/2012 CBC 7268846 LY % 32.1 % 10/18/2012 CBC 2469965 MON % 7.9 % 10/18/2012 CBC 2345119 EOS % 4.1 % 10/18/2012 CBC 8978273 BASO % 1.7 % 10/18/2012 CBC 1005335 RDW 13.9 % 10/18/2012 CBC 2409048 ABS NATALYA 2.28 10e9/L 10/18/2012 CBC 4000333 ABS LYMPH 1.35 10e9/L 10/18/2012 CBC 1169785 ABS MONO 0.33 10e9/L 10/18/2012 CBC 0014952 ABS EOS 0.17 10e9/L 10/18/2012 CBC 4603905 ABS BASO 0.07 10e9/L 10/18/2012 CBC 1544479 RDW-SD 47.5 fL 10/18/2012 CHEM 14 0149921 AST 15 U/L 06/01/2012 CHEM 14 8088535 ALT 11 IU/L 06/01/2012 CHEM 14 2224845 BUN 20 MG/DL 06/01/2012 CHEM 14 3199616 ALBUMIN 3.7 GM/DL 06/01/2012 CHEM 14 2641107 CHLORIDE 110 MMOL/L 06/01/2012 CHEM 14 3297946 BILI TOT 0.5 MG/DL 06/01/2012 CHEM 14 3487815 ALK PHOS 66 U/L 06/01/2012 CHEM 14 8365712 SODIUM 142 MMOL/L 06/01/2012 CHEM 14 5120455 CREATININE 0.69 MG/DL 06/01/2012 CHEM 14 2009256 CALCIUM 9.8 MG/DL 06/01/2012 CHEM 14 1565978 POTASSIUM 4.6 MMOL/L 06/01/2012 CHEM 14 7337665 PROT TOT 5.8 GM/DL 06/01/2012 CHEM 14 1169368 GLUCOSE 84 MG/DL 06/01/2012 CHEM 14 4423778 BICARB 25 MMOL/L 06/01/2012 CHEM 14 7675627 ANION GAP 7 MEQ/L 06/01/2012 FREE T4 0709913 FREE T4 1.24 NG/DL 06/01/2012 TSH 9518620 TSH 1.748 uIU/ML 06/01/2012 LIPID GRP HDL TEST 55 MG/DL 06/01/2012 LIPID GRP TRIG 128 MG/DL 06/01/2012 LIPID GRP TEST LDL 90 MG/DL 06/01/2012 LIPID GRP CHOL 171 MG/DL 06/01/2012 LIPID GRP RCHOL/HDL 3.11 RATIO 06/01/2012 CBC 2311238 WBC 3.7 10e9/L 06/01/2012 CBC 4466145 RBC 3.97 10e12/L 06/01/2012 CBC 4701987 HGB 12.6 g/dL 06/01/2012 CBC 9742441 HCT DET 38.9 % 06/01/2012 CBC 7226167 MCV 98.0 fL 06/01/2012 CBC 4428188 MCH 31.7 pg 06/01/2012 CBC 5249521 MCHC 32.4 g/dL 06/01/2012 CBC 7225549 PLT 217 10e9/L 06/01/2012 CBC 3170359 MPV 11.1 fL 06/01/2012 CBC 3547927 NATALYA % 60.1 % 06/01/2012 CBC 7277419 LY % 25.5 % 06/01/2012 CBC 1403096 MON % 8.1 % 06/01/2012 CBC 9543671 EOS % 4.1 % 06/01/2012 CBC 6169113 BASO % 2.2 % 06/01/2012 CBC 7675095 RDW 14.0 % 06/01/2012 CBC 0006694 ABS NATALYA 2.22 10e9/L 06/01/2012 CBC 2485467 ABS LYMPH 0.94 10e9/L 06/01/2012 CBC 5458681 ABS MONO 0.30 10e9/L 06/01/2012 CBC 0815636 ABS EOS 0.15 10e9/L 06/01/2012 CBC 3015024 ABS BASO 0.08 10e9/L 06/01/2012 CBC 1782971 RDW-SD 48.9 fL 06/01/2012 GFR CALC 7266522 GFR AA >60 ML/MIN 06/01/2012 GFR CALC 0921921 GFR NON-AA >60 ML/MIN 06/01/2012 GFR CALC 2912223 GFR AA >60 ML/MIN 11/18/2011 GFR CALC 2538301 GFR NON-AA >60 ML/MIN 11/18/2011 FREE T4 0777650 FREE T4 1.16 NG/DL 11/18/2011 TSH 9220929 TSH 2.039 uIU/ML 11/18/2011 CBC 1835480 WBC 3.6 10e9/L 11/18/2011 CBC 2616343 RBC 4.03 10e12/L 11/18/2011 CBC 7971727 HGB 12.5 g/dL 11/18/2011 CBC 2694959 HCT DET 38.2 % 11/18/2011 CBC 2076496 MCV 94.8 fL 11/18/2011 CBC 7964405 MCH 31.0 pg 11/18/2011 CBC 8726886 MCHC 32.7 g/dL 11/18/2011 CBC 4911389 PLT 218 10e9/L 11/18/2011 CBC 6056354 MPV 10.5 fL 11/18/2011 CBC 9814852 NATALYA % 58.1 % 11/18/2011 CBC 8152883 LY % 27.1 % 11/18/2011 CBC 4293239 MON % 10.1 % 11/18/2011 CBC 4390738 EOS % 3.9 % 11/18/2011 CBC 3098295 BASO % 0.8 % 11/18/2011 CBC 1324807 RDW 14.6 % 11/18/2011 CBC 6081743 ABS NATALYA 2.09 10e9/L 11/18/2011 CBC 9483609 ABS LYMPH 0.98 10e9/L 11/18/2011 CBC 9396532 ABS MONO 0.36 10e9/L 11/18/2011 CBC 0444026 ABS EOS 0.14 10e9/L 11/18/2011 CBC 7895518 ABS BASO 0.03 10e9/L 11/18/2011 CBC 2646106 RDW-SD 49.2 fL 11/18/2011 CHEM 14 1488100 AST 14 U/L 11/18/2011 CHEM 14 4341186 ALT 9 IU/L 11/18/2011 CHEM 14 3708281 BUN 18 MG/DL 11/18/2011 CHEM 14 0940681 ALBUMIN 4.0 GM/DL 11/18/2011 CHEM 14 7950837 CHLORIDE 107 MMOL/L 11/18/2011 CHEM 14 7732392 BILI TOT 0.6 MG/DL 11/18/2011 CHEM 14 3389399 ALK PHOS 77 U/L 11/18/2011 CHEM 14 9616392 SODIUM 140 MMOL/L 11/18/2011 CHEM 14 1097220 CREATININE 0.77 MG/DL 11/18/2011 CHEM 14 8454461 CALCIUM 9.9 MG/DL 11/18/2011 CHEM 14 8352747 POTASSIUM 4.1 MMOL/L 11/18/2011 CHEM 14 5759865 PROT TOT 6.1 GM/DL 11/18/2011 CHEM 14 8116319 GLUCOSE 88 MG/DL 11/18/2011 CHEM 14 0115156 BICARB 26 MMOL/L 11/18/2011 CHEM 14 3117508 ANION GAP 7 MEQ/L 11/18/2011 LIPID GRP HDL TEST 48 MG/DL 11/18/2011 LIPID GRP TRIG 145 MG/DL 11/18/2011 LIPID GRP TEST LDL 87 MG/DL 11/18/2011 LIPID GRP CHOL 164 MG/DL 11/18/2011 LIPID GRP RCHOL/HDL 3.42 RATIO 11/18/2011 Review of Systems System Result Effective [...] occlusion 12/29/2016 None Full Exam - General 1995 Ears/Nose/Throat otoscopic exam Overall: tympanic membranes clear [...] atraumatic 07/02/2013 None Full Exam - General 1995 Musculoskeletal [...] clear 02/26/2013 None Full Exam - General 1995 Ears/Nose/Throat otoscopic exam Overall: tympanic membranes clear 02/26/2013 None Full Exam - General 1995 Ears/Nose/Throat oral cavity/pharynx/larynx Overall: oral mucosa clear 02/26/2013 None Full Exam - General 1995 Ears/Nose/Throat oral cavity/pharynx/larynx Overall: oropharyngeal mucosa clear 02/26/2013 None Full Exam - General 1995 Ears/Nose/Throat oral cavity/pharynx/larynx Overall: no masses 02/26/2013 [...] tenderness 02/26/2013 None Full Exam - General 1994 Abdomen abdominal exam Overall: normal bowel sounds 02/26/2013 None Full Exam - General 1995 Musculoskeletal head and neck Overall: head atraumatic 02/26/2013 None Full Exam - General 1994 Musculoskeletal head and neck Overall: cervical spine benign 02/26/2013 None Full Exam - General 1994 Integument inspection of skin Dermatitis: dryness/ flaking 02/26/2013 None Full Exam - General 1995 Integument inspection of skin Location: face 02/26/2013 [...] Exam - General 1995 Ears/Nose/Throat otoscopic exam Overall: tympanic membranes clear 10/24/2012 None Full Exam - General 1994 Ears/Nose/Throat oral cavity/pharynx/larynx Overall: oral mucosa clear 10/24/2012 None Full Exam - General 1994 Ears/Nose/Throat oral cavity/pharynx/larynx Overall: oropharyngeal mucosa clear 10/24/2012 None Full Exam - General 1994 Ears/Nose/Throat oral cavity/pharynx/larynx Overall: no masses 10/24/2012 [...] unsteadiness 10/24/2012 None Full Exam - General 1995 Neurologic cranial nerves Overall: crainial nerves 2 [...] 1994 Ears/Nose/Throat oral cavity/pharynx/larynx Overall: no masses 09/12/2012 [...] retractions 05/30/2012 None Full Exam - General 1995 Respiratory respiratory effort/rhythm Overall: normal rate 05/30/2012 None Full Exam - General 1995 Cardiovascular auscultation of heart Overall: regular rate 05/30/2012 None Full Exam - General 1995 Cardiovascular auscultation of heart Overall: normal heart sounds 05/30/2012 None Full Exam - General 1995 Abdomen abdominal exam Overall: no tenderness 05/30/2012 None Full Exam - General 1995 Abdomen abdominal exam Overall: normal bowel sounds 05/30/2012 None Full Exam - General 1995 Musculoskeletal head and neck Overall: head atraumatic 05/30/2012 None Full Exam - General 1995 Musculoskeletal head and neck Overall: cervical spine benign 05/30/2012 None Full Exam - General 1995 Integument inspection of skin Dermatitis: dryness/ flaking 05/30/2012 None Full Exam - General 1995 Integument inspection of skin Location: face 05/30/2012 [...] affect 05/30/2012 None Full Exam - General 1995 Constitutional general appearance Overall: well developed 02/08/2012 [...] lesion on right forearm is irritated at [facility] due to repeated trauma, will be [...] FLU VACC PRSV FREE INC ANTIG CPT-4: 07789 02/09/2017 URINALYSIS NONAUTO W/O SCOPE CPT-4: 69415 02/01/2017 URINALYSIS NONAUTO W/O SCOPE CPT-4: 16816 12/20/2016 THER/PROPH/DIAG INJ SC/IM CPT-4: 20902 12/16/2016 KETOROLAC TROMETHAMINE INJ CPT-4: J1885 12/16/2016 PROMETHAZINE HCL INJECTION CPT-4: J2550 12/16/2016 PROMETHAZINE HCL INJECTION CPT-4: J2550 05/11/2016 KETOROLAC TROMETHAMINE INJ CPT-4: J1885 05/11/2016 URINALYSIS NONAUTO W/O SCOPE CPT-4: 76303 04/21/2016 URINALYSIS NONAUTO W/O SCOPE CPT-4: 29740 07/15/2015 URINALYSIS NONAUTO W/O SCOPE CPT-4: 36801 10/08/2014 Pneumococcal Polysaccharide Vaccine, 23-Valent, Ad Assigned to/Mery Parry CPT-4: [id number] 07/17/2014 ADMIN PNEUMOCOCCAL VACCINE SNOMED CT: [id number] CPT-4: G0009 07/17/2014 ROUTINE VENIPUNCTURE CPT-4: 40283 06/08/2013 ROUTINE VENIPUNCTURE CPT-4: 13735 02/27/2013 ADMIN INFLUENZA VIRUS VAC CPT-4: G0008 02/26/2013 FLULAVAL VACC, 3 YRS & >, IM CPT-4: Q2036 02/26/2013 PRESCRIP TRANSMIT VIA ERX SY CPT-4: G8553 10/24/2012 ROUTINE VENIPUNCTURE CPT-4: 77272 10/18/2012 ROUTINE VENIPUNCTURE CPT-4: 83870 06/01/2012 ADMIN INFLUENZA VIRUS VAC CPT-4: G0008 02/08/2012 FLULAVAL VACC, 3 YRS & >, IM CPT-4: Q2036 02/08/2012 EXC TR-EXT B9+ELENA 1.1-2 CM CPT-4: 15909 02/08/2012 DESTRUCT PREMALG LESION CPT-4: 62255 11/30/2011 BIOPSY SKIN LESION CPT -4: 96381 11/30/2011 ROUTINE VENIPUNCTURE CPT-4: 82889 11/18/2011 PROMETHAZINE HCL INJECTION CPT-4: J2550 05/12/2011 KETOROLAC TROMETHAMINE INJ CPT-4: J1885 05/12/2011 PRESCRIP TRANSMIT VIA ERX SY CPT-4: G8553 05/12/2011 PRESCRIP TRANSMIT VIA ERX SY CPT-4: G8553 03/17/2011 ADMIN INFLUENZA VIRUS VAC CPT-4: G0008 02/26/2011 FLULAVAL VACC, 3 YRS & >, IM CPT-4: Q2036 02/26/2011 Vital Signs Date Vital 01/27/2017 Blood Pressure 1: 142/80 Code : 8480-6 BMI: 29.5 Code : 39413-7 Heart Rate 1 : 78 bpm Height: 5'2" SpO2: 92% Weight: 161 lbs 8 oz 01/17/2017 Blood Pressure 1: 110/70 Code : 8480-6 BMI: 29.3 Code : 81930-1 Heart Rate 1 : 82 bpm Height: 5'2" SpO2: 97% Weight: 160 lbs 01/07/2017 Blood Pressure 1: 122/54 Code : 8480-6 BMI: 29.6 Code : 46671-5 Heart Rate 1 : 76 bpm Height: 5'2" SpO2: 97% Weight: 162 lbs 12/29/2016 Blood Pressure 1: 122/54 Code : 8480-6 BMI: 29.6 Code : 72876-0 Heart Rate 1 : 74 bpm Height: 5'2" SpO2: 95% Weight: 162 lbs 12/16/2016 Blood Pressure 1: 148/60 Code : 8480-6 BMI: 30.4 Code : 43280-5 Heart Rate 1 : 81 bpm Height: 5'2" SpO2: 94% Weight: 166 lbs 08/25/2016 Blood Pressure 1: 160/80 Code : 8480-6 BMI: 29.4 Code : 48867-8 Heart Rate 1 : 64 bpm Height: 5'2" SpO2: 95% Weight: 161 lbs 05/11/2016 Blood Pressure 1: 168/70 Code : 8480-6 Blood Pressure 1: 168/68 Code: 8480-6 BMI: 30.4 Code: 84624-7 Heart Rate 1: 66 bpm Height: 5'2" SpO2: 93% Weight: 166 lbs 04/20/2016 Blood Pressure 1: 138/77 Code : 8480-6 BMI: 31.0 Code : 78828-7 Heart Rate 1 : 70 bpm Height: 5'2" Respiratory Rate: 18 bpm SpO2: 95% Weight: 169 lbs 8 oz 03/10/2016 Blood Pressure 1: 130/80 Code : 8480-6 BMI: 30.3 Code : 41716-9 Heart Rate 1 : 61 bpm Height: 5'2" SpO2: 96% Weight: 165 lbs 8 oz 11/18/2015 Blood Pressure 1: 148/72 Code : 8480-6 BMI: 28.5 Code : 33763-9 Heart Rate 1 : 69 bpm Height: 5'3" SpO2: 97% Weight: 161 lbs 09/11/2015 Blood Pressure 1: 124/76 Code : 8480-6 BMI: 27.1 Code : 08655-5 Heart Rate 1 : 70 bpm Height: 5'3" SpO2: 97% Weight: 153 lbs 08/06/2015 Blood Pressure 1: 120/68 Code : 8480-6 BMI: 26.2 Code : 92122-2 Heart Rate 1 : 66 bpm Height: 5'3" Weight: 148 lbs 07/15/2015 Blood Pressure 1: 134/60 Code : 8480-6 BMI: 26.9 Code : 46303-7 Heart Rate 1 : 76 bpm Height: 5'3" SpO2: 97% Weight: 152 lbs 07/04/2015 Blood Pressure 1: 122/84 Code : 8480-6 BMI: 26.9 Code : 78610-4 Heart Rate 1 : 84 bpm Height: 5'3" SpO2: 98% Weight: 152 lbs 03/13/2015 Blood Pressure 1: 154/78 Code : 8480-6 BMI: 27.5 Code : 82081-1 Heart Rate 1 : 68 bpm Height: 5'3" SpO2: 96% Weight: 155 lbs 10/08/2014 Blood Pressure 1: 128/70 Code : 8480-6 BMI: 28.0 Code : 36237-8 Heart Rate 1 : 74 bpm Height: 5'3" Weight: 158 lbs 07/17/2014 Blood Pressure 1: 142/82 Code : 8480-6 BMI: 27.3 Code : 39803-8 Heart Rate 1 : 76 bpm Height: 5'3" Weight: 154 lbs 01/11/2014 Blood Pressure 1: 120/72 Code : 8480-6 Heart Rate 1: 68 bpm SpO2: 96% Weight: 168 lbs 07/02/2013 Blood Pressure 1: 162/72 Code : 8480-6 BMI: 29.6 Code : 89527-5 Heart Rate 1 : 64 bpm Height: 5'3" Weight: 167 lbs 02/26/2013 Blood Pressure 1: 132/68 Code : 8480-6 BMI: 29.2 Code : 53107-1 Heart Rate 1 : 72 bpm Height: 5'3" Weight: 165 lbs 10/24/2012 Blood Pressure 1: 132/82 Code : 8480-6 BMI: 29.9 Code : 92813-8 Heart Rate 1 : 68 bpm Height: 5'3" Weight: 169 lbs 10/18/2012 Blood Pressure 1: 140/70 Code : 8480-6 09/12/2012 Blood Pressure 1: 124/70 Code : 8480-6 BMI: 30.1 Code : 47625-5 Heart Rate 1 : 64 bpm Height: 5'3" Weight: 170 lbs 05/30/2012 Blood Pressure 1: 134/88 Code : 8480-6 BMI: 30.6 Code : 94890-3 Heart Rate 1 : 76 bpm Height: [...] Code : 8480-6 BMI: 30.3 Code : 68284-4 Height: 5'3" Weight: 171 lbs 05/12/2011 Blood Pressure 1: 158/90 Code : 8480-6 BMI: 29.9 Code : 05887-5 Heart Rate 1 : 68 bpm Height: 5'3" Respiratory Rate: 16 bpm Weight: 169 lbs 03/17/2011 Blood Pressure 1: 128/84 Code : 8480-6 BMI: 31.1 Code : 76664-6 Heart Rate 1 : 68 bpm Height: 5'3" Respiratory Rate: 16 bpm Weight: 175 lbs 8 oz 02/26/2011 Blood Pressure 1: 152/70 Code : 8480-6 BMI: 32.2 Code : 10111-8 Heart Rate 1 : 66 bpm Height: [...] Encounters Encounter Performer Location Codes Date () [id number] EST. PATIENT, LEVEL III Diagnosis: Urinary tract infection, site not specified[ICD10: N39.0] Marilyn Delaney MD, [facility] CPT-4: 54695 01/27/2017 [id number] EST. PATIENT, LEVEL IV Diagnosis: Right upper quadrant pain[ICD10: R10.11] Diagnosis: Dehydration[ICD10: E86.0] [facility] CPT-4: 78480 01/17/2017 [id number] EST. PATIENT, LEVEL III Diagnosis: Candidiasis of vulva and vagina[ICD10: B37.3] Yadi Delaney MD, [facility] CPT-4: 25773 01/07/2017 14030 EST. PATIENT, LEVEL III Diagnosis: Dysuria[ICD10: R30.0] Diagnosis: Other fatigue[ICD10: R53.83] Diagnosis: Other malaise[ICD10: R53.81] Yadi Delaney MD, [facility] CPT-4 : 96969 12/29/2016 42001 EST. PATIENT, LEVEL IV Diagnosis: Migraine without aura, intractable, without status migrainosus[ICD10 : G43.019] Yadi Delaney MD, [facility] CPT-4: 49902 2016 ([id number]) 60003 EST. PATIENT, LEVEL IV Diagnosis: Essential (primary) hypertension[ICD10: I10] Diagnosis: Atrophy of thyroid (acquired)[ICD10: E03.4] Diagnosis: Mixed hyperlipidemia[ICD10: E78.2] Marilyn Delaney MD, [facility] CPT-4: 24134 08/25/2016 89770 EST. PATIENT, LEVEL IV Diagnosis: Migraine without aura, intractable, without status migrainosus[ICD10 : G43.019] Diagnosis: Essential (primary) hypertension[ICD10: I10] Yadi Delaney MD, [facility] CPT-4: 19486 05/11/2016 ([id number]) 11416 EST. PATIENT, LEVEL IV Diagnosis: Essential (primary) hypertension[ICD10: I10] Diagnosis: Atrophy of thyroid (acquired)[ICD10: E03.4] Marilyn Delaney MD, [facility] CPT-4: 32330 04/20/2016 ([id number]) 78119 EST. PATIENT, LEVEL IV Diagnosis: Essential (primary) hypertension[ICD10: I10] Diagnosis: Major depressive disorder, recurrent, moderate[ICD10: F33.1] Diagnosis: Candidal stomatitis[ICD10: B37.0] Diagnosis: Gastro-esophageal reflux disease without esophagitis[ICD10: K21.9] Marilyn Delaney MD, [facility] CPT-4: 89396 03/10/2016 ([id number]) 23559 EST. PATIENT, LEVEL IV Diagnosis: Essential (primary) hypertension[ICD10: I10] Diagnosis: Other seborrheic keratosis[ICD10: L82.1] Diagnosis: Hypothyroidism, unspecified[ICD10: E03.9] Marilyn Delaney MD, [facility] CPT-4: 37320 11/18/2015 ([id number]) 12319 EST. PATIENT, LEVEL III Diagnosis: Gastro-esophageal reflux disease without esophagitis[ICD10: K21.9] Tigist Delaney MD, [facility] CPT-4: 62238 09/11/2015 ([id number]) 76713 EST. PATIENT, LEVEL III Diagnosis: Epigastric pain[ICD10: R10.13] Diagnosis: Gastro-esophageal reflux disease without esophagitis[ICD10: K21.9] Marilyn Delaney MD, [facility] CPT-4: 40932 08/06/2015 ([id number]) 02161 EST. PATIENT, LEVEL III Diagnosis: Urinary tract infection, site not specified[ICD10: N39.0] Diagnosis: Low back pain[ICD10: M54.5] Tigist Delaney MD, [facility] CPT-4: 68291 07/15/2015 ([id number]) 71657 EST. PATIENT, LEVEL IV Diagnosis: Mixed hyperlipidemia[ICD10: E78.2] Diagnosis: Hypothyroidism, unspecified[ICD10: E03.9] Diagnosis: Essential (primary) hypertension[ICD10: I10] Diagnosis: Other insomnia[ICD10: G47.09] Marilyn Delaney MD, [facility] CPT- 4: 92096 07/04/2015 ([id number]) 48017 EST. PATIENT, LEVEL IV Diagnosis: Mixed hyperlipidemia[ICD10: E78.2] Diagnosis: Hypothyroidism, unspecified[ICD10: E03.9] Diagnosis: Essential (primary) hypertension[ICD10: I10] Diagnosis: Other insomnia[ICD10: G47.09] Marilyn Delaney MD, [facility] CPT- 4: 52791 03/13/2015 ([id number]) 02048 EST. PATIENT, LEVEL IV Diagnosis: Abdominal pain[ICD9: 789.00] Diagnosis: Hematuria[ICD9: 599.70] Tigist Delaney MD, [facility] CPT-4: 52995 10/08/2014 ([id number]) 90611 EST. PATIENT, LEVEL IV Diagnosis: HYPOTHYROIDISM[ICD9: 244.9] Diagnosis: ESSENTIAL HYPERTENSION[ICD9: 401.9] Diagnosis: HYPERLIPIDEMIA[ICD9: 272.4] Diagnosis: Need for Streptococcus pneumoniae vaccination[ICD9: V03.82] KERI White MD CPT-4: 99780 07/17/2014 ([id number]) 11930 EST. PATIENT, LEVEL IV Diagnosis: ESSENTIAL HYPERTENSION[SNOMED: 40174995] Diagnosis: HYPOTHYROIDISM[ICD9: 244.9] Diagnosis: CELLULITIS OF HAND[ICD9: 682.4] KERI White MD CPT- 4: 05295 01/11/2014 ([id number]) 72437 EST. PATIENT, LEVEL IV Diagnosis: ESSENTIAL HYPERTENSION[SNOMED: 02862024] Diagnosis: HYPOTHYROIDISM[ICD9: 244.9] Diagnosis: HYPERLIPIDEMIA[ICD9: 272.4] Marilyn Delaney MD [facility] CPT- 4: 22676 07/02/2013 ([id number]) 93213 EST. PATIENT, LEVEL III Diagnosis: ESSENTIAL HYPERTENSION[SNOMED: 37517496] Diagnosis: HYPOTHYROIDISM[ICD9: 244.9] Marilyn Delaney MD [facility] CPT- 4: 75855 02/26/2013 ([id number]) 10810 EST. PATIENT, LEVEL IV Diagnosis: ESSENTIAL HYPERTENSION[SNOMED: 91144147] Diagnosis: HYPERLIPIDEMIA[ICD9: 272.4] Marilyn Delaney MD [facility] CPT- 4: 05842 10/24/2012 ([id number]) 87214 EST. PATIENT, LEVEL IV Diagnosis: ESSENTIAL HYPERTENSION[SNOMED: 24841450] Diagnosis: HYPOTHYROIDISM[ICD9: 244.9] Diagnosis: Malaise and fatigue[ICD9: 780.79] Marilyn Delaney MD [facility] CPT-4: 49356 09/12/2012 ([id number]) 32672 EST. PATIENT, LEVEL IV Diagnosis: ESSENTIAL HYPERTENSION[SNOMED: 16287937] Diagnosis: HYPERLIPIDEMIA[ICD9: 272.4] Diagnosis: HYPOTHYROIDISM[ICD9: 244.9] Marilyn Delaney MD [facility] CPT- 4: 98566 05/30/2012 Miscellaneous no charge Diagnosis: Basal cell carcinoma, leg[ICD9: 173.71] Marilyn Delaney MD [facility] CPT-4: 27843 02/22/2012 10471 EST. PATIENT, LEVEL II Diagnosis: Skin lesion of left leg[ICD9: 709.9] Marilyn Delaney MD [facility] CPT-4: 98137 11/30/2011 ([id number]) 91941 EST. PATIENT, LEVEL III Diagnosis: Chest wall pain[ICD9: 786.52] Diagnosis: Bruising[ICD9: 924.9] Marilyn Delaney MD [facility] CPT-4: 88258 10/13/2011 ([id number]) 12173 EST. PATIENT, LEVEL IV Diagnosis: ESSENTIAL HYPERTENSION[SNOMED: 09742356] Diagnosis: INSOMNIA NOS[ICD9: 780.52] Diagnosis: Dry mouth[ICD9: 527.7] Marilyn Delaney MD [facility] CPT-4: 68278 10/04/2011 ([id number]) 95501 EST. PATIENT, LEVEL IV Diagnosis: ESSENTIAL HYPERTENSION[SNOMED: 32317887] Diagnosis: INSOMNIA NOS[ICD9: 780.52] Diagnosis: MALAISE AND FATIGUE[ICD9: 780.79] Diagnosis: ANEMIA[ICD9: 285.9] Diagnosis: DISEASES OF LIPS[ICD9: 528.5] Diagnosis: Migraine[ICD9: 346.90] Marilyn Delaney MD, [facility] CPT-4: 06346 05/12/2011 58745 EST. PATIENT, LEVEL IV Diagnosis: ESSENTIAL HYPERTENSION[SNOMED: 03778906] Diagnosis: Angular cheilosis[ICD9: 528.5] Diagnosis: INSOMNIA NOS[ICD9: 780.52] Diagnosis: Mouth dryness[ICD9: 527.7] Marilyn Delaney MD, [facility] CPT- 4: 28346 03/17/2011 Patient admitted to the hospital from clinic (NO CHARGE) Diagnosis: BACTERIAL PNEUMONIA NEC[ICD9: 482.89] Diagnosis: MALAISE AND FATIGUE[ICD9: 780.79] Diagnosis: ESSENTIAL HYPERTENSION[SNOMED: 14095501] Diagnosis: Dizziness[ICD9: 780.4] Diagnosis: VACCIN FOR INFLUENZA[ICD9: V04.81] Marilyn Delaney MD, [facility] CPT-4: 00135A 02/26/2011 Plan of Care Planned Activity Notes Codes Status Date Appointment: [phone] [place] ([facility] min) Moderate 03/09/2017 Appointment: Injection 02/09/2017 Patient Education: Patient Medication Summary Completed 02/09/2017 Appointment: Lab Draw 02/01/2017 Patient Education: Patient Medication Summary Completed 02/01/2017 Visit Plan: Recurrent Urinary tract infection - check repeat ua - start on diflucan 150mg daily. 01/27/2017 Appointment: [phone] [facility] [place] (15 min) Moderate 01/27/2017 Patient [...] concerns. 12/29/2016 [phone] ([facility] Complex 12/29/2016 Patient Education: [...] concerns. 12/16/2016 Appointment[facility]uent[phone] (15 min) Moderate 12/16/2016 Patient Education: [...] of control. 08/25/2016 Appointment: [facility] [phone] [facility] ([facility] min) Moderate 08/25/2016 Patient Education: [...] acute concerns. 05/11/2016 Appointment[facility]uent[phone] (15 min) Moderate 05/11/2016 Patient Education: [...] control. 04/20/2016 App[facility]ment: [phone] [facility] ([facility] min) Moderate 04/20/2016 Patient Education: [...] swallow 03/10/2016 Appointment: [facility] [phone] [facility] (15 min) Moderate 03/10/2016 Patient Education: [...] carafate. 09/11/2015 Appointment: Tigist Wolf WPtel: [phone] (15 min) Moderate 09/11/2015 Patient Education: Patient [...] is feeling 08/06/2015 Appointment: Marilyn Delaney WPtel: [facility] (15 min) Moderate 08/06/2015 Patient Education: Patient [...] of plan. 07/15/2015 Appointment: Tigist Wolf WPtel: [facility] [place] [phone] (30 min) Complex 07/15/2015 Patient Education: Patient [...] Summary Completed 07/04/2015 Appointment: Marilyn Delaney WPtel: [phone] [facility] (15 min) Moderate 07/02/2015 Appointment: (30 min) Complex 06/18/2015 Appointment: Marilyn Delaney WPtel: [phone] [facility] (15 min) Moderate 06/12/2015 Visit Plan: Hypothyroidism [...] if possible. 03/13/2015 Appointment: [facility] [phone] [facility] (15 min) Moderate 03/13/2015 Patient Education: Patient Medication Summary Completed 03/13/2015 Patient Education: Hypertension Completed 03/13/2015 Visit Plan: Abdominal cutq-fnbpwyrne-hwelunc kidney stone- patient sent to the hospital [...] Plan: X-RAY EXAM OF ABDOMEN LOINC : 86318-1 Ordered 10/08/2014 Care Plan: COMPLETE CBC AUTOMATED LOINC : 26901-6 Ordered 10/08/2014 Visit Plan: Hypertension - well [...] medications. 07/17/2014 Appointment: [facility] [phone] [facility] Follow up 07/17/2014 Patient Education: Patient [...] yeast infections. 01/11/2014 Appointment: Marilyn Delaney [facility]Ptel: [facility] [facility] 01/11/2014 Patient Education: Patient Medication Summary Completed 01/11/2014 Patient Education: Hypertension Completed 01/11/2014 Appointment: Marilyn Delaney WPtel: [facility] Follow up 01/04/2014 Appointment: Marilyn Delaney WPtel: [facility] [facility] Follow up 12/31/2013 Visit Plan: Hypertension - [...] to medications. 07/02/2013 Appointment: Marilyn Delaney WPtel: [phone] [facility] [place] Follow up 07/02/2013 Patient Education: Patient Medication Summary Completed 07/02/2013 Patient Education: Hypertension Completed 07/02/2013 Appointment: Tigist Wolf WPtel: [phone] [phone] [place] Lab Draw 06/08/2013 Patient Education: Patient Medication [...] of control. 02/26/2013 Appointment: [facility] [phone] [facility] [place] Follow up 02/26/2013 Patient Education: Patient Medication [...] medications. 10/24/2012 Appointment: [facility] [phone] [facility] Follow [facility] 10/24/2012 Patient Education: Patient Medication [...] control. 09/12/2012 Appointment: [facility] [phone] [facility] Other 09/12/2012 Patient Education: Patient Medication Summary Completed 09/12/2012 Patient Education: Hypertension Completed 09/12/2012 Appointment: [facility] [phone] [facility] Lab Draw 06/01/2012 Patient Education: Patient [...] of control. 05/30/2012 Appointment: Marilyn Delaney WPtel: [facility] [facility] Follow up 05/30/2012 Patient Education: Patient Medication Summary Completed 05/30/2012 Patient Education: Hypertension Completed 05/30/2012 Appointment: Marilyn Delaney WPtel: [facility] [facility] Follow up 03/07/2012 Visit Plan: sutures removed, steri strips placed 02/22/2012 Appointment: Marilyn Delaney WPtel: [facility] [facility] Other 02/22/2012 Patient Education: Patient Medication Summary [...] lesion. The removed specimen was taken to [facility] for pathologic review. 02/08/2012 Appointment: Marilyn Delaney WPtel: [facility] [facility] Surgical Procedure 02/08/2012 Patient Education: Patient Medication Summary Completed 02/08/2012 Visit Plan: Wound Instructions - Pt was instruced to keep the wound clean, wash with antibacterial soap, use triple antibiotic ointment, call if redness, pustular drainage, or any other acute conerns. 11/30/2011 Appointment: Marilyn Delaney WPtel: [facility] [facility] Surgical Procedure 11/30/2011 Patient Education: Patient Medication Summary Completed 11/30/2011 Appointment: Marilyn Delaney WPtel: [facility] [facility] Lab Draw 11/18/2011 Patient Education: Patient Medication [...] for pain. 10/13/2011 Appointment: Marilyn Delaney WPtel: [facility] [facility] Other 10/13/2011 Patient Education: Patient Medication Summary [...] be stopeed. 10/04/2011 Appointment: Marilyn Delaney WPtel: [facility] [facility] Other 10/04/2011 Patient Education: Patient Medication Summary [...] as needed. 05/12/2011 Appointment: Marilyn Delaney WPtel: [address] [place], [place] [id number] Other 05/12/2011 Patient Education: Patient Medication Summary Completed 05/12/2011 Patient Education: High Blood Pressure: Essential Hypertension Completed 2010 Appointment: Marilyn Delaney WPtel: [address] [place], [place] [phone] Other 03/30/2011 Visit Plan: Hypertension - well [...] on mouth. 03/17/2011 Appointment: Marilyn Delaney WPtel: [address] [place], [place] [phone] Other 03/17/2011 Patient Education: Patient Medication Summary [...] SHOT GIVEN IN CLINIC TODAY. 02/26/2011 Appointment: ColemanMarilyn WPtel: [address] [place] [address] [facility] 02/26/2011 Patient Education: Patient Medication Summary Completed 02/26/2011 Instructions Comment . Hypertension - well controlled - continue [...] to the patient to use on mouth. vitamin 2000 units (two pills daily) . [...] for fluconazole to prevent yeast infections. . Hypertension - well controlled - continue [...] based on previous levels of control. . Migraine headache- toradol and phenergan shot given in clinic today for the nausea and pain Insomnia- ok to restart the amitriptylline at 50 mg and may increase up to 100mg if needed for the insomnia Skin lesions on mouth- may use the triamcinalone for your moutgph as needed. . Hypertension - well controlled - continue [...] assure normal liver response to medications. . Rash - The patient was instructed to use the ointment as per RX. The patient is to call for any change in symptoms, increase in size of the lesion, increase in pain, worsening redness, warmth, discharge. . Recurrent Urinary tract infection - check repeat ua - start on diflucan 150mg daily. . Hypertension - well controlled - continue [...] for the medication to be stopeed. . Hypothyroidism - pt with chronic hypothyroidism, [...] off of the amitriptyline if possible. . Pt with chest wall pain and [...] results. I have recommended tylenol for pain. decrease amitriptyline to 1/2 pill nightly. . [...] no treatment needed for lesions . . Hypertension - well controlled - continue [...] based on previous levels of control. . sutures removed, steri strips placed Probiotic OTC for loose stools Topamax - [...] clinic with any questions or concerns. . Hyperlipidemia - pt has been counseled [...] in blood pressure readings at home. . UTI - pt with positive urinalysis - culture sent if appropriate. Antibiotic electronically prescribed to pt's pharmacy of choice. Pt to call if symptoms do not improve. . Hypothyroidism - pt with chronic hypothyroidism, [...] assure normal liver response to medications. . Esophageal Reflux - the patient has [...] assure normal liver response to medications. . Urinary Tract Infection-discussed natural and expected [...] diarrhea. Patient verbalized understanding of plan. . Wound Instructions - Pt was instruced to keep the wound clean, wash with antibacterial soap, use triple antibiotic ointment, call if redness, pustular drainage, or any other acute conerns. Appointment with Dr. Delaney on 01/27/17 at [...] or with any changes, questions or concerns. check blood pressures a couple of times [...] is to call for acute concerns. . UA positive - Cipro sent to the pharmacy. Will order C&S. . Wound Instructions - Pt was instruced [...] lesion. The removed specimen was taken to [facility] for pathologic review. Take a probiotic culturelle, [employer], or generic are all fine - take [...] report on how the stomach is feeling INCREASE ORAL FLUIDS GO TO THE HOSPITAL FOR A XRAY TO EVALUATE FOR A KIDNEY STONE, THEY WILL ALSO CHECK LABS WE WILL CALL YOU WHEN WE GET THE RESULTS START ANTIBIOTIC (CIPRO) TODAY-IT IS TWICE DAILY TAKE A PROBIOTIC (ALIGN) DAILY WHILE ON THE ANTIBIOTIC. I GAVE YOU A SAMPLE OF THIS . Abdominal nfbi-vwmzylpok-suppirh kidney stone-patient sent to the hospital for [...]
--- OUTSIDE RECORDS SUMMARY | 2017-10-10 18:37 | XMS REPORT | CCD ---
Author Author Marilyn Delaney Organization Marilyn Delaney MD, [facility] Address [address] [place] [address] Phone Care Team Providers Care Colorer Name Role Phone PP Unavailable CCM Unavailable Summary Purpose Interface Exchange Insurance Providers Payer name Policy type / Coverage type Covered republican ID Effective Begin Date Effective End Date WPS Medicare Part B Medicare Part B [id number] 2013 Unknown AARP Medicare Part B [id number] 2013 Unknown Family history Brother Diagnosis Age [...] Unknown House 02/26/[address]: 124500761 Never smoker 02/25/[address]: 537130485 Never drinks alcohol 02/25/2011 Has the patient [...] Start Date Stop Date Status Fill Instructions Plavix 75 mg tablet RxNorm: 209562 TAKE ONE TABLET BY MOUTH ONCE DAILY 06/22/2017 No Stop Date Active triamcinolone acetonide 0.5 % topical ointment RxNorm: 0436529 APPLY OINTMENT TOPICALLY TO AFFECTED AREA EVERY 6 HOURS NEEDED 2017 No Stop Date Active metoprolol tartrate 25 mg tablet RxNorm: 769810 TAKE ONE-HALF TABLET BY MOUTH TWICE DAILY 05/30/2017 No Stop Date Active Plavix 75 mg tablet RxNorm: 496407 TAKE ONE TABLET BY MOUTH ONCE DAILY 03/28/2017 06/21/2017 Inactive Ultracet 37.5 mg-325 mg tablet RxNorm: 169833 Tablet(s) PO Q6 as needed TAKE 1 TABLET BY MOUTH NEEDED 03/16/201704/26 Inactive Synthroid 75 mcg tablet RxNorm: 797741 TAKE ONE TABLET BY MOUTH ONCE DAILY 02/24/2017 08/22/2017 Active mupirocin 2 % topical ointment RxNorm: 099429 1 Application TOP BID 01/27/2017 02/02/2017 Inactive Diflucan 150 mg tablet RxNorm: 040503 1 Tablet(s) PO daily 11/201601/31/2017 Inactive Protonix 40 mg tablet,delayed release RxNorm: 676911 1 Tablet(s) PO daily 01/17/2017 02/15/2017 Inactive Carafate 1 gram tablet RxNorm: 058668 1 Tablet(s) PO QID as needed 01/17/2017 01/26/2017 Inactive nystatin 100,000 unit/gram topical cream RxNorm: 797294 1 Application TOP TID 01/12/2017 01/16/2017 Inactive Diflucan 150 mg tablet RxNorm: 919278 1 Tablet(s) PO daily 01/07/2017 Inactive nystatin 100,000 unit/gram topical cream RxNorm: 667356 1 Application TOP TID 01/07/2017 01/11/2017 Inactive Ultracet 37.5 mg-325 mg tablet RxNorm: 606729 Tablet(s) PO TAKE 1 TABLET BY MOUTH NEEDED 01/04/2017 03/15/2017 Inactive Cipro 500 mg tablet RxNorm: 405459 1 Tablet(s) PO BID 201601/07/2017 Inactive Keflex 500 mg capsule RxNorm: 086741 1 Capsule(s) PO TID 201612/19/2016 Inactive Keflex 500 mg capsule RxNorm: 580921 1 Capsule(s) PO TID 201612/26/2016 Inactive ketorolac 60 mg/2 mL intramuscular solution RxNorm: 427939 Milliliter(s) IM 12/16/2016 12/16/2016 Inactive Topamax 25 mg tablet RxNorm: 297080 1 Tablet(s) PO daily 201601/14/2017 Inactive promethazine 25 mg/mL injection solution RxNorm: 178367 Milliliter(s) Inj 12/16/2016 12/16/2016 Inactive Ultracet 37.5 mg-325 mg tablet RxNorm: 894329 TAKE ONE TABLET BY MOUTH EVERY SIX HOURS NEEDED FOR PAIN 11/01/20162016 Inactive Celebrex 200 mg capsule RxNorm: 045842 Capsule(s) TAKE ONE CAPSULE BY MOUTH ONCE DAILY 09/21/2016 09/15/2017 Active Synthroid 75 mcg tablet RxNorm: 873289 Tablet(s) TAKE ONE TABLET BY MOUTH DAILY EXCEXPT 12TAB ON TUE AND Tuesday09/16/2016 No Stop Date Active Lipitor 20 mg tablet RxNorm: 636212 1/2 Tablet(s) PO every other day 08/25/2016 01/26/2017 Inactive amitriptyline 50 mg tablet RxNorm: 635661 1 Tablet(s) PO QPM 08/13/2017 Active Synthroid 75 mcg tablet RxNorm: 924695 TAKE ONE TABLET BY MOUTH ONCE DAILY 08/03/2016 09/15/2016 Inactive triamcinolone acetonide 0.5 % topical ointment RxNorm: 4735175 APPLY TO AFFECTED AREA(S) EVERY 6 HOURS NEEDED 06/03/2016 08/13/2016 Inactive Celebrex 200 mg capsule RxNorm: 539357 TAKE ONE CAPSULE BY MOUTH ONCE DAILY 05/18/2016 09/20/2016 Inactive promethazine 25 mg/mL injection solution RxNorm: 098442 Milliliter(s) Inj 05/11/2016 05/11/2016 Inactive ketorolac 60 mg/2 mL intramuscular solution RxNorm: 350755 Milliliter(s) IM 05/11/2016 05/11/2016 Inactive amitriptyline 50 mg tablet RxNorm: 766172 1 Tablet(s) PO QPM 08/18/2016 Inactive amitriptyline 50 mg tablet RxNorm: 496701 1 Tablet(s) PO QPM 05/04/2016 Inactive Cipro 500 mg tablet RxNorm: 524431 1 Tablet(s) PO BID 201504/27/2016 Inactive Celebrex 200 mg capsule RxNorm: 703727 TAKE ONE CAPSULE BY MOUTH ONCE DAILY 04/20/2016 05/17/2016 Inactive Ultracet 37.5 mg-325 mg tablet RxNorm: 027012 1 Tablet(s) PO QID as needed for back pain TAKE ONE TABLET BY MOUTH NEEDED 03/10/2016 11/03/2016 Inactive amitriptyline 25 mg tablet RxNorm: 181427 2 Tablet(s) PO QPM 05/02/2016 Inactive nystatin 100,000 unit/mL oral suspension RxNorm: 011019 5 Unit(s) PO TID 03/10/2016 03/23/2016 Inactive metoprolol tartrate 25 mg tablet RxNorm: 029942 TAKE ONE-HALF TABLET BY MOUTH TWICE DAILY 02/26/2016 11/21/2016 Inactive Protonix 40 mg tablet,delayed release RxNorm: 226009 TAKE ONE TABLET BY MOUTH ONCE DAILY 02/17/2016 03/23/2016 Inactive amitriptyline 25 mg tablet RxNorm: 708128 1-2 Tablet(s) PO QPM 01/27/2016 03/09/2016 Inactive Ultracet 37.5 mg-325 mg tablet RxNorm: 295943 Tablet(s) PO TAKE 1 TABLET BY MOUTH NEEDED 01/12/2016 01/12/2016 Inactive Ultracet 37.5 mg-325 mg tablet RxNorm: 632938 TAKE ONE TABLET BY MOUTH NEEDED 01/12/2016 03/09/2016 Inactive Plavix 75 mg tablet RxNorm: 368951 TAKE ONE TABLET BY MOUTH ONCE DAILY 12/23/2015 03/27/2017 Inactive amitriptyline 25 mg tablet RxNorm: 022555 1 Tablet(s) PO QPM 01/26/2016 Inactive [place] 20 mg/gram/actuation (2 %) topical soln in metered -dose pump RxNorm: 5933207 1 Application TOP BID 11/03/201511/05 Inactive Celebrex 200 mg capsule RxNorm: 749473 Capsule(s) TAKE ONE CAPSULE BY MOUTH DAILY 10/22/2015 04/18/2016 Inactive Protonix 40 mg tablet,delayed release RxNorm: 298403 1 Tablet(s) PO daily 08/13/2015 02/08/2016 Inactive Lipitor 20 mg tablet RxNorm: 930272 Tablet(s) TAKE 1 TABLET BY MOUTH EVERY OTHER DAY, OR , TAKE 1/2 TABLET BY MOUTH ONCE DAILY 08/06/2015 07/30/2016 Inactive Synthroid 75 mcg tablet RxNorm: 916260 Tablet(s) PO TAKE ONE TABLET BY MOUTH EVERY DAY 08/06/2015 07/30/2016 Inactive Ultracet 37.5 mg-325 mg tablet RxNorm: 694932 Tablet(s) PO TAKE 1 TABLET BY MOUTH NEEDED 08/06/2015 01/03/2017 Inactive Protonix 40 mg tablet,delayed release RxNorm: 203563 1 Tablet(s) PO daily 08/06/2015 08/12/2015 Inactive Carafate 1 gram tablet RxNorm: 645893 1 Tablet(s) dissolved in 10mL of water PO AC and hs x 1 week then just AC thereafter 08/06/2015 11/17/2015 Inactive Ultracet 37.5 mg-325 mg tablet RxNorm: 229153 Tablet(s) PO TAKE 1 TABLET BY MOUTH NEEDED 07/22/2015 08/05/2015 Inactive Levaquin 500 mg tablet RxNorm: 876139 1 Tablet(s) PO daily 07/21/2015 Inactive amitriptyline 50 mg tablet RxNorm: 322217 1 Tablet(s) PO QPM 10/31/2015 Inactive Celebrex 200 mg capsule RxNorm: 050310 TAKE ONE CAPSULE BY MOUTH DAILY 06/23/2015 10/20/2015 Inactive Ultracet 37.5 mg-325 mg tablet RxNorm: 997746 TAKE ONE TABLET BY MOUTH EVERY 6 HOURS NEEDED FOR PAIN 04/15/20152015 Inactive amitriptyline 50 mg tablet RxNorm: 282460 1.5 Tablet(s) PO QPM 03/13/2015 07/03/2015 Inactive Plavix 75 mg tablet RxNorm: 818360 TAKE ONE TABLET BY MOUTH EVERY DAY 02/24/2015 12/20/2015 Inactive metoprolol tartrate 25 mg tablet RxNorm: 287426 TAKE 1/2 TABLET BY MOUTH TWO TIMES A DAY 01/27/2015 01/21/2016 Inactive Celebrex 200 mg capsule RxNorm: 589883 TAKE ONE CAPSULE BY MOUTH DAILY 01/20/2015 06/18/2015 Inactive Lipitor 20 mg tablet RxNorm: 500123 TAKE 1 TABLET BY MOUTH EVERY OTHER DAY, OR , TAKE 1/2 TABLET BY MOUTH ONCE DAILY 12/02/2014 08/05/2015 Inactive triamcinolone acetonide 0.5 % topical ointment RxNorm: 8025282 APPLY TO AFFECTED AREA(S) EVERY 6 HOURS NEEDED 11/25/2014 02/04/2015 Inactive Flagyl 500 mg tablet RxNorm: 482832 1 Tablet(s) PO TID 201410/17/2014 Inactive Cipro 500 mg tablet RxNorm: 746120 1 Tablet(s) PO BID 201410/14/2014 Inactive Ultracet 37.5 mg-325 mg tablet RxNorm: 835262 1 Tablet(s) PO Q6 as needed TAKE 1 TABLET BY MOUTH NEEDED 09/19/201409/19 Inactive amitriptyline 100 mg tablet RxNorm: 878623 TAKE ONE TABLET BY MOUTH EVERY NIGHT AT BEDTIME 09/19/2014 03/12/2015 Inactive Ultracet 37.5 mg-325 mg tablet RxNorm: 558491 TAKE ONE TABLET BY MOUTH EVERY 6 HOURS NEEDED FOR PAIN 09/19/20142014 Inactive (Response to an electronic controlled substance refill request - RxReferenceNumber: [id number]) Synthroid 75 mcg tablet RxNorm: 259769 Tablet(s) PO TAKE ONE TABLET BY MOUTH EVERY DAY 08/15/2014 08/05/2015 Inactive checking labs in 3 months metoprolol tartrate 25 mg tablet RxNorm: 387092 TAKE 1/2 TABLET BY MOUTH TWO TIMES A DAY 08/06/2014 01/26/2015 Inactive Celebrex 200 mg capsule RxNorm: 148395 TAKE ONE CAPSULE BY MOUTH DAILY 07/15/2014 01/10/2015 Inactive Synthroid 88 mcg tablet RxNorm: 418073 TAKE ONE TABLET BY MOUTH EVERY DAY 06/18/2014 08/14/2014 Inactive Synthroid 88 mcg tablet RxNorm: 429410 1 Tablet(s) PO 201412/14/2014 Inactive Celebrex 200 mg capsule RxNorm: 561077 TAKE ONE CAPSULE BY MOUTH EVERY DAY 05/21/2014 07/14/2014 Inactive metoprolol tartrate 25 mg tablet RxNorm: 792501 TAKE 1/2 TABLET BY MOUTH TWO TIMES A DAY 04/02/2014 07/30/2014 Inactive Plavix 75 mg tablet RxNorm: 644032 TAKE ONE TABLET BY MOUTH EVERY DAY 03/25/2014 02/17/2015 Inactive Celebrex 200 mg capsule RxNorm: 497275 TAKE ONE CAPSULE BY MOUTH EVERY DAY 02/18/2014 05/18/2014 Inactive Ultracet 37.5 mg-325 mg tablet RxNorm: 446858 Tablet(s) PO TAKE 1 TABLET BY MOUTH NEEDED 01/30/2014 07/21/2015 Inactive Vitamin D2 50,000 unit capsule RxNorm: 659616 1 Capsule(s) PO weekly x12 weeks 01/24/2014 11/17/2015 Inactive fluconazole 150 mg tablet RxNorm: 160692 1 Tablet(s) PO daily 01/11/2014 01/15/2014 Inactive sulfamethoxazole 800 mg-trimethoprim 160 mg tablet RxNorm: 761756 1 Tablet(s) PO BID 01/11/2014 01/17/2014 Inactive amitriptyline 100 mg tablet RxNorm: 557248 Tablet(s) PO TAKE ONE TABLET BY MOUTH EVERY NIGHT AT BEDTIME 10/30/20132014 Inactive Celebrex 200 mg capsule RxNorm: 151521 Capsule(s) PO TAKE ONE CAPSULE BY MOUTH EVERY DAY 10/23/2013 02/17/2014 Inactive Lipitor 20 mg tablet RxNorm: 154923 1 Tablet(s) PO every other day TAKE 1/2 TABLET BY MOUTH DAILY 09/27/20132014 Inactive Ultracet 37.5 mg-325 mg tablet RxNorm: 371159 Tablet(s) PO TAKE 1 TABLET BY MOUTH NEEDED 08/20/2013 01/29/2014 Inactive Lipitor 20 mg tablet RxNorm: 964845 1 Tablet(s) PO every other day TAKE 1/2 TABLET BY MOUTH DAILY 07/02/20132013 Inactive Synthroid 88 mcg tablet RxNorm: 404758 1 Tablet(s) PO 201306/17/2014 Inactive triamcinolone acetonide 0.5 % topical ointment RxNorm: 2651277 1 Application TOP Q6 PRN 07/02/2013 01/27/2014 Inactive Celebrex 200 mg capsule RxNorm: 346899 Capsule(s) PO TAKE ONE CAPSULE BY MOUTH EVERY DAY 05/22/2013 10/22/2013 Inactive Lipitor 20 mg tablet RxNorm: 035287 Tablet(s) PO TAKE 1/2 TABLET BY MOUTH DAILY 04/09/2013 07/01/2013 Inactive metoprolol tartrate 25 mg tablet RxNorm: 290662 Tablet(s) PO TAKE 1/2 TABLET BY MOUTH TWO TIMES A DAY 04/09/20132013 Inactive Plavix 75 mg tablet RxNorm: 629349 Tablet(s) PO TAKE ONE TABLET BY MOUTH EVERY DAY 03/26/2013 03/24/2014 Inactive Synthroid 100 mcg tablet RxNorm: 841053 100mcg alternate 88mcg Tablet(s) PO daily 03/01/2013 07/01/2013 Inactive estropipate 1.5 mg tablet RxNorm: 111727 Tablet(s) PO TAKE TWO TABLETS BY MOUTH EVERY DAY 01/18/2013 07/18/2013 Inactive Celebrex 200 mg capsule RxNorm: 673705 Capsule(s) PO TAKE ONE CAPSULE BY MOUTH EVERY DAY 11/28/2012 05/21/2013 Inactive Ultracet 37.5 mg-325 mg tablet RxNorm: 432368 Tablet(s) PO TAKE 1 TABLET BY MOUTH NEEDED 11/22/2012 08/19/2013 Inactive Ultracet 37.5 mg-325 mg tablet RxNorm: 908533 Tablet(s) PO TAKE 1 TABLET BY MOUTH NEEDED 11/22/2012 11/21/2012 Inactive amitriptyline 100 mg tablet RxNorm: 997344 Tablet(s) PO TAKE ONE TABLET BY MOUTH EVERY NIGHT AT BEDTIME 10/31/20122013 Inactive Synthroid 100 mcg tablet RxNorm: 390425 1 Tablet(s) PO daily 02/28/2013 Inactive amitriptyline 100 mg tablet RxNorm: 102050 Tablet(s) PO 1 TABLET BY MOUTH AT BEDTIME 08/30/2012 10/30/2012 Inactive Ultracet 37.5 mg-325 mg tablet RxNorm: 056220 Tablet(s) PO TAKE 1 TABLET BY MOUTH NEEDED 08/14/2012 11/21/2012 Inactive amitriptyline 100 mg tablet RxNorm: 807131 Tablet(s) PO 1 TABLET BY MOUTH AT BEDTIME 06/05/2012 08/29/2012 Inactive Celebrex 200 mg capsule RxNorm: 204243 1 Capsule(s) PO daily 11/02/2012 Inactive Lipitor 10 mg tablet RxNorm: 760960 1 Tablet(s) PO daily 201109/11/2012 Inactive levothyroxine 100 mcg capsule RxNorm: 208146 1 Capsule(s) PO daily 03/08/2012 02/27/2013 Inactive metoprolol tartrate 25 mg tablet RxNorm: 611551 1/2 Tablet(s) PO BID 03/08/2012 04/01/2013 Inactive Ultracet 37.5 mg-325 mg tablet RxNorm: 572445 1 Tablet(s) PO PRN 03/08/2012 08/13/2012 Inactive Plavix 75 mg tablet RxNorm: 027017 1 Tablet(s) PO daily 201103/25/2013 Inactive Lipitor 10 mg tablet RxNorm: 028437 1 Tablet(s) PO daily 201103/07/2012 Inactive amitriptyline 100 mg tablet RxNorm: 450830 1 Tablet(s) PO HS 06/04/2012 Inactive metoprolol tartrate 25 mg tablet RxNorm: 103889 1/2 Tablet(s) PO BID 02/11/2012 03/07/2012 Inactive Lipitor 10 mg tablet RxNorm: 843670 1 Tablet(s) PO daily 201102/10/2012 Inactive metoprolol tartrate 25 mg tablet RxNorm: 550366 1/2 Tablet(s) PO BID 02/10/2012 02/10/2012 Inactive Influenza Virus Vaccine 0.5 mL RxNorm: IM 02/08/2012 02/08/2012 Inactive amitriptyline 100 mg tablet RxNorm: 518599 1 Tablet(s) PO HS 02/10/2012 Inactive estropipate 1.5 mg tablet RxNorm: 262465 2 Tablet(s) PO daily 11/26/2011 12/19/2012 Inactive Ultracet 37.5 mg-325 mg tablet RxNorm: 146990 1 Tablet(s) PO PRN 10/04/2011 03/07/2012 Inactive Celebrex 200 mg Cap RxNorm: 907589 1 Capsule(s) PO daily 09/0609/06/2011 Inactive Celebrex 200 mg capsule RxNorm: 038623 1 Capsule(s) PO daily 04/03/2012 Inactive Ultracet 37.5 mg-325 mg Tab RxNorm: 992873 1 Tablet(s) PO PRN 08/25/2011 10/03/2011 Inactive Lipitor 10 mg tablet RxNorm: 145774 1 Tablet(s) PO daily 201102/06/2012 Inactive Ultracet 37.5 mg-325 mg Tab RxNorm: 725546 1 Tablet(s) PO Q6 PRN 07/15/2011 07/29/2011 Inactive amitriptyline 100 mg tablet RxNorm: 049108 1 Tablet(s) PO HS 11/28/2011 Inactive promethazine 25 mg/mL Injection RxNorm: 351507 Milliliter(s) Inj 05/12/2011 05/12/2011 Inactive triamcinolone acetonide 0.5 % topical ointment RxNorm: 2455111 1 Application TOP Q6 PRN 05/12/2011 09/08/2011 Inactive ketorolac 60 mg/2 mL IM RxNorm: 419205 Milliliter(s) IM 201005/12/2011 Inactive amitriptyline 100 mg Tab RxNorm: 655816 1/2 - 1 Tablet(s) PO HS PRN 05/12/2011 06/01/2011 Inactive Protonix 40 mg Tab RxNorm: 035006 1 Tablet(s) PO daily 201010/03/2011 Inactive Ultracet 37.5 mg-325 mg Tab RxNorm: 529162 1 Tablet(s) PO Q6 PRN 03/26/2011 07/14/2011 Inactive Plavix 75 mg Tab RxNorm: 577914 1 Tablet(s) PO daily 201002/09/2012 Inactive Bactroban 2 % Ointment RxNorm: 590849 1 [place] TOP TID apply three times a day x 5 days in the nose and three times a day x 7 days on the lips 03/17/2011 03/23/2011 Inactive Bactrim DS 800 mg-160 mg Tab RxNorm: 650901 1 Tablet(s) PO BID 03/17/2011 03/26/2011 Inactive amitriptyline 50 mg Tab RxNorm: 994730 2 Tablet(s) PO QHS 03/1505/11/2011 Inactive Celebrex 200 mg Cap RxNorm: 022725 1 Capsule(s) PO daily 03/1209/06/2011 Inactive Influenza Virus Vaccine 0.5 mL RxNorm: IM 02/26/2011 02/26/2011 Inactive metoprolol tartrate 25 mg Tab RxNorm: 127750 1/2 Tablet(s) PO BID 02/02/2011 04/02/2011 Inactive Lipitor 10 mg Tab RxNorm: 235782 1 Tablet(s) PO daily 201003/03/2011 Inactive Vitamin D3 2,000 unit tablet RxNorm: 155881 1 Tablet(s) PO daily No Start Date Active aspirin 81 mg Tab, Delayed Release RxNorm: 679132 1 Tablet(s) PO daily No Start Date Active Ultracet 37.5 mg-325 mg Tab RxNorm: 982068 1 Tablet(s) PO Q6 PRN No Start Date 03/25/2011 Inactive Lipitor 10 mg Tab RxNorm: 405688 1 Tablet(s) PO daily No Start Date 08/10/2011 Inactive levothyroxine 100 mcg capsule RxNorm: 398278 Capsule(s) PO No Start Date 03/07/2012 Inactive 3 times weekly amitriptyline 50 mg Tab RxNorm: 454291 2 Tablet(s) PO daily No Start Date 03/14/2011 Inactive Vitamin B-12 1,000 mcg Tab RxNorm: 060399 1 Tablet(s) PO daily No Start Date 09/11/2012 Inactive estropipate 1.5 mg Tab RxNorm: 971058 1 Tablet(s) PO daily No Start Date 11/25/2011 Inactive multivitamin Cap RxNorm: 1 Capsule(s) PO daily No Start Date 10/03/2011 Inactive metoprolol tartrate 25 mg tablet RxNorm: 700953 1/2 Tablet(s) PO BID No Start Date 02/09/2012 Inactive Celebrex 200 mg Cap RxNorm: 106558 1 Capsule(s) PO daily No Start Date 03/11/2011 Inactive Ultracet 37.5 mg-325 mg Tab RxNorm: 987649 Tablet(s) PO PRN No Start Date 08/24/2011 Inactive Vitamin B & C Cap RxNorm: 1 Capsule(s) PO daily No Start Date 10/03/2011 Inactive Lipitor 20 mg tablet RxNorm: 764033 1 Tablet(s) PO 3 x week No Start Date 04/08/2013 Inactive Plavix 75 mg tablet RxNorm: 779594 1 Tablet(s) PO daily No Start Date 02/29/2012 Inactive Vitamin D2 50,000 unit capsule RxNorm: 250806 1 Capsule(s) PO weekly x12 weeks No Start Date 01/23/2014 Inactive Medication Administered Medication Codes Instructions Start Date Status ketorolac 60 mg/2 mL intramuscular solution RxNorm: 115552 Milliliter 12/16/2016 No longer Active promethazine 25 mg/mL injection solution RxNorm: 149632 Milliliter 12/16/2016 No longer Active ketorolac 60 mg/2 mL intramuscular solution RxNorm: 264867 Milliliter 05/11/2016 No longer Active promethazine 25 mg/mL injection solution RxNorm: 004779 Milliliter 05/11/2016 No longer Active Influenza Virus Vaccine 0.5 mL RxNorm: 02/08/2012 No longer Active ketorolac 60 mg/2 mL IM RxNorm: 649820 Milliliter 05/12/2011 No longer Active promethazine 25 mg/mL Injection RxNorm: 135739 Milliliter 05/12/2011 No longer Active Influenza Virus [...] Hypothyroidism, unspecified ICD-10: E03.9 ICD-9: 244.9 08/19/2016 Candidal stomatitis ICD-10: B37.0 ICD-9: 112.0 03/10/2016 Gastro-esophageal reflux disease without esophagitis ICD-10 : K21.9 ICD-9: 530.81 03/10/2016 Major depressive disorder, recurrent, moderate ICD-10: F33.1 ICD-9: 296.32 03/10/2016 Other seborrheic keratosis ICD-10: L82.1 ICD-9: 702.19 11/18/2015 Epigastric pain ICD-10: R10.13 ICD-9: 789.06 08/06/2015 Low back pain ICD-10: M54.5 ICD-9: 724.2 07/15/2015 Other insomnia ICD-10: G47.09 ICD-9: 780.52 07/04/2015 Abdominal pain ICD-9: 789.00 10/08/2014 Hematuria ICD-9: 599.70 10/08/2014 Need for Streptococcus pneumoniae vaccination ICD-9: V03.82 07/17/2014 ESSENTIAL HYPERTENSION ICD-9: 401.9 07/17 HYPOTHYROIDISM ICD-9: 244.9 07/17/2014 HYPERLIPIDEMIA ICD-9: 272.4 07/17/2014 CELLULITIS OF HAND ICD-9: 682.4 2013 ENCNTR LONG-RX USE NEC ICD-9: V58.69 ANEMIA ICD-9: 285.9 02/27/2013 OTHER ABNORMAL GLUCOSE ICD-9: 790.29 12/2012 VACCIN FOR INFLUENZA ICD-9: V04.81 2012 History of TIA (transient ischemic attack) ICD-9: V12.54 10/18/2012 MALAISE AND FATIGUE ICD-9: 780.79 2012 Basal cell carcinoma, leg ICD-9: 173.71 02/22/2012 Skin lesion of left leg ICD-9: 709.9 02/2012 INFLAMED SEBORR KERATOS ICD-9: 702.11 02/2012 Chest wall pain ICD-9: 786.52 10/13/2011 Bruising ICD-9: 924.9 10/13/2011 Dry mouth ICD-9: 527.7 10/04/2011 INSOMNIA NOS ICD-9: 780.52 10/04/2011 DISEASES OF LIPS ICD-9: 528.5 05/12/2011 Migraine ICD-9: 346.90 05/12/2011 BACTERIAL PNEUMONIA NEC ICD-9: 482.89 11/2010 Dizziness ICD-9: 780.4 02/26/2011 Reason For Visit Reason For Visit Effective [...] 30.8 pg 12/29/2016 Cbc With Differential Ord2 [place]% 10.6 % 12/29/2016 Cbc With Differential Ord2 [...] 1.12 K/ul 12/29/2016 Cbc With Differential Ord2 [place] ABS# 0.6 K/ul 12/29/2016 Cbc With Differential Ord2 Eos ABS# 0.1 K/ul 12/29/2016 Cbc With Differential Ord2 Baso ABS# 0.1 K/ul 12/29/2016 Tsh Ord6 hTSH II 1.34 uIU/mL 12/29/2016 Free T4 Ewk700 FREE T4 1.16 ng/dL 12/29/2016 Lipid Ord30 CHOL 165 mg/dL 12/29/2016 Lipid Ord30 HDL 40.0 mg/dl 12/29/2016 Lipid Ord30 TRIG 126 mg/dL 12/29/2016 Lipid Ord30 LDL 100 mg/dL 12/29/2016 Lipid Ord30 C/HDL 4.1 Ratio 12/29/2016 Vitamin D 25 Oh Atp2031 VITAMIN D, 25 HYDROXY 58.55 ng/mL Culture Urine [id number] URINE CULTURE SEE NOTES 12/24/2016 Culture Urine [id number] Continued Results 12/24/2016 Urine Culture Ucult Complete >100,000 col/ml aerobic growth sent to ref lab 12/22/2016 CHEM 14 [id number] AST 18 U/L 08/20/2016 CHEM 14 [id number] ALT 14 U/L 08/20/2016 CHEM 14 [id number] BUN 22 mg/dL 08/20/2016 CHEM 14 [id number] ALBUMIN 3.6 g/dL 08/20/2016 CHEM 14 [id number] CHLORIDE 107 mmol/L 08/20/2016 CHEM 14 8793372 Bili Total 0.4 mg/dL 08/20/2016 CHEM 14 [id number] ALK PHOS 89 U/L 08/20/2016 CHEM 14 [id number] SODIUM 144 mmol/L 08/20/2016 CHEM 14 [id number] CREATININE 0.87 mg/dL 08/20/2016 CHEM 14 5757005 CALCIUM 10.5 mg/dL 08/20/2016 CHEM 14 3774277 POTASSIUM 4.3 mmol/L 08/20/2016 CHEM 14 3548007 TOTAL PROTEIN 5.6 g/dL 08/20/2016 CHEM 14 4992760 GLUCOSE 96 mg/dL 08/20/2016 CHEM 14 8805136 Bicarbonate 30 mmol/L 08/20/2016 CHEM 14 4611024 AGAP 7 mmol/L 08/20/2016 LIPID GRP CHOLESTEROL 145 mg/dL 08/20/2016 LIPID GRP Triglyceride 132 mg/dL 08/20/2016 LIPID GRP HDL CHOLESTEROL 47 mg/dL 08/20/2016 LIPID GRP Chol/HDL Ratio 3.09 ratio 08/20/2016 LIPID GRP NON-HDL Chol 98 mg/dL 08/20/2016 LIPID GRP LDL Cholesterol 72 mg/dL 08/20/2016 CBC [id number] WBC 5.0 10e9/L 08/20/2016 CBC [id number] RBC 4.07 10e12/L 08/20/2016 CBC [id number] HEMOGLOBIN 12.6 g/dL 08/20/2016 CBC [id number] HEMATOCRIT 39.4 % 08/20/2016 CBC 5580336 MCV 96.8 fL 08/20/2016 CBC [id number] MCH 31.0 pg 08/20/2016 CBC 8777236 MCHC 32.0 g/dL 08/20/2016 CBC 7078865 PLATELET COUNT 211 10e9/L 08/20/2016 CBC [id number] Mean Plt Volume 10.2 fL 08/20/2016 CBC [id number] Neut Auto 37.7 % 08/20/2016 CBC 6751553 Lymph Auto 47.1 % 08/20/2016 CBC [id number] [place] Auto 8.2 % 08/20/2016 CBC [id number] Eos Auto 5.0 % 08/20/2016 CBC 7329043 RDW 14.8 % 08/20/2016 CBC 3093703 Baso Auto 2.0 % 08/20/2016 CBC 2541026 Neutrophil Abs 1.88 10e9/L 08/20/2016 CBC 7851170 Lymphocyte Abs 2.36 10e9/L 08/20/2016 CBC 7058559 Monocyte Abs 0.41 10e9/L 08/20/2016 CBC 9088706 Eosinophil Abs 0.25 10e9/L 08/20/2016 CBC [id number] Basophil Abs 0.10 10e9/L 08/20/2016 CBC [id number] RDW-SD 50.5 fL 08/20/2016 Urine Culture Ucult [...] 38.5 % 04/14/2016 Cbc With Differential Ord2 [place]% 11.3 % 04/14/2016 Cbc With Differential Ord2 [...] 1.53 K/ul 04/14/2016 Cbc With Differential Ord2 [place] ABS# 0.5 K/ul 04/14/2016 Cbc With Differential Ord2 [place] ABS# 0.3 K/ul 04/14/2016 Cbc With Differential Ord2 Baso ABS# 0.1 K/ul 04/14/2016 Comp Metabolic Mje478 NA 142 mEq/L 03/05/2016 Comp Metabolic Tww059 K 4.2 mEq/L 03/05/2016 Comp Metabolic Wbw778 CL 109 mEq/L 03/05/2016 Comp Metabolic Hih729 CO2 29.0 mEq/L 03/05/2016 Comp Metabolic Tvl111 ANION GAP 8 03/05/2016 Comp Metabolic Izq467 GLUCOSE 86 mg/dL 03/05/2016 Comp Metabolic Bau743 Creat 0.8 mg/dL 03/05/2016 Comp Metabolic Vrh061 eGFR 75 ml/min/1.73m2 03/05/2016 Comp Metabolic Ctt362 BUN 15 mg/dL 03/05/2016 Comp Metabolic Ybl370 B/C Ratio 19.2 Ratio 03/05/2016 Comp Metabolic Iko263 CALCIUM 9.4 mg/dL 03/05/2016 Comp Metabolic Wyc859 ALK PHOS 95 U/L 03/05/2016 Comp Metabolic Qii395 AST(SGOT) 20 U/L 03/05/2016 Comp Metabolic Run204 ALT(SGPT) 18 U/L 03/05/2016 Comp Metabolic Pqd507 BILI T 0.5 mg/dL 03/05/2016 Comp Metabolic Wac222 ALBUMIN 3.5 g/dL 03/05/2016 Comp Metabolic Olu892 TPRO 5.5 g/dL 03/05/2016 Comp Metabolic Hxj502 GLOB 2.0 g/dL 03/05/2016 Comp Metabolic Itx421 A/G Ratio 1.8 Ratio 03/05/2016 Comp Metabolic Jvd034 Osmo 283 mOsmo 03/05/2016 Tsh Ord6 hTSH II 1.17 uIU/mL 03/05/2016 Free T4 Zia693 FREE T4 0.88 ng/dL 03/05/2016 Lipid Ord30 CHOL 158 mg/dL 03/05/2016 [...] 42.4 % 03/05/2016 Cbc With Differential Ord2 [place]% 10.1 % 03/05/2016 Cbc With Differential Ord2 [...] 1.64 K/ul 03/05/2016 Cbc With Differential Ord2 [place] ABS# 0.4 K/ul 03/05/2016 Cbc With Differential Ord2 Eos ABS# 0.2 K/ul 03/05/2016 Cbc With Differential Ord2 Baso ABS# 0.1 K/ul 03/05/2016 Urine Culture Ucult Complete No Growth Day 2 07/18/2015 Urine Culture Ucult Preliminary No Growth Day 1 07/18/2015 Free T4 Uct083 FREE T4 1.05 ng/dL 03/10/2015 Tsh Ord6 hTSH II 0.60 uIU/mL [...] With Differential Ord2 RDW 14.2 % 03/10/2015 Comp Metabolic Imx252 NA 139 mEq/L 03/10/2015 Comp Metabolic Yvo252 K 4.2 mEq/L 03/10/2015 Comp Metabolic Iip575 CL 104 mEq/L 03/10/2015 Comp Metabolic Uzz768 CO2 33.0 mEq/L 03/10/2015 Comp Metabolic Ube761 ANION GAP 6 03/10/2015 Comp Metabolic Xsx164 GLUCOSE 95 mg/dL 03/10/2015 Comp Metabolic Ioz363 Creat 0.9 mg/dL 03/10/2015 Comp Metabolic Ffc057 eGFR 68 ml/min/1.73m2 03/10/2015 Comp Metabolic Vtx243 BUN 18 mg/dL 03/10/2015 Comp Metabolic Asw662 B/C Ratio 21.2 Ratio 03/10/2015 Comp Metabolic Ejo948 CALCIUM 10.4 mg/dL 03/10/2015 Comp Metabolic Hyh463 ALK PHOS 96 U/L 03/10/2015 Comp Metabolic Ipq513 AST(SGOT) 23 U/L 03/10/2015 Comp Metabolic Swe996 ALT(SGPT) 22 U/L 03/10/2015 Comp Metabolic Vqx253 BILI T 0.5 mg/dL 03/10/2015 Comp Metabolic Gmi826 ALBUMIN 3.7 g/dL 03/10/2015 Comp Metabolic Xtv709 TPRO 5.5 g/dL 03/10/2015 Comp Metabolic Lgq109 GLOB 1.8 g/dL 03/10/2015 Comp Metabolic Dxw941 A/G Ratio 2.1 Ratio 03/10/2015 Comp Metabolic Hic826 Osmo 279 mOsmo 03/10/2015 VIT D TOTL 3247670 VIT D TOTL 55 NG/ML 05/08/2014 GFR CALC 8529681 GFR AA 56.0L ML/MIN 01/14/2014 GFR CALC 0865358 GFR NON-AA 47.0L ML/MIN 01/14/2014 CBC 5587084 WBC 5.0 10e9/L 01/14/2014 CBC 2196381 RBC 4.02 10e12/L 01/14/2014 CBC 9426967 HGB 12.8 g/dL 01/14/2014 CBC 1255942 HCT DET 39.1 % 01/14/2014 CBC 1428275 MCV 97.3 fL 01/14/2014 CBC 4788640 MCH 31.8 pg 01/14/2014 CBC 4408786 MCHC 32.7 g/dL 01/14/2014 CBC 7614520 PLT 256 10e9/L 01/14/2014 CBC 3392992 MPV 11.2 fL 01/14/2014 CBC 9366613 NATALYA % 64.4 % 01/14/2014 CBC 4103952 LY % 23.4 % 01/14/2014 CBC 0536978 MON % 8.2 % 01/14/2014 CBC 3483112 EOS % 3.0 % 01/14/2014 CBC 7746093 BASO % 1.0 % 01/14/2014 CBC 4299395 RDW 14.5 % 01/14/2014 CBC 4704942 ABS NATALYA 3.22 10e9/L 01/14/2014 CBC 1594477 ABS LYMPH 1.17 10e9/L 01/14/2014 CBC 5174272 ABS MONO 0.41 10e9/L 01/14/2014 CBC 5665904 ABS EOS 0.15 10e9/L 01/14/2014 CBC 2523294 ABS BASO 0.05 10e9/L 01/14/2014 CBC 9136227 RDW-SD 50.3 fL 01/14/2014 CHEM 14 1048792 AST 19 U/L 01/14/2014 CHEM 14 20271125 ALT 11 IU/L 01/14/2014 CHEM 14 9281991 BUN 19 MG/DL 01/14/2014 CHEM 14 20271125 ALBUMIN 4.0 GM/DL 01/14/2014 CHEM 14 4335289 CHLORIDE 105 MMOL/L 01/14/2014 CHEM 14 2290207 BILI TOT 0.5 MG/DL 01/14/2014 CHEM 14 2512101 ALK PHOS 75 U/L 01/14/2014 CHEM 14 2895349 SODIUM 136 MMOL/L 01/14/2014 CHEM 14 5670743 CREATININE 1.12 MG/DL 01/14/2014 CHEM 14 1556242 CALCIUM 10.1 MG/DL 01/14/2014 CHEM 14 3353492 POTASSIUM 4.2 MMOL/L 01/14/2014 CHEM 14 3651898 PROT TOT 6.3 GM/DL 01/14/2014 CHEM 14 7169162 GLUCOSE 90 MG/DL 01/14/2014 CHEM 14 3444634 BICARB 26 MMOL/L 01/14/2014 CHEM 14 7854722 ANION GAP 5 MEQ/L 01/14/2014 FREE T4 2747198 FREE T4 1.42 NG/DL 01/14/2014 VIT D TOTL 2406053 VIT D TOTL 15 NG/ML 01/14/2014 TSH 2487071 TSH 0.478 uIU/ML 01/14/2014 CBC 3806050 WBC 4.2 10e9/L 06/08/2013 CBC 0908322 RBC 4.03 10e12/L 06/08/2013 CBC 4361108 HGB 12.7 g/dL 06/08/2013 CBC 0108143 HCT DET 39.4 % 06/08/2013 CBC 6145331 MCV 97.8 fL 06/08/2013 CBC 9069279 MCH 31.5 pg 06/08/2013 CBC 0479035 MCHC 32.2 g/dL 06/08/2013 CBC 2980028 PLT 216 10e9/L 06/08/2013 CBC 9595389 MPV 10.9 fL 06/08/2013 CBC 0704570 NATALYA % 55.2 % 06/08/2013 CBC 9873080 LY % 29.0 % 06/08/2013 CBC 4252778 MON % 9.8 % 06/08/2013 CBC 1739936 EOS % 4.8 % 06/08/2013 CBC 0490391 BASO % 1.2 % 06/08/2013 CBC 9890628 RDW 14.3 % 06/08/2013 CBC 3367858 ABS NATALYA 2.32 10e9/L 06/08/2013 CBC 1264119 ABS LYMPH 1.22 10e9/L 06/08/2013 CBC 8919315 ABS MONO 0.41 10e9/L 06/08/2013 CBC 9315385 ABS EOS 0.20 10e9/L 06/08/2013 CBC 7885535 ABS BASO 0.05 10e9/L 06/08/2013 CBC 5557498 RDW-SD 50.0 fL 06/08/2013 TSH 1389947 TSH 4.215 uIU/ML 06/08/2013 A1C HPLC 5565811 A1C HPLC 47996-6 5.5 % 06/08/2013 LIPID GRP HDL TEST 52 MG/DL 06/08/2013 LIPID GRP TRIG 166 MG/DL 06/08/2013 LIPID GRP TEST LDL 83 MG/DL 06/08/2013 LIPID GRP CHOL 168 MG/DL 06/08/2013 LIPID GRP RCHOL/HDL 3.23 RATIO 06/08/2013 FREE T4 3488675 FREE T4 1.30 NG/DL 06/08/2013 GFR CALC 7508439 GFR AA >60 ML/MIN 06/08/2013 GFR CALC 4696320 GFR NON-AA >60 ML/MIN 06/08/2013 CHEM 14 6260405 AST 14 U/L 06/08/2013 CHEM 14 7367494 ALT 11 IU/L 06/08/2013 CHEM 14 5556261 BUN 21 MG/DL 06/08/2013 CHEM 14 9452766 ALBUMIN 3.7 GM/DL 06/08/2013 CHEM 14 9040191 CHLORIDE 105 MMOL/L 06/08/2013 CHEM 14 8722161 BILI TOT 0.5 MG/DL 06/08/2013 CHEM 14 3775317 ALK PHOS 68 U/L 06/08/2013 CHEM 14 8724369 SODIUM 138 MMOL/L 06/08/2013 CHEM 14 2014783 CREATININE 0.81 MG/DL 06/08/2013 CHEM 14 7863763 CALCIUM 9.8 MG/DL 06/08/2013 CHEM 14 0241018 POTASSIUM 3.9 MMOL/L 06/08/2013 CHEM 14 6877294 PROT TOT 5.7 GM/DL 06/08/2013 CHEM 14 5909776 GLUCOSE 86 MG/DL 06/08/2013 CHEM 14 1710831 BICARB 30 MMOL/L 06/08/2013 CHEM 14 6482517 ANION GAP 3 MEQ/L 06/08/2013 FREE T4 8745603 FREE T4 1.33 NG/DL 02/27/2013 CHEM 14 3237116 AST 14 U/L 02/27/2013 CHEM 14 2709118 ALT 9 IU/L 02/27/2013 CHEM 14 7205375 BUN 13 MG/DL 02/27/2013 CHEM 14 0722262 ALBUMIN 3.8 GM/DL 02/27/2013 CHEM 14 1122832 CHLORIDE 107 MMOL/L 02/27/2013 CHEM 14 1890195 BILI TOT 0.5 MG/DL 02/27/2013 CHEM 14 1036950 ALK PHOS 69 U/L 02/27/2013 CHEM 14 7949234 SODIUM 140 MMOL/L 02/27/2013 CHEM 14 3810725 CREATININE 0.62 MG/DL 02/27/2013 CHEM 14 4356464 CALCIUM 10.1 MG/DL 02/27/2013 CHEM 14 0098366 POTASSIUM 4.4 MMOL/L 02/27/2013 CHEM 14 9234645 PROT TOT 5.1 GM/DL 02/27/2013 CHEM 14 4812678 GLUCOSE 89 MG/DL 02/27/2013 CHEM 14 5111841 BICARB 29 MMOL/L 02/27/2013 CHEM 14 9680413 ANION GAP 4 MEQ/L 02/27/2013 TSH 4418477 TSH 0.169 uIU/ML 02/27/2013 GFR CALC 0283982 GFR AA >60 ML/MIN 02/27/2013 GFR CALC 6661999 GFR NON-AA >60 ML/MIN 02/27/2013 LIPID GRP HDL TEST 52 MG/DL 02/27/2013 LIPID GRP TRIG 151 MG/DL 02/27/2013 LIPID GRP TEST LDL 128 MG/DL 02/27/2013 LIPID GRP CHOL 210 MG/DL 02/27/2013 LIPID GRP RCHOL/HDL 4.04 RATIO 02/27/2013 A1C HPLC 9787098 A1C HPLC 77400-5 5.1 % 02/27/2013 CBC 6815197 WBC 5.2 10e9/L 02/27/2013 CBC 7830620 RBC 3.98 10e12/L 02/27/2013 CBC 6284978 HGB 12.4 g/dL 02/27/2013 CBC 2799209 HCT DET 38.4 % 02/27/2013 CBC 9542884 MCV 96.5 fL 02/27/2013 CBC 8715252 MCH 31.2 pg 02/27/2013 CBC 7135443 MCHC 32.3 g/dL 02/27/2013 CBC 1981094 PLT 228 10e9/L 02/27/2013 CBC 0357590 MPV 11.0 fL 02/27/2013 CBC 9825306 NATALYA % 66.0 % 02/27/2013 CBC 1128891 LY % 24.5 % 02/27/2013 CBC 5652829 MON % 7.3 % 02/27/2013 CBC 5390711 EOS % 1.4 % 02/27/2013 CBC 8628552 BASO % 0.8 % 02/27/2013 CBC 0000823 RDW 14.1 % 02/27/2013 CBC 3893960 ABS NATALYA 3.43 10e9/L 02/27/2013 CBC 7276787 ABS LYMPH 1.27 10e9/L 02/27/2013 CBC 7212187 ABS MONO 0.38 10e9/L 02/27/2013 CBC 1774838 ABS EOS 0.07 10e9/L 02/27/2013 CBC 6657406 ABS BASO 0.04 10e9/L 02/27/2013 CBC 8007554 RDW-SD 48.2 fL 02/27/2013 A1C HPLC 7461445 A1C HPLC 66364-5 5.6 % 10/19/2012 T3 FREE 3050043 T3 FREE 2.6 PG/ML 10/18/2012 TSH 9600937 TSH 2.187 uIU/ML 10/18/2012 FREE T4 0918982 FREE T4 1.10 NG/DL 10/18/2012 CBC 4912909 WBC 4.2 10e9/L 10/18/2012 CBC 3855757 RBC 3.97 10e12/L 10/18/2012 CBC 7078121 HGB 12.6 g/dL 10/18/2012 CBC 3927641 HCT DET 38.1 % 10/18/2012 CBC 7939371 MCV 96.0 fL 10/18/2012 CBC 0205067 MCH 31.7 pg 10/18/2012 CBC 6304525 MCHC 33.1 g/dL 10/18/2012 CBC 0255245 PLT 318 10e9/L 10/18/2012 CBC 7200953 MPV 10.2 fL 10/18/2012 CBC 2101742 NATALYA % 54.2 % 10/18/2012 CBC 0868114 LY % 32.1 % 10/18/2012 CBC 6886975 MON % 7.9 % 10/18/2012 CBC 2664378 EOS % 4.1 % 10/18/2012 CBC 8035968 BASO % 1.7 % 10/18/2012 CBC 7059822 RDW 13.9 % 10/18/2012 CBC 6123932 ABS NATALYA 2.28 10e9/L 10/18/2012 CBC 6103102 ABS LYMPH 1.35 10e9/L 10/18/2012 CBC 0791720 ABS MONO 0.33 10e9/L 10/18/2012 CBC 1848055 ABS EOS 0.17 10e9/L 10/18/2012 CBC 2522057 ABS BASO 0.07 10e9/L 10/18/2012 CBC 7995968 RDW-SD 47.5 fL 10/18/2012 GFR CALC 1679336 GFR AA >60 ML/MIN 10/18/2012 GFR CALC GFR NON-AA >60 ML/MIN 10/18/2012 LIPID GRP HDL TEST 48 MG/DL 10/18/2012 LIPID GRP TRIG 194 MG/DL 10/18/2012 LIPID GRP TEST LDL 138 MG/DL 10/18/2012 LIPID GRP CHOL 225 MG/DL 10/18/2012 LIPID GRP RCHOL/HDL 4.69 RATIO 10/18/2012 CHEM 14 6705712 AST 16 U/L 10/18/2012 CHEM 14 4586990 ALT 15 IU/L 10/18/2012 CHEM 14 9926279 BUN 21 MG/DL 10/18/2012 CHEM 14 4636412 ALBUMIN 3.9 GM/DL 10/18/2012 CHEM 14 2197054 CHLORIDE 107 MMOL/L 10/18/2012 CHEM 14 7679446 BILI TOT 0.5 MG/DL 10/18/2012 CHEM 14 0209954 ALK PHOS 126 U/L 10/18/2012 CHEM 14 0562398 SODIUM 138 MMOL/L 10/18/2012 CHEM 14 4316887 CREATININE 0.73 MG/DL 10/18/2012 CHEM 14 6264358 CALCIUM 10.2 MG/DL 10/18/2012 CHEM 14 2935180 POTASSIUM 3.9 MMOL/L 10/18/2012 CHEM 14 8113382 PROT TOT 5.9 GM/DL 10/18/2012 CHEM 14 6921009 GLUCOSE 101 MG/DL 10/18/2012 CHEM 14 4321774 BICARB 25 MMOL/L 10/18/2012 CHEM 14 4309036 ANION GAP 6 MEQ/L 10/18/2012 CHEM 14 7580099 AST 15 U/L 06/01/2012 CHEM 14 0741005 ALT 11 IU/L 06/01/2012 CHEM 14 1395053 BUN 20 MG/DL 06/01/2012 CHEM 14 5757097 ALBUMIN 3.7 GM/DL 06/01/2012 CHEM 14 0178601 CHLORIDE 110 MMOL/L 06/01/2012 CHEM 14 1644330 BILI TOT 0.5 MG/DL 06/01/2012 CHEM 14 6020943 ALK PHOS 66 U/L 06/01/2012 CHEM 14 2909903 SODIUM 142 MMOL/L 06/01/2012 CHEM 14 9259967 CREATININE 0.69 MG/DL 06/01/2012 CHEM 14 5701720 CALCIUM 9.8 MG/DL 06/01/2012 CHEM 14 3047343 POTASSIUM 4.6 MMOL/L 06/01/2012 CHEM 14 7660039 PROT TOT 5.8 GM/DL 06/01/2012 CHEM 14 0747000 GLUCOSE 84 MG/DL 06/01/2012 CHEM 14 0871301 BICARB 25 MMOL/L 06/01/2012 CHEM 14 8187569 ANION GAP 7 MEQ/L 06/01/2012 LIPID GRP HDL TEST 55 MG/DL 06/01/2012 LIPID GRP TRIG 128 MG/DL 06/01/2012 LIPID GRP TEST LDL 90 MG/DL 06/01/2012 LIPID GRP CHOL 171 MG/DL 06/01/2012 LIPID GRP RCHOL/HDL 3.11 RATIO 06/01/2012 GFR CALC 0924108 GFR AA >60 ML/MIN 06/01/2012 GFR CALC 8213749 GFR NON-AA >60 ML/MIN 06/01/2012 CBC 2163769 WBC 3.7 10e9/L 06/01/2012 CBC 8150395 RBC 3.97 10e12/L 06/01/2012 CBC 7089414 HGB 12.6 g/dL 06/01/2012 CBC 1874945 HCT DET 38.9 % 06/01/2012 CBC 1343416 MCV 98.0 fL 06/01/2012 CBC 5013650 MCH 31.7 pg 06/01/2012 CBC 1518182 MCHC 32.4 g/dL 06/01/2012 CBC 1332016 PLT 217 10e9/L 06/01/2012 CBC 1277635 MPV 11.1 fL 06/01/2012 CBC 0161793 NATALYA % 60.1 % 06/01/2012 CBC 2931955 LY % 25.5 % 06/01/2012 CBC 8141010 MON % 8.1 % 06/01/2012 CBC 4216912 EOS % 4.1 % 06/01/2012 CBC 9107604 BASO % 2.2 % 06/01/2012 CBC 8816976 RDW 14.0 % 06/01/2012 CBC 2774459 ABS NATALYA 2.22 10e9/L 06/01/2012 CBC 2341616 ABS LYMPH 0.94 10e9/L 06/01/2012 CBC 8243633 ABS MONO 0.30 10e9/L 06/01/2012 CBC 2097635 ABS EOS 0.15 10e9/L 06/01/2012 CBC 3152750 ABS BASO 0.08 10e9/L 06/01/2012 CBC 0751817 RDW-SD 48.9 fL 06/01/2012 TSH 6331863 TSH 1.748 uIU/ML 06/01/2012 FREE T4 0192100 FREE T4 1.24 NG/DL 06/01/2012 GFR CALC 6872187 GFR AA >60 ML/MIN 11/18/2011 GFR CALC 0492732 GFR NON-AA >60 ML/MIN 11/18/2011 CBC 3276578 WBC 3.6 10e9/L 11/18/2011 CBC 4789624 RBC 4.03 10e12/L 11/18/2011 CBC 0390398 HGB 12.5 g/dL 11/18/2011 CBC 3838316 HCT DET 38.2 % 11/18/2011 CBC 5513162 MCV 94.8 fL 11/18/2011 CBC 9235449 MCH 31.0 pg 11/18/2011 CBC 5766659 MCHC 32.7 g/dL 11/18/2011 CBC 0314537 PLT 218 10e9/L 11/18/2011 CBC 6987820 MPV 10.5 fL 11/18/2011 CBC 0327210 NATALYA % 58.1 % 11/18/2011 CBC 2955242 LY % 27.1 % 11/18/2011 CBC 5060518 MON % 10.1 % 11/18/2011 CBC 6102093 EOS % 3.9 % 11/18/2011 CBC 8682813 BASO % 0.8 % 11/18/2011 CBC 5887167 RDW 14.6 % 11/18/2011 CBC 1492768 ABS NATALYA 2.09 10e9/L 11/18/2011 CBC 3123172 ABS LYMPH 0.98 10e9/L 11/18/2011 CBC 9808757 ABS MONO 0.36 10e9/L 11/18/2011 CBC 5868363 ABS EOS 0.14 10e9/L 11/18/2011 CBC 8780794 ABS BASO 0.03 10e9/L 11/18/2011 CBC 8394490 RDW-SD 49.2 fL 11/18/2011 CHEM 14 2207773 AST 14 U/L 11/18/2011 CHEM 14 5216298 ALT 9 IU/L 11/18/2011 CHEM 14 5608256 BUN 18 MG/DL 11/18/2011 CHEM 14 5532210 ALBUMIN 4.0 GM/DL 11/18/2011 CHEM 14 9341303 CHLORIDE 107 MMOL/L 11/18/2011 CHEM 14 8241044 BILI TOT 0.6 MG/DL 11/18/2011 CHEM 14 4573334 ALK PHOS 77 U/L 11/18/2011 CHEM 14 0362712 SODIUM 140 MMOL/L 11/18/2011 CHEM 14 3645731 CREATININE 0.77 MG/DL 11/18/2011 CHEM 14 3043745 CALCIUM 9.9 MG/DL 11/18/2011 CHEM 14 6568599 POTASSIUM 4.1 MMOL/L 11/18/2011 CHEM 14 8718605 PROT TOT 6.1 GM/DL 11/18/2011 CHEM 14 7790803 GLUCOSE 88 MG/DL 11/18/2011 CHEM 14 0113685 BICARB 26 MMOL/L 11/18/2011 CHEM 14 0483414 ANION GAP 7 MEQ/L 11/18/2011 LIPID GRP HDL TEST 48 MG/DL 11/18/2011 LIPID GRP TRIG 145 MG/DL 11/18/2011 LIPID GRP TEST LDL 87 MG/DL 11/18/2011 LIPID GRP CHOL 164 MG/DL 11/18/2011 LIPID GRP RCHOL/HDL 3.42 RATIO 11/18/2011 FREE T4 3722161 FREE T4 1.16 NG/DL 11/18/2011 TSH 0040613 TSH 2.039 uIU/ML 11/18/2011 Review of Systems [...] distress 12/29/2016 None Full Exam - General 1995 Constitutional general appearance Overall: well nourished 12/29/2016 [...] sounds 07/02/2013 None Full Exam - General 1995 Musculoskeletal head and neck Overall: head atraumatic 07/02/2013 None Full Exam - General 1995 Musculoskeletal head and neck Overall: cervical spine benign 07/02/2013 None Full Exam - General 1995 Integument inspection of skin Dermatitis: dryness/ flaking 07/02/2013 None Full Exam - General 1995 Integument inspection of skin Location: face 07/02/2013 on the lips Full Exam - General 1994 Neurologic gait Overall: no ataxia, no unsteadiness 07/02/2013 None Full Exam - General 1995 Neurologic [...] rate 10/24/2012 None Full Exam - General 1995 Cardiovascular [...] bilaterally 05/30/2012 None Full Exam - General 1995 Respiratory respiratory effort/rhythm Overall: no retractions 05/30/2012 [...] lesion on right forearm is irritated at [facility] due to repeated trauma, will be [...] FLU VACC PRSV FREE INC ANTIG CPT-4: 77964 02/09/2017 URINALYSIS NONAUTO W/O SCOPE CPT-4: 16333 02/01/2017 URINALYSIS NONAUTO W/O SCOPE CPT-4: 09167 12/20/2016 THER/PROPH/DIAG INJ SC/IM CPT-4: 59071 12/16/2016 KETOROLAC TROMETHAMINE INJ CPT-4: J1885 12/16/2016 PROMETHAZINE HCL INJECTION CPT-4: J2550 12/16/2016 PROMETHAZINE HCL INJECTION CPT-4: J2550 05/11/2016 KETOROLAC TROMETHAMINE INJ CPT-4: J1885 05/11/2016 URINALYSIS NONAUTO W/O SCOPE CPT-4: 02481 04/21/2016 URINALYSIS NONAUTO W/O SCOPE CPT-4: 14951 07/15/2015 URINALYSIS NONAUTO W/O SCOPE CPT-4: 77562 10/08/2014 Pneumococcal Polysaccharide Vaccine, 23-[employer], Ad Assigned to/Mery Parry CPT-4: 60533Qhmzfwg 07/17/2014 ADMIN PNEUMOCOCCAL VACCINE SNOMED CT: 80580580 CPT-4: G0009 07/17/2014 ROUTINE VENIPUNCTURE CPT-4: 42470 06/08/2013 ROUTINE VENIPUNCTURE CPT-4: 23185 02/27/2013 ADMIN INFLUENZA VIRUS VAC CPT-4: G0008 02/26/2013 FLULAVAL VACC, 3 YRS & >, IM CPT-4: Q2036 02/26/2013 PRESCRIP TRANSMIT VIA ERX SY CPT-4: G8553 10/24/2012 ROUTINE VENIPUNCTURE CPT-4: 16059 10/18/2012 ROUTINE VENIPUNCTURE CPT-4: 59470 06/01/2012 ADMIN INFLUENZA VIRUS VAC CPT-4: G0008 02/08/2012 FLULAVAL VACC, 3 YRS & >, IM CPT-4: Q2036 02/08/2012 EXC TR-EXT B9+ELENA 1.1-2 CM CPT-4: 47894 02/08/2012 DESTRUCT PREMALG LESION CPT-4: 15044 11/30/2011 BIOPSY SKIN LESION CPT -4: 77918 11/30/2011 ROUTINE VENIPUNCTURE CPT-4: 92428 11/18/2011 PROMETHAZINE HCL INJECTION CPT-4: J2550 05/12/2011 KETOROLAC TROMETHAMINE INJ CPT-4: J1885 05/12/2011 PRESCRIP TRANSMIT VIA ERX SY CPT-4: G8553 05/12/2011 PRESCRIP TRANSMIT VIA ERX SY CPT-4: G8553 03/17/2011 ADMIN INFLUENZA VIRUS VAC CPT-4: G0008 02/26/2011 FLULAVAL VACC, 3 YRS & >, IM CPT-4: Q2036 02/26/2011 Vital Signs Date Vital 01/27/2017 Blood Pressure 1: 142/80 Code : 8480-6 BMI: 29.5 Code : 81280-7 Heart Rate 1 : 78 bpm Height: 5'2" SpO2: 92% Weight: 161 lbs 8 oz 01/17/2017 Blood Pressure 1: 110/70 Code : 8480-6 BMI: 29.3 Code : 41857-2 Heart Rate 1 : 82 bpm Height: 5'2" SpO2: 97% Weight: 160 lbs 01/07/2017 Blood Pressure 1: 122/54 Code : 8480-6 BMI: 29.6 Code : 94031-5 Heart Rate 1 : 76 bpm Height: 5'2" SpO2: 97% Weight: 162 lbs 12/29/2016 Blood Pressure 1: 122/54 Code : 8480-6 BMI: 29.6 Code : 45871-4 Heart Rate 1 : 74 bpm Height: 5'2" SpO2: 95% Weight: 162 lbs 12/16/2016 Blood Pressure 1: 148/60 Code : 8480-6 BMI: 30.4 Code : 49692-5 Heart Rate 1 : 81 bpm Height: 5'2" SpO2: 94% Weight: 166 lbs 08/25/2016 Blood Pressure 1: 160/80 Code : 8480-6 BMI: 29.4 Code : 62303-2 Heart Rate 1 : 64 bpm Height: 5'2" SpO2: 95% Weight: 161 lbs 05/11/2016 Blood Pressure 1: 168/68 Code : 8480-6 Blood Pressure 1: 168/70 Code: 8480-6 BMI: 30.4 Code: 94383-7 Heart Rate 1: 66 bpm Height: 5'2" SpO2: 93% Weight: 166 lbs 04/20/2016 Blood Pressure 1: 138/77 Code : 8480-6 BMI: 31.0 Code : 00877-4 Heart Rate 1 : 70 bpm Height: 5'2" Respiratory Rate: 18 bpm SpO2: 95% Weight: 169 lbs 8 oz 03/10/2016 Blood Pressure 1: 130/80 Code : 8480-6 BMI: 30.3 Code : 29198-8 Heart Rate 1 : 61 bpm Height: 5'2" SpO2: 96% Weight: 165 lbs 8 oz 11/18/2015 Blood Pressure 1: 148/72 Code : 8480-6 BMI: 28.5 Code : 76791-0 Heart Rate 1 : 69 bpm Height: 5'3" SpO2: 97% Weight: 161 lbs 09/11/2015 Blood Pressure 1: 124/76 Code : 8480-6 BMI: 27.1 Code : 16661-6 Heart Rate 1 : 70 bpm Height: 5'3" SpO2: 97% Weight: 153 lbs 08/06/2015 Blood Pressure 1: 120/68 Code : 8480-6 BMI: 26.2 Code : 35711-2 Heart Rate 1 : 66 bpm Height: 5'3" Weight: 148 lbs 07/15/2015 Blood Pressure 1: 134/60 Code : 8480-6 BMI: 26.9 Code : 82660-9 Heart Rate 1 : 76 bpm Height: 5'3" SpO2: 97% Weight: 152 lbs 07/04/2015 Blood Pressure 1: 122/84 Code : 8480-6 BMI: 26.9 Code : 11686-9 Heart Rate 1 : 84 bpm Height: 5'3" SpO2: 98% Weight: 152 lbs 03/13/2015 Blood Pressure 1: 154/78 Code : 8480-6 BMI: 27.5 Code : 09224-4 Heart Rate 1 : 68 bpm Height: 5'3" SpO2: 96% Weight: 155 lbs 10/08/2014 Blood Pressure 1: 128/70 Code : 8480-6 BMI: 28.0 Code : 61119-6 Heart Rate 1 : 74 bpm Height: 5'3" Weight: 158 lbs 07/17/2014 Blood Pressure 1: 142/82 Code : 8480-6 BMI: 27.3 Code : 60107-1 Heart Rate 1 : 76 bpm Height: 5'3" Weight: 154 lbs 01/11/2014 Blood Pressure 1: 120/72 Code : 8480-6 Heart Rate 1: 68 bpm SpO2: 96% Weight: 168 lbs 07/02/2013 Blood Pressure 1: 162/72 Code : 8480-6 BMI: 29.6 Code : 33282-4 Heart Rate 1 : 64 bpm Height: 5'3" Weight: 167 lbs 02/26/2013 Blood Pressure 1: 132/68 Code : 8480-6 BMI: 29.2 Code : 93463-1 Heart Rate 1 : 72 bpm Height: 5'3" Weight: 165 lbs 10/24/2012 Blood Pressure 1: 132/82 Code : 8480-6 BMI: 29.9 Code : 53041-3 Heart Rate 1 : 68 bpm Height: 5'3" Weight: 169 lbs 10/18/2012 Blood Pressure 1: 140/70 Code : 8480-6 09/12/2012 Blood Pressure 1: 124/70 Code : 8480-6 BMI: 30.1 Code : 00708-7 Heart Rate 1 : 64 bpm Height: 5'3" Weight: 170 lbs 05/30/2012 Blood Pressure 1: 134/88 Code : 8480-6 BMI: 30.6 Code : 53369-9 Heart Rate 1 : 76 bpm Height: [...] Code : 8480-6 BMI: 30.3 Code : 17576-1 Height: 5'3" Weight: 171 lbs 05/12/2011 Blood Pressure 1: 158/90 Code : 8480-6 BMI: 29.9 Code : 54294-3 Heart Rate 1 : 68 bpm Height: 5'3" Respiratory Rate: 16 bpm Weight: 169 lbs 03/17/2011 Blood Pressure 1: 128/84 Code : 8480-6 BMI: 31.1 Code : 41958-3 Heart Rate 1 : 68 bpm Height: 5'3" Respiratory Rate: 16 bpm Weight: 175 lbs 8 oz 02/26/2011 Blood Pressure 1: 152/70 Code : 8480-6 BMI: 32.2 Code : 49601-0 Heart Rate 1 : 66 bpm Height: [...] data Encounters Encounter Performer Location Codes Date ( EST. PATIENT, LEVEL III Diagnosis: Urinary tract infection, site not specified[ICD10: N39.0] [facility] CPT-4: 56783 01/27/2017 [id number] EST. PATIENT, LEVEL IV Diagnosis: Right upper quadrant pain[ICD10: R10.11] Diagnosis: Dehydration[ICD10: E86.0] [facility] CPT-4: 11451 01/17/2017 [id number] EST. PATIENT, LEVEL III Diagnosis: Candidiasis of vulva and vagina[ICD10: B37.3] [facility] CPT-4: 50843 01/07/2017 [id number] EST. PATIENT, LEVEL III Diagnosis: Dysuria[ICD10: R30.0] Diagnosis: Other fatigue[ICD10: R53.83] Diagnosis: Other malaise[ICD10: R53.81] Yadi Delaney MD, [facility] CPT-4 : 45666 12/29/2016 [id number] EST. PATIENT, LEVEL IV Diagnosis: Migraine without aura, intractable, without status migrainosus[ICD10 : G43.019] Yadi Delaney MD, [facility] CPT-4: 94683 2016 ([id number]) 87523 EST. PATIENT, LEVEL IV Diagnosis: Essential (primary) hypertension[ICD10: I10] Diagnosis: Atrophy of thyroid (acquired)[ICD10: E03.4] Diagnosis: Mixed hyperlipidemia[ICD10: E78.2] Marilyn Delaney MD, [facility] CPT-4: 58938 08/25/2016 [id number] EST. PATIENT, LEVEL IV Diagnosis: Migraine without aura, intractable, without status migrainosus[ICD10 : G43.019] Diagnosis: Essential (primary) hypertension[ICD10: I10] Yadi Delaney MD, [facility] CPT-4: 74363 05/11/2016 ([id number]) 35366 EST. PATIENT, LEVEL IV Diagnosis: Essential (primary) hypertension[ICD10: I10] Diagnosis: Atrophy of thyroid (acquired)[ICD10: E03.4] Marilyn Delaney MD, [facility] CPT-4: 71471 04/20/2016 ([id number]) 85956 EST. PATIENT, LEVEL IV Diagnosis: Essential (primary) hypertension[ICD10: I10] Diagnosis: Major depressive disorder, recurrent, moderate[ICD10: F33.1] Diagnosis: Candidal stomatitis[ICD10: B37.0] Diagnosis: Gastro-esophageal reflux disease without esophagitis[ICD10: K21.9] Marilyn Delaney MD, [facility] CPT-4: 99640 03/10/2016 ([id number]) 00988 EST. PATIENT, LEVEL IV Diagnosis: Essential (primary) hypertension[ICD10: I10] Diagnosis: Other seborrheic keratosis[ICD10: L82.1] Diagnosis: Hypothyroidism, unspecified[ICD10: E03.9] Marilyn Delaney MD, [facility] CPT-4: 79634 11/18/2015 ([id number]) 49645 EST. PATIENT, LEVEL III Diagnosis: Gastro-esophageal reflux disease without esophagitis[ICD10: K21.9] Tigist Delaney MD, [facility] CPT-4: 31818 09/11/2015 ([id number]) 33444 EST. PATIENT, LEVEL III Diagnosis: Epigastric pain[ICD10: R10.13] Diagnosis: Gastro-esophageal reflux disease without esophagitis[ICD10: K21.9] Marilyn Delaney MD, [facility] CPT-4: 26899 08/06/2015 ([id number]) 32755 EST. PATIENT, LEVEL III Diagnosis: Urinary tract infection, site not specified[ICD10: N39.0] Diagnosis: Low back pain[ICD10: M54.5] Tigist Delaney MD, [facility] CPT-4: 45980 07/15/2015 ([id number]) 92417 EST. PATIENT, LEVEL IV Diagnosis: Mixed hyperlipidemia[ICD10: E78.2] Diagnosis: Hypothyroidism, unspecified[ICD10: E03.9] Diagnosis: Essential (primary) hypertension[ICD10: I10] Diagnosis: Other insomnia[ICD10: G47.09] Marilyn Delaney MD, [facility] CPT- 4: 39277 07/04/2015 ([id number]) 69461 EST. PATIENT, LEVEL IV Diagnosis: Mixed hyperlipidemia[ICD10: E78.2] Diagnosis: Hypothyroidism, unspecified[ICD10: E03.9] Diagnosis: Essential (primary) hypertension[ICD10: I10] Diagnosis: Other insomnia[ICD10: G47.09] Marilyn Delaney MD, [facility] CPT- 4: 28349 03/13/2015 ([id number]) 09395 EST. PATIENT, LEVEL IV Diagnosis: Abdominal pain[ICD9: 789.00] Diagnosis: Hematuria[ICD9: 599.70] Tigist Delaney MD, [facility] CPT-4: 37002 10/08/2014 ([id number]) 51592 EST. PATIENT, LEVEL IV Diagnosis: HYPOTHYROIDISM[ICD9: 244.9] Diagnosis: ESSENTIAL HYPERTENSION[ICD9: 401.9] Diagnosis: HYPERLIPIDEMIA[ICD9: 272.4] Diagnosis: Need for Streptococcus pneumoniae vaccination[ICD9: V03.82] Marilyn Delaney MD [facility] CPT-4: 17482 07/17/2014 ([id number]) 30517 EST. PATIENT, LEVEL IV Diagnosis: ESSENTIAL HYPERTENSION[SNOMED: 30539748] Diagnosis: HYPOTHYROIDISM[ICD9: 244.9] Diagnosis: CELLULITIS OF HAND[ICD9: 682.4] Marilyn Delaney MD [facility] CPT- 4: 28866 01/11/2014 ([id number]) 04380 EST. PATIENT, LEVEL IV Diagnosis: ESSENTIAL HYPERTENSION[SNOMED: 26582970] Diagnosis: HYPOTHYROIDISM[ICD9: 244.9] Diagnosis: HYPERLIPIDEMIA[ICD9: 272.4] Marilyn Delaney MD [facility] CPT- 4: 79677 07/02/2013 ([id number]) 52481 EST. PATIENT, LEVEL III Diagnosis: ESSENTIAL HYPERTENSION[SNOMED: 93549371] Diagnosis: HYPOTHYROIDISM[ICD9: 244.9] Marilyn Delaney MD [facility] CPT- 4: 57479 02/26/2013 ([id number]) 53023 EST. PATIENT, LEVEL IV Diagnosis: ESSENTIAL HYPERTENSION[SNOMED: 03831470] Diagnosis: HYPERLIPIDEMIA[ICD9: 272.4] Marilyn Delaney MD [facility] CPT- 4: 95092 10/24/2012 ([id number]) 43527 EST. PATIENT, LEVEL IV Diagnosis: ESSENTIAL HYPERTENSION[SNOMED: 46658060] Diagnosis: HYPOTHYROIDISM[ICD9: 244.9] Diagnosis: Malaise and fatigue[ICD9: 780.79] Marilyn Delaney MD [facility] CPT-4: 29773 09/12/2012 ([id number]) 51677 EST. PATIENT, LEVEL IV Diagnosis: ESSENTIAL HYPERTENSION[SNOMED: 82021947] Diagnosis: HYPERLIPIDEMIA[ICD9: 272.4] Diagnosis: HYPOTHYROIDISM[ICD9: 244.9] Marilyn Delaney MD [facility] CPT- 4: 52812 05/30/2012 Miscellaneous no charge Diagnosis: Basal cell carcinoma, leg[ICD9: 173.71] Marilyn Delaney MD [facility] CPT-4: 80389 02/22/2012 [id number] EST. PATIENT, LEVEL II Diagnosis: Skin lesion of left leg[ICD9: 709.9] Marilyn Delaney MD [facility] CPT-4: 31067 11/30/2011 ([id number]) [id number] EST. PATIENT, LEVEL III Diagnosis: Chest wall pain[ICD9: 786.52] Diagnosis: Bruising[ICD9: 924.9] Marilyn Delaney MD [facility] CPT-4: 24958 10/13/2011 ([id number]) 98731 EST. PATIENT, LEVEL IV Diagnosis: ESSENTIAL HYPERTENSION[SNOMED: 59681853] Diagnosis: INSOMNIA NOS[ICD9: 780.52] Diagnosis: Dry mouth[ICD9: 527.7] Marilyn Delaney MD [facility] CPT-4: 06443 10/04/2011 ([id number]) [id number] EST. PATIENT, LEVEL IV Diagnosis: ESSENTIAL HYPERTENSION[SNOMED: 21308495] Diagnosis: INSOMNIA NOS[ICD9: 780.52] Diagnosis: MALAISE AND FATIGUE[ICD9: 780.79] Diagnosis: ANEMIA[ICD9: 285.9] Diagnosis: DISEASES OF LIPS[ICD9: 528.5] Diagnosis: Migraine[ICD9: 346.90] Marilyn Delaney MD [facility] CPT-4: 68330 05/12/2011 00421 EST. PATIENT, LEVEL IV Diagnosis: ESSENTIAL HYPERTENSION[SNOMED: 56115685] Diagnosis: Angular cheilosis[ICD9: 528.5] Diagnosis: INSOMNIA NOS[ICD9: 780.52] Diagnosis: Mouth dryness[ICD9: 527.7] Marilyn Delaney MD, [facility] CPT- 4: 24389 03/17/2011 Patient admitted to the hospital from clinic (NO CHARGE) Diagnosis: BACTERIAL PNEUMONIA NEC[ICD9: 482.89] Diagnosis: MALAISE AND FATIGUE[ICD9: 780.79] Diagnosis: ESSENTIAL HYPERTENSION[SNOMED: 08848680] Diagnosis: Dizziness[ICD9: 780.4] Diagnosis: VACCIN FOR INFLUENZA[ICD9: V04.81] Marilyn Delaney MD, [facility] CPT-4: 38096R 02/26/2011 Plan of Care Planned Activity Notes Codes Status Date Appointment: [phone] [place] (15 min) Moderate 03/09/2017 Appointment: Injection 02/09/2017 Patient Education: Patient Medication Summary Completed 02/09/2017 Appointment: Lab Draw 02/01/2017 Patient Education: Patient Medication Summary Completed 02/01/2017 Visit Plan: Recurrent Urinary tract infection - check repeat ua - start on diflucan 150mg daily. 01/27/2017 Appointment: [phone] [facility] [place] (15 min) Moderate 01/27/2017 Patient Education: [...] concerns. 12/29/2016 App[facility]ment[phone] (30 min) Complex 12/29/2016 Patient [...] or concerns. 12/16/2016 Appointment: [facility]uent[facility] [phone] [facility] (15 min) Moderate 12/16/2016 Patient [...] control. 08/25/2016 Appointment: [phone] [facility] (15 min) Moderate 08/25/2016 Patient Education: Patient [...] concerns. 05/11/2016 Appointment: [facility]uent[facility] [phone] [facility] (15 min) Moderate 05/11/2016 Patient [...] control. 04/20/2016 Appointment: [phone] [facility] (15 min) Moderate 04/20/2016 Patient Education: Patient [...] swallow 03/10/2016 Appointment: [phone] [facility] (15 min) Moderate 03/10/2016 Patient Education: Patient [...] carafate. 09/11/2015 Appointment: Tigist Wolf WPtel: [phone] [phone] (15 min) Moderate 09/11/2015 Patient Education: Patient [...] feeling 08/06/2015 Appointment: Marilyn Delaney WPtel: [phone] [facility] (15 min) Moderate 08/06/2015 Patient Education: Patient [...] plan. 07/15/2015 Appointment: Tigist Wolf WPtel: [phone] [phone] (30 min) Complex 07/15/2015 Patient Education: Patient [...] Completed 07/04/2015 Appointment: [phone] [facility] (15 min) Moderate 07/02/2015 Appointment: (30 min) Complex 06/18/2015 Appointment: [phone] [facility] (15 min) Moderate 06/12/2015 Visit Plan: Hypothyroidism [...] possible. 03/13/2015 Appointment: [phone] [facility] [place] (15 min) Moderate 03/13/2015 Patient Education: Patient Medication Summary Completed 03/13/2015 Patient Education: Hypertension Completed 03/13/2015 Visit Plan: Abdominal eoef-faobdsmyg-liulact kidney stone- patient sent to the hospital [...] Plan: X-RAY EXAM OF ABDOMEN LOINC : 39218-1 Ordered 10/08/2014 Care Plan: COMPLETE CBC AUTOMATED LOINC : 94930-1 Ordered 10/08/2014 Visit Plan: Hypertension - well [...] medications. 07/17/2014 Appointment: [phone] [facility] Follow up 07/17/2014 Patient Education: Patient Medication [...] yeast infections. 01/11/2014 Appointment: Marilyn Delaney [facility] Follow up 01/11/2014 Patient Education: Patient Medication Summary Completed 01/11/2014 Patient Education: Hypertension Completed 01/11/2014 Appointment: Marilyn Delaney [facility]el[facility] Follow up 01/04/2014 Appointment: Marilyn Delaney [facility]Ptel[facility] Follow up 12/31/2013 Visit Plan: Hypertension - [...] medications. 07/02/2013 Appointment: [phone] [facility] Follow up 07/02/2013 Patient Education: Patient Medication Summary Completed 07/02/2013 Patient Education: Hypertension Completed 07/02/2013 [facility]ment[phone] [phone] Lab Draw 06/08/2013 Patient Education: [...] of control. 02/26/2013 Appointment: [facility] [phone] [facility] Follow up 02/26/2013 Patient Education: Patient Medication [...] medications. 10/24/2012 Appointment: [facility] [phone] [facility] Follow up 10/24/2012 Patient Education: Patient Medication [...] control. 09/12/2012 Appointment: [facility] [phone] [facility] [place] Other 09/12/2012 Patient Education: Patient Medication Summary Completed 09/12/2012 Patient Education: Hypertension Completed 09/12/2012 Appointment: [facility] [phone] [facility] [place] Lab Draw 06/01/2012 Patient Education: Patient Medication [...] of control. 05/30/2012 Appointment: Marilyn Delaney WPtel: [phone] [facility] Follow up 05/30/2012 Patient Education: Patient Medication Summary Completed 05/30/2012 Patient Education: Hypertension Completed 05/30/2012 Appointment: Marilyn Delaney WPtel: [facility] Follow up 03/07/2012 Visit Plan: sutures removed, steri strips placed 02/22/2012 Appointment: Marilyn Delaney WPtel: [address] [facility] Other 02/22/2012 Patient Education: Patient Medication [...] lesion. The removed specimen was taken to [facility] for pathologic review. 02/08/2012 Appointment: [phone] [facility] [facility] Procedure 02/08/2012 Patient Education: Patient Medication Summary Completed 02/08/2012 Visit Plan: Wound Instructions - Pt was instruced to keep the wound clean, wash with antibacterial soap, use triple antibiotic ointment, call if redness, pustular drainage, or any other acute conerns. 11/30/2011 Appointment: Marilyn Delaney WPtel: [facility] Surgical Procedure 11/30/2011 Patient Education: Patient Medication Summary Completed 11/30/2011 Appointment: Marilyn Delaney WPtel: [facility] Lab Draw 11/18/2011 Patient Education: Patient [...] for pain. 10/13/2011 Appointment: Marilyn Delaney WPtel: [facility] Other 10/13/2011 Patient Education: Patient Medication [...] medication to be stopeed. 10/04/2011 Appointment: Marilyn Delaneytel: [phone] [facility] Other 10/04/2011 Patient Education: Patient Medication [...] as needed. 05/12/2011 Appointment: Marilyn Delaney WPtel: [facility] [place] Other 05/12/2011 Patient Education: Patient Medication Summary Completed 05/12/2011 Patient Education: High Blood Pressure: Essential Hypertension Completed 2010 Appointment: Marilyn Delaney WPtel: [facility] Other 03/30/2011 Visit Plan: Hypertension - well [...] on mouth. 03/17/2011 Appointment: Marilyn Delaney WPtel: [facility] Other 03/17/2011 Patient Education: Patient Medication Summary [...] CLINIC TODAY. 02/26/2011 Appointment: Marilyn Delaney [facility]el[facility] [facility] 02/26/2011 Patient Education: Patient Medication Summary Completed 02/26/2011 Instructions Comment . Hypothyroidism - pt with chronic hypothyroidism, [...] to assure normal liver response to medications. Appointment with Dr. Delaney on 01/27/17 at [...] with any changes, questions or concerns. . Recurrent Urinary tract infection - check [...] based on previous levels of control. . Hypothyroidism - pt with chronic hypothyroidism, [...] symptoms return after stopping the carafate. . UTI - pt with positive urinalysis - culture sent if appropriate. Antibiotic electronically prescribed to pt's pharmacy of choice. Pt to call if symptoms do not improve. . UA positive - Cipro sent to the pharmacy. Will order C&S. . Urinary Tract Infection-discussed natural and expected [...] diarrhea. Patient verbalized understanding of plan. . Migraine headache- toradol and phenergan shot [...] to the patient to use on mouth. check blood pressures a couple of times [...] is to call for acute concerns. . Rash - The patient was instructed to use the ointment as per RX. The patient is to call for any change in symptoms, increase in size of the lesion, increase in pain, worsening redness, warmth, discharge. vitamin 2000 units (two pills daily) . [...] no treatment needed for lesions . . sutures removed, steri strips placed . Hyperlipidemia - pt has been counseled [...] in blood pressure readings at home. . Hypertension - well controlled - continue [...] pustular drainage, or any other acute conerns. . Hypertension - well controlled - continue [...] to assure normal liver response to medications. DECREASE PANTOPRAZOLE TO THREE DAYS A WEEK [...] - start on nystatin swish and swallow . Wound Instructions - Pt was instruced [...] lesion. The removed specimen was taken to [facility] for pathologic review. take carafate 1gram pill dissolved in 2 [...] YOU A SAMPLE OF THIS . Abdominal upyi-kaugbgoqh-thcayfm kidney stone-patient sent to the hospital for labs and KUB-RX for cipro sent to patient's pharmacy and instructed on use. Sample of probiotics provided and instructed patient to take while on the antibiotic. Instructed patient to call or go to ER if symptoms do not resolve or if any worse. Patient verbalized understanding of plan. Take a probiotic Websense, Club Venit, or generic are all fine - take [...]
--- OUTSIDE RECORDS SUMMARY | 2017-10-10 18:38 | XMS REPORT | Continuity of Care Document ---
Author Author [facility] Organization [facility] Address Unknown Phone Unavailable Allergies Active Description Code Type Severity Reaction Onset Reported/Identified Relationship to Patient Clinical Status Yes No Known Drug Allergies [id number] Drug Allergy Unknown N/A 02/26/2011 Medications There is no data. Problems Date Dx Coded Attending Type Code Diagnosis Diagnosed By 06/02/2009 Ot 681.10 03/01/2011 Ot 272.4 03/01/2011 Ot 401.9 03/01/2011 Ot 434.91 03/01/2011 Ot 482.9 03/01/2011 Ot 780.4 03/01/2011 Ot V15.88 01/01/2014 LOBO HERNANDEZ MD D Ot 813.42 01/01/2014 DAVID CRAIG, LOBO D Ot 873.42 01/01/2014 DAVID CRAIG, LOBO D Ot 913.0 01/01/2014 DAVID CRAIG, LOBO D Ot 916.0 01/01/2014 DAVID CRAIG, LOBO Chaudhry Ot 959.3 01/01/2014 LOBO HERNANDEZ MD D Ot E000.8 01/01/2014 LOBO HERNANDEZ MD D Ot E013.9 01/01/2014 LOBO HERNANDEZ MD D Ot E849.0 01/01/2014 DAVID CRAIG, LOBO D Ot E885.9 01/07/2014 LOBO HERNANDEZ MD D Ot V58.32 10/08/2014 Ot 244.9 10/08/2014 Ot 401.9 10/08/2014 Ot V58.69 10/08/2014 Ot V82.81 10/08/2014 Ot 610.0 10/08/2014 Ot 610.2 10/08/2014 Ot 793.81 10/08/2014 Ot V10.3 10/08/2014 Ot 793.80 10/08/2014 Ot 786.52 10/08/2014 Ot 959.11 10/08/2014 Ot E000.8 10/08/2014 Ot E819.9 10/08/2014 Ot 793.89 10/08/2014 Ot V10.3 10/08/2014 Ot V76.11 11/14/[address] [facility] Ot 599.70 11/14/[address] [facility] Ot 789.00 11/18/[address] [facility] Ot 599.70 11/18/[address] [facility] Ot 789.00 03/10/2015 Ot 244.9 03/10/2015 Ot 401.9 03/10/2015 Ot V58.69 03/10/2015 Ot V82.81 03/10/2015 Ot 610.0 03/10/2015 Ot 610.2 03/10/2015 Ot 793.81 03/10/2015 Ot V10.3 03/10/2015 Ot 793.80 03/10/2015 Ot 786.52 03/10/2015 Ot 959.11 03/10/2015 Ot E000.8 03/10/2015 Ot E819.9 03/10/2015 Ot 793.89 03/10/2015 Ot V10.3 03/10/2015 Ot V76.11 03/10/[address] [facility] Ot 599.70 03/10/[address] [facility] Ot 789.00 04/02/2015 TROY CRAIG, BECKY Ot Z12.31 04/02/2015 TROY CRAIG, BECKY Cloud Z85.3 05/22/2015 FRANCHESKA ZAMARRIPA [employer]APPER Ot N39.0 URINARY TRACT INFECTION, SITE NOT SPECIF 05/22/2015 FRANCHESKA ZAMARRIPA [employer]ER [employer] STRAPPER Ot R51 HEADACHE 05/22/2015 HOWARD KARLA Wilman [employer] Ot 599.70 05/22/[address] [facility] Ot 789.00 05/22/2015 TROY CRAIG, BECKY Ot Z12.31 05/22/2015 TROY CRAIG, BECKY Ot Z85.3 03/05/2016 KRYSTAL GIVENS APRN Ot Z12.31 ENCNTR SCREEN MAMMOGRAM FOR MALIGNANT NE 03/05/2016 KRYSTAL GIVENS [employer]PER Ot Z12.31 ENCNTR SCREEN MAMMOGRAM FOR MALIGNANT NE 03/17/2016 KRYSTAL GIVENS [employer]PER Ot Z12.31 ENCNTR SCREEN MAMMOGRAM FOR MALIGNANT NE 05/03/2016 KRYSTAL GIVENS [employer]APPER Ot D64.9 ANEMIA, UNSPECIFIED 05/03/2016 KRYSTAL GIVENS [employer]PER Ot D72.819 DECREASED WHITE BLOOD CELL COUNT, UNSPEC 06/01/2016 KRYSTAL GIVENS [employer]PER Ot D64.9 ANEMIA, UNSPECIFIED 06/01/2016 KRYSTAL GIVENS [employer]APPER Ot D72.819 DECREASED WHITE BLOOD CELL COUNT, UNSPEC 01/17/2017 KRYSTAL GIVENS [employer] STRAPPER Ot E86.0 DEHYDRATION 01/17/2017 KRYSTAL GIVENS [employer] STRAPPER Ot R10.11 RIGHT UPPER QUADRANT PAIN 01/19/2017 KRYSTAL GIVENS P[employer]ER [employer] STRAPPER Ot R10.11 RIGHT UPPER QUADRANT PAIN 01/26/2017 KRYSTAL GIVENS P[employer]ER [employer] STRAPPER Ot R10.11 RIGHT UPPER QUADRANT PAIN 02/11/2017 KRYSTAL GIVENS P[employer]ER [employer] STRAPPER Ot R10.11 RIGHT UPPER QUADRANT PAIN 03/04/2017 KRYSTAL GIVENS P[employer]ER [employer] STRAPPER Ot R10.11 RIGHT UPPER QUADRANT PAIN 04/04/2017 KRYSTAL GIVENS P[employer]ER [employer] STRAPPER Ot Z12.31 ENCNTR SCREEN MAMMOGRAM FOR MALIGNANT NE 09/29/2017 KARLA LAWRENCE [employer] MARK[employer] SPECIALIST Ot 599.70 HEMATURIA, UNSPECIFIED 09/29/2017 KARLA LAWRENCE [employer] MARK[employer] SPECIALIST Ot 789.00 ABDOMINAL PAIN, UNSPECIFIED SITE 09/29/2017 TROY CRAIG, BECKY Ot Z12.31 ENCNTR SCREEN MAMMOGRAM FOR MALIGNANT NE 09/29/2017 TROY CRAIG, BECKY Ot Z85.3 PERSONAL HISTORY OF MALIGNANT NEOPLASM O 09/29/2017 KRYSTAL GIVENS [employer]APPER Ot Z12.31 ENCNTR SCREEN MAMMOGRAM FOR MALIGNANT NE 09/29/2017 KRYSTAL GIVENS [employer]APPER Ot D64.9 ANEMIA, UNSPECIFIED 09/29/2017 KRYSTAL GIVENS [employer] STRAPPER Ot D72.819 DECREASED WHITE BLOOD CELL COUNT, UNSPEC 09/29/2017 KRYSTAL GIVENS [employer] STRAPPER Ot R10.11 RIGHT UPPER QUADRANT PAIN 09/29/2017 KRYSTAL GIVENS P[employer] STRAPPER Ot Z12.31 ENCNTR SCREEN MAMMOGRAM FOR MALIGNANT NE 10/03/2017 KRYSTAL GIVENS P[employer]APPER Ot D64.9 ANEMIA, UNSPECIFIED 10/03/2017 KRYSTAL GIVENS APRN Ot E86.0 DEHYDRATION 10/03/2017 KRYSTAL GIVENS APRN Ot N39.0 URINARY TRACT INFECTION, SITE NOT SPECIF 10/06/2017 SOLO CRAIG, ERNA Stovall Ot D50.9 IRON DEFICIENCY ANEMIA, UNSPECIFIED 10/06/2017 SOLO CRAIG, ERNA Stovall Ot K92.2 GASTROINTESTINAL HEMORRHAGE, UNSPECIFIED 10/06/2017 SOLO CRAIG, ERNA Stovall Ot Z01.818 ENCOUNTER FOR OTHER PREPROCEDURAL EXAMIN Procedures There is no data. Results Test Result Range Blood CBC with ordered manual differential panel - 05/02/16 15:50 Blood leukocytes automated count (number/volume) 5.2 10*3/uL 4.3-11.0 Blood erythrocytes automated count (number/volume) 4.13 10*6/uL 4.35-5.85 Venous blood hemoglobin measurement (mass/volume) 12.4 g/dL 11.5-16.0 Blood hematocrit (volume fraction) 39 % 35-52 Automated erythrocyte mean corpuscular volume 94 [foz_us] 80-99 Automated erythrocyte mean corpuscular hemoglobin (mass per erythrocyte) 30 pg 25-34 Automated erythrocyte mean corpuscular hemoglobin concentration measurement ( mass/volume) 32 g/dL 32-36 Automated erythrocyte distribution width ratio 15.9 % 10.0-14.5 Automated blood platelet count (count/volume) 243 10*3/uL 130-400 Automated blood platelet mean volume measurement 9.9 [foz_us] 7.4-10.4 Automated blood neutrophils/100 leukocytes 64 % 42-75 Automated blood lymphocytes/100 leukocytes 23 % 12-44 Blood monocytes/100 leukocytes 5 % NRG Automated blood eosinophils/100 leukocytes 2 % 0-10 Automated blood basophils/100 leukocytes 2 % 0-10 Blood neutrophils automated count (number/volume) 3.4 10*3 1.8-7.8 Blood lymphocytes automated count (number/volume) 1.2 10*3 1.0-4.0 Blood monocytes automated count (number/volume) 0.5 10*3 0.0-1.0 Automated eosinophil count 0.1 10*3/uL 0.0-0.3 Automated blood basophil count (count/volume) 0.1 10*3/uL 0.0-0.1 Manual blood segmented neutrophils/100 leukocytes 60 % NRG Blood band neutrophils/100 leukocytes 1 % NRG Manual blood lymphocytes/100 leukocytes 26 % NRG Manual eosinophils/100 leukocytes in nose 1 % NRG Manual blood basophils/100 leukocytes 3 % NRG Blood lymphocytes variant/100 leukocytes 4 % NRG Blood anisocytosis detection by light microscopy SLIGHT NRG Blood ovalocytes detection by light microscopy MODERATE NRG Blood toxic granules detection by light microscopy 2+ NRG Blood poikilocytosis detection by light microscopy MODERATE NRG Blood rouleaux detection by light microscopy SLIGHT NRG Acanthocyte detection SLIGHT NRG Automated reticulocyte percentage - 05/02/16 15:50 Blood reticulocytes count (number/volume) 70 10*9/L 24- 90 Blood reticulocytes/100 erythrocytes 1.69 % 0.50-2.40 Comprehensive metabolic panel - 01/17/17 17:05 Serum or plasma sodium measurement (moles/volume) 140 mmol/L 135-145 Serum or plasma potassium measurement (moles/volume) 4.2 mmol/L 3.6-5.0 Serum or plasma chloride measurement (moles/volume) 106 mmol/L 98-107 Carbon dioxide 23 mmol/L 21-32 Serum or plasma anion gap determination (moles/volume) 11 mmol/L 5-14 Serum or plasma urea nitrogen measurement (mass/volume) 17 mg/dL 7-18 Serum or plasma creatinine measurement (mass/volume) 1.24 mg/dL 0.60-1.30 Serum or plasma urea nitrogen/creatinine mass ratio 14 NRG Serum or plasma creatinine measurement with calculation of estimated glomerular filtration rate 41 NRG Serum or plasma glucose measurement (mass/volume) 100 mg/dL 70-105 Serum or plasma calcium measurement (mass/volume) 10.3 mg/dL 8.5-10.1 Serum or plasma total bilirubin measurement (mass/volume) 0.8 mg/dL 0.1-1.0 Serum or plasma alkaline phosphatase measurement (enzymatic activity/volume) 114 U/L 40-136 Serum or plasma aspartate aminotransferase measurement (enzymatic activity/ volume) 17 U/L 5-34 Serum or plasma alanine aminotransferase measurement (enzymatic activity/volume ) 10 U/L 0-55 Serum or plasma protein measurement (mass/volume) 5.9 g/dL 6.4-8.2 Serum or plasma albumin measurement (mass/volume) 3.4 g/dL 3.2-4.5 Complete blood count (CBC) with automated white blood cell (WBC) differential - 09/29/17 15:50 Blood leukocytes automated count (number/volume) 3.7 10*3/uL 4.3-11.0 Blood erythrocytes automated count (number/volume) 2.46 10*6/uL 4.35-5.85 Venous blood hemoglobin measurement (mass/volume) 7.5 g/dL 11.5-16.0 Blood hematocrit (volume fraction) 24 % 35-52 Automated erythrocyte mean corpuscular volume 97 [foz_us] 80-99 Automated erythrocyte mean corpuscular hemoglobin (mass per erythrocyte) 30 pg 25-34 Automated erythrocyte mean corpuscular hemoglobin concentration measurement ( mass/volume) 31 g/dL 32-36 Automated erythrocyte distribution width ratio 15.9 % 10.0-14.5 Automated blood platelet count (count/volume) 299 10*3/uL 130-400 Automated blood platelet mean volume measurement 9.1 [foz_us] 7.4-10.4 Automated blood neutrophils/100 leukocytes 65 % 42-75 Automated blood lymphocytes/100 leukocytes 25 % 12-44 Blood monocytes/100 leukocytes 8 % 0-12 Automated blood eosinophils/100 leukocytes 1 % 0-10 Automated blood basophils/100 leukocytes 1 % 0-10 Blood neutrophils automated count (number/volume) 2.4 10*3 1.8-7.8 Blood lymphocytes automated count (number/volume) 0.9 10*3 1.0-4.0 Blood monocytes automated count (number/volume) 0.3 10*3 0.0-1.0 Automated eosinophil count 0.1 10*3/uL 0.0-0.3 Automated blood basophil count (count/volume) 0.1 10*3/uL 0.0-0.1 Comprehensive metabolic panel - 09/29/17 15:50 Serum or plasma sodium measurement (moles/volume) 140 mmol/L 135-145 Serum or plasma potassium measurement (moles/volume) 4.2 mmol/L 3.6-5.0 Serum or plasma chloride measurement (moles/volume) 109 mmol/L 98-107 Carbon dioxide 26 mmol/L 21-32 Serum or plasma anion gap determination (moles/volume) 5 mmol/L 5-14 Serum or plasma urea nitrogen measurement (mass/volume) 17 mg/dL 7-18 Serum or plasma creatinine measurement (mass/volume) 1.15 mg/dL 0.60-1.30 Serum or plasma urea nitrogen/creatinine mass ratio 15 NRG Serum or plasma creatinine measurement with calculation of estimated glomerular filtration rate 45 NRG Serum or plasma glucose measurement (mass/volume) 98 mg/dL 70-105 Serum or plasma calcium measurement (mass/volume) 10.1 mg/dL 8.5-10.1 Serum or plasma total bilirubin measurement (mass/volume) 0.4 mg/dL 0.1-1.0 Serum or plasma alkaline phosphatase measurement (enzymatic activity/volume) 68 U/L 40-136 Serum or plasma aspartate aminotransferase measurement (enzymatic activity/ volume) 11 U/L 5-34 Serum or plasma alanine aminotransferase measurement (enzymatic activity/volume ) 7 U/L 0-55 Serum or plasma protein measurement (mass/volume) 5.3 g/dL 6.4-8.2 Serum or plasma albumin measurement (mass/volume) 3.4 g/dL 3.2-4.5 RED CELLS LEUKO REDUCED AS1 - 09/29/17 15:50 RED CELLS LEUKO REDUCED AS1 TRANSFUSED 09/29/17 2145 NR Blood type T Indirect antibody screen panel - 09/29/17 15:50 ABO+Rh group AP NRG Transfusion band number [id number] NRG Blood group antibody screen NEGATIVE NRG Whole blood hemoglobin and hematocrit panel - 09/30/17 01:20 Venous blood hemoglobin measurement (mass/volume) 9.7 g/dL 11.5-16.0 Blood hematocrit (volume fraction) 30 % 35-52 Encounters ACCT No. Visit Date/Time Discharge Status Pt. Type Provider Facility Loc./Unit Complaint [id number] 10/04/2017 05:53:00 10/04/2017 15:01:00 DIS Outpatient ERNA BANDA MD [facility] PREOP COLONOSCOPY/EGD [id number] 09/29/2017 15:42:00 09/29/2017 23:59:59 CLS Outpatient KRYSTAL GIVENS APRN [facility] UTI,DEHYDRATION [id number] 03/11/2017 12:50:00 03/11/2017 23:59:59 CLS Outpatient KRYSTAL GIVENS APRN [facility] RAD SCREENING [id number] 01/18/2017 09:53:00 01/18/2017 23:59:59 CLS Outpatient KRYSTAL GIVENS APRN [facility] RAD RUQ PAIN [id number] 01/17/2017 16:22:00 01/17/2017 19:40:00 DIS Outpatient KRYSTAL GIVENS [employer] [facility] SDC DEHYDRATION,R UPPER QUAD PAIN [id number] 05/02/2016 15:38:00 05/02/2016 23:59:59 CLS Outpatient CHON KRYSTAL M [employer] [facility] LAB DECREASED WBC COUNT, ANEMIA [id number] 03/05/2016 09:12:00 03/05/2016 23:59:59 CLS Outpatient KRYSTAL GIVENS [employer] [facility] RAD SCREENING [id number] 05/22/2015 20:51:00 05/22/2015 23:43:00 DIS Emergency FRANCHESKA ZAMARRIPA APRN [facility] ER HEADACHE [id number] 03/10/2015 09:30:00 03/10/2015 23:59:59 CLS Outpatient BECKY SIMMONS MD [facility] RAD SCREENING [id number] 10/08/2014 12:29:00 10/08/2014 23:59:59 CLS Outpatient KARLA LAWRENCE [facility] RAD HEMATURIA,ABD PAIN [id number] 01/07/2014 17:19:00 01/07/2014 17:45:00 DIS Emergency LOBO HERNANDEZ MD [facility] ER [id number] 01/01/2014 22:17:00 01/01/2014 23:31:00 DIS Emergency LOBO HERNANDEZ MD [facility] ER [id number] 10/10/2017 09:00:00 ERNA Gonzalez MD [facility] ENDO IRON DEF ANEMIA/BLACK TARRY STOOL/GI BLOOD LOSS [id number] 10/08/2014 12:27:00 Document Registration [id number] 10/08/2014 12:27:00 Document Registration [id number] 01/10/2012 10:07:00 Document Registration [id number] 10/13/2011 12:15:00 Document Registration [id number] 02/26/2011 12:04:00 Document Registration [id number] 01/11/2011 12:59:00 Document Registration [id number] 01/06/2011 13:30:00 Document Registration [id number] 07/16/2010 08:48:00 Document Registration [id number] 05/18/2009 09:00:00 Document Registration [id number] 10/08/2014 12:32:14 ACT Document Registration [id number] 03/04/2017 23:30:46 03/04/2017 23:59:59 [facility] Outpatient
== END 2017-10-10 14:25 | disposition home or self-care (01) ==
LOC: ENDO 09:36
PROVIDERS: ATTEND Surgery
DX: D12.5 Benign neoplasm of sigmoid colon (principal); K57.30 Diverticulosis of large intestine without perforation or abscess without bleeding; D50.9 Iron deficiency anemia, unspecified; Z83.71 Family history of colonic polyps
CPT/HCPCS: 88305

== ENCOUNTER → 2017-10-11 | Outpatient (CLI) | payer MEDICARE ==
[~2017-10-11] MED LIST changes: +HYDR-3870 PO; +IOHEXOL 350 MG/ML 100 ML (OMNIPAQUE 350) VIAL IV ONE; +NITR-68 PO; +NS 250 ML (IVPB) BAG IV ONE; +PHEN-640 PO; +TAMS0.4C98 PO
--- NOTE | 2017-10-11 13:08 | Diagnostic Imaging Report ---
PROCEDURE: CT abdomen and pelvis with and without contrast. TECHNIQUE: Precontrast acquisitions were acquired through the abdomen and pelvis. Multiple contiguous axial images were obtained through the abdomen and pelvis after the administration of intravenous contrast. INDICATION: Status post upper and lower endoscopy. Patient complains of left lower quadrant pain. COMPARISON: No prior studies are available for comparison. FINDINGS: The lung bases are clear apart from minimal scarring or atelectasis in the left lower lobe. There are two tiny areas of arterial hyperenhancement in the dome of the liver each measuring 4-5 mm in size, nonspecific. No other liver lesions are seen. The gallbladder is unremarkable. The pancreas and spleen are unremarkable. No adrenal mass is detected. The left kidney is unremarkable. The right kidney does show moderate hydronephrosis. This is caused by a 9 mm calculus in the proximal right ureter near the UPJ. No other ureteral calculi are detected. The aorta is calcified but non-aneurysmal. Small and large bowel loops are normal in caliber. No obstruction is seen. There is no ascites. The bladder is unremarkable. Uterus appears to be absent or atrophic. No abdominal or pelvic lymphadenopathy is seen. There is no free air identified. No retroperitoneal or intraperitoneal hemorrhage is detected. IMPRESSION: 1. 9 mm proximal right ureteric calculus producing moderate hydronephrosis. 2. No other significant abnormality in the abdomen or pelvis is identified. No free air or evidence of intraperitoneal or retroperitoneal hemorrhage is detected. Dictated by: Dictated on workstation # [id number]
== END ==
LOC: RAD 11:34
PROVIDERS: ATTEND Surgery
DX: N13.2 Hydronephrosis with renal and ureteral calculous obstruction (principal)
CPT/HCPCS: 74178

== ENCOUNTER 2017-10-14 12:49 | Outpatient (CLI) | payer MEDICARE ==
[~2017-10-14] VITALS: Ht 157.5 cm; Wt 68.5 kg
[~2017-10-14 12:49] MED LIST changes: -HYDR-3870 PO; -IOHEXOL 350 MG/ML 100 ML (OMNIPAQUE 350) VIAL IV ONE; -NITR-68 PO; -NS 250 ML (IVPB) BAG IV ONE; -PHEN-640 PO; -TAMS0.4C98 PO
== END 2017-10-14 14:12 ==
LOC: PREOP 12:49
PROVIDERS: ATTEND Urology
DX: Z01.818 Encounter for other preprocedural examination (principal); N20.1 Calculus of ureter

== ENCOUNTER 2017-10-18 06:40 | Day surgery (SDC) | payer MEDICARE ==
[~2017-10-18] VITALS: Ht 157.5 cm; Wt 68.5 kg
[2017-10-18] MEDS ORDERED: cefTRIAXone 1 GM (ROCEPHIN) VIAL ONE (07:02)
[2017-10-18] MEDS ORDERED: NS (IVPB) 50 ML ONE (07:02)
[2017-10-18] MEDS ORDERED: LACTATED RINGERS 1,000 ML IV PRN (07:04)
[2017-10-18 07:15] VITALS: BP 162/67
[2017-10-18] MEDS ORDERED: DEXAMETHASONE 10 MG/ML (DECADRON) 1 ML VIAL ONE (07:15)
[2017-10-18] MEDS ORDERED: proPOfol 200 MG/20 ML (DIPRIVAN) VIAL IV ONE (07:15)
[2017-10-18] MEDS ORDERED: cefTRIAXone INJECTION 1,000 MG in NS (IVPB) 50 ML IV ONE (07:15)
[2017-10-18] MEDS ORDERED: ROCURONIUM 10 MG/ML 5 ML SYRINGE IV ONE (07:15)
[2017-10-18] MEDS ORDERED: ONDANSETRON 4 MG/2 ML (SDV) Z0FRAN ONE (07:15)
[2017-10-18] MEDS ORDERED: NEOSTIGMINE 1 MG/ML 5 ML SYRINGE ONE (07:15)
[2017-10-18] MEDS ORDERED: LIDOCAINE PF 2% 5 ML (XYLOCAINE) VIAL ONE (07:15)
[2017-10-18] MEDS ORDERED: GLYCOPYRROLATE 0.2 MG/ML (ROBINUL) 2 ML VIAL ONE (07:15)
[2017-10-18] MEDS ORDERED: SEVOFLURANE (ULTANE) 15 ML INHAL SOLN ONE (07:15)
[2017-10-18] MEDS ORDERED: fentaNYL INJECTION 100 MCG/2 ML AMP ONE (07:16)
--- NOTE | 2017-10-18 07:32 | Diagnostic Imaging Report ---
INDICATION: Preoperative evaluation. Right ureteral stent. COMPARISON: 10/08/2014 FINDINGS: Two frontal supine views of the abdomen were obtained. There is contrast in the colon from recent CT scan. Bowel gas pattern is unremarkable. There is a 15 mm calcification in the mid right abdomen possibly within the mid right ureter, seen at the level of the transverse process on the right at L3. No additional urinary tract calcifications are suspected, however, the kidneys are largely obscured by overlying colonic contents. Multiple small round calcifications in pelvis are likely phleboliths. There are mild degenerative changes in the spine. IMPRESSION: A 15 mm calcification in the right abdomen possibly within the right ureter. No additional acute abnormality is suspected. Dictated by: Dictated on workstation # [id number]
--- NOTE | 2017-10-18 08:17 | Progress Note-Pre Operative ---
Pre-Operative Progress Note H&P Reviewed The H&P was reviewed, patient examined and no changes noted. Date Seen by Provider: October 18, 2017 Time Seen by Provider: 08:16 Date H&P Reviewed: October 18, 2017 Time H&P Reviewed: 08:16 Pre-Operative Diagnosis: RT PROXIMAL URETERAL STONE RYAN GARCIA MD October 18, 2017 8:17 am
--- NOTE | 2017-10-18 08:18 | Progress Note-Post Operative ---
Post-Operative Progess Note Surgeon (s)/Personal Clothing Laundry Aide (s) Surgeon RYAN GARCIA MD Personal Clothing Laundry Aide: N/A Pre-Operative Diagnosis RT PROXIMAL URETERAL STONE Post-Operative Diagnosis SAME Procedure & Operative Findings Date of Procedure 10/18/17 Procedure Performed/Findings CYSTOSCOPY, RT URETERAL STONE MANIPULATION AND INSERTION OF RT STENT Anesthesia Type GENERAL Estimated Blood Loss Estimated blood loss (mL): N/A Specimens/Packing Specimens Removed N/A Packing: N/A RYAN GARCIA MD October 18, 2017 8:18 am
--- NOTE | 2017-10-18 08:22 | Discharge Inst-Urology ---
Discharge Inst-Urology Discharge Medications New, Converted, or Re-newed RX: RX on Chart Patient Instructions/Follow Up Plan Please make appointment to been seen in office Tuesday 10/31, KUB prior to it KUB on way home today May resume ASA and Plavix tomorrow, but hold them from Wednesday 10/25 Increase oral fluids for 48 hours and then as needed. Diet and Activity as tolerated. If questions or concerns contact your physician Or seek help at emergency department. RYAN GARCIA MD October 18, 2017 8:22 am
[2017-10-18 09:40] VITALS: BP 129/60
[2017-10-18] MEDS ORDERED: ONDANSETRON 4 MG/2 ML (SDV) Z0FRAN IVP PRN (09:45)
[2017-10-18] MEDS ORDERED: morphine INJ 10 MG/ML 1ML (SYR OR VIAL) IVP PRN (09:45)
[2017-10-18] MEDS ORDERED: HYDR-3870 PO (09:51)
[2017-10-18] MEDS ORDERED: TAMS0.4C98 PO (09:51)
[2017-10-18] MEDS ORDERED: PHEN-640 PO (09:51)
[2017-10-18] MEDS ORDERED: NITR-68 PO (09:51)
[2017-10-18 10:10] VITALS: BP 136/63
[2017-10-18 10:25] VITALS: BP 136/63
--- NOTE | 2017-10-18 11:36 | Anesthesia-General Post-Op ---
General Patient Condition Mental Status/LOC: Same as Preop Cardiovascular: Satisfactory Nausea/Vomiting: Absent Respiratory: Satisfactory Pain: Controlled Complications: Absent Post Op Complications Complications None Follow Up Care/Instructions Patient Instructions None needed. Anesthesia/Patient Condition Patient Condition Patient is doing well, no complaints, stable vital signs, no apparent adverse anesthesia problems. No complications reported per nursing. ALEXIA CHEN CRNA October 18, 2017 11:36
--- NOTE | 2017-10-18 14:07 | Diagnostic Imaging Report ---
INDICATION: Ureteral stent placement. KUB at 10:35 AM FINDINGS: Right-sided double-J ureteral stent is in position. There is some opaque material in the colon. There are some distended small bowel loops. IMPRESSION: Right-sided double-J ureteral stent appears to be in satisfactory position. Dictated by: Dictated on workstation # [id number]
--- NOTE | 2017-10-18 14:16 | Diagnostic Imaging Report ---
INDICATION: Fluoroscopy for ureteral stent placement. FINDINGS: Fluoroscopy was provided in the OR during a double J stent placement on the right. A total of 65 seconds of fluoroscopy was utilized. Images demonstrate a right-sided double-J nephroureteral stent. IMPRESSION: Fluoroscopy for right ureteral stent placement. Dictated by: Dictated on workstation # [id number]
--- NOTE | 2017-10-18 14:30 | OPERATIVE REPORT ---
DATE OF SERVICE: 10/18/2017 PREOPERATIVE DIAGNOSIS: Right proximal ureteral stone. POSTOPERATIVE DIAGNOSIS: Right proximal ureteral stone. OPERATION PERFORMED: Cystoscopy with right ureteral stone manipulation and insertion of right stent. SURGEON: Iain Garcia MD ANESTHESIA: General. COMPLICATIONS: None. DESCRIPTION OF PROCEDURE: Under satisfactory general anesthesia, the patient in lithotomy position, genitalia were prepped and draped in the usual sterile fashion. Cystoscopy was performed and it was essentially negative except for a very sluggish right ureteral efflux. Using the foroblique lens, I passed a 6-Colombian 26 cm double-J stent all the way up to the stone. With some manipulation, I was able to push the stone back into the kidney and then passed the stent all the way to the kidney. I removed the guidewire and the stent was seen draining nicely proximally fluoroscopically and distally endoscopically. The bladder was evacuated and the cystoscope was removed. The patient tolerated the procedure and anesthesia well and was sent to recovery room in stable condition. Job ID: [id number] DocumentID: [id number] Dictated Date: 10/18/2017 08:46:10 [place] Date: 10/18/2017 14:02:07 Dictated By: IAIN GARCIA MD
== END 2017-10-18 10:40 | disposition home or self-care (01) ==
LOC: SDC 06:40
PROVIDERS: ATTEND Urology
DX: N20.1 Calculus of ureter (principal); Z11.2 Encounter for screening for other bacterial diseases; I10 Essential (primary) hypertension; E03.9 Hypothyroidism, unspecified; K21.9 Gastro-esophageal reflux disease without esophagitis; E78.00 Pure hypercholesterolemia, unspecified; D50.9 Iron deficiency anemia, unspecified; E55.9 Vitamin D deficiency, unspecified; Z79.899 Other long term (current) drug therapy; Z79.82 Long term (current) use of aspirin; Z86.73 Personal history of transient ischemic attack (TIA), and cerebral infarction without residual deficits
CPT/HCPCS: 74018; 87081

== ENCOUNTER 2017-10-31 09:26 | Outpatient (CLI) | payer MEDICARE ==
[~2017-10-31] VITALS: Ht 157.5 cm; Wt 68.5 kg
[2017-11-01] MEDS ORDERED: NITR-68 PO (08:19)
[2017-11-01] MEDS ORDERED: TAMS0.4C98 PO (08:19)
[2017-11-01] MEDS ORDERED: HYDR-3870 PO (08:19)
== END 2017-10-31 16:09 ==
LOC: PREOP 09:26
PROVIDERS: ATTEND Urology
DX: Z01.818 Encounter for other preprocedural examination (principal); N20.0 Calculus of kidney

== ENCOUNTER → 2017-10-31 | Outpatient (CLI) | payer MEDICARE ==
[~2017-10-31] MED LIST changes: +HYDR-3870 PO; +NITR-68 PO; +PHEN-640 PO; +TAMS0.4C98 PO
--- NOTE | 2017-10-31 13:13 | Diagnostic Imaging Report ---
INDICATION: Check up stent. COMPARISON: 10/18/2017 FINDINGS: AP supine view of the abdomen is obtained. The right internal ureteral double-J stent is unchanged in position. There is an 11 mm triangular-shaped calcification in the right upper quadrant which may represent a known ureteral stone. This is seen at the level but slightly lateral to the proximal J loop of the stent. There is a large amount of stool in the colon. Scattered round calcifications of the pelvis are unchanged compatible with phleboliths. IMPRESSION: The right ureteral stent is unchanged in position. Calcification in the right upper quadrant is also unchanged from the recent prior exam. Dictated by: Dictated on workstation # [id number]
== END ==
LOC: RAD 12:34
PROVIDERS: ATTEND Urology
DX: N20.1 Calculus of ureter (principal); Z95.828 Presence of other vascular implants and grafts
CPT/HCPCS: 74018

== ENCOUNTER 2017-11-01 06:26 | Day surgery (SDC) | payer MEDICARE ==
[~2017-11-01] VITALS: Ht 157.5 cm; Wt 68.5 kg
[2017-11-01] MEDS ORDERED: cefTRIAXone 1 GM (ROCEPHIN) VIAL ONE (06:47)
[2017-11-01] MEDS ORDERED: NS (IVPB) 50 ML ONE (06:47)
--- OUTSIDE RECORDS SUMMARY | 2017-11-01 06:51 | XMS REPORT | Continuity of Care Document ---
Author Author [facility] Organization [facility] Address Unknown Phone Unavailable Allergies Active Description Code Type Severity Reaction Onset Reported/Identified Relationship to Patient Clinical Status Yes No Known Drug Allergies [id number] Drug Allergy Unknown N/A 10/10/2017 Medications There is no data. Problems Date [...] LOBO HERNANDEZ MD D Ot E000.8 01/01/2014 DAVID CRAIG, LOBO D Ot E013.9 01/01/2014 LOBO HERNANDEZ MD [...] Ot V10.3 10/08/2014 Ot V76.11 11/14/2014 LAWRENCEKARLA [facility] Ot 599.70 11/14/2014 HOWARD KARLA Stovall [facility] Ot 789.00 11/18/2014 KARLA LAWRENCE Wilman [facility] Ot 599.70 11/18/2014 HOWARD KARLA Stovall [facility] Ot 789.00 03/10/2015 Ot 244.9 03/10/2015 Ot 401.9 03/10/2015 Ot V58.69 03/10/2015 Ot V82.81 03/10/2015 Ot 610.0 03/10/2015 Ot 610.2 03/10/2015 Ot 793.81 03/10/2015 Ot V10.3 03/10/2015 Ot 793.80 03/10/2015 Ot 786.52 03/10/2015 Ot 959.11 03/10/2015 Ot E000.8 03/10/2015 Ot E819.9 03/10/2015 Ot 793.89 03/10/2015 Ot V10.3 03/10/2015 Ot V76.11 03/10/2015 HOWARD KARLA Stovall [facility] Ot 599.70 03/10/2015 HOWARD KARLA Stovall [facility] Ot 789.00 04/02/2015 TROY CRAIG, BECKY Ot Z12.31 04/02/2015 TROY CRAIG, BECKY [facility] Z85.3 05/22/2015 FRANCHESKA ZAMARRIPA R&D LAB TECHNICIAN Ot N39.0 URINARY TRACT INFECTION, SITE NOT SPECIF 05/22/2015 FRANCHESKA ZAMARRIPA R&D LAB TECHNICIAN Ot R51 HEADACHE 05/22/2015 HOWARD KARLA Wilman IT COMMUNICATIONS SPECIALIST Ot 599.70 05/22/2015 KARLA LAWRENCE [facility] Ot 789.00 05/22/2015 TROY CRAIG, BECKY Ot Z12.31 05/22/2015 TROY CRAIG, BECKY Ot Z85.3 03/05/2016 KRYSTAL GIVENS APRN Ot Z12.31 ENCNTR SCREEN MAMMOGRAM FOR MALIGNANT NE 03/05/2016 KRYSTAL GIVENS R&D LAB TECHNICIAN Ot Z12.31 ENCNTR SCREEN MAMMOGRAM FOR MALIGNANT NE 03/17/2016 KRYSTAL GIVENS R&D LAB TECHNICIAN Ot Z12.31 ENCNTR SCREEN MAMMOGRAM FOR MALIGNANT NE 05/03/2016 KRYSTAL GIVENS R&D LAB TECHNICIAN Ot D64.9 ANEMIA, UNSPECIFIED 05/03/2016 KRYSTAL GIVENS R&D LAB TECHNICIAN Ot D72.819 DECREASED WHITE BLOOD CELL COUNT, UNSPEC 06/01/2016 KRYSTAL GIVENS R&D LAB TECHNICIAN Ot D64.9 ANEMIA, UNSPECIFIED 06/01/2016 KRYSTAL GIVENS R&D LAB TECHNICIAN Ot D72.819 DECREASED WHITE BLOOD CELL COUNT, UNSPEC 01/17/2017 KRYSTAL GIVENS R&D LAB TECHNICIAN Ot E86.0 DEHYDRATION 01/17/2017 KRYSTAL GIVENS R&D LAB TECHNICIAN Ot R10.11 RIGHT UPPER QUADRANT PAIN 01/19/2017 KRYSTAL GIVENS R&D LAB TECHNICIAN Ot R10.11 RIGHT UPPER QUADRANT PAIN 01/26/2017 KRYSTAL GIVENS R&D LAB TECHNICIAN Ot R10.11 RIGHT UPPER QUADRANT PAIN 02/11/2017 KRYSTAL GIVENS R&D LAB TECHNICIAN Ot R10.11 RIGHT UPPER QUADRANT PAIN 03/04/2017 KRYSTAL GIVENS R&D LAB TECHNICIAN Ot R10.11 RIGHT UPPER QUADRANT PAIN 04/04/2017 KRYSTAL GIVENS R&D LAB TECHNICIAN Ot Z12.31 ENCNTR SCREEN MAMMOGRAM FOR MALIGNANT NE 09/29/2017 KARLA LAWRENCE IT COMMUNICATIONS SPECIALIST Ot 599.70 HEMATURIA, UNSPECIFIED 09/29/2017 KARLA LAWRENCE IT COMMUNICATIONS SPECIALIST Ot 789.00 ABDOMINAL PAIN, UNSPECIFIED SITE 09/29/2017 TROY CRAIG, BECKY Ot Z12.31 ENCNTR SCREEN MAMMOGRAM FOR MALIGNANT NE 09/29/2017 TROY CRAIG, BECKY Ot Z85.3 PERSONAL HISTORY OF MALIGNANT NEOPLASM O 09/29/2017 KRYSTAL GIVENS R&D LAB TECHNICIAN Ot Z12.31 ENCNTR SCREEN MAMMOGRAM FOR MALIGNANT NE 09/29/2017 KRYSTAL GIVENS R&D LAB TECHNICIAN Ot D64.9 ANEMIA, UNSPECIFIED 09/29/2017 KRYSTAL GIVENS R&D LAB TECHNICIAN Ot D72.819 DECREASED WHITE BLOOD CELL COUNT, UNSPEC 09/29/2017 KRYSTAL GIVENS R&D LAB TECHNICIAN Ot R10.11 RIGHT UPPER QUADRANT PAIN 09/29/2017 KRYSTAL GIVENS R&D LAB TECHNICIAN Ot Z12.31 ENCNTR SCREEN MAMMOGRAM FOR MALIGNANT NE 10/03/2017 KRYSTAL GIVENS R&D LAB TECHNICIAN Ot D64.9 ANEMIA, UNSPECIFIED 10/03/2017 KRYSTAL GIVENS R&D LAB TECHNICIAN Ot E86.0 DEHYDRATION 10/03/2017 KRYSTAL GIVENS R&D LAB TECHNICIAN Ot N39.0 URINARY TRACT INFECTION, SITE NOT SPECIF 10/04/2017 SOLO CRAIG, ERNA Stovall Ot D50.9 IRON DEFICIENCY ANEMIA, UNSPECIFIED 10/04/2017 SOLO CRAIG, ERNA Stovall Ot K92.2 GASTROINTESTINAL HEMORRHAGE, UNSPECIFIED 10/04/2017 SOLO CRAIG, ERNA Stovall Ot Z01.818 ENCOUNTER FOR OTHER PREPROCEDURAL EXAMIN 10/06/2017 SOLO CRAIG, ERNA Stovall Ot D50.9 IRON DEFICIENCY ANEMIA, UNSPECIFIED 10/06/2017 SOLO CRAIG, ERNA Stovall Ot K92.2 GASTROINTESTINAL HEMORRHAGE, UNSPECIFIED 10/06/2017 SOLO CRAIG, ERNA Stovall Ot Z01.818 ENCOUNTER FOR OTHER PREPROCEDURAL EXAMIN 10/10/2017 KARLA LAWRENCE IT COMMUNICATIONS SPECIALIST Ot 599.70 HEMATURIA, UNSPECIFIED 10/10/2017 KARLA LAWRENCE IT COMMUNICATIONS SPECIALIST Ot 789.00 ABDOMINAL PAIN, UNSPECIFIED SITE 10/10/2017 TROY CRAIG, BECKY Ot Z12.31 ENCNTR SCREEN MAMMOGRAM FOR MALIGNANT NE 10/10/2017 TROY CRAIG, BECKY Ot Z85.3 PERSONAL HISTORY OF MALIGNANT NEOPLASM O 10/10/2017 KRYSTAL GIVENS R&D LAB TECHNICIAN Ot Z12.31 ENCNTR SCREEN MAMMOGRAM FOR MALIGNANT NE 10/10/2017 KRYSTAL GIVENS R&D LAB TECHNICIAN Ot D64.9 ANEMIA, UNSPECIFIED 10/10/2017 KRYSTAL GIVENS APRN Ot D72.819 DECREASED WHITE BLOOD CELL COUNT, UNSPEC 10/10/2017 KRYSTAL GIVENS R&D LAB TECHNICIAN Ot R10.11 RIGHT UPPER QUADRANT PAIN 10/10/2017 KRYSTAL GIVENS R&D LAB TECHNICIAN Ot Z12.31 ENCNTR SCREEN MAMMOGRAM FOR MALIGNANT NE 10/10/2017 KRYSTAL GIVENS R&D LAB TECHNICIAN Ot D64.9 ANEMIA, UNSPECIFIED 10/10/2017 KRYSTAL GIVENS R&D LAB TECHNICIAN Ot E86.0 DEHYDRATION 10/10/2017 KRYSTAL GIVENS APRN Ot N39.0 URINARY TRACT INFECTION, SITE NOT SPECIF 10/10/2017 SOLO CRAIG, ERNA Stovall Ot D12.5 BENIGN NEOPLASM OF SIGMOID COLON 10/10/2017 SOLO CRAIG, ERNA Stovall Ot D50.9 IRON DEFICIENCY ANEMIA, UNSPECIFIED 10/10/2017 SOLO CRAIG, ERNA Stovall Ot K57.30 DVRTCLOS OF LG INT W/O PERFORATION OR AB 10/10/2017 ERNA BANDA MD Ot Z83.71 FAMILY HISTORY OF COLONIC POLYPS 10/10/2017 KARLA LAWRENCE IT COMMUNICATIONS SPECIALIST Ot 599.70 HEMATURIA, UNSPECIFIED 10/10/2017 KARLA LAWRENCE IT COMMUNICATIONS SPECIALIST Ot 789.00 ABDOMINAL PAIN, UNSPECIFIED SITE 10/10/2017 TROY CRAIG, BECKY Ot Z12.31 ENCNTR SCREEN MAMMOGRAM FOR MALIGNANT NE 10/10/2017 TROY CRAIG, BECKY Ot Z85.3 PERSONAL HISTORY OF MALIGNANT NEOPLASM O 10/10/2017 KRYSTAL GIVENS R&D LAB TECHNICIAN Ot Z12.31 ENCNTR SCREEN MAMMOGRAM FOR MALIGNANT NE 10/10/2017 KRYSTAL GIVENS R&D LAB TECHNICIAN Ot D64.9 ANEMIA, UNSPECIFIED 10/10/2017 KRYSTAL GIVENS R&D LAB TECHNICIAN Ot D72.819 DECREASED WHITE BLOOD CELL COUNT, UNSPEC 10/10/2017 KRYSTAL GIVENS R&D LAB TECHNICIAN Ot R10.11 RIGHT UPPER QUADRANT PAIN 10/10/2017 KRYSTAL GIVENS R&D LAB TECHNICIAN Ot Z12.31 ENCNTR SCREEN MAMMOGRAM FOR MALIGNANT NE 10/10/2017 KRYSTAL GIVENS R&D LAB TECHNICIAN Ot D64.9 ANEMIA, UNSPECIFIED 10/10/2017 KRYSTAL GIVENS R&D LAB TECHNICIAN Ot E86.0 DEHYDRATION 10/10/2017 KRYSTAL GIVENS R&D LAB TECHNICIAN Ot N39.0 URINARY TRACT INFECTION, SITE NOT SPECIF 10/12/2017 SOLO CRAIG, ERNA Stovall Ot N13.2 HYDRONEPHROSIS WITH RENAL AND URETERAL C 10/12/2017 SOLO CRAIG, ERNA Stovall Ot D12.5 BENIGN NEOPLASM OF SIGMOID COLON 10/12/2017 ERNA BANDA MD Ot D50.9 IRON DEFICIENCY ANEMIA, UNSPECIFIED 10/12/2017 ERNA BANDA MD Ot K57.30 DVRTCLOS OF LG INT W/O PERFORATION OR AB 10/12/2017 ERNA BANDA MD Ot Z83.71 FAMILY HISTORY OF COLONIC POLYPS 10/18/2017 RYAN GARCIA MD Ot D50.9 IRON DEFICIENCY ANEMIA, UNSPECIFIED 10/18/2017 RYAN GARCIA MD Ot E03.9 HYPOTHYROIDISM, UNSPECIFIED 10/18/2017 RYAN GARCIA MD Ot E55.9 VITAMIN D DEFICIENCY, UNSPECIFIED 10/18/2017 RYAN GARCIA MD, Ot E78.00 PURE HYPERCHOLESTEROLEMIA, UNSPECIFIED 10/18/2017 RYAN GARCIA MD Ot I10 ESSENTIAL (PRIMARY) HYPERTENSION 10/18/2017 RYAN GARCIA MD, Ot K21.9 GASTRO-ESOPHAGEAL REFLUX DISEASE WITHOUT 10/18/2017 RYAN GARCIA MD Ot N20.1 CALCULUS OF URETER 10/18/2017 RYAN GARCIA MD, Ot Z11.2 ENCOUNTER FOR SCREENING FOR OTHER BACTER 10/18/2017 RYAN GARCIA MD Ot Z79.82 TOBY MAKER (CURRENT) USE OF ASPIRIN 10/18/2017 RYAN GARCIA MD, Ot Z79.899 OTHER TOBY MAKER (CURRENT) DRUG THERAPY 10/18/2017 RYAN GARCIA MD Ot Z86.73 PRSNL HX OF TIA (TIA), AND CEREB INFRC W 10/19/2017 RYAN GARCIA MD Ot N20.1 CALCULUS OF URETER 10/19/2017 RYAN GARCIA MD, Ot N20.1 CALCULUS OF URETER 10/19/2017 SOLO CRAIG, ERNA Stovall Ot D12.5 BENIGN NEOPLASM OF SIGMOID COLON 10/19/2017 SOLO CRAIG, ERNA Stovall Ot D50.9 IRON DEFICIENCY ANEMIA, UNSPECIFIED 10/19/2017 SOLO CRAIG, ERNA Stovall Ot K57.30 DVRTCLOS OF LG INT W/O PERFORATION OR AB 10/19/2017 SOLO CRAIG, ERNA Stovall Ot Z83.71 FAMILY HISTORY OF COLONIC POLYPS 10/19/2017 RYAN GARCIA MD Ot D50.9 IRON DEFICIENCY ANEMIA, UNSPECIFIED 10/19/2017 RYAN GARCIA MD Ot E03.9 HYPOTHYROIDISM, UNSPECIFIED 10/19/2017 RYAN GARCIA MD Ot E55.9 VITAMIN D DEFICIENCY, UNSPECIFIED 10/19/2017 RYAN GARCIA MD Ot E78.00 PURE HYPERCHOLESTEROLEMIA, UNSPECIFIED 10/19/2017 RYAN GARCIA MD Ot I10 ESSENTIAL (PRIMARY) HYPERTENSION 10/19/2017 RADHA MD, RYAN A Ot K21.9 GASTRO-ESOPHAGEAL REFLUX DISEASE WITHOUT 10/19/2017 RYAN GARCIA MD, Ot N20.1 CALCULUS OF URETER 10/19/2017 RYAN GARCIA MD, Ot Z11.2 ENCOUNTER FOR SCREENING FOR OTHER BACTER 10/19/2017 RYAN GARCIA MD, Ot Z79.82 TOBY MAKER (CURRENT) USE OF ASPIRIN 10/19/2017 RYAN GARCIA MD, Ot Z79.899 OTHER TOBY MAKER (CURRENT) DRUG THERAPY 10/19/2017 RYAN GARCIA MD, Ot Z86.73 PRSNL HX OF TIA (TIA), AND CEREB INFRC W 10/20/2017 KRYSTAL GIVENS APRN Ot D64.9 ANEMIA, UNSPECIFIED 10/20/2017 KRYSTAL GIVENS APRN Ot E86.0 DEHYDRATION 10/20/2017 KRYSTAL GIVENS APRN Ot N39.0 URINARY TRACT INFECTION, SITE NOT SPECIF Procedures There is no data. Results Test [...] RED CELLS LEUKO REDUCED AS1 TRANSFUSED 09/29/17 3686 NR Blood type T Indirect antibody screen panel - 09/29/17 15:50 ABO+Rh group AP NR Transfusion band number [id number] NR Blood group antibody screen NEGATIVE NR Whole blood hemoglobin and hematocrit panel - 09/30/17 01:20 Venous blood hemoglobin measurement (mass/volume) 9.7 g/dL 11.5-16.0 Blood hematocrit (volume fraction) 30 % 35-52 Methicillin resistant Staphylococcus aureus (MRSA) screening culture - 06:50 Methicillin resistant Staphylococcus aureus (MRSA) screening culture NEG NR Encounters ACCT No. Visit Date/Time Discharge Status Pt. Type Provider Facility Loc./Unit Complaint [id number] 10/18/2017 06:40:00 10/18/2017 10:40:00 DIS Outpatient RYAN GARCIA MD [facility] RT URETERAL STONE [id number] 10/14/2017 12:49:00 10/14/2017 14:12:00 DIS Outpatient RYAN GARCIA MD [facility] PREOP RT URETERAL STONE [id number] 10/11/2017 11:34:00 10/11/2017 23:59:59 CLS Outpatient ERNA BANDA MD [facility] RAD LLQ PAIN [id number] 10/10/2017 09:36:00 10/10/2017 14:25:00 DIS Outpatient ERNA BANDA MD [facility] ENDO IRON DEF ANEMIA/ BLACK TARRY STOOL/GI BLOOD LOSS [id number] 10/04/2017 05:53:00 10/04/2017 15:01:00 DIS Outpatient ERNA BANDA MD [facility] PREOP COLONOSCOPY/EGD [id number] 09/29/2017 15:42:00 09/29/2017 23:59:59 CLS Outpatient KRYSTAL GIVENS APRN [facility] UTI,DEHYDRATION [id number] 03/11/2017 12:50:00 03/11/2017 23:59:59 CLS Outpatient KRYSTAL GIVENS APRN [facility] RAD SCREENING [id number] 01/18/2017 09:53:00 01/18/2017 23:59:59 CLS Outpatient KRYSTAL GIVENS APRN [facility] RAD RUQ PAIN [id number] 01/17/2017 16:22:00 01/17/2017 19:40:00 DIS Outpatient KRYSTAL GIVENS APRN [facility] DEHYDRATION,R UPPER QUAD PAIN [id number] 05/02/2016 15:38:00 05/02/2016 23:59:59 CLS Outpatient KRYSTAL GIVENS APRN [facility] LAB DECREASED WBC COUNT, ANEMIA [id number] 03/05/2016 09:12:00 03/05/2016 23:59:59 CLS Outpatient KRYSTAL GIVENS APRN [facility] RAD SCREENING [id number] 05/22/2015 20:51:00 05/22/2015 23:43:00 DIS Emergency ZAMARRIPAFRANCHESKA R&D LAB TECHNICIAN [facility] ER HEADACHE [id number] 03/10/2015 09:30:00 03/10/2015 23:59:59 CLS Outpatient BECKY SIMMONS MD [facility] RAD SCREENING [id number] 10/08/2014 12:29:00 10/08/2014 23:59:59 CLS Outpatient KARLA LAWRENCE [facility] RAD HEMATURIA,ABD PAIN [id number] 01/07/2014 17:19:00 01/07/2014 17:45:00 DIS Emergency LOBO HERNANDEZ MD [facility] ER [id number] 01/01/2014 22:17:00 01/01/2014 23:31:00 DIS Emergency LOBO HERNANDEZ MD [facility] ER [id number] 10/08/2014 12:27:00 Document Registration [id number] 10/08/2014 12:27:00 Document Registration [id number] 01/10/2012 10:07:00 Document Registration [id number] 10/13/2011 12:15:00 Document Registration [id number] 02/26/2011 12:04:00 Document Registration [id number] 01/11/2011 12:59:00 Document Registration [id number] 01/06/2011 13:30:00 Document Registration [id number] 07/16/2010 08:48:00 Document Registration [id number] 05/18/2009 09:00:00 Document Registration [id number] 10/08/2014 12:32:14 ACT Document Registration [id number] 03/04/2017 23:30:46 03/04/2017 23:59:59 CLS Outpatient
[2017-11-01] MEDS ORDERED: proPOfol 200 MG/20 ML (DIPRIVAN) VIAL IV ONE (06:53)
[2017-11-01] MEDS ORDERED: DEXAMETHASONE 10 MG/ML (DECADRON) 1 ML VIAL ONE (06:53)
[2017-11-01] MEDS ORDERED: KETOROLAC 30 MG/ML VIAL ONE (06:53)
[2017-11-01] MEDS ORDERED: FUROSEMIDE 40 MG/4 ML INJ (LASIX) ONE (06:53)
[2017-11-01] MEDS ORDERED: ONDANSETRON 4 MG/2 ML (SDV) Z0FRAN ONE (06:53)
[2017-11-01] MEDS ORDERED: LIDOCAINE PF 2% 5 ML (XYLOCAINE) VIAL ONE (06:53)
[2017-11-01] MEDS ORDERED: SEVOFLURANE (ULTANE) 15 ML INHAL SOLN ONE ×2 (06:53→07:08)
[2017-11-01] MEDS ORDERED: fentaNYL INJECTION 100 MCG/2 ML AMP ONE (06:53)
--- NOTE | 2017-11-01 06:58 | Diagnostic Imaging Report ---
INDICATION: Right renal calculus Single AP view of the abdomen is obtained. Comparison is made to the study of 10/31/2017. Similar to the previous study, right double-J nephroureteral stent remains in place. A 1 cm calculus is again seen just cephalad to the proximal aspect of the stent. There are numerous calcified phleboliths in the pelvis. Moderate amount of stool is seen throughout the colon. IMPRESSION: Stable appearance of 1 cm right renal calculus and right double-J nephroureteral stent. Dictated by: Dictated on workstation # [id number]
[2017-11-01 07:10] VITALS: BP 151/65
--- NOTE | 2017-11-01 07:11 | Progress Note-Pre Operative ---
Pre-Operative Progress Note H&P Reviewed The H&P was reviewed, patient examined and no changes noted. Date Seen by Provider: Nov 01, 2017 Time Seen by Provider: 07:11 Date H&P Reviewed: Nov 01, 2017 Time H&P Reviewed: 07:11 Pre-Operative Diagnosis: RT RENAL STONE RYAN GARCIA MD Nov 01, 2017 7:11 am
--- NOTE | 2017-11-01 07:17 | Progress Note-Post Operative ---
Post-Operative Progess Note Surgeon (s)/Neon Electrician (s) Surgeon RYAN GARCIA MD Neon Electrician: N/A Pre-Operative Diagnosis RT RENAL STONE Post-Operative Diagnosis SAME Procedure & Operative Findings Date of Procedure 11/01/17 Procedure Performed/Findings RT ESWL Anesthesia Type GENERAL Estimated Blood Loss Estimated blood loss (mL): N/A Specimens/Packing Specimens Removed N/A Packing: N/A RYAN GARCIA MD Nov 01, 2017 7:17 am
--- NOTE | 2017-11-01 07:20 | Discharge Inst-Urology ---
Discharge Inst-Urology Discharge Medications New, Converted, or Re-newed RX: RX on Chart Patient Instructions/Follow Up Plan Please make appointment to been seen in office Tuesday, prior to it KUB on way home Stay off ASA and Plavix Post ESWL instructions Increase oral fluids for 48 hours and then as needed. Diet and Activity as tolerated. If questions or concerns contact your physician Or seek help at emergency department. RYAN GARCIA MD Nov 01, 2017 7:20 am
[2017-11-01] MEDS ORDERED: cefTRIAXone INJECTION 1,000 MG in NS (IVPB) 50 ML IV ONE (07:30)
[2017-11-01] MEDS ORDERED: LACTATED RINGERS 1,000 ML IV SCH (07:45)
[2017-11-01] MEDS ORDERED: ONDANSETRON 4 MG/2 ML (SDV) Z0FRAN IVP PRN (08:15)
[2017-11-01] MEDS ORDERED: fentaNYL INJECTION 100 MCG/2 ML AMP IVP PRN (08:15)
[2017-11-01] MEDS ORDERED: HYDROmorphone 1 MG/ML (DILAUDID) 1 ML SYRINGE IV PRN (08:15)
[2017-11-01] MEDS ORDERED: HYDR-3870 PO (08:19)
[2017-11-01] MEDS ORDERED: NITR-68 PO (08:19)
[2017-11-01] MEDS ORDERED: TAMS0.4C98 PO (08:19)
[2017-11-01 08:50] VITALS: BP 148/59
[2017-11-01 09:20] VITALS: BP_SYST 124; BP_SYST 148; BP_DIAS 59; BP_DIAS 61
--- NOTE | 2017-11-01 10:28 | OPERATIVE REPORT ---
DATE OF SERVICE: 11/01/2017 PREOPERATIVE DIAGNOSIS: Left renal stone. POSTOPERATIVE DIAGNOSIS: Left renal stone. OPERATION PERFORMED: Left ESWL. SURGEON: Iain Garcia MD ANESTHESIA: General. COMPLICATIONS: None. DESCRIPTION OF PROCEDURE: Under satisfactory general anesthesia and the patient in a supine position on the ESWL table, the left renal stone was localized and shocks were delivered at a kV of 5. A total of 2500 shocks were delivered. The stone was seen fragmenting nicely and layering with good changes noticeable for fragmentation. The patient received 40 mg of Lasix and 30 mg of Toradol IV at the end of the procedure. She tolerated the procedure and anesthesia well, was sent to recovery room in stable condition. Job ID: [id number] DocumentID: [id number] Dictated Date: 11/01/2017 07:47:10 Concrete Fence Builder Date: 11/01/2017 10:28:26 Dictated By: IAIN GARCIA MD
--- NOTE | 2017-11-01 10:43 | Diagnostic Imaging Report ---
INDICATION: Postop ESWL. COMPARISON: 11/01/2017 at 7:11 AM. FINDINGS: A single view of the abdomen demonstrates a double-J stent in stable position. The previous stone in the upper pole of the right kidney is no longer seen. No stone fragments are seen in the course of the ureter or within the urinary bladder. IMPRESSION: The right renal calculus is no longer identified. Dictated by: Dictated on workstation # [id number]
--- NOTE | 2017-11-01 10:47 | Anesthesia-General Post-Op ---
General Patient Condition Mental Status/LOC: Same as Preop Cardiovascular: Satisfactory Nausea/Vomiting: Absent Respiratory: Satisfactory Pain: Controlled Complications: Absent Post Op Complications Complications None Follow Up Care/Instructions Patient Instructions None needed. Anesthesia/Patient Condition Patient Condition Patient is doing well, no complaints, stable vital signs, no apparent adverse anesthesia problems. No complications reported per nursing. BRENT CERVANTES CRNA Nov 01, 2017 10:47
== END 2017-11-01 10:05 | disposition home or self-care (01) ==
LOC: SDC 06:26
PROVIDERS: ATTEND Urology
DX: N20.1 Calculus of ureter (principal); Z79.899 Other long term (current) drug therapy
CPT/HCPCS: 74018; 87081

== ENCOUNTER 2017-11-04 12:30 | Outpatient (RCR) | payer MEDICARE ==
[2017-10-26 12:35] VITALS: BP 142/63
[2017-10-26] MEDS: diphenhydrAMINE 50 MG/ML INJ (BENADRYL) IV SCH (12:57)
[2017-10-26] MEDS: ACETAMINOPHEN 325 MG TABLET/CAPLET (TYLENOL) PO SCH (12:57)
[2017-10-28 13:05] VITALS: BP 133/61
[2017-10-28] MEDS: ACETAMINOPHEN 325 MG TABLET/CAPLET (TYLENOL) PO SCH (13:14)
[2017-10-28] MEDS: diphenhydrAMINE 50 MG/ML INJ (BENADRYL) IV SCH (13:15)
[2017-10-28] MEDS: IRON SUCROSE 200 MG/10 ML (VENOFER) VIAL IV SCH (13:15)
[2017-10-31] MEDS: ACETAMINOPHEN 325 MG TABLET/CAPLET (TYLENOL) PO SCH (13:10)
[2017-10-31] MEDS: diphenhydrAMINE 50 MG/ML INJ (BENADRYL) IV SCH (13:12)
[2017-10-31] MEDS: IRON SUCROSE 200 MG/10 ML (VENOFER) VIAL IV SCH (13:15)
[2017-10-31 13:37] VITALS: BP 141/65
[2017-11-02 13:20] VITALS: BP 140/59
[2017-11-02] MEDS: diphenhydrAMINE 50 MG/ML INJ (BENADRYL) IV SCH (13:41)
[2017-11-02] MEDS: IRON SUCROSE 200 MG/10 ML (VENOFER) VIAL IV SCH (13:42)
[2017-11-02] MEDS: ACETAMINOPHEN 325 MG TABLET/CAPLET (TYLENOL) PO SCH (13:42)
[~2017-11-04] VITALS: Ht 157.5 cm; Wt 68.5 kg
[~2017-11-04 12:30] MED LIST changes: +IRON SUCROSE 200 MG/10 ML (VENOFER) VIAL IV NR
[2017-11-04 13:20] VITALS: BP 139/75
[2017-11-04] MEDS: ACETAMINOPHEN 325 MG TABLET/CAPLET (TYLENOL) PO SCH (13:29)
[2017-11-04] MEDS: diphenhydrAMINE 50 MG/ML INJ (BENADRYL) IV SCH (13:29)
[2017-11-04] MEDS: IRON SUCROSE 200 MG/10 ML (VENOFER) VIAL IV SCH (13:33)
== END 2017-11-04 14:16 | disposition home or self-care (01) ==
LOC: SDC 12:30
PROVIDERS: ATTEND Family Medicine
DX: D50.9 Iron deficiency anemia, unspecified (principal)
CPT/HCPCS: 96365; 96375

== ENCOUNTER → 2017-11-07 | Outpatient (CLI) | payer MEDICARE ==
[~2017-11-07] MED LIST changes: -IRON SUCROSE 200 MG/10 ML (VENOFER) VIAL IV NR
== END | disposition home or self-care (01) ==
LOC: PREOP 05:34
PROVIDERS: ATTEND Urology
DX: Z01.818 Encounter for other preprocedural examination (principal)

== ENCOUNTER → 2017-11-07 | Outpatient (CLI) | payer MEDICARE ==
--- NOTE | 2017-11-07 12:35 | Diagnostic Imaging Report ---
INDICATION: Nephrolithiasis. COMPARISON: Comparison is made with the prior examination dated 11/01/2017. FINDINGS: The bowel gas pattern is nonspecific. Right nephroureteral stent remains in place. No definitive stone fragments are seen along the course of the stent. IMPRESSION: Nonspecific bowel gas pattern. Stable appearance of the right double-J stent without evidence of residual stone. Dictated by: Dictated on workstation # [id number]
== END ==
LOC: RAD 11:29
PROVIDERS: ATTEND Urology
DX: Z96.0 Presence of urogenital implants (principal); Z98.890 Other specified postprocedural states; Z87.442 Personal history of urinary calculi
CPT/HCPCS: 74018

== ENCOUNTER → 2018-03-22 | Outpatient (CLI) | payer MEDICARE ==
[2018-03-22 12:09] LABS: HEMOGLOBIN 12.9 G/DL (11.5-16.0); MEAN PLATELET VOLUME 9.3 FL (7.4-10.4); RED BLOOD COUNT 4.19 10^6/uL (4.35-5.85); RED CELL DISTRIBUTION WIDTH 13.8 % (10.0-14.5); WHITE BLOOD COUNT 3.7 10^3/uL (4.3-11.0)
[2018-03-22 12:17] LABS: BILIRUBIN,URINE NEGATIVE (NEGATIVE); CLARITY,URINE CLEAR; COLOR,URINE YELLOW; GLUCOSE, URINE (UA) NEGATIVE (NEGATIVE); KETONES,URINE NEGATIVE (NEGATIVE); LEUKOCYTE ESTERASE ,URINE 3+ (NEGATIVE); NITRITE,URINE NEGATIVE (NEGATIVE); PH,URINE 6.5 (5-9); PROTEIN,URINE 1+ (NEGATIVE); UROBILINOGEN,URINE NORMAL (NORMAL)
[2018-03-22 12:28] LABS: ALBUMIN 3.9 GM/DL (3.2-4.5); CALCIUM 10.7 MG/DL (8.5-10.1); CREATININE SERUM 1.12 MG/DL (0.60-1.30); PHOSPHORUS 2.5 MG/DL (2.3-4.7); POTASSIUM 3.8 MMOL/L (3.6-5.0); URIC ACID 5.8 MG/DL (2.6-7.2)
[2018-03-22 12:30] LABS: BACTERIA,URINE TRACE /HPF; WBC,URINE 25-50 /HPF
== END ==
LOC: LAB 11:41
PROVIDERS: ATTEND Internal Medicine Nephrology
DX: N18.3 Chronic kidney disease, stage 3 (moderate) (principal); I12.9 Hypertensive chronic kidney disease with stage 1 through stage 4 chronic kidney disease, or unspecified chronic kidney disease; E11.22 Type 2 diabetes mellitus with diabetic chronic kidney disease; N17.9 Acute kidney failure, unspecified; E83.52 Hypercalcemia; Z79.1 Long term (current) use of non-steroidal anti-inflammatories (NSAID); R82.998 Other abnormal findings in urine
CPT/HCPCS: 36415; 80069; 81000; 82306; 82330; 82570; 83970; 84156; 84550; 85027; 87077; 87088; 87186

== ENCOUNTER → 2018-03-22 | Outpatient (CLI) | payer MEDICARE ==
--- NOTE | 2018-03-22 12:04 | Diagnostic Imaging Report ---
Indication: Routine screening. Comparison is made with prior mammogram from 03/11/2017 and 03/05/2016. 2-D and 3-D bilateral screening mammography was performed with CAD. Both breasts are heterogeneously dense, limiting the sensitivity of mammography. Benign calcifications are noted throughout both breasts. Circumscribed nodular density outer right breast on CC views appear stable. No spiculated mass or malignant-appearing microcalcifications are seen. Axillae are unremarkable. Impression: BI-RADS category 2 No mammographic features suspicious for malignancy are identified. ACR BI-RADS Category 2: Benign findings. Result letter will be mailed to the patient. Note: At least 10% of breast cancer is not imaged by mammography. Dictated by: Dictated on workstation # [id number]
== END ==
LOC: RAD 11:16
PROVIDERS: ATTEND Family Medicine
DX: Z12.31 Encounter for screening mammogram for malignant neoplasm of breast (principal)
CPT/HCPCS: 77067

== ENCOUNTER 2018-04-28 10:19 | Outpatient (RCR) | payer MEDICARE ==
[2018-03-31 15:13] LABS: BASOPHILS # (AUTO) 0.1 10^3/uL (0.0-0.1); BASOPHILS % (AUTO) 1 % (0-10); EOSINOPHILS # (AUTO) 0.1 10^3/uL (0.0-0.3); EOSINOPHILS % (AUTO) 2 % (0-10); HEMATOCRIT 39 % (35-52); HEMOGLOBIN 12.4 G/DL (11.5-16.0); LYMPHOCYTES # (AUTO) 1.1 X 10^3 (1.0-4.0); LYMPHOCYTES % (AUTO) 27 % (12-44); MEAN CORPUSCULAR HEMOGLOBIN 31 PG (25-34); MEAN CORPUSCULAR HGB CONC 32 G/DL (32-36); MEAN CORPUSCULAR VOLUME 98 FL (80-99); MEAN PLATELET VOLUME 9.6 FL (7.4-10.4); MONOCYTES # (AUTO) 0.4 X 10^3 (0.0-1.0); MONOCYTES % (AUTO) 9 % (0-12); NEUTROPHILS # (AUTO) 2.5 X 10^3 (1.8-7.8); NEUTROPHILS % (AUTO) 62 % (42-75); PLATELET COUNT 224 10^3/uL (130-400); RED CELL DISTRIBUTION WIDTH 14.1 % (10.0-14.5); WHITE BLOOD COUNT 4.1 10^3/uL (4.3-11.0)
[2018-03-31 15:14] LABS: SMEAR SCAN COMMENT NO
[2018-03-31 15:16] LABS: RETICULOCYTE % 1.42 % (0.50-2.40)
[2018-03-31 15:35] LABS: BAND NEUTROPHILS 2 %; NEUTROPHILS % (MANUAL) 58 %
[2018-03-31 15:36] LABS: BASOPHILS % (MANUAL) 1 %; EOSINOPHILS % (MANUAL) 4 %; LYMPHOCYTES % (MANUAL) 25 %; MONOCYTES % (MANUAL) 10 %; RBC MORPH NORMAL
[2018-03-31 15:37] LABS: ALBUMIN 3.8 GM/DL (3.2-4.5); BILIRUBIN,TOTAL 0.4 MG/DL (0.1-1.0); CALCIUM 10.5 MG/DL (8.5-10.1); POTASSIUM 4.3 MMOL/L (3.6-5.0)
[2018-04-28 10:50] LABS: ALBUMIN 3.7 GM/DL (3.2-4.5); BILIRUBIN,TOTAL 0.6 MG/DL (0.1-1.0); CALCIUM 10.1 MG/DL (8.5-10.1); CREATININE SERUM 1.05 MG/DL (0.60-1.30); POTASSIUM 4.1 MMOL/L (3.6-5.0); TOTAL PROTEIN 5.8 GM/DL (6.4-8.2)
[2018-04-28 11:14] LABS: BASOPHILS # (AUTO) 0.1 10^3/uL (0.0-0.1); BASOPHILS % (AUTO) 2 % (0-10); EOSINOPHILS # (AUTO) 0.1 10^3/uL (0.0-0.3); EOSINOPHILS % (AUTO) 2 % (0-10); HEMATOCRIT 39 % (35-52); HEMOGLOBIN 12.6 G/DL (11.5-16.0); LYMPHOCYTES # (AUTO) 1.7 X 10^3 (1.0-4.0); LYMPHOCYTES % (AUTO) 42 % (12-44); MEAN CORPUSCULAR HEMOGLOBIN 31 PG (25-34); MEAN CORPUSCULAR HGB CONC 32 G/DL (32-36); MEAN CORPUSCULAR VOLUME 97 FL (80-99); MEAN PLATELET VOLUME 9.7 FL (7.4-10.4); MONOCYTES # (AUTO) 0.4 X 10^3 (0.0-1.0); MONOCYTES % (AUTO) 9 % (0-12); NEUTROPHILS # (AUTO) 1.8 X 10^3 (1.8-7.8); NEUTROPHILS % (AUTO) 45 % (42-75); PLATELET COUNT 215 10^3/uL (130-400)
[2018-04-28 11:20] LABS: ABSOLUTE RETIC # 40 10e9/L (24-90); RETICULOCYTE % 0.98 % (0.50-2.40)
[2018-04-28 11:53] LABS: BAND NEUTROPHILS 0 %; BASOPHILS % (MANUAL) 2 %; EOSINOPHILS % (MANUAL) 2 %; LYMPHOCYTES % (MANUAL) 35 %; MONOCYTES % (MANUAL) 14 %; NEUTROPHILS % (MANUAL) 47 %; RBC MORPH NORMAL
== END 2018-06-29 | disposition home or self-care (01) ==
LOC: ONC 10:19
PROVIDERS: ATTEND Internal Medicine Hematology & Oncology
DX: D50.9 Iron deficiency anemia, unspecified (principal); I12.9 Hypertensive chronic kidney disease with stage 1 through stage 4 chronic kidney disease, or unspecified chronic kidney disease; N18.3 Chronic kidney disease, stage 3 (moderate); E03.9 Hypothyroidism, unspecified; M19.91 Primary osteoarthritis, unspecified site; Z79.02 Long term (current) use of antithrombotics/antiplatelets; Z79.899 Other long term (current) drug therapy; Z87.891 Personal history of nicotine dependence
CPT/HCPCS: 36415; 80053; 82607; 82728; 82746; 83540; 83615; 84155; 84165; 85007; 85025; 85027; 85045; 99213; 99214

== ENCOUNTER → 2018-05-04 | Outpatient (CLI) | payer MEDICARE ==
[2018-05-04 08:40] LABS: ALBUMIN 3.7 GM/DL (3.2-4.5); CALCIUM 9.6 MG/DL (8.5-10.1); CREATININE SERUM 1.12 MG/DL (0.60-1.30); PHOSPHORUS 3.3 MG/DL (2.3-4.7); POTASSIUM 3.9 MMOL/L (3.6-5.0)
== END ==
LOC: LAB 07:59
PROVIDERS: ATTEND Internal Medicine Nephrology
DX: I12.9 Hypertensive chronic kidney disease with stage 1 through stage 4 chronic kidney disease, or unspecified chronic kidney disease (principal); N18.3 Chronic kidney disease, stage 3 (moderate); N17.9 Acute kidney failure, unspecified; E83.52 Hypercalcemia; K92.2 Gastrointestinal hemorrhage, unspecified; Z79.1 Long term (current) use of non-steroidal anti-inflammatories (NSAID)
CPT/HCPCS: 36415; 80069; 82330

== ENCOUNTER → 2018-06-14 | Outpatient (CLI) | payer MEDICARE ==
[2018-06-14 12:20] LABS: HEMOGLOBIN 12.6 G/DL (11.5-16.0); MEAN PLATELET VOLUME 9.6 FL (7.4-10.4); RED BLOOD COUNT 4.09 10^6/uL (4.35-5.85); RED CELL DISTRIBUTION WIDTH 14.2 % (10.0-14.5); WHITE BLOOD COUNT 4.6 10^3/uL (4.3-11.0)
[2018-06-14 12:24] LABS: BILIRUBIN,URINE NEGATIVE (NEGATIVE); CLARITY,URINE CLEAR; COLOR,URINE YELLOW; GLUCOSE, URINE (UA) NEGATIVE (NEGATIVE); KETONES,URINE NEGATIVE (NEGATIVE); LEUKOCYTE ESTERASE ,URINE 3+ (NEGATIVE); NITRITE,URINE NEGATIVE (NEGATIVE); PH,URINE 6.5 (5-9); PROTEIN,URINE NEGATIVE (NEGATIVE); UROBILINOGEN,URINE NORMAL (NORMAL)
[2018-06-14 12:34] LABS: ALBUMIN 3.8 GM/DL (3.2-4.5); CALCIUM 9.8 MG/DL (8.5-10.1); CREATININE SERUM 1.09 MG/DL (0.60-1.30); PHOSPHORUS 2.7 MG/DL (2.3-4.7); POTASSIUM 4.2 MMOL/L (3.6-5.0)
[2018-06-14 12:50] LABS: URINE CREATININE FOR RATIO 36 MG/DL (30-125); URINE PROTEIN FOR RATIO ONLY < 6 MG/DL (6-12)
[2018-06-14 13:06] LABS: BACTERIA,URINE TRACE /HPF
== END ==
LOC: LAB 12:01
PROVIDERS: ATTEND Internal Medicine Nephrology
DX: I12.9 Hypertensive chronic kidney disease with stage 1 through stage 4 chronic kidney disease, or unspecified chronic kidney disease (principal); N18.3 Chronic kidney disease, stage 3 (moderate); N17.9 Acute kidney failure, unspecified; E83.52 Hypercalcemia; K92.2 Gastrointestinal hemorrhage, unspecified; Z79.1 Long term (current) use of non-steroidal anti-inflammatories (NSAID)
CPT/HCPCS: 36415; 80069; 81000; 82330; 82570; 83970; 84156; 85027; 87077; 87088

== ENCOUNTER → 2018-12-04 | Outpatient (CLI) | payer MEDICARE ==
[2018-12-04 13:47] LABS: MEAN PLATELET VOLUME 9.9 FL (7.4-10.4); RED CELL DISTRIBUTION WIDTH 14.5 % (10.0-14.5); WHITE BLOOD COUNT 4.9 10^3/uL (4.3-11.0)
[2018-12-04 13:55] LABS: BILIRUBIN,URINE NEGATIVE (NEGATIVE); CLARITY,URINE CLEAR; COLOR,URINE YELLOW; GLUCOSE, URINE (UA) NEGATIVE (NEGATIVE); KETONES,URINE NEGATIVE (NEGATIVE); LEUKOCYTE ESTERASE ,URINE 1+ (NEGATIVE); NITRITE,URINE NEGATIVE (NEGATIVE); PH,URINE 7 (5-9); PROTEIN,URINE NEGATIVE (NEGATIVE); UROBILINOGEN,URINE NORMAL (NORMAL)
[2018-12-04 14:08] LABS: ALBUMIN 3.9 GM/DL (3.2-4.5); CALCIUM 10.2 MG/DL (8.5-10.1); CREATININE SERUM 1.05 MG/DL (0.60-1.30); PHOSPHORUS 2.7 MG/DL (2.3-4.7); URIC ACID 5.6 MG/DL (2.6-7.2)
[2018-12-04 14:14] LABS: URINE CREATININE FOR RATIO 9 MG/DL (30-125); URINE PROTEIN FOR RATIO ONLY < 6 MG/DL (6-12)
[2018-12-04 14:15] LABS: BACTERIA,URINE TRACE /HPF; RBC,URINE 0-2 /HPF; WBC,URINE 0-2 /HPF
== END ==
LOC: LAB 13:20
PROVIDERS: ATTEND Internal Medicine Nephrology
DX: I12.9 Hypertensive chronic kidney disease with stage 1 through stage 4 chronic kidney disease, or unspecified chronic kidney disease (principal); N18.3 Chronic kidney disease, stage 3 (moderate); N17.9 Acute kidney failure, unspecified; E83.52 Hypercalcemia; K92.2 Gastrointestinal hemorrhage, unspecified; Z79.1 Long term (current) use of non-steroidal anti-inflammatories (NSAID)
CPT/HCPCS: 36415; 80069; 81000; 82306; 82570; 83970; 84156; 84550; 85027

== ENCOUNTER → 2019-04-12 | Outpatient (CLI) | payer MEDICARE ==
--- NOTE | 2019-04-12 16:07 | Diagnostic Imaging Report ---
INDICATION: Routine screening. COMPARISON: Prior mammograms from 03/22/2018 and 03/11/2017. EXAMINATION: 2D and 3D bilateral screening mammography was performed with CAD. FINDINGS: Both breasts again demonstrate marked parenchymal heterogeneity and increased density, limiting the sensitivity of mammography. Benign calcifications are again noted bilaterally. Marker clip in medial left breast from prior biopsy is again noted. No mass or malignant appearing microcalcifications are seen. Axillae are unremarkable. IMPRESSION: No mammographic features suspicious for malignancy are identified. ACR BI-RADS Category 2: Benign findings. Result letter will be mailed to the patient. Note: At least 10% of breast cancer is not imaged by mammography. Dictated by: Dictated on workstation # [id number]
== END ==
LOC: RAD 14:27
PROVIDERS: ATTEND Nurse Practitioner Family
DX: Z12.31 Encounter for screening mammogram for malignant neoplasm of breast (principal)
CPT/HCPCS: 77067

== ENCOUNTER → 2019-06-22 | Outpatient (CLI) | payer MEDICARE ==
[~2019-06-22] MED LIST changes: -TAMS0.4C98 PO; +TMSL.4C PO
[2019-06-22 12:38] LABS: BILIRUBIN,URINE NEGATIVE (NEGATIVE); CLARITY,URINE SL CLOUDY; COLOR,URINE YELLOW; GLUCOSE, URINE (UA) NEGATIVE (NEGATIVE); KETONES,URINE NEGATIVE (NEGATIVE); LEUKOCYTE ESTERASE ,URINE 2+ (NEGATIVE); NITRITE,URINE POSITIVE (NEGATIVE); PROTEIN,URINE NEGATIVE (NEGATIVE)
[2019-06-22 12:40] LABS: HEMOGLOBIN 12.5 G/DL (11.5-16.0); MEAN PLATELET VOLUME 9.6 FL (7.4-10.4); RED CELL DISTRIBUTION WIDTH 14.1 % (10.0-14.5)
[2019-06-22 12:52] LABS: BACTERIA,URINE MODERATE /HPF
[2019-06-22 12:58] LABS: ALBUMIN 3.8 GM/DL (3.2-4.5); CALCIUM 9.3 MG/DL (8.5-10.1); CREATININE SERUM 0.92 MG/DL (0.60-1.30); PHOSPHORUS 2.4 MG/DL (2.3-4.7); POTASSIUM 4.1 MMOL/L (3.6-5.0); URIC ACID 5.4 MG/DL (2.6-7.2)
== END ==
LOC: LAB 12:25
PROVIDERS: ATTEND Internal Medicine Nephrology
DX: I12.9 Hypertensive chronic kidney disease with stage 1 through stage 4 chronic kidney disease, or unspecified chronic kidney disease (principal); N18.3 Chronic kidney disease, stage 3 (moderate); N17.9 Acute kidney failure, unspecified; E83.52 Hypercalcemia; K92.2 Gastrointestinal hemorrhage, unspecified; Z79.1 Long term (current) use of non-steroidal anti-inflammatories (NSAID); R82.998 Other abnormal findings in urine
CPT/HCPCS: 36415; 80069; 81000; 82306; 82330; 82570; 83970; 84156; 84550; 85027; 87077; 87088; 87186

== ENCOUNTER → 2019-07-04 | Outpatient (CLI) | payer MEDICARE ==
--- NOTE | 2019-07-04 16:19 | Diagnostic Imaging Report ---
EXAMINATION: CT Abdomen Pelvis without contrast. TECHNIQUE: Multiple contiguous axial images were obtained through the abdomen and pelvis without the use of intravenous contrast. All CT scans use one or more of the following dose optimizing techniques: automated exposure control, MA and/or KvP adjustment based on a patient size and exam type, or iterative reconstruction. HISTORY: Left lower quadrant pain. COMPARISON: 10/11/2017. FINDINGS: Limited views of the lower thorax show mild atelectasis. The liver is normal without focal lesion. There is no biliary ductal dilation. Gallbladder is normal. Pancreas is normal. Spleen is normal. Adrenal glands are normal. The kidneys are normal. There is no hydronephrosis. Urinary bladder is normal. There are no dilated loops of large or small bowel. No obstruction or inflammation. No free fluid or air. No abdominal or pelvic lymphadenopathy. Aorta is normal in caliber without aneurysm. There is a small fat-containing hernia in the left lower quadrant. No internal fat stranding to indicate strangulation. There are no suspicious osseus lesions. IMPRESSION: 1. Left lower quadrant fat-containing ventral hernia, no internal fat stranding to indicate strangulation. Dictated by: Dictated on workstation # [id number]
== END ==
LOC: RAD 15:08
PROVIDERS: ATTEND Family Medicine
DX: K43.9 Ventral hernia without obstruction or gangrene (principal)
CPT/HCPCS: 74176

== ENCOUNTER 2019-07-25 13:40 | Outpatient (CLI) | payer MEDICARE ==
[~2019-07-25] VITALS: Ht 157.5 cm; Wt 76.8 kg
[2019-07-25 14:03] VITALS: BP 132/67
[2019-07-25] MEDS ORDERED: FOLI0.4T2 PO (14:23)
[2019-07-25] MEDS ORDERED: TRAM1TAB7 PO (14:23)
[2019-07-25] MEDS ORDERED: CHOL200078 PO (14:23)
[2019-07-25] MEDS ORDERED: CLOP75TA28 PO (14:23)
[2019-07-26] MEDS ORDERED: HYDR15SO6 PO (12:27)
[2019-07-26] MEDS ORDERED: HYDR-4226 PO (12:30)
== END 2019-07-25 14:10 | disposition home or self-care (01) ==
LOC: PREOP 13:40
PROVIDERS: ATTEND Surgery
DX: Z01.818 Encounter for other preprocedural examination (principal)
CPT/HCPCS: 87081

== ENCOUNTER 2019-07-26 11:28 | Day surgery (SDC) | payer MEDICARE ==
--- NOTE | 2019-07-20 08:56 | HISTORY AND PHYSICAL ---
DATE OF SERVICE: PROCEDURE DATE: 07/26/2019. ATTENDING PHYSICIAN: Marilyn Delaney MD The patient is an 89-year-old female who was referred over to us for a 3- to 4-year history of left lower quadrant abdominal pain. The patient reports that over time this has become worse and now occurs daily. She did present to her primary care physician where a CT scan was performed, which did show a left lower quadrant fat containing ventral hernia with no internal fat stranding to indicate any strangulation. Upon further questioning, she denies any diarrhea or constipation as well as no fever or chills. She denies any other symptoms. PAST MEDICAL HISTORY: Hypothyroidism, stroke in 2009, TIAs, stage III chronic renal failure, migraines, hypertension. PAST SURGICAL HISTORY: Tonsillectomy in 1948, complete hysterectomy in 1983, exploratory laparotomy and repair of a perforated ulcer in 1999, left total knee replacement in 2004, bilateral cataracts in 2011, incisional hernia repair in 2001, repair of recurrent ventral abdominal incisional hernia, lithotripsy in 2017. ALLERGIES: No known drug allergies. MEDICATIONS: Metoprolol 25 mg half tablet b.i.d., levothyroxine 50 mcg daily, Plavix 75 mg daily, amitriptyline 50 mg daily, Sensipar 30 mg 3 times a week, folic acid 400 mg daily, vitamin D 2000 units daily, tramadol/acetaminophen 37.5/325 mg p.r.n. SOCIAL HISTORY: Negative for smoke. Negative for alcohol. FAMILY HISTORY: None. VITAL SIGNS: Blood pressure 176/73. Current weight 169.9 pounds, height 5 feet 2 inches. REVIEW OF SYSTEMS: A well-nourished female in no acute distress. She is not experiencing any shortness of breath or difficulty breathing. No chest pain, palpitations or diaphoresis. No nausea, vomiting. She does report episodes of left lower quadrant abdominal pain. No diarrhea or constipation. No red blood per rectum. No dark tarry stools. No fever or chills. No recent inadvertent weight loss. All other review of systems negative. PHYSICAL EXAMINATION: CHEST: Clear. Good breath sounds bilaterally. HEART: Regular, no murmurs. EXTREMITIES: No lower extremity edema. Negative Homans sign. HEENT: No scleral icterus. NECK: No cervical lymphadenopathy. ABDOMEN: Soft, nondistended. With the patient performing Valsalva maneuver, there is a small reducible left inguinal hernia; however, it is painful to palpation. SKIN: Warm, dry and pink. NEUROLOGIC: Awake, alert, oriented x3. ASSESSMENT AND PLAN: An 89-year-old female with a symptomatic left inguinal hernia. At this time, we will recommend proceeding with a laparoscopic left inguinal hernia repair with mesh. The risks and benefits of the procedure as well as the procedure and home care instructions were explained to the patient. The patient verbalized understanding of instructions and agrees to this plan. At this time, we will proceed with having a patient proceed with stopping her anticoagulation 5 days before the procedure and then we will proceed with scheduling the laparoscopic left inguinal hernia with mesh. Job ID: [id number] DocumentID: [id number] Dictated Date: 07/17/2019 14:21:27 Hospital Attendant Date: 07/17/2019 14:36:10 Dictated By: TUAN GUTIERREZ APRN
[2019-07-26] VITALS (9 sets, daily range): BP systolic 133–170; BP diastolic 52–80
[~2019-07-26] VITALS: Ht 157.5 cm; Wt 76.8 kg
[~2019-07-26 11:28] MED LIST changes: +CHOL200078 PO; +FOLI0.4T2 PO
[2019-07-26] MEDS ORDERED: ceFAZolin 2 GM/50 ML NS 50 ML ONE (11:32)
[2019-07-26] MEDS ORDERED: BUP/EPI 0.5% 1:200,000 (SENSORCAINE) 30 ML VIAL ONE (12:18)
--- NOTE | 2019-07-26 12:26 | Progress Note-Pre Operative ---
Pre-Operative Progress Note H&P Reviewed The H&P was reviewed, patient examined and no changes noted. Date Seen by Provider: Jul 26, 2019 Time Seen by Provider: 12:00 Date H&P Reviewed: Jul 26, 2019 Time H&P Reviewed: 12:00 Pre-Operative Diagnosis: sx left inguinal hernia KAROLINA ARROYO MD Jul 26, 2019 12:26
[2019-07-26] MEDS ORDERED: HYDR15SO6 PO (12:27)
--- NOTE | 2019-07-26 12:28 | Discharge Inst-Surgical ---
D/C Lap Instructions-DINA New, Converted, or Re-Newed RX: RX on Chart Follow Up Appt in 2 weeks Activity as tolerated No driving for 24 hours No driving while on pain medications Incentive Spirometry use every 2 hours while awake Regular Diet Symptoms to Report: Fever over 101 degree F, Nausea/Vomiting Infection Signs and Symptoms to report: Increased redness, Foul odor of wound, Increased drainage Bathing instructions: May shower Operative Area Clean/Dry; Keep incision clean/dry If any problems/questions: Contact your physician or go to Emergency Room KAROLINA ARROYO MD Jul 26, 2019 12:28
[2019-07-26] MEDS ORDERED: ONDANSETRON 4 MG/2 ML (SDV) Z0FRAN IVP PRN ×2 (12:30→14:30)
[2019-07-26] MEDS ORDERED: morphine INJ 10 MG/ML 1ML (SYR OR VIAL) IVP PRN ×2 (12:30)
[2019-07-26] MEDS ORDERED: ACETAMINOPHEN 325 MG TABLET PO PRN (12:30)
[2019-07-26] MEDS ORDERED: HYDR-4226 PO (12:30)
[2019-07-26] MEDS ORDERED: oxyCODONE/APAP 5/325MG (PERCOCET 5) TABLET PO PRN (12:30)
[2019-07-26] MEDS ORDERED: LACTATED RINGERS 1,000 ML IV PRN (12:52)
[2019-07-26] MEDS ORDERED: ROCURONIUM 10 MG/ML 5 ML SYRINGE IV ONE (12:57)
[2019-07-26] MEDS ORDERED: ONDANSETRON 4 MG/2 ML (SDV) Z0FRAN ONE (12:57)
[2019-07-26] MEDS ORDERED: GLYCOPYRROLATE 0.2 MG/ML (ROBINUL) 2 ML VIAL ONE ×2 (12:57→14:06)
[2019-07-26] MEDS ORDERED: proPOfol 200 MG/20 ML (DIPRIVAN) VIAL IV ONE (12:57)
[2019-07-26] MEDS ORDERED: SEVOFLURANE (ULTANE) 15 ML INHAL SOLN ONE (12:57)
[2019-07-26] MEDS ORDERED: fentaNYL INJECTION 100 MCG/2 ML AMP ONE (12:57)
[2019-07-26] MEDS ORDERED: LIDOCAINE PF 2% 5 ML (XYLOCAINE) VIAL ONE (12:57)
[2019-07-26] MEDS ORDERED: NEOSTIGMINE 3 MG/3 ML VIAL ONE (12:57)
[2019-07-26] MEDS ORDERED: ceFAZolin 2 GM/50 ML NS 50 ML IV ONE (13:00)
[2019-07-26] MEDS ORDERED: DEXAMETHASONE 10 MG/ML (DECADRON) 1 ML VIAL ONE (13:18)
--- NOTE | 2019-07-26 14:22 | Progress Note-Post Operative ---
Post-Operative Progess Note Surgeon (s)/Certified Pharmacy Technician (s) Surgeon KAROLINA ARROYO MD Certified Pharmacy Technician: fide toribio INSURANCE AGENTS SUPERVISOR Pre-Operative Diagnosis sx left inguinal hernia Post-Operative Diagnosis incarcerated left inguinal hernial Procedure & Operative Findings Date of Procedure 07/26/19 Procedure Performed/Findings laparoscopic left inguinal hernia repair with mesh. Anesthesia Type get Estimated Blood Loss Estimated blood loss (mL): minimal Specimens/Packing Specimens Removed none KAROLINA ARROYO MD Jul 26, 2019 14:17
[2019-07-26] MEDS ORDERED: morphine INJ 10 MG/ML 1ML (SYR OR VIAL) IVP ONE (14:30)
[2019-07-26] MEDS ORDERED: morphine INJ 10 MG/ML 1ML (SYR OR VIAL) ONE (14:49)
--- NOTE | 2019-07-26 14:50 | Anesthesia-General Post-Op ---
General Patient Condition Mental Status/LOC: Same as Preop Cardiovascular: Satisfactory Nausea/Vomiting: Absent Respiratory: Satisfactory Pain: Controlled Complications: Absent Post Op Complications Complications None Follow Up Care/Instructions Patient Instructions None needed. Anesthesia/Patient Condition Patient Condition Patient is doing well, no complaints, stable vital signs, no apparent adverse anesthesia problems. CANDIS URIBE DO Jul 26, 2019 14:50
--- NOTE | 2019-07-26 19:54 | OPERATIVE REPORT ---
DATE OF SERVICE: 07/26/2019 ATTENDING PRIMARY CARE PHYSICIAN: Marilyn Delaney MD PREOPERATIVE DIAGNOSIS: Symptomatic left inguinal hernia. POSTOPERATIVE DIAGNOSIS: Incarcerated left inguinal hernia with omental fat within the hernia sac. The hernia appeared to be a direct inguinal hernia. PROCEDURE: Laparoscopic left inguinal hernia repair with mesh. SURGEON: Karolina Arroyo MD FINANCIAL INSTITUTION VICE PRESIDENT: Nicolas Greenfield APRN. ANESTHESIA: General endotracheal. ESTIMATED BLOOD LOSS: Minimal. FINDINGS: Incarcerated direct left inguinal hernia with omentum within the hernia sac. DISPOSITION: The patient tolerated the procedure well. INDICATIONS: The patient is an 89-year-old female who has had three to four history of left lower quadrant abdominal pain and has become worse over time. A CT scan was performed, which did show a left inguinal hernia with omentum within the hernia sac. DESCRIPTION OF PROCEDURE: The patient was brought to the operating room supine on the table. After adequate IV pain and sedative medications and general endotracheal intubation, the abdomen was prepped and draped in standard surgical fashion. A 0.5% Marcaine with epinephrine was used to anesthetize overlying skin in the left lower abdominal quadrant. A transverse skin incision made using a 15 blade. An 0 silk suture was applied to the medial aspect of incision for retraction and a Veress needle inserted with low opening pressure of 0 mmHg and the abdomen was insufflated to 15 mmHg. The Veress needle removed and a 5 mm Xcel trocar placed followed by a 5 mm 45-degree angle laparoscope visualizing the peritoneal cavity. A 4-quadrant abdominal x-ray was performed after the patient was placed in Trendelenburg position. There was an incarcerated left direct inguinal hernia with only omentum within the hernia sac. There was no right inguinal hernia component. There did not appear to be any incisional hernias from her previous laparotomy incisions. Under direct visualization, an infraumbilical 10 mm port was placed after the skin and peritoneal lining were anesthetized using 0.5% Marcaine with epinephrine and transverse skin incision made using a 15 blade. In a similar manner, a right lower abdominal quadrant 5 mm port was placed. The mesenteric lining was then opened laterally towards the conjoint tendon and inguinal ligament using the Sonicision. We then proceeded medially towards the Clyde's ligament. We then proceeded with our inferior dissection taking the hernia sac as well as the incarcerated omentum within it using a Sonicision as well as blunt dissection. The round ligament and its surrounding contents identified and spared throughout the process. Good hemostasis was observed. A medium size 3DMax polypropylene mesh was then placed into the peritoneal cavity through the 10 mm port site and tacked to Clyde's ligament medially and the conjoint tendon laterally. The peritoneal lining was then placed over the mesh and a few absorbable tacks placed to hold this in place with visualization of good hemostasis. The 10 mm port site fascia and peritoneum were then closed under direct visualization using a Pawel-Debby device and 0 Vicryl suture. The abdomen was then desufflated and remaining ports removed. All skin incisions were closed using 4-0 Monocryl running subcuticular sutures. Wounds were then cleaned and covered with Dermabond. The patient tolerated the procedure well. We will start IV normal pain medication as well as a clear liquid diet. When she is tolerating clears, has good pain control with oral pain medications, ambulating well, we will discharge her home. She will be instructed to do no heavy lifting or exertion for the next two weeks. Job ID: [id number] DocumentID: [id number] Dictated Date: 07/26/2019 14:24:24 Correctional Cook Date: 07/26/2019 19:53:29 Dictated By: KAROLINA ARROYO MD
== END 2019-07-26 16:30 | disposition home or self-care (01) ==
LOC: SDC 11:28
PROVIDERS: ATTEND Surgery
DX: K40.30 Unilateral inguinal hernia, with obstruction, without gangrene, not specified as recurrent (principal); E03.9 Hypothyroidism, unspecified; I12.9 Hypertensive chronic kidney disease with stage 1 through stage 4 chronic kidney disease, or unspecified chronic kidney disease; N18.3 Chronic kidney disease, stage 3 (moderate); Z86.73 Personal history of transient ischemic attack (TIA), and cerebral infarction without residual deficits; Z96.652 Presence of left artificial knee joint; Z79.899 Other long term (current) drug therapy; Z79.01 Long term (current) use of anticoagulants
CPT/HCPCS: 94664

== ENCOUNTER → 2019-12-26 | Outpatient (CLI) | payer MEDICARE ==
[~2019-12-26] MED LIST changes: +HYDR-4226 PO; +HYDR15SO6 PO
[2019-12-26 12:32] LABS: HEMOGLOBIN 12.8 G/DL (11.5-16.0); MEAN PLATELET VOLUME 9.4 FL (7.4-10.4); RED CELL DISTRIBUTION WIDTH 14.4 % (10.0-14.5); WHITE BLOOD COUNT 3.7 10^3/uL (4.3-11.0)
[2019-12-26 12:38] LABS: BILIRUBIN,URINE NEGATIVE (NEGATIVE); CLARITY,URINE CLEAR; COLOR,URINE YELLOW; GLUCOSE, URINE (UA) NEGATIVE (NEGATIVE); KETONES,URINE NEGATIVE (NEGATIVE); LEUKOCYTE ESTERASE ,URINE 3+ (NEGATIVE); NITRITE,URINE NEGATIVE (NEGATIVE); PH,URINE 7.5 (5-9); PROTEIN,URINE NEGATIVE (NEGATIVE)
[2019-12-26 12:47] LABS: BACTERIA,URINE FEW /HPF; WBC,URINE 25-50 /HPF
[2019-12-26 12:48] LABS: URINE OTHER RARE TRANS EPI /HPF
[2019-12-26 13:05] LABS: ALBUMIN 3.7 GM/DL (3.2-4.5); CALCIUM 9.3 MG/DL (8.5-10.1); CREATININE SERUM 1.06 MG/DL (0.60-1.30); PHOSPHORUS 2.9 MG/DL (2.3-4.7); POTASSIUM 4.3 MMOL/L (3.6-5.0); URIC ACID 5.3 MG/DL (2.6-7.2)
== END ==
LOC: LAB 12:03
PROVIDERS: ATTEND Internal Medicine Nephrology
DX: E21.3 Hyperparathyroidism, unspecified (principal); K92.2 Gastrointestinal hemorrhage, unspecified; E83.52 Hypercalcemia; N17.9 Acute kidney failure, unspecified; I12.9 Hypertensive chronic kidney disease with stage 1 through stage 4 chronic kidney disease, or unspecified chronic kidney disease; N18.3 Chronic kidney disease, stage 3 (moderate); Z79.1 Long term (current) use of non-steroidal anti-inflammatories (NSAID)
CPT/HCPCS: 36415; 80069; 81000; 82306; 82330; 82570; 83970; 84156; 84550; 85027; 87077; 87088; 87186

== ENCOUNTER → 2020-04-22 | Outpatient (CLI) | payer MEDICARE ==
[~2020-04-22] MED LIST changes: -PANT40TA3 PO; +PANT40TA52 PO
--- NOTE | 2020-04-23 09:39 | Diagnostic Imaging Report ---
INDICATION: Routine screening. COMPARISON: 04/12/2019 and 03/22/2018. TECHNIQUE: 2D and 3D bilateral screening mammography was performed with CAD. FINDINGS: Both breasts are heterogeneously dense, limiting the sensitivity of mammography. A marker clip from prior biopsy in the medial left breast is again noted. No dominant mass or malignant appearing microcalcifications are seen. There are benign calcifications. The axillae are unremarkable. IMPRESSION: No mammographic features suspicious for malignancy are identified. ACR BI-RADS Category 2: Benign findings. Result letter will be mailed to the patient. Note: At least 10% of breast cancer is not imaged by mammography. Dictated by: Dictated on workstation # [id number]
== END ==
LOC: RAD 12:45
PROVIDERS: ATTEND Nurse Practitioner Family
DX: Z12.31 Encounter for screening mammogram for malignant neoplasm of breast (principal)
CPT/HCPCS: 77063; 77067

== ENCOUNTER → 2020-09-02 | Outpatient (CLI) | payer MEDICARE ==
[~2020-09-02] MED LIST changes: -FOLI0.4T2 PO; +FOLI0.4T6 PO
[2020-09-02 11:36] LABS: HEMOGLOBIN 13.1 g/dL (11.5-16.0); MEAN PLATELET VOLUME 9.8 fL (9.0-12.2); WHITE BLOOD COUNT 3.8 10^3/uL (4.3-11.0)
[2020-09-02 11:54] LABS: ALBUMIN 3.8 GM/DL (3.2-4.5); CALCIUM 9.4 MG/DL (8.5-10.1); CREATININE SERUM 1.13 MG/DL (0.60-1.30); POTASSIUM 3.7 MMOL/L (3.6-5.0); URIC ACID 5.6 MG/DL (2.6-7.2)
== END ==
LOC: LAB 11:06
PROVIDERS: ATTEND Internal Medicine Nephrology
DX: N20.0 Calculus of kidney (principal); D63.1 Anemia in chronic kidney disease; N18.30 Chronic kidney disease, stage 3 unspecified
CPT/HCPCS: 36415; 80069; 82306; 82570; 83970; 84156; 84550; 85027

== ENCOUNTER → 2021-02-12 | Outpatient (CLI) | payer MEDICARE ==
[2021-02-12 12:56] LABS: HEMATOCRIT 40 % (35-52); HEMOGLOBIN 12.5 g/dL (11.5-16.0); MEAN CORPUSCULAR HEMOGLOBIN 31 pg (25-34); MEAN CORPUSCULAR HGB CONC 32 g/dL (32-36); MEAN CORPUSCULAR VOLUME 98 fL (80-99); MEAN PLATELET VOLUME 9.6 fL (9.0-12.2); PLATELET COUNT 262 10^3/uL (130-400); WHITE BLOOD COUNT 4.3 10^3/uL (4.3-11.0)
[2021-02-12 13:21] LABS: ALBUMIN 3.5 GM/DL (3.2-4.5); CALCIUM 9.6 MG/DL (8.5-10.1); CREATININE SERUM 1.17 MG/DL (0.60-1.30); POTASSIUM 4.2 MMOL/L (3.6-5.0); URIC ACID 5.8 MG/DL (2.6-7.2)
== END ==
LOC: LAB 12:23
PROVIDERS: ATTEND Internal Medicine Nephrology
DX: E55.9 Vitamin D deficiency, unspecified (principal); N20.0 Calculus of kidney; N18.31 Chronic kidney disease, stage 3a
CPT/HCPCS: 36415; 80069; 82306; 82570; 83970; 84156; 84550; 85027

== ENCOUNTER 2021-04-01 12:21 | Inpatient (IN) | payer MEDICARE ==
[~2021-04-01] VITALS: Ht 160 cm; Wt 73.3 kg
[2021-04-01] MEDS ORDERED: LACTATED RINGERS 1,000 ML IV SCH (13:00)
[2021-04-01] MEDS ORDERED: ONDANSETRON 4 MG/2 ML (SDV) Z0FRAN IVP ONE (13:00)
[2021-04-01 13:03] LABS: BASOPHILS # (AUTO) 0.1 10^3/uL (0.0-0.1); BASOPHILS % (AUTO) 1 % (0-10); EOSINOPHILS # (AUTO) 0.1 10^3/uL (0.0-0.3); EOSINOPHILS % (AUTO) 1 % (0-10); HEMATOCRIT 40 % (35-52); HEMOGLOBIN 13.1 g/dL (11.5-16.0); LYMPHOCYTES # (AUTO) 1.3 10^3/uL (1.0-4.0); LYMPHOCYTES % (AUTO) 24 % (12-44); MEAN CORPUSCULAR HEMOGLOBIN 32 pg (25-34); MEAN CORPUSCULAR HGB CONC 33 g/dL (32-36); MEAN CORPUSCULAR VOLUME 96 fL (80-99); MEAN PLATELET VOLUME 9.6 fL (9.0-12.2); MONOCYTES # (AUTO) 0.5 10^3/uL (0.0-1.0); MONOCYTES % (AUTO) 9 % (0-12); NEUTROPHILS # (AUTO) 3.6 10^3/uL (1.8-7.8); NEUTROPHILS % (AUTO) 65 % (42-75); PLATELET COUNT 281 10^3/uL (130-400); WHITE BLOOD COUNT 5.6 10^3/uL (4.3-11.0)
[2021-04-01 13:12] LABS: ALBUMIN 3.7 GM/DL (3.2-4.5)
[2021-04-01 13:13] LABS: POTASSIUM 3.8 MMOL/L (3.6-5.0)
[2021-04-01 13:14] LABS: CALCIUM 9.3 MG/DL (8.5-10.1)
[2021-04-01 13:17] LABS: BILIRUBIN,TOTAL 0.8 MG/DL (0.1-1.0)
[2021-04-01 13:19] LABS: CREATININE SERUM 1.04 MG/DL (0.60-1.30)
--- NOTE | 2021-04-01 13:21 | Diagnostic Imaging Report ---
INDICATION: Severe nausea. TIME OF EXAM: 01:19 p.m. The heart size is normal. The pulmonary vascularity is unremarkable. The lungs are clear. No infiltrate, effusion or pneumothorax is detected. IMPRESSION: No acute cardiopulmonary process is detected. Dictated by: Dictated on workstation # [id number]
[2021-04-01 13:22] LABS: MAGNESIUM 1.9 MG/DL (1.6-2.4)
--- NOTE | 2021-04-01 13:24 | Diagnostic Imaging Report ---
PROCEDURE: CT head without contrast. TECHNIQUE: Multiple contiguous axial images were obtained through the brain without the use of intravenous contrast. Auto Exposure Controls were utilized during the CT exam to meet ALARA standards for radiation dose reduction. INDICATION: Severe nausea. COMPARISON: Exam is compared with head CT 05/22/2013. FINDINGS: Extensive subcortical and periventricular white matter disease is unchanged from prior. There are substantial intracranial atherosclerotic vascular calcifications, chronic. There are some patchy areas of posterior fossa hypodensity involving the bilateral cerebellar hemispheres, predominantly inferiorly as well as along the left middle cerebellar peduncle. Some of these are clearly old; however, others may be more recent. If the clinical features are compatible with a subacute or recent posterior fossa ischemia, I would recommend further workup with brain MRI. There is no sulcal effacement. There is no evidence for elevated pressures. There is no hemorrhage. The basilar cisterns are patent. There are intracranial atherosclerotic vascular calcifications, chronic. There is no mastoid effusion. Calvarium, orbits, and paranasal sinuses are nonacute. IMPRESSION: 1. Some multifocal areas of acuity-indeterminate ischemia in the cerebellar hemispheres and left middle cerebellar peduncle are new from comparison study. Otherwise, extensive periventricular white matter small vessel sequelae unchanged. 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 2. No evidence for hemorrhage or hydrocephalus. Dictated by: Dictated on workstation # [id number]
[2021-04-01 13:44] LABS: BILIRUBIN,URINE NEGATIVE (NEGATIVE); CLARITY,URINE CLEAR; COLOR,URINE YELLOW; GLUCOSE, URINE (UA) NEGATIVE (NEGATIVE); KETONES,URINE 1+ (NEGATIVE); LEUKOCYTE ESTERASE ,URINE 3+ (NEGATIVE); NITRITE,URINE POSITIVE (NEGATIVE); PH,URINE 7.5 (5-9); PROTEIN,URINE 1+ (NEGATIVE)
[2021-04-01 13:52] LABS: BACTERIA,URINE NEGATIVE /HPF; WBC,URINE 50-100 /HPF
[2021-04-01 13:53] LABS: AMORPHOUS SEDIMENT,UR MOD AMOR PHOSPHATE /LPF
[2021-04-01] MEDS ORDERED: cefTRIAXone 1,000 MG VIAL IV ONE (14:00)
--- NOTE | 2021-04-01 14:12 | ED General ---
General Chief Complaint: Abdominal/GI Problems Stated Complaint: NAUSEA Nursing Triage Note: ARRIVED VIA WC WITH COMPLAINTS OF SEVERE NAUSEA. STATES SHE LAYED ON THE FLOOR FOR OVER 20 HOURS BETWEEN TUE-MON. AMBULANCE WAS CALLED BUT WAS NOT BROUGHT INTO THE ER. DAUGHTER CALLED DR DELANEY THIS AM WHO TOLD THEM TO COME TO THE ER. Source of Information: Patient, Family Exam Limitations: No Limitations History of Present Illness Date Seen by Provider: Apr 01, 2021 Time Seen by Provider: 14:11 Initial Comments 89-year-old female presents to ER by private vehicle accompanied by her daughter. She lives at home alone. On Tuesday she had general weakness. She laid on the floor for about 20 hours. She did not fall she states. She does have a history of TIA. She had ambulance on scene but declined transport. She has had some ongoing nausea and general weakness. For the past 48 hours since getting up she is required help from her daughter with activities of daily living which is atypical for her. Timing/Duration: 2-3 Days Severity: Moderate Associated Systoms: Nausea/Vomiting Allergies and Home Medications Allergies Coded Allergies: No Known Drug Allergies (Verified , 10/10/17) Patient Home Medication List Home Medication List Reviewed: Yes Amitriptyline HCl (Amitriptyline HCl) 50 Mg Tablet, 50 MG PO HS, (Reported) Entered as Reported by: ISAMAR COX on 10/04/17 1456 Cholecalciferol (Vitamin D3) (Vitamin D3) 2,000 Unit Tab.chew, 2,000 UNIT PO DAILY, (Reported) Entered as Reported by: ISAMAR COX on 07/25/19 1423 Clopidogrel Bisulfate (Clopidogrel) 75 Mg Tablet, 75 MG PO DAILY, (Reported) Entered as Reported by: ISAMAR COX on 07/25/19 1423 Folic Acid (Folic Acid) 0.4 Mg Tablet, 0.4 MG PO DAILY, (Reported) Entered as Reported by: ISAMAR COX on 07/25/19 1423 Hydrocodone/Acetaminophen (Hydrocodone/Acetaminophen 5 MG/325 MG TAB) 1 Each Tablet, 1-2 TAB PO Q4-6HR Prescribed by: TUAN GUTIERREZ on 07/26/19 1230 Levothyroxine Sodium (Levothyroxine Sodium) 50 Mcg Tablet, 50 MCG PO DAILY, (Reported) Entered as Reported by: ISAMAR COX on 10/04/17 1456 Metoprolol Tartrate (Metoprolol Tartrate) 25 Mg Tablet, 12.5 MG PO BID, (Reported) Entered as Reported by: ISAMAR COX on 10/04/17 1456 Tramadol HCl/Acetaminophen (Tramadol-Acetaminophn 37.5-325) 1 Each Tablet, 1 TAB PO Q6H PRN for PAIN-MODERATE (5-7), (Reported) Entered as Reported by: ISAMAR COX on 07/25/19 1423 Review of Systems Review of Systems Constitutional: see HPI EENTM: see HPI Respiratory: no symptoms reported Cardiovascular: no symptoms reported Genitourinary: no symptoms reported Musculoskeletal: no symptoms reported Skin: no symptoms reported Psychiatric/Neurological: No Symptoms Reported Hematologic/Lymphatic: No Symptoms Reported Past Mkgpgdb-Fmtyze-Uvljpk Hx Patient Social History Tobacco Use?: No Substance use?: No Immunizations Up To Date Tetanus Booster (TDap): Unknown COVID19 Vaccine 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[employer] Seasonal Allergies Seasonal Allergies: No Past Medical History Surgeries: Yes (ULCER,BREAST BX,L KNEE SCOPE, LEFT TKR, hernia x2, kidney stone) Hysterectomy, Tonsillectomy Respiratory: No Cardiac: Yes Hypertension Neurological: Yes TIA Reproductive Disorders: No Genitourinary: Yes Kidney Stones Gastrointestinal: Yes Gastrointestinal Bleed, Ulcer Musculoskeletal: Yes Arthritis Endocrine: No Hypothyroidsim HEENT: Yes (cataracts removed) Cataract Cancer: No Psychosocial: No Integumentary: No Blood Disorders: Yes (ANEMIA) Adverse Reaction/Blood Tranf: No Physical Exam Vital Signs Vital Signs - First Documented 04/01/21 12:30 Temp 36.3 Pulse 60 B/P (MAP) 173/79 (110) Pulse Ox 97 O2 Delivery Room Air Capillary Refill : Less Than 3 Seconds Height, Weight, BMI Height: 5'2.00" Weight: 151lbs. 0.0oz. 68.313124ds; 30.00 BMI Method:Stated General Appearance: No Apparent Distress, WD/WN, Chronically ill, Other (Alert and oriented no distress. Blood pressure is a little high at 178/78.) Eyes: Bilateral Eye Normal Inspection, Bilateral Eye PERRL HEENT: PERRL/EOMI, TMs Normal Respiratory: No Accessory Muscle Use, No Respiratory Distress Cardiovascular: Regular Rate, Rhythm, Normal Peripheral Pulses Gastrointestinal: Non Tender, Soft Extremity: Normal Capillary Refill, Normal Inspection Neurologic/Psychiatric: Alert, Oriented x3 Skin: Normal Color, Warm/Dry Comments She is alert and oriented very pleasant. She has equal shipping support clerk of upper extremities. There is no arm drift, there is questionable and very slight left arm pronator drift but again this is questionable and slight at best. There is no facial asymmetry. Speech is clear. Lower extremities are equal in strength. There is no upper extremity ataxia. Progress/Results/Core Measures Suspected Sepsis SIRS Temperature: Pulse: 60 Respiratory Rate: Laboratory Tests 04/01/21 12:50: White Blood Count 5.6 Blood Pressure 173 /79 Mean: 110 Laboratory Tests 04/01/21 12:50: Creatinine 1.04, Platelet Count 281, Total Bilirubin 0.8 Results/Orders Lab Results Laboratory Tests Test 04/01/21 12:50 04/01/21 13:36 Range/Units White Blood Count 5.6 4.3-11.0 10^3/uL Red Blood Count 4.16 3.80-5.11 10^6/uL Hemoglobin 13.1 11.5-16.0 g/dL Hematocrit 40 35-52 % Mean Corpuscular Volume 96 80-99 fL Mean Corpuscular Hemoglobin 32 25-34 pg Mean Corpuscular Hemoglobin Concent 33 32-36 g/dL Red Cell Distribution Width 14.2 10.0-14.5 % Platelet Count 281 130-400 10^3/uL Mean Platelet Volume 9.6 9.0-12.2 fL Immature Granulocyte % (Auto) 0 % Neutrophils (%) (Auto) 65 42-75 % Lymphocytes (%) (Auto) 24 12-44 % Monocytes (%) (Auto) 9 0-12 % Eosinophils (%) (Auto) 1 0-10 % Basophils (%) (Auto) 1 0-10 % Neutrophils # (Auto) 3.6 1.8-7.8 10^3/uL Lymphocytes # (Auto) 1.3 1.0-4.0 10^3/uL Monocytes # (Auto) 0.5 0.0-1.0 10^3/uL Eosinophils # (Auto) 0.1 0.0-0.3 10^3/uL Basophils # (Auto) 0.1 0.0-0.1 10^3/uL Immature Granulocyte # (Auto) 0.0 0.0-0.1 10^3/uL Sodium Level 141 135-145 MMOL/L Potassium Level 3.8 3.6-5.0 MMOL/L Chloride Level 104 98-107 MMOL/L Carbon Dioxide Level 24 21-32 MMOL/L Anion Gap 13 5-14 MMOL/L Blood Urea Nitrogen 19 H 7-18 MG/DL Creatinine 1.04 0.60-1.30 MG/DL Estimat Glomerular Filtration Rate 50 BUN/Creatinine Ratio 18 Glucose Level 94 70-105 MG/DL Calcium Level 9.3 8.5-10.1 MG/DL Corrected Calcium 9.5 8.5-10.1 MG/DL Magnesium Level 1.9 1.6-2.4 MG/DL Total Bilirubin 0.8 0.1-1.0 MG/DL Aspartate Amino Transf (AST/SGOT) 27 5-34 U/L Alanine Aminotransferase (ALT/SGPT) 13 0-55 U/L Alkaline Phosphatase 78 40-136 U/L Total Creatine Kinase 81 29-168 U/L Total Protein 6.0 L 6.4-8.2 GM/DL Albumin 3.7 3.2-4.5 GM/DL Urine Color YELLOW Urine Clarity CLEAR Urine pH 7.5 5-9 Urine Specific [place] 1.020 1.016-1.022 Urine Protein 1+ H NEGATIVE Urine Glucose (UA) NEGATIVE NEGATIVE Urine Ketones 1+ H NEGATIVE Urine Nitrite POSITIVE H NEGATIVE Urine Bilirubin NEGATIVE NEGATIVE Urine Urobilinogen 0.2 < = 1.0 MG/DL Urine Leukocyte Esterase 3+ H NEGATIVE Urine RBC (Auto) 2+ H NEGATIVE Urine RBC 5-10 H /HPF Urine WBC 50-100 H /HPF Urine Squamous Epithelial Cells NONE /HPF Urine Crystals NONE /LPF Urine Amorphous Sediment MOD POLLY PHOSPHATE H /LPF Urine Bacteria NEGATIVE /HPF Urine Casts NONE /LPF Urine Mucus NEGATIVE /LPF Urine Culture Indicated YES My Orders Orders - FRANCHESKA ZAMARRIPA APRN Ua Culture If Indicated (04/01/21 12:50) Cbc With Automated Diff (04/01/21 12:50) Comprehensive Metabolic Panel (04/01/21 12:50) Creatine Kinase (04/01/21 12:50) Chest 1 View, Ap/Pa Only (04/01/21 12:50) Ed Iv/Invasive Line Start (04/01/21 12:50) Ct Head Wo (04/01/21 12:50) Lactated Ringers (Lr 1000 Ml Iv Solution (04/01/21 13:00) Ondansetron Injection (Zofran Injectio (04/01/21 13:00) Ekg Tracing (04/01/21 12:50) Magnesium (04/01/21 12:50) Urine Culture (04/01/21 13:36) Ceftriaxone (Rocephin) (04/01/21 14:00) Medications Given in ED Current Medications Medications Dose Ordered Sig/Shante Route Start Time Stop Time Status Last Admin Dose Admin Ceftriaxone Sodium 1,000 mg ONCE ONCE IV 04/01/21 14:00 04/01/21 14:01 DC 04/01/21 14:01 1,000 MG Ondansetron HCl 4 mg ONCE ONCE IVP 04/01/21 13:00 04/01/21 13:01 DC 04/01/21 13:04 4 MG Vital Signs/I&O 04/01/21 12:30 Temp 36.3 Pulse 60 B/P (MAP) 173/79 (110) Pulse Ox 97 O2 Delivery Room Air Capillary Refill : Less Than 3 Seconds Blood Pressure Mean: 110 Departure Communication (Admissions) Family Conversation [phone] with Dr. Delaney. Will admit the patient. When I asked the patient about CODE STATUS she reports that she is DO NOT RESUSCITATE. Discussed with her the need to admit for IV antibiotics and a physical therapy consult given her inability to care for self at home. I did discuss with her that if she is unable to improve and her functioning status she may need to consider assisted living or fci placement and she is agreeable to these things. Impression Primary Impression: Urinary tract infection Additional Impression: CVA (cerebral vascular accident) Disposition: ADMITTED INPATIENT Condition: Stable Admissions Decision to Admit Reason: Admit from ER (General) Decision to Admit/Date: Apr 01, 2021 Time/Decision to Admit Time: 14:30 Departure-Patient Inst. Referrals: TANIA DELANEY MD (PCP/Family) Primary Care Physician FRANCHESKA ZAMARRIPA APRN Apr 01, 2021 14:12
[2021-04-01 15:45] VITALS: BP 175/75
[2021-04-01] MEDS ORDERED: CATHETER FLUSH 10 ML SYR IV PRN (16:00)
[2021-04-01] MEDS: LACTATED RINGERS 1,000 ML IV SCH (16:48)
--- NOTE | 2021-04-01 18:27 | History & Physicial ---
History of Present Illness History of Present Illness Reason for visit/HPI PT IS AN 89 Y/O FEMALE WHO IS WELL KNOWN TO ME FROM CLINIC. SHE PRESENTED TO THE HOSPITAL FOR WEAKNESS AND FALLING EPISODES. PER HER DTR'S REPORT AND REPORT FROM ER - THE PATIENT FELL AT HOME, WAS ON THE FLOOR FOR OVER 20 HOURS AND FINALLY EMS WAS CALLED, PT REFUSED TRANSPORT TO THE HOSPITAL AND FOR THE PAST 4 DAYS SHE HAS BEEN RELYING ON HER DTR TO HELP IN HER HOME. HER DTR CALLED THE OFFICE AND SHE WANTED SOME HELP WITH HER MOM BECAUSE SHE WAS TOO WEAK TO BE SAFELY MANAGED AT HOME. Date of Admission Apr 01, 2021 at 14:50 Date Seen by a Provider: Apr 01, 2021 Time Seen by a Provider: 18:40 Attending Physician Tania Delaney MD Admitting Physician Tania Delaney MD Consult Allergies and Home Medications Allergies Coded Allergies: No Known Drug Allergies (Verified , 10/10/17) Patient Home Medication List Home Medication List Reviewed: Yes Amitriptyline HCl (Amitriptyline HCl) 50 Mg Tablet, 50 MG PO HS, (Reported) Entered as Reported by: ISAMAR COX on 10/04/171455 Last Action: Held Cholecalciferol (Vitamin D3) (Vitamin D3) 2,000 Unit Tab.chew, 2,000 UNIT PO DAILY, (Reported) Entered as Reported by: ISAMAR COX on 07/25/191422 Last Action: Held Clopidogrel Bisulfate (Clopidogrel) 75 Mg Tablet, 75 MG PO DAILY, (Reported) Entered as Reported by: ISAMAR COX on 07/25/191422 Last Action: Reviewed Folic Acid (Folic Acid) 0.4 Mg Tablet, 0.4 MG PO DAILY, (Reported) Entered as Reported by: ISAMAR COX on 07/25/191422 Last Action: Held Hydrocodone/Acetaminophen (Hydrocodone/Acetaminophen 5 MG/325 MG TAB) 1 Each Tablet, 1-2 TAB PO Q4-6HR Prescribed by: TUAN GUTIERREZ on 07/26/19 1230 Last Action: Held Levothyroxine Sodium (Levothyroxine Sodium) 50 Mcg Tablet, 50 MCG PO DAILY, (Reported) Entered as Reported by: ISAMAR COX on 10/04/171455 Last Action: Reviewed Metoprolol Tartrate (Metoprolol Tartrate) 25 Mg Tablet, 12.5 MG PO BID, (Reported) Entered as Reported by: ISAMAR COX on 10/04/17 1456 Last Action: Reviewed Tramadol HCl/Acetaminophen (Tramadol-Acetaminophn 37.5-325) 1 Each Tablet, 1 TAB PO Q6H PRN for PAIN-MODERATE (5-7), (Reported) Entered as Reported by: ISAMAR COX on 07/25/19 1423 Last Action: Held Past Awfgtmd-Bnxims-Kzzdri Hx Patient Social History Marrital Status: Living Status: LIVES AT HOME ALONE Employed/Student: retired Recent Hopitalizations: No Have you traveled recently?: No Alcohol Use?: No Pt feels they are or have been: No Immunizations Up To Date Tetanus Booster (TDap): Unknown Date of Pneumonia Vaccine: Jul 24, 2017 Date of Influenza Vaccine: Mar 07, 2019 Seasonal Allergies Seasonal Allergies: No Surgeries Yes (ULCER,BREAST BX,L KNEE SCOPE, LEFT TKR, hernia x2, kidney stone) Hysterectomy, Tonsillectomy Respiratory No Currently Using CPAP: No Currently Using BIPAP: No Cardiovascular Yes Hypertension Neurological Yes TIA Reproductive System : No Hx Reproductive Disorders: No Genitourinary Yes Kidney Stones Gastrointestinal Yes Gastrointestinal Bleed, Ulcer Musculoskeletal Yes Arthritis Endocrine History of Endocrine Disorders: No Endocrine Disorders: Hypothyroidsim HEENT History of HEENT Disorders: Yes (cataracts removed) HEENT Disorders: Cataract Cancer No Psychosocial History of Psychiatric Problem: No Integumentary History of Skin or Integumenta: No Blood Transfusions History of Blood Disorders: Yes (ANEMIA) Adverse Reaction to a Blood Tr: No Reviewed Nursing Assessment Reviewed/Agree w Nursing PMH: Yes Family Medical History Significant Family History: Heart Disease, Hypertension Review of Systems Constitutional: No chills, No fever; malaise, weakness EENTM: hearing loss (CHRONIC) Respiratory: No cough Psychiatric/Neurological: Pre-Existing Deficit, Weakness All Other Systems Reviewed Negative Unless Noted: Yes Physical Exam Vital Signs Vital Signs - First Documented 04/01/21 04/01/21 12:30 15:33 Temp 36.3 Pulse 60 Resp 16 B/P (MAP) 173/79 (110) Pulse Ox 97 O2 Delivery Room Air Capillary Refill : Less Than 3 Seconds Height, Weight, BMI Height: 5'2.00" Weight: 151lbs. 0.0oz. 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 Some multifocal areas of acuity-indeterminate ischemia in the cerebellar hemispheres and left middle cerebellar peduncle are new from comparison study. Otherwise, extensive periventricular white matter small vessel sequelae unchanged. 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 2. No evidence for hemorrhage or hydrocephalus. CHRONIC HYPERTENSION HYPOTHYROIDISM UTI - NITRITE POSITIVE - PT ON ROCEPHIN MONITOR CULTURE FOR SENSITIVITY. Admission Diagnosis FALL AT HOME WEAKNESS SUBACUTE ISCHEMIA OF CEREBELLAR HEMISPHERES AND LEFT MIDDLE CEREBELLAR PEDUNCLE CHRONIC HYPERTENSION HYPOTHYROIDISM Admission Status: Inpatient Order (span 2 midnights) Reason for Inpatient Admission: INPATIENT ADMISSION FOR WEAKNESS, STABILIZATION IN SYMPTOMS, AND PLANS FOR PATIENT PLACEMENT TANIA DELANEY MD Apr 01, 2021 18:27
[2021-04-01 19:49] VITALS: BP 151/74
[2021-04-01] MEDS ORDERED: ACETAMINOPHEN 325 MG TABLET ONE (21:02)
[2021-04-01] MEDS: ACETAMINOPHEN 325 MG TABLET PO PRN (21:04)
[2021-04-02] VITALS (7 sets, daily range): BP systolic 132–192; BP diastolic 64–77
[2021-04-02] MEDS: AMITRIPTYLINE 50 MG (ELAVIL) TAB PO SCH ×2 (01:48→20:38)
[2021-04-02] MEDS: LACTATED RINGERS 1,000 ML IV SCH ×3 (02:50→22:01)
[2021-04-02 05:51] LABS: BASOPHILS # (AUTO) 0.1 10^3/uL (0.0-0.1); BASOPHILS % (AUTO) 2 % (0-10); EOSINOPHILS # (AUTO) 0.1 10^3/uL (0.0-0.3); EOSINOPHILS % (AUTO) 2 % (0-10); HEMATOCRIT 35 % (35-52); HEMOGLOBIN 11.4 g/dL (11.5-16.0); LYMPHOCYTES # (AUTO) 1.3 10^3/uL (1.0-4.0); LYMPHOCYTES % (AUTO) 33 % (12-44); MEAN CORPUSCULAR HEMOGLOBIN 32 pg (25-34); MEAN CORPUSCULAR HGB CONC 32 g/dL (32-36); MEAN CORPUSCULAR VOLUME 98 fL (80-99); MEAN PLATELET VOLUME 9.8 fL (9.0-12.2); MONOCYTES # (AUTO) 0.5 10^3/uL (0.0-1.0); MONOCYTES % (AUTO) 12 % (0-12); NEUTROPHILS % (AUTO) 51 % (42-75); PLATELET COUNT 243 10^3/uL (130-400); WHITE BLOOD COUNT 3.8 10^3/uL (4.3-11.0)
[2021-04-02 05:54] LABS: POTASSIUM 3.6 MMOL/L (3.6-5.0)
[2021-04-02 05:55] LABS: CALCIUM 8.2 MG/DL (8.5-10.1)
[2021-04-02 06:00] LABS: CREATININE SERUM 0.84 MG/DL (0.60-1.30)
[2021-04-02] MEDS ORDERED: ONDANSETRON 4 MG (ZOFRAN) ORAL DISSOLVE TAB PO PRN (08:30)
[2021-04-02] MEDS ORDERED: meTOprolol TARTRATE 25 MG (LOPRESSOR) TABLET PO ONE (08:30)
[2021-04-02] MEDS ORDERED: ONDANSETRON 4 MG (ZOFRAN) ORAL DISSOLVE TAB PO ONE (08:30)
[2021-04-02] MEDS: LACTOBACILLUS ACIDOPHILUS (PROBIOTIC) CAPSULE PO SCH ×3 (08:53→18:25)
[2021-04-02] MEDS: CLOPIDOGREL 75 MG (PLAVIX) TABLET PO SCH (08:53)
[2021-04-02] MEDS: ENOXAPARIN 40 MG/0.4 ML (LOVENOX) SYR SC SCH (08:54)
[2021-04-02] MEDS ORDERED: CINA30TA6 PO (08:57)
[2021-04-02] MEDS ORDERED: CHOL20002 PO (08:57)
[2021-04-02] MEDS ORDERED: cefTRIAXone 1 GM IV (PRE-MIX) 50 ML IV SCH (09:00)
--- NOTE | 2021-04-02 10:23 | Physical Therapy Evaluation ---
PT Evaluation-General Medical Diagnosis Admission Date Apr 01, 2021 at 14:50 Medical Diagnosis: nausea Onset Date: Apr 01, 2021 Therapy Diagnosis Therapy Diagnosis: generalized weakness/debility Height/Weight Height (Feet): 5 Height (Inches): 2.00 Weight (Pounds): 151 Weight (Ounces): 0.0 Precautions Precautions/Isolations: Standard Precautions Weight Bear Status Right Lower Extremity: Right Weight Bearing/Tolerated Left Lower Extremity: Left Weight Bearing/Tolerated Referral Physician: Elaina Reason for Referral: Evaluation/Treatment Medical History Pertinent Medical History: HTN Additional Medical History TIA Current History ER secondary to nausea/laid on floor x 20 hours but states she didn't fall. She got tired and sat on floor and couldn't get up because she has bad knees. Physician present to hear this statement. Reviewed History: Yes Social History Home: Single Level Current Living Status: Alone Entry Into Home: Stairs With Railing PT Steps Into Home: 2 Prior Prior Level of Function SCALE: Activities may be completed with or without assistive devices. 6-Zhuvmbjerv-jvbrnbh completes the activity by him/herself with no assistance from a helper. 5-Set-up or Clean-up Assistance-helper sets up or cleans up; patient completes activity. Lyndon assists only prior to or following the activity. 4-Supervision or Touching Assistance-helper provides verbal cues and/or touching/steadying and/or contact guard assistance as patient completes activity. Assistance may be provided throughout the activity or intermittently. 3-Partial/Moderate Assistance-helper does LESS THAN HALF the effort. Lyndon lifts, holds or supports trunk or limbs, but provides less than half the effort. 2-Substantial/Maximal Assistance-helper does MORE THAN HALF the effort. Lyndon lifts or holds trunk or limbs and provides more than half the effort. 1-Pvplanlgt-yilxhj does ALL the effort. Patient does none of the effort to complete the activity. Or, the assistance of 2 or more helpers is required for the patient to complete the activity. If activity was not attempted, code reason: 7-Patient Refused. 9-Not Applicable-not attempted and the patient did not perform the activity before the current illness, exacerbation or injury. 10-Not Attempted due to Environmental Limitations-(lack of equipment, weather restraints, etc.). 88-Not Attempted due to Medical Conditions or Safety Concerns. Bed Mobility: 6 Transfers (B,C,W/C): 6 Gait: 6 Stairs: 6 Indoor Mobility (Ambulation): Independent Stairs: Independent Prior Devices Use: Walker PT Evaluation-Current Subjective Patient agrees to PT. Objective Patient Orientation: Normal For Age ROM/Strength ROM Lower Extremities bilateral LE WFL Strength Lower Extremities 4-/5 grossly bilateral LE Integumentary/Posture Bowel Incontinence: No Bladder Incontinence: No Posture WFL Neuromuscular (Tone, Coordination, Reflexes) grossly intact Sensory Vision: Functional Hearing: Functional Transfers Roll Left to Right (QC): 6 Sit to Lying (QC): 6 Lying to Sitting/Side of Bed(Q: 6 Sit to Stand (QC): 6 Chair/Ics-fs-Kiqks Xfer(QC): 4 Gait Does the Patient Walk?: Yes Mode of Locomotion: Walk Anticipated Mode of Locomotion: Walk Walk 10 feet (QC): 4 (SBA) Walk 50 ft with 2 Turns(QC): 4 (SBA) Walk 150 ft (QC): 4 (SBA) Walking 10ft/uneven surface-QC: 4 (SBA) Distance: 500' Gait Assistive Device: FWW Comments/Gait Description SBA for initial assessment/safe and functional gait sequence Stairs #of Steps: 12 1 Step (curb) (QC): 4 (SBA) 4 Steps (QC): 4 (SBA) 12 Steps (QC): 4 (SBA) reciprocal pattern ascending and descending. Balance Sitting Static: Normal Sitting Dynamic: Normal Standing Static: Normal Standing Dynamic: Normal Picking up an Object (QC): 6 Assessment/Needs 89 y.o. female, will be seen short term by skilled PT to address functional strength and mobility to ensure safe return to home or care facility at maximum LOF. Rehab Potential: Fair PT Mcfp Goals Cyber Defense Forensics Analyst Goals PT Mcfp Goals Time Frame: Apr 11, 2021 Roll Left & Right (QC): 6 Sit to Lying (QC): 6 Lying-Sitting on Side/Bed(QC): 6 Sit to Stand (QC): 6 Chair/Tmz-cq-Vaanj Xfer(QC): 6 Toilet Transfer (QC): 6 Walk 10 feet (QC): 6 Walk 50ft with 2 Turns (QC): 6 Walk 150 ft (QC): 6 PT Plan Treatment/Plan Treatment Plan: Continue Plan of Care Treatment Plan: Education, Functional Activity Marie, Functional Strength, Gait, Safety, Therapeutic Exercise Treatment Duration: Apr 11, 2021 Frequency: 6 times per week Estimated Hrs Per Day: .25 hour per day Patient and/or Family Agrees t: Yes Time/GCodes Time In: 914 Time Out: 925 Total Billed Treatment Time: 11 Total Billed Treatment 1 visit EVModC 11 min CARISA LOMBARDO PT Apr 02, 2021 10:22
[2021-04-02] MEDS: SENNA W/DOCUSATE (SENOKOT S) TABLET PO SCH ×2 (10:26→20:37)
[2021-04-02] MEDS: ACETAMINOPHEN 325 MG TABLET PO PRN (10:26)
--- NOTE | 2021-04-02 11:28 | Occupational Therapy Eval ---
OT Evaluation-General/PLF Medical Diagnosis Admission Date Apr 01, 2021 at 14:50 Medical Diagnosis: nausea Onset Date: Apr 01, 2021 Therapy Diagnosis Therapy Diagnosis: n/a Height/Weight Height (Feet): 5 Height (Inches): 2.00 Weight (Pounds): 151 Weight (Ounces): 0.0 Precautions Precautions/Isolations: Standard Precautions Referral Physician: Elaina Referral Reason: Evaluation/Treatment Medical History Pertinent Medical History: HTN Current History Pt reports that she did not fall (per chart) and that she instead felt dizzy and sat on the floor and was then unable to get back up. She lives alone in a single story home, 2 steps to enter. She reports being indep with adls and iadls. She does have a metal casket maker every other week to assist with cleaning and her daughter provides all the transportation. She owns a walker but was not using prior to admission. Reviewed History: Yes Social History Home: Single Level Current Living Status: Alone Entry Into Home: Stairs With Railing Steps Into Home: 2 ADL-Prior Level of Function SCALE: Activities may be completed with or without assistive devices. 8-Snnpxosouf-mbjgpxg completes the activity by him/herself with no assistance from a helper. 5-Set-up or Clean-up Assistance-helper sets up or cleans up; patient completes activity. Roann assists only prior to or following the activity. 4-Supervision or Touching Assistance-helper provides verbal cues and/or touching/steadying and/or contact guard assistance as patient completes activity. Assistance may be provided throughout the activity or intermittently. 3-Partial/Moderate Assistance-helper does LESS THAN HALF the effort. Roann lifts, holds or supports trunk or limbs, but provides less than half the effort. 2-Substantial/Maximal Assistance-helper does MORE THAN HALF the effort. Roann lifts or holds trunk or limbs and provides more than half the effort. 2-Gyziwfeyh-jxjzoe does ALL the effort. Patient does none of the effort to complete the activity. Or, the assistance of 2 or more helpers is required for the patient to complete the activity. If activity was not attempted, code reason: 7-Patient Refused. 9-Not Applicable-not attempted and the patient did not perform the activity before the current illness, exacerbation or injury. 10-Not Attempted due to Environmental Limitations-(lack of equipment, weather restraints, etc.). 88-Not Attempted due to Medical Conditions or Safety Concerns. Self Care: Independent Functional Cognition: Independent DME/Equipment: Bath Chair, Grab Bars, Shower Drive Self: No OT Current Status Subjective Pt denies pain, agreeable to eval. Appearance Pt returned to sitting in chair, all needs within reach. Mental Status/Objective Patient Orientation: Person, Place, Time, Situation Current Upper Extremity ROM WNL Upper Extremity Strength 4/5 throughout ADL-Treatment Oral Hygiene (QC): 4 (supervision) On/Off Footwear (QC): 6 Toileting Hygiene (QC): 6 All functional transfers performed with mod I. She ambulated to/from bathroom with use of walker and supervision for safety only. No unsteadiness observed. She transferred to the toilet and performed all steps of toileting without assist. She stood at the sink for hand hygiene, no lob. Education OT Patient Education: Correct positioning, Energy conservation, Progress toward Goal/Update tx plan, Purpose of tx/functional activities Teaching Recipient: Patient Teaching Methods: Discussion Response to Teaching: Verbalize Understanding OT [place] Patching Machine Operator Goals Snf Goals 1=Demonstrate adherence to instructed precautions during ADL tasks. 2=Patient will verbalize/demonstrate understanding of assistive rigoberto maria c/modifications for ADL. 3=Patient will improve strength/tolerance for activity to enable patient to perform ADL's. OT Education/Plan Problem List/Assessment Assessment: No Skilled OT Needs ID'd Discharge Recommendations Plan/Recommendations: Discontinue OT Treatment Plan/Plan of Care Treatment,Training & Education: Yes Patient would benefit from OT for education, treatment and training to promote independence in ADL's, mobility, safety and/or upper extremity function for ADL's. Plan of Care: ADL Retraining, UE Funct Exercise/Act Treatment Duration: Apr 02, 2021 Frequency: 1 time per week Estimated Hrs Per Day: .25 hour per day Agreement: Yes Time/GCodes Start Time: 10:25 Stop Time: 10:38 Total Time Billed (hr/min): 13 Billed Treatment Time 1 visit Saba Lu OT Apr 02, 2021 11:28
--- NOTE | 2021-04-02 17:06 | Progress Note ---
Subjective Subjective Date Seen by Provider: Apr 02, 2021 Time Seen by Provider: 08:00 Patient reports some nausea this morning. She also has a headache but no other pains. Denies any sweats or chills. Review of Systems General: No Chills, No Night Sweats Pulmonary: No Dyspnea Gastrointestinal: Nausea; No: Vomiting All Other Systems Reviewed All Other Systems Reviewed: Yes Objective Exam Vital Signs Vital Signs Date Time Temp Pulse Resp B/P (MAP) Pulse Ox O2 Delivery O2 Flow Rate FiO2 04/02/21 11:46 36.6 60 18 153/70 (97) 91 Room Air 04/02/21 08:29 180/77 (111) 04/02/21 08:16 36.4 77 18 192/77 (115) 91 Room Air 04/02/21 08:00 Room Air 04/02/21 04:00 36.5 71 18 132/68 (89) 94 Room Air 04/02/21 00:00 36.2 79 17 142/64 (90) 92 Room Air 04/01/21 20:00 Room Air 04/01/21 19:49 36.5 76 18 151/74 (99) 94 Room Air I & O 04/02/21 07:00 Intake Total 2500 ml Output Total 3 ml Balance 2497 ml General Appearance: No Apparent Distress, WD/WN, Chronically ill Eyes: Bilateral Eye Normal Inspection, Bilateral Eye PERRL HEENT: PERRL/EOMI, TMs Normal Respiratory: No Accessory Muscle Use, No Respiratory Distress Cardiovascular: Regular Rate, Rhythm, Normal Peripheral Pulses Gastrointestinal: Non Tender, Soft Extremity: Normal Capillary Refill, Normal Inspection Neurologic/Psychiatric: Alert, Oriented x3 Skin: Normal Color, Warm/Dry Results Lab Laboratory Tests 04/02/21 05:26: White Blood Count 3.8L, Red Blood Count 3.60L, Hemoglobin 11.4L, Hematocrit 35, Mean Corpuscular Volume 98, Mean Corpuscular Hemoglobin 32, Mean Corpuscular Hemoglobin Concent 32, Red Cell Distribution Width 14.2, Platelet Count 243, Mean Platelet Volume 9.8, Immature Granulocyte % (Auto) 0, Neutrophils (%) (A uto) 51, Lymphocytes (%) (Auto) 33, Monocytes (%) (Auto) 12, Eosinophils (%) (Auto) 2, Basophils (%) (Auto) 2, Neutrophils # (Auto) 2.0, Lymphocytes # (Auto) 1.3, Monocytes # (Auto) 0.5, Eosinophils # (Auto) 0.1, Basophils # (Auto) 0.1, Immature Granulocyte # (Auto) 0.0, Sodium Level 140, Potassium Level 3.6, Chloride Level 106, Carbon Dioxide Level 24, Anion Gap 10, Blood Urea Nitrogen 13, Creatinine 0.84, Estimat Glomerular Filtration Rate 64, BUN/Creatinine Ratio 15, Glucose Level 89, Calcium Level 8.2L Microbiology 04/01/21 Urine Culture - Preliminary, Resulted Gram Negative Bacillus 1 Assessment/Plan Assessment/Plan Assessment and Plan FALL AT HOME WEAKNESS SUBACUTE ISCHEMIA OF CEREBELLAR HEMISPHERES AND LEFT MIDDLE CEREBELLAR PEDUNCLE CHRONIC HYPERTENSION HYPOTHYROIDISM UTI - NITRITE POSITIVE FALL AT HOME - PATIENT WILL NEED PHYSICAL THERAPY ON DISCHARGE WEAKNESS SUBACUTE ISCHEMIA OF CEREBELLAR HEMISPHERES AND LEFT MIDDLE CEREBELLAR PEDUNCLE -STROKE EDUCATION BEFORE DISCHARGE CT HEAD - IMPRESSION: 1. Some multifocal areas of acuity-indeterminate ischemia in the cerebellar hemispheres and left middle cerebellar peduncle are new from comparison study. Otherwise, extensive periventricular white matter small vessel sequelae unchanged. 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 2. No evidence for hemorrhage or hydrocephalus. CHRONIC HYPERTENSION -BP STILL ELEVATED, PATIENT RECEIVING PO METOPROLOL HYPOTHYROIDISM UTI - NITRITE POSITIVE - CONTINUE CASANDRA JAMES Apr 02, 2021 17:06
[2021-04-02] MEDS: meTOprolol TARTRATE 25 MG (LOPRESSOR) TABLET PO SCH (20:38)
[2021-04-03] VITALS: BP 148/75
[2021-04-03] MEDS: LACTATED RINGERS 1,000 ML IV SCH (01:21)
[2021-04-03 04:00] VITALS: BP 163/78
[2021-04-03 06:03] LABS: HEMATOCRIT 38 % (35-52); HEMOGLOBIN 12.1 g/dL (11.5-16.0); MEAN CORPUSCULAR HEMOGLOBIN 31 pg (25-34); MEAN CORPUSCULAR HGB CONC 32 g/dL (32-36); MEAN CORPUSCULAR VOLUME 98 fL (80-99); PLATELET COUNT 271 10^3/uL (130-400)
[2021-04-03 06:13] LABS: ALBUMIN 3.3 GM/DL (3.2-4.5); POTASSIUM 3.7 MMOL/L (3.6-5.0)
[2021-04-03 06:15] LABS: TOTAL PROTEIN 5.6 GM/DL (6.4-8.2)
[2021-04-03 06:17] LABS: BILIRUBIN,TOTAL 0.6 MG/DL (0.1-1.0)
[2021-04-03 06:19] LABS: CREATININE SERUM 0.9 MG/DL (0.60-1.30)
[2021-04-03 08:00] VITALS: BP 173/77
[2021-04-03] MEDS: LACTOBACILLUS ACIDOPHILUS (PROBIOTIC) CAPSULE PO SCH ×2 (08:34→13:56)
[2021-04-03] MEDS: CLOPIDOGREL 75 MG (PLAVIX) TABLET PO SCH (08:34)
[2021-04-03] MEDS: meTOprolol TARTRATE 25 MG (LOPRESSOR) TABLET PO SCH (08:34)
[2021-04-03] MEDS: SENNA W/DOCUSATE (SENOKOT S) TABLET PO SCH (08:34)
[2021-04-03] MEDS: ENOXAPARIN 40 MG/0.4 ML (LOVENOX) SYR SC SCH (08:35)
--- NOTE | 2021-04-03 10:54 | Physical Therapy Daily Note ---
PT Daily Note-Current Subjective Patient agrees to PT. No c/o at this time. Mental Status Patient Orientation: Normal For Age Attachments: IV Transfers SCALE: Activities may be completed with or without assistive devices. 1-Iptrtmqufc-vnterbv completes the activity by him/herself with no assistance from a helper. 5-Set-up or Clean-up Assistance-helper sets up or cleans up; patient completes activity. Fisher assists only prior to or following the activity. 4-Supervision or Touching Assistance-helper provides verbal cues and/or touching/steadying and/or contact guard assistance as patient completes activity. Assistance may be provided throughout the activity or intermittently. 3-Partial/Moderate Assistance-helper does LESS THAN HALF the effort. Fisher lifts, holds or supports trunk or limbs, but provides less than half the effort. 2-Substantial/Maximal Assistance-helper does MORE THAN HALF the effort. Fisher lifts or holds trunk or limbs and provides more than half the effort. 4-Jgjvkiqem-iqxtus does ALL the effort. Patient does none of the effort to complete the activity. Or, the assistance of 2 or more helpers is required for the patient to complete the activity. If activity was not attempted, code reason: 7-Patient Refused. 9-Not Applicable-not attempted and the patient did not perform the activity before the current illness, exacerbation or injury. 10-Not Attempted due to Environmental Limitations-(lack of equipment, weather restraints, etc.). 88-Not Attempted due to Medical Conditions or Safety Concerns. Sit to Stand (QC): 5 Weight Bearing Right Lower Extremity: Right Weight Bearing/Tolerated Left Lower Extremity: Left Weight Bearing/Tolerated Gait Training Does the Patient Walk?: Yes Distance: 500' Walk 10 feet (QC): 4 Walk 50 ft with 2 Turns(QC): 4 Walk 150 ft (QC): 4 Gait Assistive Device: FWW 3 episodes of slight LOB with self correction/noted NBOS with VC's for body placement in FWW/SBA for safety Exercises Seated Therapy Exercises: Ankle pumps, Long arc quads Seated Reps: 15 Assessment Patient remains up in recliner with needs met. PT to continue to increase activity as tolerated by patient. PT Jail Goals Jail Goals PT Jail Goals Time Frame: Apr 11, 2021 Roll Left & Right (QC): 6 Sit to Lying (QC): 6 Lying-Sitting on Side/Bed(QC): 6 Sit to Stand (QC): 6 Chair/Bwg-wa-Xjayh Xfer(QC): 6 Toilet Transfer (QC): 6 Walk 10 feet (QC): 6 Walk 50ft with 2 Turns (QC): 6 Walk 150 ft (QC): 6 PT Plan Treatment/Plan Treatment Plan: Continue Plan of Care Treatment Plan: Education, Functional Activity Marie, Functional Strength, Gait, Safety, Therapeutic Exercise Treatment Duration: Apr 11, 2021 Frequency: 6 times per week Estimated Hrs Per Day: .25 hour per day Patient and/or Family Agrees t: Yes Time/GCodes Time In: 917 Time Out: 930 Total Billed Treatment Time: 13 Total Billed Treatment 1 visit FA 13 min CARISA LOMBARDO PT Apr 03, 2021 10:54
--- NOTE | 2021-04-03 10:59 | Discharge Summary ---
Diagnosis/Chief Complaint Date of Admission Apr 01, 2021 at 14:50 Date of Discharge Reason Hospital Visit PT IS AN 89 Y/O FEMALE WHO IS WELL KNOWN TO ME FROM CLINIC. SHE PRESENTED TO THE HOSPITAL FOR WEAKNESS AND FALLING EPISODES. PER HER DTR'S REPORT AND REPORT FROM ER - THE PATIENT FELL AT HOME, WAS ON THE FLOOR FOR OVER 20 HOURS AND FINALLY EMS WAS CALLED, PT REFUSED TRANSPORT TO THE HOSPITAL AND FOR THE PAST 4 DAYS SHE HAS BEEN RELYING ON HER DTR TO HELP IN HER HOME. HER DTR CALLED THE OFFICE AND SHE WANTED SOME HELP WITH HER MOM BECAUSE SHE WAS TOO WEAK TO BE SAFELY MANAGED AT HOME. Discharge Summary Discharge Physical Examination Allergies: Coded Allergies: No Known Drug Allergies (Verified , 10/10/17) Vitals & I&Os Vital Signs Date Time Temp Pulse Resp B/P (MAP) Pulse Ox O2 Delivery O2 Flow Rate FiO2 04/03/21 08:00 Room Air 04/03/21 08:00 36.3 58 18 173/77 (109) 92 Hospital Course Pending Labs Laboratory Tests 04/03/21 05:29: White Blood Count 4.0, Red Blood Count 3.87, Hemoglobin 12.1, Hematocrit 38, Mean Corpuscular Volume 98, Mean Corpuscular Hemoglobin 31, Mean Corpuscular Hemoglobin Concent 32, Red Cell Distribution Width 14.0, Platelet Count 271, M zayra Platelet Volume 10.0, Sodium Level 141, Potassium Level 3.7, Chloride Level 106, Carbon Dioxide Level 25, Anion Gap 10, Blood Urea Nitrogen 10, Creatinine 0.90, Estimat Glomerular Filtration Rate 59, BUN/Creatinine Ratio 11, Glucose Level 89, Calcium Level 9.0, Corrected Calcium 9.6, Total Bilirubin 0.6, Aspartate Amino Transf (AST/SGOT) 21, Alanine Aminotransferase (ALT/SGPT) 10, Alkaline Phosphatase 66, Total Protein 5.6, Albumin 3.3 Discharge Instructions to patient/family Please see electronic discharge instructions given to patient. Discharge Medications Reviewed and agree with Discharge Medication list on patient's Discharge Instruction sheet TANIA STEVE MD Apr 03, 2021 10:59
[2021-04-03] MEDS ORDERED: METO-333 PO (11:07)
[2021-04-03] MEDS ORDERED: SENN1TAB76 PO (11:07)
[2021-04-03] MEDS ORDERED: AMOX-358 PO (11:07)
[2021-04-03] MEDS ORDERED: ONDA4TAB11 PO (11:07)
[2021-04-03] MEDS ORDERED: LACT1CAP7 PO (11:07)
[2021-04-03] MEDS ORDERED: meTOprolol TARTRATE 25 MG (LOPRESSOR) TABLET PO ONE (11:15)
[2021-04-03 12:00] VITALS: BP 167/69
[2021-04-03 16:15] VITALS: BP 167/69
[2021-04-08] MEDS ORDERED: ATOR40TA PO (09:05)
[2021-04-08] MEDS ORDERED: TRAM1TAB7 PO (09:05)
[2021-04-08] MEDS ORDERED: ASPI325T32 PO (09:05)
== END 2021-04-03 16:15 | disposition home health service (06) | DRG 65 ==
LOC: EDUNIT# 12:21 → ER 12:24 → 4TH 14:50
PROVIDERS: ADMIT Family Medicine; ATTEND Family Medicine
DX: I63.9 Cerebral infarction, unspecified (principal); N39.0 Urinary tract infection, site not specified; R53.1 Weakness; R11.0 Nausea; I10 Essential (primary) hypertension; M19.91 Primary osteoarthritis, unspecified site; E03.9 Hypothyroidism, unspecified; Z66 Do not resuscitate; Z86.73 Personal history of transient ischemic attack (TIA), and cerebral infarction without residual deficits; Z96.652 Presence of left artificial knee joint
CPT/HCPCS: 36415; 51701; 70450; 71045; 80048; 80053; 81000; 82550; 83735; 85025; 85027; 87088; 87186; 93005; 96361; 96374; 96375

== ENCOUNTER 2021-04-04 18:25 | Inpatient (IN) | payer MEDICARE ==
[~2021-04-04] VITALS: Ht 157 cm; Wt 78.1 kg
[~2021-04-04 18:25] MED LIST changes: +AMOX-358 PO; +CHOL20002 PO; +CINA30TA6 PO; +LACT1CAP7 PO; +ONDA4TAB11 PO; +SENN1TAB76 PO
--- NOTE | 2021-04-04 18:55 | Diagnostic Imaging Report ---
PROCEDURE: CT head w/o r/o stroke. TECHNIQUE: Multiple contiguous axial images were obtained through the brain without the use of intravenous contrast. Auto Exposure Controls were utilized during the CT exam to meet ALARA standards for radiation dose reduction. INDICATION: Weakness. COMPARISON: CT head of 04/01/2021. FINDINGS: No intracranial hyperdense hemorrhage or space-occupying mass. No hydrocephalus or midline shift. Chronic encephalomalacia in the right frontal lobe is unchanged. Subcortical hypoattenuation of the right parietal lobe is stable. Basilar cisterns are patent. No hyperdense vessel sign is appreciated. No acute skull fracture. Paranasal sinuses and mastoid air cells are clear. IMPRESSION: 1. No acute intracranial process by CT. 2. Stable small region of hypoattenuation in the right parietal lobe is most likely chronic in nature. 3. Unchanged encephalomalacia in the right frontal lobe. Dictated by: Dictated on workstation # [id number]
[2021-04-04] MEDS ORDERED: fentaNYL INJ 100 MCG/2 ML AMP IVP ONE ×2 (19:00→20:30)
[2021-04-04 19:02] LABS: BASOPHILS # (AUTO) 0.1 10^3/uL (0.0-0.1); BASOPHILS % (AUTO) 1 % (0-10); EOSINOPHILS # (AUTO) 0.2 10^3/uL (0.0-0.3); EOSINOPHILS % (AUTO) 3 % (0-10); HEMATOCRIT 40 % (35-52); HEMOGLOBIN 12.5 g/dL (11.5-16.0); LYMPHOCYTES # (AUTO) 2.4 10^3/uL (1.0-4.0); LYMPHOCYTES % (AUTO) 38 % (12-44); MEAN CORPUSCULAR HEMOGLOBIN 31 pg (25-34); MEAN CORPUSCULAR HGB CONC 32 g/dL (32-36); MEAN CORPUSCULAR VOLUME 99 fL (80-99); MEAN PLATELET VOLUME 9.9 fL (9.0-12.2); MONOCYTES # (AUTO) 0.6 10^3/uL (0.0-1.0); MONOCYTES % (AUTO) 10 % (0-12); NEUTROPHILS # (AUTO) 3.1 10^3/uL (1.8-7.8); NEUTROPHILS % (AUTO) 48 % (42-75); PLATELET COUNT 304 10^3/uL (130-400); WHITE BLOOD COUNT 6.4 10^3/uL (4.3-11.0)
--- NOTE | 2021-04-04 19:03 | ED Fall/Injury ---
General Chief Complaint: Neuro-Stroke Like Symptoms Stated Complaint: FELL Nursing Triage Note: PT ARRIVED PER EMS, PT HAD FALLEN AT APPROX 1730. PT DAUGHTER STATES HEAD IN SHOWER AND R LEG BENT UNDERNEATH HER. PT MAY HAVE FALLEN OFF STOOL. PT HAVING DIFFICULTY GETTING WORDS OUT. HAS SMALL AMOUNT OF BLOOD NEAR R EYE. NO WEAKNESS OF EXT NOTED. PT HAS DEFORMITY OF R ANKLE. PT IS ALERT AND ORIENTED X3. PT WAS RELEASED FROM HOSP YESTERDAY W UTI AND RECENT STROKE. Source: patient Exam Limitations: no limitations History of Present Illness Date Seen by Provider: Apr 04, 2021 Time Seen by Provider: 18:35 Initial Comments Patient to the ER by EMS from her home were her daughter heard her fall and called out for her in the bathroom. When she arrived the patient had her head laying in the shower slid off the side of the toilet seat and her right leg was hyper pronated underneath her body. Patient was complaining of pain having difficulty with word searching. She recently got out of the hospital 2 days ago for a stroke. She did not receive TPA at that time. She is on Plavix. She is complaining of pain in her right lower extremity and has some swelling and deformity to the right ankle. She has a small abrasion on her right forehead lateral to her right eye but denies any head pain. She denies loss of consciousness. Her daughter says she was having a lot of trouble expressing herself but this seems to be improving by the time she gets to the ER according to the daughter. EMS reports she was having some pain in her right lower extremity and a blood glucose of 113. EKG did not show any ST changes. Patient denies any chest pain cough shortness of air fever chills. Daughter reports she had residual weakness on her left side that had all but gone away by the time she discharged from the hospital 2 days ago. Allergies and Home Medications Allergies Coded Allergies: No Known Drug Allergies (Verified , 10/10/17) Patient Home Medication List Home Medication List Reviewed: Yes Amitriptyline HCl (Amitriptyline HCl) 50 Mg Tablet, 50 MG PO HS, (Reported) Entered as Reported by: ISAMAR COX on 10/04/17 1456 Amoxicillin/Potassium Clav (Augmentin 875-125 Tablet) 1 Each Tablet, 1 EACH PO BID Prescribed by: TANIA STEVE on 11/12/21 1107 Cholecalciferol (Vitamin D3) (Vitamin D3) 50 Mcg Capsule, 50 MCG PO DAILY, (Reported) Entered as Reported by: NEGRITA VALLEJO on 04/02/21 0857 Cinacalcet HCl (Cinacalcet HCl) 30 Mg Tablet, 30 MG PO MO,WE,FR, (Reported) Entered as Reported by: NEGRITA VALLEJO on 04/02/21 0857 Clopidogrel Bisulfate (Clopidogrel) 75 Mg Tablet, 75 MG PO DAILY, (Reported) Entered as Reported by: ISAMAR COX on 07/25/191422 Folic Acid (Folic Acid) 0.4 Mg Tablet, 0.4 MG PO DAILY, (Reported) Entered as Reported by: ISAMAR COX on 07/25/191422 Lactobacillus Acidophilus/Pect (Acidophilus-Pectin Capsule) 1 Each Capsule, 2 EACH PO TIDWM Prescribed by: TANIA STEVE on 04/03/211106 Levothyroxine Sodium (Levothyroxine Sodium) 50 Mcg Tablet, 50 MCG PO DAILY, (Reported) Entered as Reported by: ISAMAR COX on 10/04/17 1456 Metoprolol Tartrate (Metoprolol Tartrate) 25 Mg Tablet, 25 MG PO BID Prescribed by: TANIA STEVE on 04/03/211106 Ondansetron (Ondansetron Odt) 4 Mg Tab.rapdis, 4 MG PO Q6H PRN for NAUSEA/VOMITING-1ST LINE Prescribed by: TANIA STEVE on 04/03/211106 Sennosides/Docusate Sodium (Stool Softener-Laxative Tablet) 1 Each Tablet, 1 EA PO BID Prescribed by: TANIA STEVE on 04/03/211106 Tramadol HCl/Acetaminophen (Tramadol-Acetaminophn 37.5-325) 1 Each Tablet, 1 TAB PO Q6H PRN for PAIN-MODERATE (5-7), (Reported) Entered as Reported by: ISAMAR COX on 07/25/191422 Discontinued Medications Cholecalciferol (Vitamin D3) (Vitamin D3) 2,000 Unit Tab.chew, 2,000 UNIT PO DAILY, (Reported) Discontinued Reason: Prescription changed Entered as Reported by: ISAMAR COX on 3/4/20 1423 Hydrocodone/Acetaminophen (Hydrocodone/Acetaminophen 5 MG/325 MG TAB) 1 Each Tablet, 1-2 TAB PO Q4-6HR Discontinued Reason: No Longer Taking Prescribed by: TUAN GUTIERREZ on 07/26/19 1230 Review of Systems Review of Systems Constitutional: No chills, No diaphoresis, No fever, No malaise Eyes: Denies Blindness, Denies Blurred Vision Ears, Nose, Mouth, Throat: denies ear pain, denies ear discharge Respiratory: No cough, No phlegm, No short of breath Cardiovascular: No edema, No palpitations Genitourinary: No discharge, No dysuria Musculoskeletal: see HPI; No back pain; joint pain All Other Systems Reviewed Negative Unless Noted: Yes Past Xxlsdwp-Jqtifs-Vrzqie Hx Patient Social History Tobacco Use?: No Use of E-Cig and/or Vaping dev: No Substance use?: No Immunizations Up To Date Tetanus Booster (TDap): Unknown First/Initial COVID19 Vaccinat: JUN 2020 Second COVID19 Vaccination Alverto: JULY 2020 Third COVID19 Vaccination Date: FEB 2021 Seasonal Allergies Seasonal Allergies: No Past Medical History Surgery/Hospitalization HX: SEE H&P Surgeries: Yes (ULCER,BREAST BX,L KNEE SCOPE, LEFT TKR, hernia x2, kidney stone) Hysterectomy, Tonsillectomy Respiratory: No Currently Using CPAP: No Currently Using BIPAP: No Cardiac: Yes Hypertension Neurological: Yes TIA Reproductive Disorders: No Genitourinary: Yes Kidney Stones Gastrointestinal: Yes Gastrointestinal Bleed, Ulcer Musculoskeletal: Yes Arthritis Endocrine: No Hypothyroidsim HEENT: Yes (cataracts removed) Cataract Cancer: No Psychosocial: No Integumentary: No Blood Disorders: Yes (ANEMIA) Adverse Reaction/Blood Tranf: No Family Medical History Heart Disease, Hypertension Physical Exam Vital Signs Vital Signs - First Documented 04/04/21 18:30 Temp 36.3 Pulse 52 Resp 18 B/P (MAP) 206/81 (122) Pulse Ox 95 Capillary Refill : Less Than 3 Seconds Height, Weight, BMI Height: 5'2.00" Weight: 151lbs. 0.0oz. 68.296762mb; 31.00 BMI Method:Stated General Appearance: WD/WN, mild distress HEENT: PERRL/EOMI, normal ENT inspection, TMs normal, pharynx normal Neck: full range of motion, supple, normal inspection Cardiovascular: normal peripheral pulses, regular rate, rhythm Respiratory: lungs clear, normal breath sounds, no respiratory distress, no accessory muscle use Peripheral Pulses: 2+ Dorsalis Pedis (R), 2+ Left Dors-Pedis (L), 2+ Radial Pulses (R), 2+ Radial Pulses (L) Gastrointestinal: normal bowel sounds, non tender, soft Extremities: normal range of motion, other (Tenderness to palpation over the right knee anterior tibial plateau. Tenderness palpation over bilateral malleoli of the right ankle. No tenderness over either greater trochanter of the pelvis or hips) Neurologic/Psychiatric: production pattern maker II-XII nml as tested, no motor/sensory deficits, al ert, normal mood/affect, oriented x 3 Skin: normal color, warm/dry Varina Coma Score Best Eye Response: (4) Open Spontaneously Best Verbal Response: (5) Oriented Best Motor Response: (6) Obeys Commands Be Total: 15 Progress/Results/Core Measures Results/Orders Lab Results Laboratory Tests Test 04/04/21 18:35 04/04/21 20:30 Range/Units White Blood Count 6.4 4.3-11.0 10^3/uL Red Blood Count 4.01 3.80-5.11 10^6/uL Hemoglobin 12.5 11.5-16.0 g/dL Hematocrit 40 35-52 % Mean Corpuscular Volume 99 80-99 fL Mean Corpuscular Hemoglobin 31 25-34 pg Mean Corpuscular Hemoglobin Concent 32 32-36 g/dL Red Cell Distribution Width 14.1 10.0-14.5 % Platelet Count 304 130-400 10^3/uL Mean Platelet Volume 9.9 9.0-12.2 fL Immature Granulocyte % (Auto) 0 % Neutrophils (%) (Auto) 48 42-75 % Lymphocytes (%) (Auto) 38 12-44 % Monocytes (%) (Auto) 10 0-12 % Eosinophils (%) (Auto) 3 0-10 % Basophils (%) (Auto) 1 0-10 % Neutrophils # (Auto) 3.1 1.8-7.8 10^3/uL Lymphocytes # (Auto) 2.4 1.0-4.0 10^3/uL Monocytes # (Auto) 0.6 0.0-1.0 10^3/uL Eosinophils # (Auto) 0.2 0.0-0.3 10^3/uL Basophils # (Auto) 0.1 0.0-0.1 10^3/uL Immature Granulocyte # (Auto) 0.0 0.0-0.1 10^3/uL Prothrombin Time 13.7 12.2-14.7 SEC INR Comment 1.0 0.8-1.4 Activated Partial Thromboplast Time 28 24-35 SEC D-Dimer 1.65 H 0.00-0.49 UG/ML Sodium Level 142 135-145 MMOL/L Potassium Level 3.7 3.6-5.0 MMOL/L Chloride Level 104 98-107 MMOL/L Carbon Dioxide Level 23 21-32 MMOL/L Anion Gap 15 H 5-14 MMOL/L Blood Urea Nitrogen 8 7-18 MG/DL Creatinine 1.00 0.60-1.30 MG/DL Estimat Glomerular Filtration Rate 52 BUN/Creatinine Ratio 8 Glucose Level 109 H 70-105 MG/DL Calcium Level 9.9 8.5-10.1 MG/DL Corrected Calcium 10.2 H 8.5-10.1 MG/DL Total Bilirubin 0.6 0.1-1.0 MG/DL Aspartate Amino Transf (AST/SGOT) 18 5-34 U/L Alanine Aminotransferase (ALT/SGPT) 10 0-55 U/L Alkaline Phosphatase 67 40-136 U/L Total Creatine Kinase 53 29-168 U/L Troponin I < 0.028 <0.028 NG/ML Total Protein 6.3 L 6.4-8.2 GM/DL Albumin 3.6 3.2-4.5 GM/DL Urine Color YELLOW Urine Clarity CLEAR Urine pH 8.0 5-9 Urine Specific [place] 1.010 L 1.016-1.022 Urine Protein NEGATIVE NEGATIVE Urine Glucose (UA) NEGATIVE NEGATIVE Urine Ketones TRACE H NEGATIVE Urine Nitrite NEGATIVE NEGATIVE Urine Bilirubin NEGATIVE NEGATIVE Urine Urobilinogen 0.2 < = 1.0 MG/DL Urine Leukocyte Esterase 3+ H NEGATIVE Urine RBC (Auto) 1+ H NEGATIVE Urine RBC 2-5 H /HPF Urine WBC 10-25 H /HPF Urine Squamous Epithelial Cells NONE /HPF Urine Crystals NONE /LPF Urine Bacteria FEW H /HPF Urine Casts NONE /LPF Urine Mucus NEGATIVE /LPF Urine Culture Indicated YES My Orders Orders - BRAULIO GREENFIELD Fentanyl Inj (Sublimaze Injection) (04/04/21 19:00) Cbc With Automated Diff (04/04/21 18:54) Protime With Inr (04/04/21 18:54) Partial Thromboplastin Time (04/04/21 18:54) Comprehensive Metabolic Panel (04/04/21 18:54) Fibrin Degradation Products (04/04/21 18:54) Troponin I (04/04/21 18:54) Ua Culture If Indicated (04/04/21 18:54) Chest 1 View, Ap/Pa Only (04/04/21 18:54) Catheter(Urinary) Insert & Ass 03,15 (04/04/21 18:54) Ekg Tracing (04/04/21 18:54) Nothing By Mouth (04/04/21 Dinner) Accucheck Stat ONCE (04/04/21 18:54) Ed Iv/Invasive Line Start (04/04/21 18:54) Ed Iv/Invasive Line Start (04/04/21 18:54) Vital Signs Stroke Patient Q15M (04/04/21 18:54) O2 (04/04/21 18:54) Intake & Output 06,14,22 (04/04/21 18:54) Monitor-Rhythm Ecg Trace Only (04/04/21 18:54) Dysphagia Screening Tool (04/04/21 18:54) Lipid Panel (04/05/21 06:00) Knee, Right, 3 Views (04/04/21 18:54) Ankle, Right, 3 Views (04/04/21 18:54) Pelvis/Boris Hips 5> Views (04/04/21 18:54) Creatine Kinase (04/04/21 18:56) Ct Angio Head/Neck (04/04/21 19:14) Ed Iv/Invasive Line Start (04/04/21 19:14) Ns Iv 1000 Ml (Sodium Chloride 0.9%) (04/04/21 19:15) Iohexol Injection (Omnipaque 350 Mg/Ml 1 (04/04/21 19:30) Received Contrast (Hold Metformin- Contr (04/04/21 19:30) Sodium Chloride Flush (Catheter Flush Sy (04/04/21 19:30) Ns (Ivpb) (Sodium Chloride 0.9% Ivpb Bag (04/04/21 19:30) Fentanyl Inj (Sublimaze Injection) (04/04/21 20:30) Medications Given in ED Current Medications Medications Dose Ordered Sig/Shante Route Start Time Stop Time Status Last Admin Dose Admin Fentanyl Citrate 25 mcg ONCE ONCE IVP 04/04/21 19:00 04/04/21 19:01 DC 04/04/21 19:14 25 MCG Fentanyl Citrate 25 mcg ONCE ONCE IVP 04/04/21 20:30 04/04/21 20:31 DC 04/04/21 20:34 25 MCG Iohexol 75 ml ONCE ONCE IV 04/04/21 19:30 04/04/21 19:31 DC 04/04/21 19:52 75 ML Sodium Chloride 10 ml NEEDED PRN IV 04/04/21 19:30 04/04/21 19:52 10 ML Sodium Chloride 100 ml ONCE ONCE IV 04/04/21 19:30 04/04/21 19:31 DC 04/04/21 19:52 80 ML Vital Signs/I&O 04/04/21 18:30 Temp 36.3 Pulse 52 Resp 18 B/P (MAP) 206/81 (122) Pulse Ox 95 Blood Pressure Mean: 122 Progress Progress Note #1: Time: 19:06 Progress Note NIH is one-point for aphasia and she appears to be improving. She had a fall and has a junctional bradycardia. Suspect that might have contributed. Progress Note #2: Time: 20:37 Progress Note She had a fall and a broken ankle which can be managed outpatient by orthopedic surgery. She is not on blood thinners and this is not a trauma activation. Trauma surgery does not need to be consulted inpatient but we did phone consult and they agree they do not need an inpatient consult at this time. Initial ECG Impression Date: Apr 04, 2021 Initial ECG Impression Time: 18:55 Initial ECG Rate: 40 Initial ECG Intervals: QT (376) Initial ECG Impression: Nonspecific Changes Initial ECG Comparisson: Changed Comment Junctional bradycardia. Diagnostic Imaging Diagonstic Imaging: CT Plain Films/CT/US/NM/MRI: head Comments NAME: PJ CATALAN [facility] REC#: [id number] PT STATUS: REG ER : 1930 PHYSICIAN: FRANCHESKA ZAMARRIPA [employer] SUPERVISOR ADMIT DATE: 04/04/21/ER Draft Date of Exam:04/04/21 CT HEAD WO-R/O STROKE PROCEDURE: CT head w/o r/o stroke. TECHNIQUE: Multiple contiguous axial images were obtained through the brain without the use of intravenous contrast. Auto Exposure Controls were utilized during the CT exam to meet ALARA standards for radiation dose reduction. INDICATION: Weakness. COMPARISON: CT head of 04/01/2021. FINDINGS: No intracranial hyperdense hemorrhage or space-occupying mass. No hydrocephalus or midline shift. Chronic encephalomalacia in the right frontal lobe is unchanged. Subcortical hypoattenuation of the right parietal lobe is stable. Basilar cisterns are patent. No hyperdense vessel sign is appreciated. No acute skull fracture. Paranasal sinuses and mastoid air cells are clear. IMPRESSION: 1. No acute intracranial process by CT. 2. Stable small region of hypoattenuation in the right parietal lobe is most likely chronic in nature. 3. Unchanged encephalomalacia in the right frontal lobe. Dictated on workstation # [id number] Dict: 04/04/211849 Trans: 04/04/211854 [facility] [id number] Interpreted by: GEMA BANERJEE MD Electronically signed by: Reviewed: Reviewed by Tx Diagonstic Imaging: Xray Plain Films/CT/US/NM/MRI: chest Comments [facility] [place] NAME: PJ CATALAN [facility] REC#: [id number] PT STATUS: REG ER : 1930 PHYSICIAN: BRAULIO GREENFIELD MD ADMIT DATE: 04/04/21/ER Signed Date of Exam:04/04/21 CHEST 1 VIEW, AP/PA ONLY CHEST 1 VIEW, AP/PA ONLY Indication: Chest injury, fall Comparison: 04/01/2021 Findings: No focal airspace disease in the visualized lungs. Please note that the posterior lower lobes are poorly evaluated by portable radiography. No pleural effusion or pneumothorax. Normal cardiomediastinal silhouette. No displaced fracture of the visualized ribs. Impression: 1. No acute cardiopulmonary process by portable radiography. Dictated by: Dictated on workstation # [id number] Dict: 04/04/211951 Trans: 04/04/211952 [facility] [id number] Interpreted by: GEMA BANERJEE MD Electronically signed by: GEMA BANERJEE MD 04/04/211952 Reviewed: Reviewed by Tx Diagonstic Imaging: Xray Plain Films/CT/US/NM/MRI: pelvis, hip (boris) Comments [facility] [place] NAME: PJ CATALAN [facility] REC#: [id number] PT STATUS: REG ER : 1930 PHYSICIAN: BRAULIO GREENFIELD MD ADMIT DATE: 04/04/21/ER Draft Date of Exam:04/04/21 PELVIS/BORIS HIPS 5> VIEWS Pelvis/boris hips 5> views INDICATION: Pelvic pain after fall. COMPARISON: None available. TECHNIQUE: AP pelvis with AP and frog-leg lateral views of both hips. FINDINGS: No acute displaced fracture in the pelvis or proximal femurs. Moderate osteoarthritis of both hips. SI joints are normal in alignment. Degenerative disc disease in the lumbar spine. IMPRESSION: No acute displaced fracture about either hip. Dictated on workstation # [id number] Dict: 04/04/211956 Trans: 04/04/211999 [facility] [phone] Interpreted by: GEMA BANERJEE MD Electronically signed by: Reviewed: Reviewed by Tx Diagonstic Imaging: Xray Plain Films/CT/US/NM/MRI: knee (r) Comments [facility] [place] NAME: PJ CATALAN [facility] REC#: [id number] PT STATUS: REG ER : 1930 PHYSICIAN: BRAULIO GREENFIELD MD ADMIT DATE: 04/04/21/ER Draft Date of Exam:04/04/21 KNEE, RIGHT, 3 VIEWS Knee, right, 3 views COMPARISON: None available. INDICATION: Right knee pain after injury. TECHNIQUE: Non-weight bearing AP, oblique, and lateral views of the right knee. FINDINGS: No fracture or traumatic malalignment. Tricompartmental degenerative arthritis. Degenerative chondrocalcinosis of the menisci. No knee joint effusion. IMPRESSION: No acute fracture about the right knee. Dictated on workstation # [id number] Dict: 04/04/211958 Trans: 04/04/212000 [facility] [id number] Interpreted by: GEMA BANERJEE MD Electronically signed by: Reviewed: Reviewed by Tx Diagonstic Imaging: Xray Plain Films/CT/US/NM/MRI: ankle (r) Comments [facility] [place] NAME: PJ CATALAN [facility] REC#: [id number] PT STATUS: REG ER : 1930 PHYSICIAN: BRAULIO GREENFIELD MD ADMIT DATE: 04/04/21/ER Draft Date of Exam:04/04/21 ANKLE, RIGHT, 3 VIEWS Ankle, right, 3 views INDICATION: Ankle pain after injury. COMPARISON: None available. TECHNIQUE: Three views of the right ankle. FINDINGS: Acute transsyndesmotic push-off fracture of the lateral malleolus has lateral displacement of approximately 1 cm. There is also 1 cm of lateral displacement of the talus with abnormal widening of the medial clear space from deltoid ligament injury. No fracture of the posterior malleolus is appreciated. IMPRESSION: Acute fracture subluxation of the ankle has a Hester 2 morphology. Dictated on workstation # [id number] Dict: 04/04/211954 Trans: 04/04/211958 [facility] [phone] Interpreted by: GEMA BANERJEE MD Electronically signed by: Reviewed: Reviewed by Tx Diagonstic Imaging: CT (angio) Plain Films/CT/US/NM/MRI: head (neck) Comments NAME: PJ CATALAN [facility] REC#: [id number] PT STATUS: REG ER : 1930 PHYSICIAN: BRAULIO GREENFIELD MD ADMIT DATE: 04/04/21/ER Draft Date of Exam:04/04/21 CT ANGIO HEAD/NECK PROCEDURE: CT angiography of the head and CT angiography of the neck with and without contrast. TECHNIQUE: Contiguous noncontrast images were obtained from the skull base through the vertex. After intravenous contrast administration, helical CT angiography of the neck was performed. Source data was reformatted into 3D MIP projections. Delayed post contrast acquisition was also obtained. Auto Exposure Controls were utilized during the CT exam to meet ALARA standards for radiation dose reduction. INDICATION: STROKE, weakness. COMPARISON: None available. FINDINGS: CTA NECK: No dissection within the aortic arch. The great vessels of the aortic arch are widely patent centrally. The bilateral common carotid arteries are patent. No stenosis of the proximal internal carotid arteries per NASCET criteria. The cervical divisions of the internal carotid arteries are patent. Left vertebral artery is dominant but both vertebral arteries opacify throughout the neck. No vertebral artery dissection. No cervical lymphadenopathy. Lung apices are clear. No acute fracture within the cervical spine. CTA HEAD: The distal internal carotid arteries are patent without terminal aneurysm. The M1 and M2 divisions of the middle cerebral arteries are normal. The M1 and M2 divisions of the middle cerebral arteries are normal. Anterior cerebral arteries are normal. Basilar artery is widely patent without terminal aneurysm. Posterior cerebral arteries are normal. Dural venous sinuses are patent. No pathologic enhancement on delayed phase imaging. IMPRESSION: 1. No intracranial large vessel occlusion or saccular aneurysm. 2. No arterial stenosis or occlusion in the neck. Dictated on workstation # [id number] Dict: 04/04/212001 Trans: 04/04/212013 E [id number] Interpreted by: GEMA BANERJEE MD Electronically signed by: Reviewed: Reviewed by Me Consults : Consults Notes Dr Hawk; stroke neurologist at [facility] on-call for ischemic stroke recommends we get a CT angiogram. She does not feel that the benefits outweigh the risk for TPA with just a mild aphasia at this time. She also has concern that there could have been although was not confirmed with stroke in the last 3 months and this would be a strong contraindication to TPA. She was recommend adding aspirin to Plavix for the next 21 days and then back to just Plavix. We are to call her if there is a large vessel occlusion on the CT angiogram. Departure Communication (Admissions) Time/Spoke to Admitting Phy: 20:30 Discussed the case with Dr. Mosquera who is on-call for family practice and he recommends observation in the ICU and consult to cardiology. Time/Spoke to Consulting Phy: 20:35 Discussed the case with Dr. Rollins, cardiology and he agrees to consult on the case Impression Primary Impression: Fall Qualified Codes: W19.XXXA - Unspecified fall, initial encounter Additional Impressions: TIA (transient ischemic attack) Closed right ankle fracture Qualified Codes: S82.891A - Other fracture of right lower leg, initial encounter for closed fracture Disposition: ADMITTED INPATIENT Condition: Stable Admissions Decision to Admit Reason: Admit from ER (General) Decision to Admit/Date: Apr 04, 2021 Time/Decision to Admit Time: 20:10 Departure-Patient Inst. Referrals: TANIA STEVE MD (PCP/Family) Primary Care Physician Stroke Onset of Symptoms Date of Onset of Symptoms: Apr 04, 2021 Time of Symptom Onset: 17:35 Onset of Symptoms: Yes NIH Stroke Scale Assessment Select: Initial Level of Consciousness: 0=Alert (0), Level of Consciousness- Questions: 0=Answers both month/age (0), LOC Commands: 0=Performs both tasks (0), Visual Reed: 0=No visual loss (0), Facial Movement (Facial Paresis): 0=Normal symmetrical mnt (0), Motor Function-Arms Right: 0=No drift (0), Motor Function-Arms Left: 0=No drift (0), Motor Function-Legs Right: 0=No drift (0), Motor Function-Legs Left: 0=No drift (0), Limb Ataxia: 0=Absent (0), Sensory: 0=Normal:no loss (0), Best Language: 1=Mild to moderat aphasia (1), Dysarthria: 0=Normal (0), Extinction & Inattention: 0=No abnormality (0), Total: 1 Stroke Thrombolytic Exclusion Age 18 or Over: Yes Acute intenal hemorrhage: No History of CVA: Yes Uncontrolled Coagulation Defec: No Intracranial Hemorrhage: No Severe Hypertension: No (180syst) GI or Bleed: No Subarachnoid Hemorrhage: No Intracranial Neoplasm/Aneurysm: No Oral Anticoagulants: No Surgery or Trauma: No Puncture of Non-Compressible V: No Recent CPR: No Diabetic Hemorrhagic Retinopat: No Organ Biopsy: No Recent Obstetric Delivery: No Glucose: No (113) Significant Hepatic Dysfunctio: No NIH Stoke Scale >22: No Bacterial Endocarditis: No Pericarditis: No Improving Symptoms: Yes Platelets: No TPA Contraindication: No IV - TPa Received IV - TPa Procedure Performed?: No (Insufficient benefit versus risk.) BRAULIO GREENFIELD Apr 04, 2021 19:03
[2021-04-04 19:09] LABS: FIBRIN DEGRADATION PRODUCTS 1.65 UG/ML (0.00-0.49); PROTHROMBIN TIME PATIENT 13.7 SEC (12.2-14.7)
[2021-04-04] MEDS ORDERED: NS IV 1000 ML 1,000 ML IV SCH (19:15)
[2021-04-04 19:23] LABS: ALANINE AMINOTRANSFERASE 10 U/L (0-55); ALBUMIN 3.6 GM/DL (3.2-4.5); ALKALINE PHOSPHATASE 67 U/L (40-136); BILIRUBIN,TOTAL 0.6 MG/DL (0.1-1.0); BUN/CREATININE RATIO 8; CALCIUM 9.9 MG/DL (8.5-10.1); CARBON DIOXIDE 23 MMOL/L (21-32); CHLORIDE 104 MMOL/L (98-107); CREATINE KINASE 53 U/L (29-168); GFR ESTIMATED 52; GLUCOSE 109 MG/DL (70-105); POTASSIUM 3.7 MMOL/L (3.6-5.0); SODIUM 142 MMOL/L (135-145); TOTAL PROTEIN 6.3 GM/DL (6.4-8.2)
[2021-04-04] MEDS ORDERED: NS 100 ML (IVPB) BAG IV ONE (19:30)
[2021-04-04] MEDS ORDERED: HOLD METFORMIN - RECEIVED CONTRAST 20 ML VIAL IV SCH (19:30)
[2021-04-04] MEDS ORDERED: IOHEXOL 350 MG/ML 100 ML (OMNIPAQUE 350) VIAL IV ONE (19:30)
[2021-04-04] MEDS ORDERED: CATHETER FLUSH 10 ML SYR IV PRN (19:30)
--- NOTE | 2021-04-04 19:54 | Diagnostic Imaging Report ---
CHEST 1 VIEW, AP/PA ONLY Indication: Chest injury, fall Comparison: 04/01/2021 Findings: No focal airspace disease in the visualized lungs. Please note that the posterior lower lobes are poorly evaluated by portable radiography. No pleural effusion or pneumothorax. Normal cardiomediastinal silhouette. No displaced fracture of the visualized ribs. Impression: 1. No acute cardiopulmonary process by portable radiography. Dictated by: Dictated on workstation # [id number]
--- NOTE | 2021-04-04 19:59 | Diagnostic Imaging Report ---
Ankle, right, 3 views INDICATION: Ankle pain after injury. COMPARISON: None available. TECHNIQUE: Three views of the right ankle. FINDINGS: Acute transsyndesmotic push-off fracture of the lateral malleolus has lateral displacement of approximately 1 cm. There is also 1 cm of lateral displacement of the talus with abnormal widening of the medial clear space from deltoid ligament injury. No fracture of the posterior malleolus is appreciated. IMPRESSION: Acute fracture subluxation of the ankle has a Hester 2 morphology. Dictated by: Dictated on workstation # [id number]
--- NOTE | 2021-04-04 20:00 | Diagnostic Imaging Report ---
Pelvis/keyonna hips 5> views INDICATION: Pelvic pain after fall. COMPARISON: None available. TECHNIQUE: AP pelvis with AP and frog-leg lateral views of both hips. FINDINGS: No acute displaced fracture in the pelvis or proximal femurs. Moderate osteoarthritis of both hips. SI joints are normal in alignment. Degenerative disc disease in the lumbar spine. IMPRESSION: No acute displaced fracture about either hip. Dictated by: Dictated on workstation # [id number]
--- NOTE | 2021-04-04 20:01 | Diagnostic Imaging Report ---
Knee, right, 3 views COMPARISON: None available. INDICATION: Right knee pain after injury. TECHNIQUE: Non-weight bearing AP, oblique, and lateral views of the right knee. FINDINGS: No fracture or traumatic malalignment. Tricompartmental degenerative arthritis. Degenerative chondrocalcinosis of the menisci. No knee joint effusion. IMPRESSION: No acute fracture about the right knee. Dictated by: Dictated on workstation # [id number]
--- NOTE | 2021-04-04 20:10 | Diagnostic Imaging Report ---
PROCEDURE: CT angiography of the head and CT angiography of the neck with and without contrast. TECHNIQUE: Contiguous noncontrast images were obtained from the skull base through the vertex. After intravenous contrast administration, helical CT angiography of the neck was performed. Source data was reformatted into 3D MIP projections. Delayed post contrast acquisition was also obtained. Auto Exposure Controls were utilized during the CT exam to meet ALARA standards for radiation dose reduction. INDICATION: STROKE, weakness. COMPARISON: None available. FINDINGS: CTA NECK: No dissection within the aortic arch. The great vessels of the aortic arch are widely patent centrally. The bilateral common carotid arteries are patent. No stenosis of the proximal internal carotid arteries per NASCET criteria. The cervical divisions of the internal carotid arteries are patent. Left vertebral artery is dominant but both vertebral arteries opacify throughout the neck. No vertebral artery dissection. No cervical lymphadenopathy. Lung apices are clear. No acute fracture within the cervical spine. CTA HEAD: The distal internal carotid arteries are patent without terminal aneurysm. The M1 and M2 divisions of the middle cerebral arteries are normal. The M1 and M2 divisions of the middle cerebral arteries are normal. Anterior cerebral arteries are normal. Basilar artery is widely patent without terminal aneurysm. Posterior cerebral arteries are normal. Dural venous sinuses are patent. No pathologic enhancement on delayed phase imaging. IMPRESSION: 1. No intracranial large vessel occlusion or saccular aneurysm. 2. No arterial stenosis or occlusion in the neck. Dictated by: Dictated on workstation # [id number]
[2021-04-04 20:34] LABS: BILIRUBIN,URINE NEGATIVE (NEGATIVE); CLARITY,URINE CLEAR; COLOR,URINE YELLOW; GLUCOSE, URINE (UA) NEGATIVE (NEGATIVE); KETONES,URINE TRACE (NEGATIVE); LEUKOCYTE ESTERASE ,URINE 3+ (NEGATIVE); NITRITE,URINE NEGATIVE (NEGATIVE); PROTEIN,URINE NEGATIVE (NEGATIVE)
[2021-04-04 20:44] LABS: BACTERIA,URINE FEW /HPF
[2021-04-04 21:28] VITALS: BP 196/92
--- NOTE | 2021-04-04 21:29 | Tele-ICU Consult ---
History of Present Illness History of Present Illness Date Seen by Provider: Apr 04, 2021 Time Seen by Provider: 21:25 Date of Admission Per ED: Patient to the ER by EMS from her home were her daughter heard her fall and called out for her in the bathroom. When she arrived the patient had her head laying in the shower slid off the side of the toilet seat and her right leg was hyper pronated underneath her body. Patient was complaining of pain having difficulty with word searching. She recently got out of the hospital 2 days ago for a stroke. She did not receive TPA at that time. She is on Plavix. She is complaining of pain in her right lower extremity and has some swelling and deformity to the right ankle. She has a small abrasion on her right forehead lateral to her right eye but denies any head pain. She denies loss of consciousness. Her daughter says she was having a lot of trouble expressing herself but this seems to be improving by the time she gets to the ER according to the daughter. EMS reports she was having some pain in her right lower extremity and a blood glucose of 113. EKG did not show any ST changes. Patient denies any chest pain cough shortness of air fever chills. Daughter reports she had residual weakness on her left side that had all but gone away by the time she discharged from the hospital 2 days ago. ED course: ct head plain and angio were negative; no fracture observed post fall per [place]. BP is on the high side. P admitted to ICU for TIA/ observation Allergies and Home Medications Allergies Coded Allergies: No Known Drug Allergies (Verified , 10/10/17) Home Medications Amitriptyline HCl 50 Mg Tablet, 50 MG PO HS, (Reported) Amoxicillin/Potassium Clav 1 Each Tablet, 1 EACH PO BID Prescribed by: TANIA STEVE on 04/03/21 110 Cholecalciferol (Vitamin D3) 50 Mcg Capsule, 50 MCG PO DAILY, (Reported) Cinacalcet HCl 30 Mg Tablet, 30 MG PO MOWE,FR, (Reported) Clopidogrel Bisulfate 75 Mg Tablet, 75 MG PO DAILY, (Reported) Folic Acid 0.4 Mg Tablet, 0.4 MG PO DAILY, (Reported) Lactobacillus Acidophilus/Pect 1 Each Capsule, 2 EACH PO TIDWM Prescribed by: TANIA STEVE on 04/03/211106 Levothyroxine Sodium 50 Mcg Tablet, 50 MCG PO DAILY, (Reported) Metoprolol Tartrate 25 Mg Tablet, 25 MG PO BID Prescribed by: TANIA STEVE on 04/03/211106 Ondansetron 4 Mg Tab.rapdis, 4 MG PO Q6H PRN for NAUSEA/VOMITING-1ST LINE Prescribed by: TANIA STEVE on 04/03/211106 Sennosides/Docusate Sodium 1 Each Tablet, 1 EA PO BID Prescribed by: TANIA STEVE on 04/03/211106 Tramadol HCl/Acetaminophen 1 Each Tablet, 1 TAB PO Q6H PRN for PAIN-MODERATE (5- 7), (Reported) Past Medical/Social/Family Hx Patient Social History Employed/Student: retired Tobacco Use?: No Use of E-Cig and/or Vaping dev: No Substance use?: No Immunizations Up To Date First/Initial COVID19 Vaccinat: JUN 2020 Second COVID19 Vaccination [place]: JULY 2020 Tetanus Booster (TDap): More Than 5 Years Hepatitis A: No Hepatitis B: No TB Skin Test: None Date of Pneumonia Vaccine: Jul 24, 2017 Current Status Communicates: Verbally Primary Language: Japanese Preferred Spoken Language: Japanese Is interpretation needed?: No Past Medical History HTN Review of Systems Constitutional: see HPI Sepsis Event Evaluation Height, Weight, BMI Height: 5'2.00" Weight: 151lbs. 0.0oz. [id number]; 31.00 BMI Method:Stated Exam Exam Patient acknowledged, consented, and participated in this virtual visit which w as conducted using real time audio/video Vital Signs Date Time Temp Pulse Resp B/P (MAP) Pulse Ox O2 Delivery O2 Flow Rate FiO2 04/04/21 18:30 36.3 52 18 206/81 (122) 95 Height & Weight Height: 5'2.00" Weight: 151lbs. 0.0oz. 68.485145ej; 31.00 BMI Method:Stated General Appearance: No Apparent Distress Capillary Refill: Less Than 3 Seconds Peripheral Pulses: 2+ Dorsalis Pedis (R), 2+ Left Dors-Pedis (L), 2+ Radial Pulses (R), 2+ Radial Pulses (L) Gastrointestinal: normal bowel sounds, non tender, soft Results Lab Laboratory Tests 04/04/21 18:35 Assessment/Plan Assessment/Plan A/P 1. Neuro: CVA/TIA work up in progress -echo carotid duplex needed 2. sp fall -cpk/ lactic acid ordered. 3. DVT prophyalxis 4. ro OR trops ekg labs/ diagnostics/ notes reviewed ASIA VALLES MD Apr 04, 2021 21:29
[2021-04-04] MEDS ORDERED: fentaNYL INJ 100 MCG/2 ML AMP IV PRN (22:00)
[2021-04-04] MEDS ORDERED: ACETAMINOPHEN 325 MG TABLET PO PRN (22:00)
[2021-04-04] MEDS ORDERED: ONDANSETRON 4 MG/2 ML (SDV) Z0FRAN IV PRN (22:00)
[2021-04-04] MEDS ORDERED: cefTRIAXone 1,000 MG VIAL IM SCH (22:00)
[2021-04-04] MEDS ORDERED: MILK OF MAGNESIA 400 MG/5 ML 30 ML UDC PO PRN (22:00)
[2021-04-04] MEDS ORDERED: NS (IVPB) 50 ML ONE (22:09)
[2021-04-04] MEDS: LACTATED RINGERS 1,000 ML IV SCH (22:17)
[2021-04-04] MEDS: ENOXAPARIN 40 MG/0.4 ML (LOVENOX) SYR SC SCH (22:17)
[2021-04-04] MEDS: HYDROcodone/APAP 5 MG/325 MG (LORTAB) TAB PO PRN (22:17)
[2021-04-04 22:18] LABS: BASOPHILS # (AUTO) 0.1 10^3/uL (0.0-0.1); BASOPHILS % (AUTO) 1 % (0-10); EOSINOPHILS % (AUTO) 0 % (0-10); HEMATOCRIT 40 % (35-52); HEMOGLOBIN 12.6 g/dL (11.5-16.0); LYMPHOCYTES # (AUTO) 0.8 10^3/uL (1.0-4.0); LYMPHOCYTES % (AUTO) 10 % (12-44); MEAN CORPUSCULAR HEMOGLOBIN 31 pg (25-34); MEAN CORPUSCULAR HGB CONC 31 g/dL (32-36); MEAN CORPUSCULAR VOLUME 100 fL (80-99); MEAN PLATELET VOLUME 9.7 fL (9.0-12.2); MONOCYTES # (AUTO) 0.4 10^3/uL (0.0-1.0); MONOCYTES % (AUTO) 6 % (0-12); NEUTROPHILS # (AUTO) 6.7 10^3/uL (1.8-7.8); NEUTROPHILS % (AUTO) 83 % (42-75); PLATELET COUNT 279 10^3/uL (130-400)
[2021-04-04 22:29] LABS: ALBUMIN 3.7 GM/DL (3.2-4.5); POTASSIUM 3.6 MMOL/L (3.6-5.0)
[2021-04-04 22:30] LABS: CALCIUM 9.3 MG/DL (8.5-10.1)
[2021-04-04 22:31] LABS: TOTAL PROTEIN 6.1 GM/DL (6.4-8.2)
[2021-04-04 22:33] LABS: BILIRUBIN,TOTAL 0.8 MG/DL (0.1-1.0)
[2021-04-04 22:34] LABS: ATYPICAL LYMPHOCYTES 1 %; BASOPHILS % (MANUAL) 1 %; EOSINOPHILS % (MANUAL) 2 %; LYMPHOCYTES % (MANUAL) 11 %; MONOCYTES % (MANUAL) 5 %; NEUTROPHILS % (MANUAL) 80 %; POLYCHROMASIA SLIGHT
[2021-04-04 22:35] LABS: CREATININE SERUM 0.84 MG/DL (0.60-1.30)
[2021-04-05 04:15] LABS: BASOPHILS # (AUTO) 0.1 10^3/uL (0.0-0.1); BASOPHILS % (AUTO) 1 % (0-10); EOSINOPHILS % (AUTO) 1 % (0-10); HEMATOCRIT 36 % (35-52); HEMOGLOBIN 11.6 g/dL (11.5-16.0); LYMPHOCYTES # (AUTO) 1.2 10^3/uL (1.0-4.0); LYMPHOCYTES % (AUTO) 20 % (12-44); MEAN CORPUSCULAR HEMOGLOBIN 32 pg (25-34); MEAN CORPUSCULAR HGB CONC 32 g/dL (32-36); MEAN CORPUSCULAR VOLUME 99 fL (80-99); MEAN PLATELET VOLUME 9.8 fL (9.0-12.2); MONOCYTES # (AUTO) 0.6 10^3/uL (0.0-1.0); MONOCYTES % (AUTO) 10 % (0-12); NEUTROPHILS % (AUTO) 69 % (42-75); PLATELET COUNT 227 10^3/uL (130-400); WHITE BLOOD COUNT 5.9 10^3/uL (4.3-11.0)
[2021-04-05] MEDS: HYDROcodone/APAP 5 MG/325 MG (LORTAB) TAB PO PRN ×3 (04:24→20:02)
[2021-04-05 04:27] LABS: POTASSIUM 3.4 MMOL/L (3.6-5.0)
[2021-04-05 04:28] LABS: ALBUMIN 3.3 GM/DL (3.2-4.5)
[2021-04-05 04:29] LABS: CALCIUM 8.9 MG/DL (8.5-10.1)
[2021-04-05 04:30] LABS: TOTAL PROTEIN 5.4 GM/DL (6.4-8.2)
[2021-04-05 04:32] LABS: BILIRUBIN,TOTAL 0.7 MG/DL (0.1-1.0)
[2021-04-05 04:33] LABS: PHOSPHORUS 1.9 MG/DL (2.3-4.7)
[2021-04-05 04:34] LABS: CREATININE SERUM 0.78 MG/DL (0.60-1.30)
[2021-04-05 04:37] LABS: MAGNESIUM 1.7 MG/DL (1.6-2.4)
[2021-04-05] MEDS: LEVOTHYROXINE 50 MCG (LEVOTHROID) TAB PO SCH (05:35)
[2021-04-05] MEDS: MAGNESIUM 1 GM/100 ML IVPB 100 ML IV SCH ×2 (05:35→06:40)
[2021-04-05] MEDS ORDERED: KCL 20 MEQ TAB (K-DUR) PO SCH (06:00)
[2021-04-05] MEDS ORDERED: POTASSIUM CL 10MEQ/50ML IVPB 50 ML IV SCH (06:00)
[2021-04-05] MEDS ORDERED: MAGNESIUM 1 GM/100 ML IVPB 100 ML IV SCH (06:00)
[2021-04-05] MEDS: CLOPIDOGREL 75 MG (PLAVIX) TABLET PO SCH (07:44)
[2021-04-05] MEDS: DOCUSATE SODIUM 100 MG (COLACE) CAP PO SCH (07:44)
[2021-04-05] MEDS ORDERED: POTASSIUM PHOSPHATE INJ 30 MM in NS (IVPB) 250 ML IV ONE (08:00)
[2021-04-05] MEDS ORDERED: ASPIRIN 300 MG (5 GR) SUPPOSITORY PR PRN (09:00)
--- NOTE | 2021-04-05 09:24 | Tele-ICU Progress Note ---
Progress Note video rounds completed 82 y/o admitted to ICU after fall and w/u for possible CVA curretly all vitals stable and doing well Carotid doppler pendingHead CT normal Focused Exam Lactate Level 04/04/21 22:07: Lactic Acid Level 2.10*H 04/05/21 04:05: Lactic Acid Level 0.98 Height, Weight, BMI Height: 5'2.00" Weight: 151lbs. 0.0oz. 68.655275bx; 32.53 BMI Method:Stated Laboratory Tests 04/04/21 18:35 04/04/21 22:07 04/05/21 04:05 Labs Labs Laboratory Tests 04/04/21 18:35: White Blood Count 6.4, Red Blood Count 4.01, Hemoglobin 12.5, Hematocrit 40, Mean Corpuscular Volume 99, Mean Corpuscular Hemoglobin 31, Mean Corpuscular Hemoglobin Concent 32, Red Cell Distribution Width 14.1, Platelet Count 304, Mean Platelet Volume 9.9, Immature Granulocyte % (Auto) 0, Neutrophils (%) (Auto) 48, Lymphocytes (%) (Auto) 38, Monocytes (%) (Auto) 10, Eosinophils (%) (Auto) 3, Basophils (%) (Auto) 1, Neutrophils # (Auto) 3.1, Lymphocytes # (Auto) 2.4, Monocytes # (Auto) 0.6, Eosinophils # (Auto) 0.2, Basophils # (Auto) 0.1, Immature Granulocyte # (Auto) 0.0, Prothrombin Time 13.7, INR Comment 1.0, Activated Partial Thromboplast Time 28, D-Dimer 1.65H, Sodium Level 142, Potassium Level 3.7, Chloride Level 104, Carbon Dioxide Level 23, Anion Gap 15H, Blood Urea Nitrogen 8, Creatinine 1.00, Estimat Glomerular Filtration Rate 52, BUN/Creatinine Ratio 8, Glucose Level 109H, Calcium Level 9.9, Corrected Calcium 10.2H, Total Bilirubin 0.6, Aspartate Amino Transf (AST/SGOT) 18, Alanine Aminotransferase (ALT/SGPT) 10, Alkaline Phosphatase 67, Total Creatine Kinase 53, Troponin I < 0.028, Total Protein 6.3L, Albumin 3.6 04/04/21 20:30: Urine Color YELLOW, Urine Clarity CLEAR, Urine pH 8.0, Urine Specific [place] 1.010L, Urine Protein NEGATIVE, Urine Glucose (UA) NEGATIVE, Urine Ketones TRACEH, Urine Nitrite NEGATIVE, Urine Bilirubin NEGATIVE, Urine Urobilinogen 0.2, Urine Leukocyte Esterase 3+H, Urine RBC (Auto) 1+H, Urine RBC 2-5H, Urine WBC 10-25H, Urine Squamous Epithelial Cells NONE, Urine Crystals NONE, Urine Bacteria FEWH, Urine Casts NONE, Urine Mucus NEGATIVE, Urine Culture Indicated YES 04/04/21 22:07: White Blood Count 8.0, Red Blood Count 4.02, Hemoglobin 12.6, Hematocrit 40, Mean Corpuscular Volume 100H, Mean Corpuscular Hemoglobin 31, Mean Corpuscular Hemoglobin Concent 31L, Red Cell Distribution Width 14.2, Platelet Count 279, Mean Platelet Volume 9.7, Immature Granulocyte % (Auto) 0, Neutrophils (%) (Auto) 83H, Lymphocytes (%) (Auto) 10L, Monocytes (%) (Auto) 6, Eosinophils (%) (Auto) 0, Basophils (%) (Auto) 1, Neutrophils # (Auto) 6.7, Lymphocytes # (Auto) 0.8L, Monocytes # (Auto) 0.4, Eosinophils # (Auto) 0.0, Basophils # (Auto) 0.1, Immature Granulocyte # (Auto) 0.0, Sodium Level 142, Potassium Level 3.6, Chloride Level 105, Carbon Dioxide Level 22, Anion Gap 15H, Blood Urea Nitrogen 8, Creatinine 0.84, Estimat Glomerular Filtration Rate 64, BUN/Creatinine Ratio 10, Glucose Level 98, Calcium Level 9.3, Corrected Calcium 9.5, Total Bilirubin 0.8, Aspartate Amino Transf (AST/SGOT) 20, Alanine Aminotransferase (ALT/SGPT) 11, Alkaline Phosphatase 70, Total Creatine Kinase 69, Troponin I 0.030H, Total Protein 6.1L, Albumin 3.7, Neutrophils % (Manual) 80, Lymphocytes % (Manual) 11, Monocytes % (Manual) 5, Eosinophils % (Manual) 2, Basophils % (Manual) 1, Atypical Lymphocytes 1, Polychromasia SLIGHT, Lactic Acid Level 2.10*H 04/05/21 04:05: White Blood Count 5.9, Red Blood Count 3.64L, Hemoglobin 11.6, Hematocrit 36, Mean Corpuscular Volume 99, Mean Corpuscular Hemoglobin 32, Mean Corpuscular Hemoglobin Concent 32, Red Cell Distribution Width 14.3, Platelet Count 227, Mean Platelet Volume 9.8, Immature Granulocyte % (Auto) 0, Neutrophils (%) (Auto) 69, Lymphocytes (%) (Auto) 20, Monocytes (%) (Auto) 10, Eosinophils (%) (Auto) 1, Basophils (%) (Auto) 1, Neutrophils # (Auto) 4.0, Lymphocytes # (Auto) 1.2, Monocytes # (Auto) 0.6, Eosinophils # (Auto) 0.0, Basophils # (Auto) 0.1, Immature Granulocyte # (Auto) 0.0, Sodium Level 140, Potassium Level 3.4L, Chloride Level 105, Carbon Dioxide Level 22, Anion Gap 13, Blood Urea Nitrogen 7, Creatinine 0.78, Estimat Glomerular Filtration Rate 70, BUN/Creatinine Ratio 9, Glucose Level 90, Calcium Level 8.9, Corrected Calcium 9.5, Total Bilirubin 0.7, Aspartate Amino Transf (AST/SGOT) 16, Alanine Aminotransferase (ALT/SGPT) 9, Alkaline Phosphatase 62, Total Protein 5.4L, Albumin 3.3, Lactic Acid Level 0.98, Phosphorus Level 1.9L, Magnesium Level 1.7, Triglycerides Level 110, Cholesterol Level 190, LDL Cholesterol Direct 132H, VLDL Cholesterol 22, HDL Cholesterol 46 CHEMA ROTH MD Apr 05, 2021 09:24
[2021-04-05] MEDS: ASPIRIN E.C. 325 MG (ECOTRIN) TABLET PO SCH (09:25)
--- NOTE | 2021-04-05 11:43 | Consultation-Cardiology ---
HPI-Cardiology Cardiology Consultation Date of Consultation 04/05/21 Date of Admission Time Seen by Provider: 11:38 Indication: Bradycardia HPI 89-year-old lady who was admitted last week with TIA. Improved initially and she was discharged home, she was found on the floor in her bathroom. Having slurred speech, noted to be severely bradycardic. Brought to the emergency room and her EKG showed episode of complete heart block with escape junctional rhythm. Heart rate was in the 30s, blood pressure was over 200 systolic. Currently her heart rate and blood pressure are under better control, she still having slurred speech. No focal deficit otherwise. Reporting having some headache, sustained a fracture to her right ankle. Denied any chest pain. No s hortness of breath. Patient was unable to provide a full history she was answering by yes or no but due to her aphasia she was unable to elaborate on her complaints, family were present at bedside and they assisted in providing full history Home Medications & Allergies Allergies: Coded Allergies: No Known Drug Allergies (Verified , 10/10/17) Home Medication List Reviewed: Yes SQD-Cnuewo-Dfqhik Hx Patient Social History Marital Status: Employed/Student: retired Smoking Status: Never a Smoker Recent Hopitalizations: No Have you traveled recently?: No Alcohol Use?: No Immunizations Up To Date Tetanus Booster (TDap): Unknown Date of Pneumonia Vaccine: Jul 24, 2017 Date of Influenza Vaccine: Mar 02, 2019 Past Medical History Discussed below Family Medical History Significant Family History: Heart Disease, Hypertension Family Medical Hx Noncontributory Review of Systems-General Review of Systems Constitutional: see HPI; No chills, No diaphoresis, No fever; malaise EENTM: see HPI, no symptoms reported Respiratory: see HPI; No cough, No phlegm, No short of breath Cardiovascular: see HPI; No edema, No palpitations; syncope Gastrointestinal: no symptoms reported, see HPI Genitourinary: see HPI; No discharge, No dysuria Musculoskeletal: see HPI; No back pain; joint pain Skin: no symptoms reported, see HPI Psychiatric/Neurological: No Symptoms Reported, See HPI, Other (Aphasia) All Other Systems Reviewed Negative Unless Noted: Yes Reviewed Test Results Reviewed Test Results Lab Laboratory Tests Test 04/04/21 18:35 04/04/21 20:30 04/04/21 22:07 04/05/21 04:05 Range/Units White Blood Count 6.4 8.0 5.9 4.3-11.0 10^3/uL Red Blood Count 4.01 4.02 3.64 L 3.80-5.11 10^6/uL Hemoglobin 12.5 12.6 11.6 11.5-16.0 g/dL Hematocrit 40 40 36 35-52 % Mean Corpuscular Volume 99 100 H 99 80-99 fL Mean Corpuscular Hemoglobin 31 31 32 25-34 pg Mean Corpuscular Hemoglobin Concent 32 31 L 32 32-36 g/dL Red Cell Distribution Width 14.1 14.2 14.3 10.0-14.5 % Platelet Count 304 279 227 130-400 10^3/uL Mean Platelet Volume 9.9 9.7 9.8 9.0-12.2 fL Immature Granulocyte % (Auto) 0 0 0 % Neutrophils (%) (Auto) 48 83 H 69 42-75 % Lymphocytes (%) (Auto) 38 10 L 20 12-44 % Monocytes (%) (Auto) 10 6 10 0-12 % Eosinophils (%) (Auto) 3 0 1 0-10 % Basophils (%) (Auto) 1 1 1 0-10 % Neutrophils # (Auto) 3.1 6.7 4.0 1.8-7.8 10^3/uL Lymphocytes # (Auto) 2.4 0.8 L 1.2 1.0-4.0 10^3/uL Monocytes # (Auto) 0.6 0.4 0.6 0.0-1.0 10^3/uL Eosinophils # (Auto) 0.2 0.0 0.0 0.0-0.3 10^3/uL Basophils # (Auto) 0.1 0.1 0.1 0.0-0.1 10^3/uL Immature Granulocyte # (Auto) 0.0 0.0 0.0 0.0-0.1 10^3/uL Prothrombin Time 13.7 12.2-14.7 SEC INR Comment 1.0 0.8-1.4 Activated Partial Thromboplast Time 28 24-35 SEC D-Dimer 1.65 H 0.00-0.49 UG/ML Sodium Level 142 142 140 135-145 MMOL/L Potassium Level 3.7 3.6 3.4 L 3.6-5.0 MMOL/L Chloride Level 104 105 105 98-107 MMOL/L Carbon Dioxide Level 23 22 22 21-32 MMOL/L Anion Gap 15 H 15 H 13 5-14 MMOL/L Blood Urea Nitrogen 8 8 7 7-18 MG/DL Creatinine 1.00 0.84 0.78 0.60-1.30 MG/DL Estimat Glomerular Filtration Rate 52 64 70 BUN/Creatinine Ratio 8 10 9 Glucose Level 109 H 98 90 70-105 MG/DL Calcium Level 9.9 9.3 8.9 8.5-10.1 MG/DL Corrected Calcium 10.2 H 9.5 9.5 8.5-10.1 MG/DL Total Bilirubin 0.6 0.8 0.7 0.1-1.0 MG/DL Aspartate Amino Transf (AST/SGOT) 18 20 16 5-34 U/L Alanine Aminotransferase (ALT/SGPT) 10 11 9 0-55 U/L Alkaline Phosphatase 67 70 62 40-136 U/L Total Creatine Kinase 53 69 29-168 U/L Troponin I < 0.028 0.030 H <0.028 NG/ML Total Protein 6.3 L 6.1 L 5.4 L 6.4-8.2 GM/DL Albumin 3.6 3.7 3.3 3.2-4.5 GM/DL Urine Color YELLOW Urine Clarity CLEAR Urine pH 8.0 5-9 Urine Specific [place] 1.010 L 1.016-1.022 Urine Protein NEGATIVE NEGATIVE Urine Glucose (UA) NEGATIVE NEGATIVE Urine Ketones TRACE H NEGATIVE Urine Nitrite NEGATIVE NEGATIVE Urine Bilirubin NEGATIVE NEGATIVE Urine Urobilinogen 0.2 < = 1.0 MG/DL Urine Leukocyte Esterase 3+ H NEGATIVE Urine RBC (Auto) 1+ H NEGATIVE Urine RBC 2-5 H /HPF Urine WBC 10-25 H /HPF Urine Squamous Epithelial Cells NONE /HPF Urine Crystals NONE /LPF Urine Bacteria FEW H /HPF Urine Casts NONE /LPF Urine Mucus NEGATIVE /LPF Urine Culture Indicated YES Neutrophils % (Manual) 80 % Lymphocytes % (Manual) 11 % Monocytes % (Manual) 5 % Eosinophils % (Manual) 2 % Basophils % (Manual) 1 % Atypical Lymphocytes 1 % Polychromasia SLIGHT Lactic Acid Level 2.10 *H 0.98 0.50-2.00 MMOL/L Phosphorus Level 1.9 L 2.3-4.7 MG/DL Magnesium Level 1.7 1.6-2.4 MG/DL Triglycerides Level 110 <150 MG/DL Cholesterol Level 190 < 200 MG/DL LDL Cholesterol Direct 132 H 1-129 MG/DL VLDL Cholesterol 22 5-40 MG/DL HDL Cholesterol 46 40-60 MG/DL Physical Exam Physical Exam Vital Signs Vital Signs - First Documented 04/04/21 04/04/21 18:30 21:28 Temp 36.3 Pulse 52 Resp 18 B/P (MAP) 206/81 (122) Pulse Ox 95 O2 Delivery Room Air Capillary Refill : Less Than 3 Seconds Height, Weight, BMI Height: 5'2.00" Weight: 151lbs. 0.0oz. 68.016656vo; 32.53 BMI Method:Stated General Appearance: No Apparent Distress Eyes: Bilateral Eye Normal Inspection, Bilateral Eye PERRL, Bilateral Eye EOMI HEENT: PERRL/EOMI, TMs Normal, Normal ENT Inspection, Pharynx Normal, Moist Muc ous Membranes Neck: Full Range of Motion, Normal Inspection, Non Tender, Supple, Carotid Bruit Respiratory: Chest Non Tender, Normal Breath Sounds, No Accessory Muscle Use, No Respiratory Distress Cardiovascular: Regular Rate, Rhythm, No Edema, No Gallop, No JVD, Normal Peripheral Pulses, Systolic Murmur Gastrointestinal: Normal Bowel Sounds, No Organomegaly, No Pulsatile Mass, Non Tender, Soft Back: Normal Inspection, No CVA Tenderness, No Vertebral Tenderness Extremity: Normal Capillary Refill, Normal Inspection, Non Tender, No Calf Tenderness, No Pedal Edema, Other (Right ankle fracture) Neurologic/Psychiatric: Alert, Other (Aphasia, no motor deficit) Skin: Normal Color, Warm/Dry Lymphatic: No Adenopathy A/P-Cardiology Admission Diagnosis Acute CVA Bradycardia Complete heart block Hypertensive emergency Assessment/Plan Acute CVA versus TIA, could be secondary to severe bradycardia. CT scan of the head did not show any acute abnormality, [facility] emergency stroke team were consulted, possible MRI of the head tomorrow. 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 Could be the reason for her syncope. Patient was maintained on beta-blockers, I discussed with the family that she might require a permanent pacemaker if she continues to have these episode. I will avoid the use of beta-blockers or calcium channel blockers at this point and monitor her blood pressure Hypertensive emergency, patient was severely hypertensive on arrival to the emergency room, blood pressure is better at this time. Continue to monitor Hypothyroidism, managed by primary care team Clinical Quality Measures Stroke: Date of last known well: Apr 04, 2021 Time of last known well: 17:35 ALDO MCMANUS MD Apr 05, 2021 11:43
--- NOTE | 2021-04-05 12:08 | History & Physical-Hospitalist ---
History of Present Illness HPI/Chief Complaint Stephanie Manley is an 89 year old female who was recently admitted with a stroke and presented back to the ER after having a fall at home. She was in the bathroom and reports feeling lightheaded and dizzy. She then fell to the ground. She did not hit her head. She had some difficulty with word finding after her recent stroke but this has worsened according to family. She is not having any focal weakness. She denies chest pain. She denies shortness of breath. She is feeling hungry and is requesting food. She was able to pass a bedside swallow evaluation. Source: patient, family Exam Limitations: no limitations Date Seen 04/05/21 Time Seen by a Provider: 09:50 Attending Physician Vikki Taveras MD PCP Marilyn Delaney MD Referring Physician Date of Admission Apr 04, 2021 at 20:30 Home Medications & Allergies Home Medications Reviewed patient Home Medication Reconciliation performed by pharmacy medication reconciliations specimen technician and/or nursing. Patients Allergies have been reviewed. Allergies Allergies Coded Allergies No Known Drug Allergies (Verified10/10/17) Past Nwjhoho-Vchqhj-Pflicw Hx Patient Social History Marrital Status: Employed/Student: retired Tobacco Use?: No Smoking Status: Never a Smoker Smokeless Tobacco Frequency: Never a User Use of E-Cig and/or Vaping dev: No Substance use?: No Alcohol Use?: No Pt feels they are or have been: No Immunizations Up To Date Date of Influenza Vaccine: Mar 02, 2019 First/Initial COVID19 Vaccinat: JUN 2020 Second COVID19 Vaccination Alverto: JULY 2020 Tetanus Booster (TDap): More Than 5 Years Hepatitis A: No Hepatitis B: No Date of Pneumonia Vaccine: Jul 24, 2017 Seasonal Allergies Seasonal Allergies: No Current Status Advance Directives: No Communicates: Verbally Primary Language: Azeri Preferred Spoken Language: Azeri Is interpretation needed?: No Past Medical History Surgeries: Hysterectomy, Tonsillectomy Currently Using CPAP: No Currently Using BIPAP: No Hypertension TIA Kidney Stones Gastrointestinal Bleed, Ulcer Arthritis Hypothyroidsim Cataract Blood Disorders: Yes (ANEMIA) Adverse Reaction/Blood Tranf: No HTN Family Medical History Heart Disease, Hypertension Review of Systems Constitutional: dizziness, weakness EENTM: no symptoms reported Respiratory: no symptoms reported Cardiovascular: no symptoms reported Gastrointestinal: no symptoms reported Genitourinary: no symptoms reported Musculoskeletal: no symptoms reported Skin: no symptoms reported Psychiatric/Neurological: No Symptoms Reported Physical Exam Physical Exam Vital Signs Vital Signs - First Documented 04/04/21 04/04/21 18:30 21:28 Temp 36.3 Pulse 52 Resp 18 B/P (MAP) 206/81 (122) Pulse Ox 95 O2 Delivery Room Air Capillary Refill : Less Than 3 Seconds Height, Weight, BMI Height: 5'2.00" Weight: 151lbs. 0.0oz. 68.195280ns; 32.53 BMI Method:Stated General Appearance: No Apparent Distress, Chronically ill HEENT: PERRL/EOMI, Pharynx Normal Neck: Normal Inspection, Supple Respiratory: Lungs Clear, Normal Breath Sounds, No Respiratory Distress Cardiovascular: Regular Rate, Rhythm, No Edema, No Murmur Gastrointestinal: Normal Bowel Sounds, Non Tender, Soft Extremity: Normal Inspection, Non Tender, No Pedal Edema Neurologic/Psychiatric: Alert, Oriented x3, No Motor/Sensory Deficits, Normal Mood/Affect Skin: Normal Color, Warm/Dry Results Results/Procedures Labs Laboratory Tests 04/04/21 18:35 04/04/21 22:07 04/05/21 04:05 Patient resulted labs reviewed. 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 PT/OT/ST Complete heart block Bradycardia Cardiology consulted Hold metoprolol Monitor on telemetry May require pacemaker Fall Fibula fracture Advanced age Consult ortho PT/OT Previously independent with ambulation Consider acute rehab Hypokalemia Hypophosphatemia Monitor and replace as needed Possible UTI UA concerning for possible UTI Urine culture pending Continue Rocephin DVT prophylaxis: Lovenox Diagnosis/Problems Diagnosis/Problems (1) Expressive aphasia (2) Fall Status: Acute Qualifiers: Encounter type: initial encounter Qualified Codes: W19.XXXA - Unspecified fall, initial encounter (3) TIA (transient ischemic attack) Status: Acute (4) Closed right ankle fracture Status: Acute Qualifiers: Encounter type: initial encounter Qualified Codes: S82.891A - Other fracture of right lower leg, initial encounter for closed fracture (5) Urinary tract infection Status: Acute (6) Complete heart block Status: Acute (7) Bradycardia Status: Acute (8) Advanced age Status: Chronic (9) Hypokalemia Status: Acute (10) Hypophosphatemia Status: Acute Clinical Quality Measures Stroke: Date of last known well: Apr 04, 2021 Time of last known well: 17:35 VIKKI TAVERAS MD Apr 05, 2021 12:08
[2021-04-05] MEDS ORDERED: hydrALAZINE (APESOLINE) 20 MG/ML VIAL IV PRN (12:15)
[2021-04-05] MEDS: LACTATED RINGERS 1,000 ML IV SCH ×2 (12:19→14:33)
[2021-04-05] MEDS ORDERED: LACTATED RINGERS 1,000 ML IV ONE (14:20)
--- NOTE | 2021-04-05 18:22 | Diagnostic Imaging Report ---
PROCEDURE: CT head without contrast. TECHNIQUE: Multiple contiguous axial images were obtained through the brain without the use of intravenous contrast. Auto Exposure Controls were utilized during the CT exam to meet ALARA standards for radiation dose reduction. INDICATION: STROKE, status post TPA. COMPARISON: 04/04/2021. FINDINGS: No intracranial hyperdense hemorrhage or space-occupying mass. No hydrocephalus or midline shift. Stable right frontal encephalomalacia. Right parietal subcortical hypoattenuation is also unchanged. No new loss of jeffers-white matter differentiation to suggest territorial infarct. Periventricular white matter hypoattenuation is unchanged. Stable hypodensity in the right caudate likely from old lacunar infarct. No acute calvarial abnormality. Paranasal sinuses and mastoid air cells are clear. IMPRESSION: 1. No acute intracranial hemorrhage. 2. 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 No features of acute territorial infarct by CT. Dictated by: Dictated on workstation # [id number]
[2021-04-05] MEDS: ENOXAPARIN 40 MG/0.4 ML (LOVENOX) SYR SC SCH (20:01)
[2021-04-05] MEDS: cefTRIAXone 1 GM PRE-MIX 50 ML IV SCH (21:05)
[2021-04-06 05:09] LABS: BASOPHILS # (AUTO) 0.1 10^3/uL (0.0-0.1); BASOPHILS % (AUTO) 2 % (0-10); EOSINOPHILS # (AUTO) 0.1 10^3/uL (0.0-0.3); EOSINOPHILS % (AUTO) 2 % (0-10); HEMATOCRIT 36 % (35-52); HEMOGLOBIN 11.3 g/dL (11.5-16.0); LYMPHOCYTES # (AUTO) 1.1 10^3/uL (1.0-4.0); LYMPHOCYTES % (AUTO) 23 % (12-44); MEAN CORPUSCULAR HEMOGLOBIN 31 pg (25-34); MEAN CORPUSCULAR HGB CONC 32 g/dL (32-36); MEAN CORPUSCULAR VOLUME 98 fL (80-99); MEAN PLATELET VOLUME 10.2 fL (9.0-12.2); MONOCYTES # (AUTO) 0.5 10^3/uL (0.0-1.0); MONOCYTES % (AUTO) 12 % (0-12); NEUTROPHILS # (AUTO) 2.8 10^3/uL (1.8-7.8); NEUTROPHILS % (AUTO) 62 % (42-75); PLATELET COUNT 231 10^3/uL (130-400); WHITE BLOOD COUNT 4.6 10^3/uL (4.3-11.0)
[2021-04-06] MEDS: LEVOTHYROXINE 50 MCG (LEVOTHROID) TAB PO SCH (05:21)
[2021-04-06] MEDS: HYDROcodone/APAP 5 MG/325 MG (LORTAB) TAB PO PRN ×3 (05:21→20:53)
[2021-04-06] MEDS: LACTATED RINGERS 1,000 ML IV SCH ×2 (05:21→18:31)
[2021-04-06 05:28] LABS: ALBUMIN 3.2 GM/DL (3.2-4.5)
[2021-04-06 05:29] LABS: POTASSIUM 3.6 MMOL/L (3.6-5.0)
[2021-04-06 05:30] LABS: CALCIUM 8.8 MG/DL (8.5-10.1)
[2021-04-06 05:31] LABS: TOTAL PROTEIN 5.3 GM/DL (6.4-8.2)
[2021-04-06 05:33] LABS: BILIRUBIN,TOTAL 0.8 MG/DL (0.1-1.0)
[2021-04-06 05:35] LABS: CREATININE SERUM 0.81 MG/DL (0.60-1.30)
--- NOTE | 2021-04-06 07:42 | Progress Note ---
Subjective Subjective Date Seen by Provider: Apr 06, 2021 Time Seen by Provider: 06:50 Pt admitted on 04/04 after a fall in the shower, was found by her daughter. She was having difficulty finding words when admitted. She was in the hospital on 04/02 for stroke/TIA. This morning she reports feeling better, states that her breathing is good but her R foot still hurts. She denies any N/V, chest pain or palpitations. She currently feels cold. Review of Systems General: Chills; No Night Sweats HEENT: No Head Aches Cardiovascular: No: Chest Pain, Palpitations Gastrointestinal: No: Nausea, Vomiting, Abdominal Pain Musculoskeletal: foot pain (R foot) All Other Systems Reviewed All Other Systems Reviewed: Yes Objective Exam Vital Signs Vital Signs Date Time Temp Pulse Resp B/P (MAP) Pulse Ox O2 Delivery O2 Flow Rate FiO2 04/06/21 04:00 37.6 56 17 155/67 99 Nasal Cannula 2.00 04/06/21 01:00 58 04/05/21 23:15 36.2 73 18 142/65 95 Nasal Cannula 2.00 04/05/21 20:08 36.7 79 14 164/77 04/05/21 20:00 Nasal Cannula 2.00 04/05/21 19:00 79 04/05/21 16:26 37.0 04/05/21 15:37 Room Air 04/05/21 14:23 Nasal Cannula 2.00 04/05/21 12:26 77 04/05/21 12:00 77 14 146/53 97 Room Air 04/05/21 11:19 Room Air 04/05/21 11:00 59 9 147/73 94 Room Air 04/05/21 10:00 79 15 152/66 93 Room Air 04/05/21 09:00 76 11 113/91 90 Room Air 04/05/21 08:15 92 Room Air 04/05/21 08:01 36.6 04/05/21 08:00 77 10 147/64 93 Room Air I & O 04/06/21 06:59 Intake Total 3210 ml Output Total 1125 ml Balance 2085 ml General Appearance: No Apparent Distress, Chronically ill Eyes: Bilateral Eye Normal Inspection, Bilateral Eye PERRL, Bilateral Eye EOMI HEENT: PERRL/EOMI, Pharynx Normal Neck: Normal Inspection, Supple Respiratory: Lungs Clear, Normal Breath Sounds, No Respiratory Distress Cardiovascular: Regular Rate, Rhythm, No Edema, No Murmur Gastrointestinal: Normal Bowel Sounds, Non Tender, Soft Back: Normal Inspection Extremity: Normal Inspection, Non Tender, No Pedal Edema Neurologic/Psychiatric: Alert, Oriented x3, No Motor/Sensory Deficits, Normal Mood/Affect Skin: Normal Color, Warm/Dry Lymphatic: No Adenopathy Results Lab Laboratory Tests 04/06/21 04:50: Sodium Level 140, Potassium Level 3.6, Chloride Level 105, Carbon Dioxide Level 23, Anion Gap 12, Blood Urea Nitrogen 7, Creatinine 0.81, Estimat Glomerular Filtration Rate 67, BUN/Creatinine Ratio 9, Glucose Level 92, Calcium Level 8.8, Corrected Calcium 9.4, Total Bilirubin 0.8, Aspartate Amino Transf (AST/SGOT) 17, Alanine Aminotransferase (ALT/SGPT) 8, Alkaline Phosphatase 67, Total Protein 5.3L, Albumin 3.2 04/06/21 05:00: White Blood Count 4.6, Red Blood Count 3.63L, Hemoglobin 11.3L, Hematocrit 36, Mean Corpuscular Volume 98, Mean Corpuscular Hemoglobin 31, Mean Corpuscular Hemoglobin Concent 32, Red Cell Distribution Width 14.5, Platelet Count 231, Mean Platelet Volume 10.2, Immature Granulocyte % (Auto) 0, Neutrophils (%) (Auto) 62, Lymphocytes (%) (Auto) 23, Monocytes (%) (Auto) 12, Eosinophils (%) (Auto) 2, Basophils (%) (Auto) 2, Neutrophils # (Auto) 2.8, Lymphocytes # (Auto) 1.1, Monocytes # (Auto) 0.5, Eosinophils # (Auto) 0.1, Basophils # (Auto) 0.1, I mmature Granulocyte # (Auto) 0.0 Microbiology 04/04/21 MRSA Screen - Final, Complete MRSA not isolated Assessment/Plan Assessment/Plan Assessment and Plan EXPRESSIVE APHASIA ACUTE STROKE VS TIA -NO EVIDENCE OF STROKE ON CT -ADDING ASPIRIN PER [facility] REC. -CONTINUE PLAVIX -ADD STATIN -PT/OT/ST COMPLETE HEART BLOCK BRADYCARDIA -CARDIOLOGY ON BOARD -HOLDING METOPROLOL -MAY REQUIRE PACEMAKER S/P FALL W/RIGHT FIBULA FRACTURE -ORTHO CONSULT -PT/OT -EVALUATE NEED FOR ACUTE REHAB HYPOKALEMIA HYPOPHOSPHATEMIA -POTASSIUM WNL THIS MORNING, MONITOR W/DAILY LABS -REPLACE NEEDED UTI -CONTINUE ROCEPHIN -AWAIT CULTURE RESULTS DVT PPX: LOVENOX Clinical Quality Measures Stroke: Date of last known well: Apr 04, 2021 Time of last known well: 17:35 CASANDRA MERCER Apr 06, 2021 07:42
--- NOTE | 2021-04-06 08:37 | Cardiology Progress Note ---
Subjective Date Seen by Provider: Apr 06, 2021 Time Seen by Provider: 08:35 Subjective/Events-last exam Patient was seen at bedside, slightly better, less slurred speech Review of Systems General: No Chills, No Night Sweats; Fatigue, Malaise; No Appetite, No Other HEENT: No Head Aches, No Visual Changes, No Eye Pain, No Ear Pain, No Dysphasia, No Sinus Congestion, No Post Nasal Drip, No Sore Throat, No Other Pulmonary: No Dyspnea, No Cough, No Pleuritic Chest Pain, No Other Cardiovascular: No: Chest Pain, Palpitations, Orthopnea, Paroxysmal Noc. Dyspnea, Edema, Lt Headedness, Other Focused Exam Lactate Level 04/04/21 22:07: Lactic Acid Level 2.10*H 04/05/21 04:05: Lactic Acid Level 0.98 Objective-Cardiology Exam Last Set of Vital Signs Vital Signs 04/06/21 04:00 Temp 37.6 Pulse 56 Resp 17 B/P (MAP) 155/67 Pulse Ox 99 O2 Delivery Nasal Cannula O2 Flow Rate 2.00 I&O l Intake and Output 04/06/21 00:00 Intake Total 2760 ml Output Total 2000 ml Balance 760 ml Intake Oral 1450 ml IV Total 1310 ml Output Urine Total 2000 ml General: Alert, Oriented X3, Cooperative HEENT: Atraumatic Neck: Supple, No JVD Lungs: Clear to Auscultation, Normal Air Movement Heart: Regular Rate, Normal S1, Normal S2 Abdomen: Normal Bowel Sounds, Soft, No Tenderness Extremities: No Clubbing, No Cyanosis Skin: Other (Right ankle fracture) Neuro: Other (Slurred speech) Psych/Mental Status: Mental Status NL Results Lab Laboratory Tests 04/06/21 04:50 04/06/21 05:00 A/P-Cardiology Admission Diagnosis Acute CVA Bradycardia Complete heart block Hypertensive emergency Assessment/Plan Acute CVA versus TIA, could be secondary to severe bradycardia. CT scan of the head did not show any acute abnormality, [facility] emergency stroke team were consulted, possible MRI of the head today. 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 Could be the reason for her syncope. Patient was maintained on beta-blockers, I discussed with the family that she might require a permanent pacemaker if she continues to have these episode. I will avoid the use of beta-blockers or calcium channel blockers at this point and monitor her blood pressure Heart rate is better today, still having occasional APCs and few bradycardic episodes. Hypertensive emergency, patient was severely hypertensive on arrival to the emergency room, blood pressure is better at this time. Continue to monitor Hypothyroidism, managed by primary care team ALDO MCMANUS MD Apr 06, 2021 08:37
[2021-04-06] MEDS: DOCUSATE SODIUM 100 MG (COLACE) CAP PO SCH (08:58)
[2021-04-06] MEDS: CLOPIDOGREL 75 MG (PLAVIX) TABLET PO SCH (08:58)
[2021-04-06] MEDS: ASPIRIN E.C. 325 MG (ECOTRIN) TABLET PO SCH (08:58)
--- NOTE | 2021-04-06 10:08 | Consultation - Ortho ---
Consult - Ortho Subjective Date of Exam 04/06/21 Chief Complaint Fracture right distal fibula HPI/Events since last exam Mrs. Cedeño is an 89-year-old white female who fell Tuesday afternoon At home. There was concern she may have had a stroke if she had a recent history of stroke. She was seen in the emergency room, evaluated and x-rayed noted to have a fracture of her right distal fibula. She was splinted. She was admitted for further evaluation and treatment of her possible stroke and also cardiac disease. Medical, Surgical History Reviewed and no additions or changes Social History Reviewed and no additions or changes Family History Reviewed and no additions or change Review of Systems Reviewed and no additions or changes Allergies: Coded Allergies: No Known Drug Allergies (Verified , 10/10/17) Home Meds Active Scripts Amoxicillin/Potassium Clav (Augmentin 875-125 Tablet) 1 Each Tablet, 1 EACH PO BID, #10 TAB Prov:TANIA STEVE MD 04/03/21 Lactobacillus Acidophilus/Pect (Acidophilus-Pectin Capsule) 1 Each Capsule, 2 EACH PO TIDWM, #90 CAP Prov:TANIA STEVE MD 04/03/21 Ondansetron (Ondansetron Odt) 4 Mg Tab.rapdis, 4 MG PO Q6H PRN for NAUSEA/VOMITING-1ST LINE, #30 TAB Prov:TANIA STEVE MD 04/03/21 Sennosides/Docusate Sodium (Stool Softener-Laxative Tablet) 1 Each Tablet, 1 EA PO BID, #60 TAB 4 Refills Prov:TANIA STEVE MD 04/03/21 Metoprolol Tartrate (Metoprolol Tartrate) 25 Mg Tablet, 25 MG PO BID, #60 TAB 3 Refills Prov:TANIA STEVE MD 04/03/21 Reported Medications Cinacalcet HCl (Cinacalcet HCl) 30 Mg Tablet, 30 MG PO MO,WE,FR, TAB 04/02/21 Cholecalciferol (Vitamin D3) (Vitamin D3) 50 Mcg Capsule, 50 MCG PO DAILY, CAP 04/02/21 Tramadol HCl/Acetaminophen (Tramadol-Acetaminophn 37.5-325) 1 Each Tablet, 1 TAB PO Q6H PRN for PAIN-MODERATE (5-7) 07/25/19 Clopidogrel Bisulfate (Clopidogrel) 75 Mg Tablet, 75 MG PO DAILY 07/25/19 Folic Acid (Folic Acid) 0.4 Mg Tablet, 0.4 MG PO DAILY, TAB 07/25/19 Levothyroxine Sodium (Levothyroxine Sodium) 50 Mcg Tablet, 50 MCG PO DAILY, TAB 10/04/17 Amitriptyline HCl (Amitriptyline HCl) 50 Mg Tablet, 50 MG PO HS, TAB 10/04/17 Discontinued Reported Medications Cholecalciferol (Vitamin D3) (Vitamin D3) 2,000 Unit Tab.chew, 2000 UNIT PO DAILY, TAB 07/25/19 Discontinued Scripts Hydrocodone/Acetaminophen (Hydrocodone/Acetaminophen 5 MG/325 MG TAB) 1 Each Tablet, 1-2 TAB PO Q4-6HR for Pain MDD 10 TABS, #35 TAB Prov:TUAN GUTIERREZ APRN 07/26/19 Objective Exam Constitutional: [] HEENT: [] Neck: [] Cardiovascular: [] Respiratory: [] Gastrointestinal: [] Genitourinary: [] Skin: [] Back/Spine: [] Extremities: [Her splint was removed. Her skin is intact. Mild swelling and bruising. Pain over the distal fibula and medially over the deltoid ligament. No calf tenderness negative Homans. She can move her toes and appears to have normal sensation with good capillary refill] Neurologic: [] Psychiatric: [] Hematologic/lymphatic/immunologic: [] Vital Signs Vital Signs Date Time Temp Pulse Resp B/P (MAP) Pulse Ox O2 Delivery O2 Flow Rate FiO2 04/06/21 07:00 80 04/06/21 04:00 37.6 56 17 155/67 99 Nasal Cannula 2.00 04/06/21 01:00 58 04/05/21 23:15 36.2 73 18 142/65 95 Nasal Cannula 2.00 04/05/21 20:08 36.7 79 14 164/77 04/05/21 20:00 Nasal Cannula 2.00 04/05/21 19:00 79 04/05/21 16:26 37.0 04/05/21 15:37 Room Air 04/05/21 14:23 Nasal Cannula 2.00 04/05/21 12:26 77 04/05/21 12:00 77 14 146/53 97 Room Air 04/05/21 11:19 Room Air 04/05/21 11:00 59 9 147/73 94 Room Air I & O 04/06/21 07:00 Intake Total 3210 ml Output Total 1125 ml Balance 2085 ml Lab Results Laboratory Tests 04/06/21 04:50: Sodium Level 140, Potassium Level 3.6, Chloride Level 105, Carbon Dioxide Level 23, Anion Gap 12, Blood Urea Nitrogen 7, Creatinine 0.81, Estimat Glomerular Filtration Rate 67, BUN/Creatinine Ratio 9, Glucose Level 92, Calcium Level 8.8, Corrected Calcium 9.4, Total Bilirubin 0.8, Aspartate Amino Transf (AST/SGOT) 17, Alanine Aminotransferase (ALT/SGPT) 8, Alkaline Phosphatase 67, Total Protein 5.3L, Albumin 3.2 04/06/21 05:00: White Blood Count 4.6, Red Blood Count 3.63L, Hemoglobin 11.3L, Hematocrit 36, Mean Corpuscular Volume 98, Mean Corpuscular Hemoglobin 31, Mean Corpuscular Hemoglobin Concent 32, Red Cell Distribution Width 14.5, Platelet Count 231, Mean Platelet Volume 10.2, Immature Granulocyte % (Auto) 0, Neutrophils (%) (Auto) 62, Lymphocytes (%) (Auto) 23, Monocytes (%) (Auto) 12, Eosinophils (%) (Auto) 2, Basophils (%) (Auto) 2, Neutrophils # (Auto) 2.8, Lymphocytes # (Auto) 1.1, Monocytes # (Auto) 0.5, Eosinophils # (Auto) 0.1, Basophils # (Auto) 0.1, Immature Granulocyte # (Auto) 0.0 Microbiology 04/04/21 MRSA Screen - Final, Complete MRSA not isolated 04/04/21 Urine Culture - Preliminary, Resulted Culture In Progress Imaging X-rays were reviewed from 04/04 which shows a fracture of the distal fibula that is displaced laterally and the talus is shifted as well with the opening or widening of the medial clear space. No medial malleolar fracture. No posterior malleolar fracture.No posterior displacement of the fibula Assessment and Plan Assessment Fracture right distal fibula Problem List Fracture right distal fibula Plan A short leg cast was applied molding the cast around the ankle with internal rotation inversion and supination of the foot to try to reduce the fibula fracture and reduce the mortise.Will order x-rays and determine if we can continue with nonoperative treatment. If not I will talk with family and see if they want to proceed with operative treatment. Final Diagonsis Fracture right distal fibula Level of the visit: Level 3 MATTHIAS ALBA MD Apr 06, 2021 10:08
--- NOTE | 2021-04-06 10:21 | Diagnostic Imaging Report ---
INDICATION: Post reduction right ankle injury/fracture. COMPARISON: 04/04/2021. FINDINGS: Three views of the right ankle demonstrate improved alignment. There is continued widening of the medial ankle clear space. The distal fibular fracture demonstrates some slight improved alignment. IMPRESSION: Improving complex ankle fracture alignment. Dictated by: Dictated on workstation # [id number]
[2021-04-06] MEDS ORDERED: ONDA4TAB11 PO (10:23)
[2021-04-06] MEDS ORDERED: METO-333 PO (10:23)
[2021-04-06] MEDS ORDERED: LACT1CAP76 PO (10:23)
[2021-04-06] MEDS ORDERED: SENN1TAB76 PO (10:23)
[2021-04-06] MEDS ORDERED: AMOX1TAB12 PO (10:23)
--- NOTE | 2021-04-06 10:58 | Physical Therapy Evaluation ---
PT Evaluation-General Medical Diagnosis Admission Date Apr 04, 2021 at 20:30 Medical Diagnosis: TIA vs. symptomatic bradycardia Onset Date: Apr 04, 2021 Therapy Diagnosis Therapy Diagnosis: debility/weakness Height/Weight Height (Feet): 5 Height (Inches): 2.00 Weight (Pounds): 151 Weight (Ounces): 0.0 Precautions Precautions/Isolations: Aspiration, Fall Prevention, Standard Precautions, Pressure Ulcer Weight Bear Status Right Lower Extremity: Right Non Weight Bearing Left Lower Extremity: Left Weight Bearing/Tolerated Referral Physician: Eveline Reason for Referral: Evaluation/Treatment Medical History Pertinent Medical History: CVA (TIA), HTN, Hypothroidism Current History EMS secondary to patient fell off of toilet Reviewed History: Yes Social History Home: Single Level Current Living Status: Alone Prior Prior Level of Function SCALE: Activities may be completed with or without assistive devices. 0-Rlbujdgsib-ucbybal completes the activity by him/herself with no assistance from a helper. 5-Set-up or Clean-up Assistance-helper sets up or cleans up; patient completes activity. [place] assists only prior to or following the activity. 4-Supervision or Touching Assistance-helper provides verbal cues and/or touching/steadying and/or contact guard assistance as patient completes activity. Assistance may be provided throughout the activity or intermittently. 3-Partial/Moderate Assistance-helper does LESS THAN HALF the effort. [place] lifts, holds or supports trunk or limbs, but provides less than half the effort. 2-Substantial/Maximal Assistance-helper does MORE THAN HALF the effort. [place] lifts or holds trunk or limbs and provides more than half the effort. 2-[place]-fbjslf does ALL the effort. Patient does none of the effort to complete the activity. Or, the assistance of 2 or more helpers is required for the patient to complete the activity. If activity was not attempted, code reason: 7-Patient Refused. 9-Not Applicable-not attempted and the patient did not perform the activity before the current illness, exacerbation or injury. 10-Not Attempted due to Environmental Limitations-(lack of equipment, weather restraints, etc.). 88-Not Attempted due to Medical Conditions or Safety Concerns. Bed Mobility: 6 Transfers (B,C,W/C): 6 Gait: 6 Stairs: 6 Indoor Mobility (Ambulation): Independent Stairs: Independent Prior Devices Use: Walker PT Evaluation-Current Subjective Patient agrees to PT. Objective Patient Orientation: Person, Time, Situation Attachments: Oxygen, Nevarez Catheter, IV ROM/Strength ROM Lower Extremities right ankle fracture NWB soft cast/left LE WFL Strength Lower Extremities right LE 3-/5 grossly/left LE 3+/5 grossly bilateral LE Integumentary/Posture Bladder Incontinence: Nevarez Cath Posture WFL Neuromuscular (Tone, Coordination, Reflexes) grossly intact Sensory Vision: Functional Hearing: Impaired Transfers Roll Left to Right (QC): 6 Lying to Sitting/Side of Bed(Q: 6 Sit to Stand (QC): 3 Chair/Zde-ji-Apmnq Xfer(QC): 3 Patient is able to scoot to pivot to chair Gait Does the Patient Walk?: No and Walking Goal IS indicated Mode of Locomotion: Both Anticipated Mode of Locomotion: Both Walk 10 feet (QC): 88 Walk 50 ft with 2 Turns(QC): 88 Walk 150 ft (QC): 88 Gait Assistive Device: FWW Comments/Gait Description unable to "hop" due to age and weakness Balance Sitting Static: Normal Sitting Dynamic: Normal Standing Static: Fair Standing Dynamic: Fair Assessment/Needs 89 y.o. female, will benefit from skilled PT to address functional strength and mobility to improve current LOF. From a PT standpoint, patient is NWB and unable to ambulate and would benefit from extended care facility. Rehab Potential: Fair PT Fashion Adviser Goals Fashion Adviser Goals PT Group Home Goals Time Frame: Apr 25, 2021 Roll Left & Right (QC): 6 Sit to Lying (QC): 6 Lying-Sitting on Side/Bed(QC): 6 Sit to Stand (QC): 4 Chair/Nhf-pf-Trdrj Xfer(QC): 4 Toilet Transfer (QC): 4 Walk 10 feet (QC): 3 PT Plan Problem List Problem List: Activity Tolerance, Functional Strength, Balance, Gait, Transfer Treatment/Plan Treatment Plan: Continue Plan of Care Treatment Plan: Bed Mobility, Education, Functional Activity Marie, Functional Strength, Gait, Safety, Therapeutic Exercise, Transfers Treatment Duration: Apr 25, 2021 Frequency: 11 times per week Estimated Hrs Per Day: .5 hour per day Patient and/or Family Agrees t: Yes Time/GCodes Time In: 800 Time Out: 822 Total Billed Treatment Time: 22 Total Billed Treatment 1 visit EVMod 22 min CARISA LOMBARDO PT Apr 06, 2021 10:58
--- NOTE | 2021-04-06 12:08 | Occupational Therapy Eval ---
OT Evaluation-General/PLF Medical Diagnosis Admission Date Apr 04, 2021 at 20:30 Medical Diagnosis: TIA vs. symptomatic bradycardia Onset Date: Apr 04, 2021 Therapy Diagnosis Therapy Diagnosis: decreased ADL status Height/Weight Height (Feet): 5 Height (Inches): 2.00 Weight (Pounds): 151 Weight (Ounces): 0.0 Precautions Precautions/Isolations: Aspiration, Fall Prevention, Standard Precautions, Pressure Ulcer Weight Bear Status Weight Bearing Restriction: Non Weight Bearing Location Restriction: R LE Referral Physician: Eveline Referral Reason: Evaluation/Treatment Medical History Pertinent Medical History: CVA (TIA), HTN, Hypothroidism Additional Medical History HTN, GI bleed, arthritis, hypothyroidism, cataract Current History Recent admit with stroke, present back to ED after fall at home. Pt felt light headed/dizzy prior to falling in bathroom. X ray showed distal fibula fx R (casted) Social History Home: Single Level Current Living Status: Alone ADL-Prior Level of Function SCALE: Activities may be completed with or without assistive devices. 9-Mvqlvzxryw-hizalgm completes the activity by him/herself with no assistance from a helper. 5-Set-up or Clean-up Assistance-helper sets up or cleans up; patient completes activity. [place] assists only prior to or following the activity. 4-Supervision or Touching Assistance-helper provides verbal cues and/or touching/steadying and/or contact guard assistance as patient completes activity. Assistance may be provided throughout the activity or intermittently. 3-Partial/Moderate Assistance-helper does LESS THAN HALF the effort. [place] lifts, holds or supports trunk or limbs, but provides less than half the effort. 2-Substantial/Maximal Assistance-helper does MORE THAN HALF the effort. [place] lifts or holds trunk or limbs and provides more than half the effort. 2-Saltntnjy-dfowqu does ALL the effort. Patient does none of the effort to complete the activity. Or, the assistance of 2 or more helpers is required for the patient to complete the activity. If activity was not attempted, code reason: 7-Patient Refused. 9-Not Applicable-not attempted and the patient did not perform the activity before the current illness, exacerbation or injury. 10-Not Attempted due to Environmental Limitations-(lack of equipment, weather restraints, etc.). 88-Not Attempted due to Medical Conditions or Safety Concerns. ADL PLOF Comments Pt reports IND with ADLs and functional mobility at PLOF, using FWW. Self Care: Independent Functional Cognition: Independent DME/Equipment: Shower OT Current Status Subjective Pt agreeable to OT tx, required some encouragement to participate. Noted slight difficulty with word finding/speech during session. Mental Status/Objective Patient Orientation: Person, Place, Situation Attachments: Nevarez Catheter, IV, Oxygen Current Hand Dominance: Right Upper Extremity ROM WFL, BUE to approx 160 degrees Upper Extremity Strength grossly 3+/5 ADL-Treatment Eating (QC): 5 (per nurse report, pt able to feed self some food earlier today.) Oral Hygiene (QC): 7 Other Treatments Pt in bed, agreeable to OT Tx. OT educated pt on purpose/benefit of OT, pt provided information about PLOF and home set up, and participated in UE screen. Pt requests for this therapist to return later, as she hasn't had much sleep. With some encouragement, pt agreeable to OT tx at this time. Pt declined UE exercises, but able to wash face and brush her hair after set up assistance. Pt declined further activities at this time. During session, pt able to roll from R side lying position to her back, and pull her self up in a long sitting position in order to brush the back side of her hair. Per PT report, pt requires QC 3 for sit to stand and bed to/from chair transfers via scoot to pivot. Pt unable to perform functional mobility with walker due to NWB RLE and inability to "hop".Post tx, pt in bed, call light in reach and all needs met. Education OT Patient Education: Correct positioning, Modified ADL techniques, Progress toward Goal/Update tx plan, Purpose of tx/functional activities, Rehab process Teaching Recipient: Patient Teaching Methods: Discussion Response to Teaching: Verbalize Understanding, Reinforcement Needed OT [employer] Consultant Goals [employer] Consultant Goals Time Frame: Apr 17, 2021 Eating (QC): 6 Oral Hygiene (QC): 6 Toileting Hygiene (QC): 4 Shower/Bathe Self (QC): 4 Upper Body Dressing (QC): 5 Lower Body Dressing (QC): 4 On/Off Footwear (QC): 4 Additional Goals: 1-Demonstrate ADL Tasks, 2-Verbalize Understanding, 3- ImproveStrength/Marie 1=Demonstrate adherence to instructed precautions during ADL tasks. 2=Patient will verbalize/demonstrate understanding of assistive devices/modifications for ADL. 3=Patient will improve strength/tolerance for activity to enable patient to perform ADL's. OT Education/Plan Problem List/Assessment Assessment: Decreased Activ Tolerance, Decreased UE Strength, Impaired Funct Balance, Impaired I ADL's, Impaired Self-Care Skills Discharge Recommendations Plan/Recommendations: Continue POC Treatment Plan/Plan of Care Patient would benefit from OT for education, treatment and training to promote independence in ADL's, mobility, safety and/or upper extremity function for ADL's. Plan of Care: ADL Retraining, Functional Mobility, UE Funct Exercise/Act Treatment Duration: Apr 17, 2021 Frequency: 5 times per week Estimated Hrs Per Day: .25 hour per day Rehab Potential: Fair Time/GCodes Start Time: 11:17 Stop Time: 11:26 Total Time Billed (hr/min): 9 Billed Treatment Time 1, BHUPENDRA EUGENE OT Apr 06, 2021 12:08
--- NOTE | 2021-04-06 14:17 | Physical Therapy Evaluation ---
PT Evaluation-General Medical Diagnosis Admission Date Apr 04, 2021 at 20:30 Medical Diagnosis: TIA vs. symptomatic bradycardia Onset Date: Apr 04, 2021 Height/Weight Height (Feet): 5 Height (Inches): 2.00 Weight (Pounds): 151 Weight (Ounces): 0.0 Precautions Precautions/Isolations: Aspiration, Fall Prevention, Standard Precautions, Pressure Ulcer Weight Bear Status Right Lower Extremity: Right Non Weight Bearing Left Lower Extremity: Left Weight Bearing/Tolerated Referral Physician: Eveline Reason for Referral: Evaluation/Treatment Medical History Pertinent Medical History: CVA (TIA), HTN, Hypothroidism Reviewed History: Yes Social History Home: Single Level Current Living Status: Alone Prior Prior Level of Function SCALE: Activities may be completed with or without assistive devices. 1-Dqgqbulisb-lmzfnki completes the activity by him/herself with no assistance from a helper. 5-Set-up or Clean-up Assistance-helper sets up or cleans up; patient completes activity. [place] assists only prior to or following the activity. 4-Supervision or Touching Assistance-helper provides verbal cues and/or touching/steadying and/or contact guard assistance as patient completes activity. Assistance may be provided throughout the activity or intermittently. 3-Partial/Moderate Assistance-helper does LESS THAN HALF the effort. [place] lifts, holds or supports trunk or limbs, but provides less than half the effort. 2-Substantial/Maximal Assistance-helper does MORE THAN HALF the effort. [place] lifts or holds trunk or limbs and provides more than half the effort. 8-Srmpwocex-zzrlmx does ALL the effort. Patient does none of the effort to complete the activity. Or, the assistance of 2 or more helpers is required for the patient to complete the activity. If activity was not attempted, code reason: 7-Patient Refused. 9-Not Applicable-not attempted and the patient did not perform the activity before the current illness, exacerbation or injury. 10-Not Attempted due to Environmental Limitations-(lack of equipment, weather restraints, etc.). 88-Not Attempted due to Medical Conditions or Safety Concerns. Indoor Mobility (Ambulation): Independent Stairs: Independent Prior Devices Use: Walker PT Evaluation-Current Integumentary/Posture Bladder Incontinence: Nevarez Cath Sensory Vision: Functional Hearing: Impaired Hand Dominance: Right PT Appellate Court Clerk Goals Half-Way Goals PT Half-Way Goals Time Frame: Apr 25, 2021 Roll Left & Right (QC): 6 Sit to Lying (QC): 6 Lying-Sitting on Side/Bed(QC): 6 Sit to Stand (QC): 4 Chair/Lyp-jw-Unhxu Xfer(QC): 4 Toilet Transfer (QC): 4 Walk 10 feet (QC): 3 PT Plan Treatment/Plan Treatment Plan: Continue Plan of Care Treatment Plan: Bed Mobility, Education, Functional Activity Marie, Functional Strength, Gait, Safety, Therapeutic Exercise, Transfers Treatment Duration: Apr 25, 2021 Frequency: 6 times per week Estimated Hrs Per Day: .25 hour per day Patient and/or Family Agrees t: Yes CARISA LOMBARDO PT Apr 06, 2021 14:17
[2021-04-06] MEDS: ENOXAPARIN 40 MG/0.4 ML (LOVENOX) SYR SC SCH (20:47)
[2021-04-06] MEDS: cefTRIAXone 1 GM PRE-MIX 50 ML IV SCH (21:51)
[2021-04-07 05:12] LABS: BASOPHILS % (AUTO) 1 % (0-10); EOSINOPHILS # (AUTO) 0.2 10^3/uL (0.0-0.3); EOSINOPHILS % (AUTO) 4 % (0-10); HEMATOCRIT 33 % (35-52); HEMOGLOBIN 10.2 g/dL (11.5-16.0); LYMPHOCYTES # (AUTO) 0.8 10^3/uL (1.0-4.0); LYMPHOCYTES % (AUTO) 17 % (12-44); MEAN CORPUSCULAR HEMOGLOBIN 31 pg (25-34); MEAN CORPUSCULAR HGB CONC 31 g/dL (32-36); MEAN CORPUSCULAR VOLUME 99 fL (80-99); MEAN PLATELET VOLUME 9.8 fL (9.0-12.2); MONOCYTES # (AUTO) 0.5 10^3/uL (0.0-1.0); MONOCYTES % (AUTO) 10 % (0-12); NEUTROPHILS # (AUTO) 3.1 10^3/uL (1.8-7.8); NEUTROPHILS % (AUTO) 68 % (42-75); PLATELET COUNT 211 10^3/uL (130-400); WHITE BLOOD COUNT 4.6 10^3/uL (4.3-11.0)
[2021-04-07 05:25] LABS: POTASSIUM 3.8 MMOL/L (3.6-5.0)
[2021-04-07 05:26] LABS: CALCIUM 8.8 MG/DL (8.5-10.1)
[2021-04-07 05:28] LABS: TOTAL PROTEIN 4.9 GM/DL (6.4-8.2)
[2021-04-07 05:30] LABS: BILIRUBIN,TOTAL 0.6 MG/DL (0.1-1.0)
[2021-04-07 05:31] LABS: CREATININE SERUM 0.8 MG/DL (0.60-1.30)
[2021-04-07] MEDS: LACTATED RINGERS 1,000 ML IV SCH ×2 (06:19→20:09)
[2021-04-07] MEDS: LEVOTHYROXINE 50 MCG (LEVOTHROID) TAB PO SCH (06:19)
--- NOTE | 2021-04-07 07:53 | Progress Note ---
Subjective Subjective Date Seen by Provider: Apr 07, 2021 Time Seen by Provider: 07:20 Patient is feeling well this morning. She is still having some pain in her R ankle but it has been controlled fairly well with pain meds. She denies any N/V, sweats/chills, chest pain or palpitations. Review of Systems General: No Chills, No Night Sweats HEENT: No Head Aches Pulmonary: No Dyspnea Gastrointestinal: No: Nausea, Vomiting Musculoskeletal: foot pain (R foot) All Other Systems Reviewed All Other Systems Reviewed: Yes Objective Exam Vital Signs Vital Signs Date Time Temp Pulse Resp B/P (MAP) Pulse Ox O2 Delivery O2 Flow Rate FiO2 04/07/21 07:00 80 04/07/21 04:47 36.2 80 14 156/71 93 Nasal Cannula 2.00 04/07/21 01:16 84 04/07/21 00:00 36.5 04/06/21 21:38 36.6 04/06/21 20:55 Nasal Cannula 3.00 04/06/21 20:53 36.6 80 15 153/56 91 Nasal Cannula 2.00 04/06/21 20:45 92 Nasal Cannula 2.00 04/06/21 16:00 80 12 147/58 93 Nasal Cannula 1.00 04/06/21 13:00 74 04/06/21 12:24 37.9 75 12 140/71 98 Nasal Cannula 1.00 04/06/21 12:00 75 12 140/71 98 Nasal Cannula 1.00 04/06/21 09:30 37.0 04/06/21 08:00 77 11 155/82 96 Nasal Cannula 1.00 04/06/21 08:00 Nasal Cannula 2.00 I & O 04/07/21 07:00 Intake Total 890 ml Output Total 1800 ml Balance -910 ml General Appearance: No Apparent Distress, Chronically ill, Obese Eyes: Bilateral Eye Normal Inspection, Bilateral Eye PERRL, Bilateral Eye EOMI HEENT: PERRL/EOMI, Pharynx Normal Neck: Normal Inspection, Supple Respiratory: Lungs Clear, Normal Breath Sounds, No Respiratory Distress Cardiovascular: Regular Rate, Rhythm, No Edema, No Murmur Gastrointestinal: Normal Bowel Sounds, Non Tender, Soft Back: Normal Inspection Extremity: Normal Inspection, Non Tender, No Pedal Edema Neurologic/Psychiatric: Alert, Oriented x3, Normal Mood/Affect Skin: Normal Color, Warm/Dry Lymphatic: No Adenopathy Results Lab Laboratory Tests 04/07/21 04:59: White Blood Count 4.6, Red Blood Count 3.30L, Hemoglobin 10.2L, Hematocrit 33L, Mean Corpuscular Volume 99, Mean Corpuscular Hemoglobin 31, Mean Corpuscular Hemoglobin Concent 31L, Red Cell Distribution Width 14.5, Platelet Count 211, Mean Platelet Volume 9.8, Immature Granulocyte % (Auto) 0, Neutrophils (%) (Auto) 68, Lymphocytes (%) (Auto) 17, Monocytes (%) (Auto) 10, Eosinophils (%) (Auto) 4, Basophils (%) (Auto) 1, Neutrophils # (Auto) 3.1, Lymphocytes # (Auto) 0.8L, Monocytes # (Auto) 0.5, Eosinophils # (Auto) 0.2, Basophils # (Auto) 0.0, Immature Granulocyte # (Auto) 0.0, Sodium Level 140, Potassium Level 3.8, Chloride Level 105, Carbon Dioxide Level 26, Anion Gap 9, Blood Urea Nitrogen 7, Creatinine 0.80, Estimat Glomerular Filtration Rate 68, BUN/Creatinine Ratio 9, Glucose Level 92, Calcium Level 8.8, Corrected Calcium 9.6, Total Bilirubin 0.6, Aspartate Amino Transf (AST/SGOT) 18, Alanine Aminotransferase (ALT/SGPT) 8, Alkaline Phosphatase 60, Total Protein 4.9L, Albumin 3.0L Microbiology 04/04/21 MRSA Screen - Final, Complete MRSA not isolated 04/04/21 Urine Culture - Final, Complete NO GROWTH Assessment/Plan Assessment/Plan Assessment and Plan EXPRESSIVE APHASIA ACUTE STROKE VS TIA -NO EVIDENCE OF STROKE ON CT -ADDING ASPIRIN PER [facility] REC. -CONTINUE PLAVIX -ADD STATIN -PT/OT/ST COMPLETE HEART BLOCK BRADYCARDIA -CARDIOLOGY ON BOARD -HOLDING METOPROLOL -MAY REQUIRE PACEMAKER S/P FALL W/RIGHT FIBULA FRACTURE -ORTHO CONSULT -PT/OT -EVALUATE NEED FOR ACUTE REHAB HYPOKALEMIA HYPOPHOSPHATEMIA -POTASSIUM WNL THIS MORNING, MONITOR W/DAILY LABS -REPLACE NEEDED UTI CULTURE NEGATIVE DC ROCEPHIN DVT PPX: LOVENOX Clinical Quality Measures Stroke: Date of last known well: Apr 04, 2021 Time of last known well: 17:35 CASANDRA MERCER Apr 07, 2021 07:53
[2021-04-07] MEDS: CLOPIDOGREL 75 MG (PLAVIX) TABLET PO SCH (08:10)
[2021-04-07] MEDS: ASPIRIN E.C. 325 MG (ECOTRIN) TABLET PO SCH (08:10)
--- NOTE | 2021-04-07 09:04 | Cardiology Progress Note ---
Subjective Date Seen by Provider: Apr 07, 2021 Time Seen by Provider: 09:02 Subjective/Events-last exam Patient was seen at bedside, sitting comfortably, feeling better. Heart rate is better. Review of Systems General: No Chills, No Night Sweats, No Fatigue, No Malaise, No Appetite, No Ot her HEENT: No Head Aches, No Visual Changes, No Eye Pain, No Ear Pain, No Dysp hasia, No Sinus Congestion, No Post Nasal Drip, No Sore Throat, No Other Pulmonary: No Dyspnea, No Cough, No Pleuritic Chest Pain, No Other Cardiovascular: No: Chest Pain, Palpitations, Orthopnea, Paroxysmal Noc. Dyspnea, Edema, Lt Headedness, Other Focused Exam Lactate Level 04/04/21 22:07: Lactic Acid Level 2.10*H 04/05/21 04:05: Lactic Acid Level 0.98 Objective-Cardiology Exam Last Set of Vital Signs Vital Signs 04/07/21 04/07/21 04/07/21 08:54 08:59 09:00 Temp 36.8 Pulse 85 Resp 14 B/P (MAP) 162/80 Pulse Ox 99 O2 Delivery Room Air O2 Flow Rate 2.00 I&O Intake and Output 04/07/21 00:00 Intake Total 1890 ml Output Total 1875 ml Balance 15 ml Intake Oral 890 ml IV Total 1000 ml Output Urine Total 1875 ml General: Alert, Oriented X3, Cooperative HEENT: Atraumatic Neck: Supple, No JVD Lungs: Clear to Auscultation, Normal Air Movement Heart: Regular Rate, Normal S1, Normal S2 Abdomen: Normal Bowel Sounds, Soft, No Tenderness Extremities: No Clubbing, No Cyanosis Skin: Other (Right ankle fracture) Neuro: Other (Slurred speech) Psych/Mental Status: Mental Status NL Results Lab Laboratory Tests 04/07/21 04:59 A/P-Cardiology Admission Diagnosis Acute CVA Bradycardia Complete heart block Hypertensive emergency Assessment/Plan Acute CVA versus TIA, could be secondary to severe bradycardia. CT scan of the head did not show any acute abnormality, [facility] emergency stroke team were consulted, possible MRI of the head today. 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 Could be the reason for her syncope. Patient was maintained on beta-blockers, I discussed with the family that she might require a permanent pacemaker if she continues to have these episode. I will avoid the use of beta-blockers or calcium channel blockers at this point and monitor her blood pressure Heart rate is better today, having occasional PVCs and APCs, no further episodes of bradycardia noted. Hypertensive emergency, patient was severely hypertensive on arrival to the emergency room, blood pressure is better at this time. Continue to monitor Hypothyroidism, managed by primary care team Right ankle fracture, currently in a cast. ALDO MCMANUS MD Apr 07, 2021 09:04
--- NOTE | 2021-04-07 09:59 | Progress Note - Ortho ---
Progress Note Subjective Date of Exam 04/07/21 Chief Complaint Fracture right distal fibula HPI/Events since last exam Mrs. Manley is3 days since fracture of her right distal fibula. I put her in a cast yesterday and improved the position but the distal fibula fracture still shifted laterally as well as the talus with widening of the clear space medially. I have talked to the patient's son and daughter and they are trying to decide if they want their mother to proceed with surgery or not understanding the procedure, risks and complications. Also talked to them about nonoperative treatment and what we will be dealing with if we do not surgically treat her distal fibula fracture. Review of Systems Reviewed and no additions or change Allergies: Coded Allergies: No Known Drug Allergies (Verified , 10/10/17) Home Meds Reported Medications Lactobacillus Acidophilus/Pect (Acidophilus-Pectin Capsule) 1 Each Capsule, 2 EACH PO TIDWM, CAP 04/06/21 Sennosides/Docusate Sodium (Stool Softener-Laxative Tablet) 1 Each Tablet, 1 EACH PO BID, TAB 04/06/21 Metoprolol Tartrate (Metoprolol Tartrate) 25 Mg Tablet, 25 MG PO BID, TAB 04/06/21 Ondansetron (Ondansetron Odt) 4 Mg Tab.rapdis, 4 MG PO Q6H PRN for NAUSEA/VOMITING-1ST LINE, TAB 04/06/21 Amoxicillin/Potassium Clav (Amox Tr-K Clv 875-125 mg Tab) 1 Each Tablet, 1 EA PO BID, TAB FILLED 04-03-2021 #10/5 DAY SUPPLY 04/06/21 Cinacalcet HCl (Cinacalcet HCl) 30 Mg Tablet, 30 MG PO MO,WE,FR, TAB 04/02/21 Cholecalciferol (Vitamin D3) (Vitamin D3) 50 Mcg Capsule, 50 MCG PO DAILY, CAP 04/02/21 Tramadol HCl/Acetaminophen (Tramadol-Acetaminophn 37.5-325) 1 Each Tablet, 1 TAB PO Q6H PRN for PAIN-MODERATE (5-7) 07/25/19 Clopidogrel Bisulfate (Clopidogrel) 75 Mg Tablet, 75 MG PO DAILY 07/25/19 Folic Acid (Folic Acid) 0.4 Mg Tablet, 0.4 MG PO DAILY, TAB 07/25/19 Levothyroxine Sodium (Levothyroxine Sodium) 50 Mcg Tablet, 50 MCG PO DAILY, TAB 10/04/17 Amitriptyline HCl (Amitriptyline HCl) 50 Mg Tablet, 50 MG PO HS, TAB 10/04/17 Discontinued Reported Medications Cholecalciferol (Vitamin D3) (Vitamin D3) 2,000 Unit Tab.chew, 2000 UNIT PO DAILY, TAB 07/25/19 Discontinued Scripts Amoxicillin/Potassium Clav (Augmentin 875-125 Tablet) 1 Each Tablet, 1 EACH PO BID, #10 TAB Prov:TANIA STEVE MD 04/03/21 Lactobacillus Acidophilus/Pect (Acidophilus-Pectin Capsule) 1 Each Capsule, 2 EACH PO TIDWM, #90 CAP Prov:TANIA STEVE MD 04/03/21 Ondansetron (Ondansetron Odt) 4 Mg Tab.rapdis, 4 MG PO Q6H PRN for N AUSEA/VOMITING-1ST LINE, #30 TAB Prov:TANIA STEVE MD 04/03/21 Sennosides/Docusate Sodium (Stool Softener-Laxative Tablet) 1 Each Tablet, 1 EA PO BID, #60 TAB 4 Refills Prov:TANIA STEVE MD 04/03/21 Metoprolol Tartrate (Metoprolol Tartrate) 25 Mg Tablet, 25 MG PO BID, #60 TAB 3 Refills Prov:TANIA STEVE MD 04/03/21 Hydrocodone/Acetaminophen (Hydrocodone/Acetaminophen 5 MG/325 MG TAB) 1 Each Tablet, 1-2 TAB PO Q4-6HR for Pain MDD 10 TABS, #35 TAB Prov:TUAN GUTIERREZ APRN 07/26/19 Objective Exam Constitutional: [] HEENT: [] Neck: [] Cardiovascular: [] Respiratory: [] Gastrointestinal: [] Genitourinary: [] Skin: [] Back/Spine: [] Extremities: [The cast in good condition. She states she is having no problems with the cast. She can move her toes and has normal sensation with good capillary refill. Minimal pain.] Neurologic: [] Psychiatric: [] Hematologic/lymphatic/immunologic: [] Vital Signs Vital Signs Date Time Temp Pulse Resp B/P (MAP) Pulse Ox O2 Delivery O2 Flow Rate FiO2 04/07/21 09:00 Room Air 04/07/21 08:59 99 Nasal Cannula 2.00 04/07/21 08:54 36.8 85 14 162/80 98 Nasal Cannula 04/07/21 07:00 80 04/07/21 04:47 36.2 80 14 156/71 93 Nasal Cannula 2.00 04/07/21 01:16 84 04/07/21 00:00 36.5 04/06/21 21:38 36.6 04/06/21 20:55 Nasal Cannula 3.00 04/06/21 20:53 36.6 80 15 153/56 91 Nasal Cannula 2.00 04/06/21 20:45 92 Nasal Cannula 2.00 04/06/21 16:00 80 12 147/58 93 Nasal Cannula 1.00 04/06/21 13:00 74 04/06/21 12:24 37.9 75 12 140/71 98 Nasal Cannula 1.00 04/06/21 12:00 75 12 140/71 98 Nasal Cannula 1.00 I & O 04/07/21 07:00 Intake Total 890 ml Output Total 1800 ml Balance -910 ml Lab Results Laboratory Tests 04/07/21 04:59: White Blood Count 4.6, Red Blood Count 3.30L, Hemoglobin 10.2L, Hematocrit 33L, Mean Corpuscular Volume 99, Mean Corpuscular Hemoglobin 31, Mean Corpuscular Hemoglobin Concent 31L, Red Cell Distribution Width 14.5, Platelet Count 211, Mean Platelet Volume 9.8, Immature Granulocyte % (Auto) 0, Neutrophils (%) (Auto) 68, Lymphocytes (%) (Auto) 17, Monocytes (%) (Auto) 10, Eosinophils (%) (Auto) 4, Basophils (%) (Auto) 1, Neutrophils # (Auto) 3.1, Lymphocytes # (Auto) 0.8L, Monocytes # (Auto) 0.5, Eosinophils # (Auto) 0.2, Basophils # (Auto) 0.0, Immature Granulocyte # (Auto) 0.0, Sodium Level 140, Potassium Level 3.8, Chloride Level 105, Carbon Dioxide Level 26, Anion Gap 9, Blood Urea Nitrogen 7, Creatinine 0.80, Estimat Glomerular Filtration Rate 68, BUN/Creatinine Ratio 9, Glucose Level 92, Calcium Level 8.8, Corrected Calcium 9.6, Total Bilirubin 0.6, Aspartate Amino Transf (AST/SGOT) 18, Alanine Aminotransferase (ALT/SGPT) 8, Alkaline Phosphatase 60, Total Protein 4.9L, Albumin 3.0L Microbiology 04/04/21 MRSA Screen - Final, Complete MRSA not isolated 04/04/21 Urine Culture - Final, Complete NO GROWTH Assessment and Plan Assessment Doing well in present cast Problem List Unchanged Plan Continue with casting for now. Again I have talked to the patient's daughter and son and they are deciding if they want to proceed with surgical or nonsurgical treatment understanding the pros and cons of both. Final Diagonsis Fracture right distal fibula Level of the visit: Level 3 Focused Exam Lactate Level 04/04/21 22:07: Lactic Acid Level 2.10*H 04/05/21 04:05: Lactic Acid Level 0.98 Clinical Quality Measures Stroke: Date of last known well: Apr 04, 2021 Time of last known well: 17:35 MATTHIAS ALBA MD Apr 07, 2021 09:59
--- NOTE | 2021-04-07 10:00 | Physical Therapy Daily Note ---
PT Daily Note-Current Subjective Patient agrees to PT. Mental Status Patient Orientation: Person, Time, Situation Attachments: Oxygen, Nevarez Catheter, IV Transfers SCALE: Activities may be completed with or without assistive devices. 5-Tyldeofcvu-thyghcm completes the activity by him/herself with no assistance from a helper. 5-Set-up or Clean-up Assistance-helper sets up or cleans up; patient completes activity. [place] assists only prior to or following the activity. 4-Supervision or Touching Assistance-helper provides verbal cues and/or touching/steadying and/or contact guard assistance as patient completes activity. Assistance may be provided throughout the activity or intermittently. 3-Partial/Moderate Assistance-helper does LESS THAN HALF the effort. [place] lifts, holds or supports trunk or limbs, but provides less than half the effort. 2-Substantial/Maximal Assistance-helper does MORE THAN HALF the effort. [place] lifts or holds trunk or limbs and provides more than half the effort. 8-Xorwyibmz-zypzqw does ALL the effort. Patient does none of the effort to complete the activity. Or, the assistance of 2 or more helpers is required for the patient to complete the activity. If activity was not attempted, code reason: 7-Patient Refused. 9-Not Applicable-not attempted and the patient did not perform the activity before the current illness, exacerbation or injury. 10-Not Attempted due to Environmental Limitations-(lack of equipment, weather restraints, etc.). 88-Not Attempted due to Medical Conditions or Safety Concerns. Lying to Sitting/Side of Bed(Q: 3 Sit to Stand (QC): 3 Chair/Xwv-tb-Gtmjq Xfer(QC): 3 Toilet Transfer (QC): 3 increase difficulty with maintaining NWB right LE. Unable to "hop", had to scoot over to chair then commode Weight Bearing Right Lower Extremity: Right Non Weight Bearing Left Lower Extremity: Left Weight Bearing/Tolerated Exercises Supine Ex: Heel Slides, Straight leg raise Supine Reps: 10 Seated Therapy Exercises: Long arc quads Seated Reps: 10 Assessment Patient incontinent BM requiring assist to cleanse and change. Patient more flat with expression and response. RN notified. Patient tolerates minimal activity. PT Regional Operations Manager Goals Care Home Goals PT Care Home Goals Time Frame: Apr 25, 2021 Roll Left & Right (QC): 6 Sit to Lying (QC): 6 Lying-Sitting on Side/Bed(QC): 6 Sit to Stand (QC): 4 Chair/Udk-ug-Ctdul Xfer(QC): 4 Toilet Transfer (QC): 4 Walk 10 feet (QC): 3 PT Plan Treatment/Plan Treatment Plan: Continue Plan of Care Treatment Plan: Bed Mobility, Education, Functional Activity Marie, Functional Strength, Gait, Safety, Therapeutic Exercise, Transfers Treatment Duration: Apr 25, 2021 Frequency: 6 times per week Estimated Hrs Per Day: .25 hour per day Patient and/or Family Agrees t: Yes Time/GCodes Time In: 740 Time Out: 804 Total Billed Treatment Time: 24 Total Billed Treatment 1 visit EX 10 min FA 13 min CARISA LOMBARDO PT Apr 07, 2021 10:00
--- NOTE | 2021-04-07 10:19 | ST Cognitive Linguistic Eval ---
Speech Evaluation-General Medical Diagnosis TIA vs. symptomatic bradycardia Onset Date: Apr 04, 2021 Therapy Diagnosis Therapy Diagnosis: Cognitive-communication Referral Referring Physician: Dr. Delaney Medical History Pertinent Medical History: CVA (TIA), HTN, Hypothroidism Reviewed History: Yes Social History Current Living Status: Alone Speech PLF-Current Status Prior Level of Function Patient lives home alone where she is independent for much of her daily needs. She has family who live near by who assist her as needed. Subjective Patient was pleasant and cooperative with the communication assessment. Language Eval: Auditory Comprehends Simple Yes/No Ques: Functional Indent/Objects Multiple Reed: Functional Ident/Pics in Multiple Reed: Functional Follows 1-Step Commands: Functional Follows Complex Directions: Functional Follows General Conversations: Functional Language Eval: Verbal Language Completes Spontaneous Greeting: Functional Produces Auto, Serial Info: Functional Imitates Simple Words/Phrases: Functional Word Finding: Mild Requests Basic Needs: Functional States Basic Personal Info: Functional Expresses Complex Ideas: Mild Cognitive Patient Orientation Patient is oriented to all concepts Objective Cognitive Domain Attention: WNL Memory: WNL Problem Solving: Functional Executive Functions: WNL Visuospatial Skills: WNL Composite Severity Rating: WNL Clock Drawing Severity Rating: Mild Objective Formal/Standardized Tests Subtests of the SLUMS Results Within normal limits for cognitive function, mild delay in speech onset for 25% of her response, speech is clear and intelligible Oral Motor/Speech Production Within normal limits Impression Patient is a pleasant 89 y/o female who was admitted to the hospital due to TIA vs symptomatic bradycardia. Patient was initially in ICU but has been moved to the cardiac stepdown floor. Patient was assessed this morning with informal speech tasks, patient interview, chart review and subtests of the SLUMS. The patient has minimal cognitive function deficits noted. She does exhibit a lag for verbal response to 25% of questions presented. Her speech is clear and intelligible for effective communication. The patient is recommended for ST services to improve speech onset ability. Speech Short Term Goals Short Term Goals Short Term Goals 1) The patient will complete speech onset tasks at 90% or greater without cues. 2) The patient will be able to respond to requests at 90% or greater without cues. Speech Half-Way Goals Half-Way Goals The patient will improve communication effectiveness with improved verbal response time. Speech-Plan Patient/Family Goals Patient/Family Goals: Patient plans on returning to her home where she lives alone. Treatment Plan Speech Therapy Treatment Plan: Continue Plan of Care Treatment Duration: Apr 10, 2021 Frequency: 3 times per week Estimated Hrs Per Day: .25 hour per day Rehab Potential: Fair Barriers to Learning: Patient's recent health decline, age Pt/Family Agrees to Plan: Yes Safety Risks/Education Teaching Recipient: Patient Teaching Methods: Discussion Response to Teaching: Verbalize Understanding Education Topics Provided: Safety within her room, utilization of the call light as needed, communication of wants/needs Time Speech Therapy Time In: 08:30 Speech Therapy Time Out: 08:45 Total Billed Time: 15 Billed Treatment Time 1, CHERRI COLE [facility] Apr 07, 2021 10:19
--- NOTE | 2021-04-07 11:48 | Occupational Ther Daily Note ---
OT Current Status-Daily Note Subjective No pain reported. Appearance Pt. up in chair when OT enters room. Mental Status/Objective Patient Orientation: Person, Place Attachments: Telemetry ADL-Treatment Therapy Code Descriptions/Definitions Functional [place] Measure: 0=Not Assessed/NA 4=Minimal Assistance 1=Total Assistance 5=Supervision or Setup 2=Maximal Assistance 6=Modified [place] 3=Moderate Assistance 7=Complete IndependenceSCALE: Activities may be completed with or without assistive devices. 2-Ljdsnsvnkr-jpqpfcr completes the activity by him/herself with no assistance from a helper. 5-Set-up or Clean-up Assistance-helper sets up or cleans up; patient completes activity. [place] assists only prior to or following the activity. 4-Supervision or Touching Assistance-helper provides verbal cues and/or touching/steadying and/or contact guard assistance as patient completes activity. Assistance may be provided throughout the activity or intermittently. 3-Partial/Moderate Assistance-helper does LESS THAN HALF the effort. [place] lifts, holds or supports trunk or limbs, but provides less than half the effort. 2-Substantial/Maximal Assistance-helper does MORE THAN HALF the effort. [place] lifts or holds trunk or limbs and provides more than half the effort. 2-Lgmujexit-qjeivs does ALL the effort. Patient does none of the effort to complete the activity. Or, the assistance of 2 or more helpers is required for the patient to complete the activity. If activity was not attempted, code reason: 7-Patient Refused. 9-Not Applicable-not attempted and the patient did not perform the activity before the current illness, exacerbation or injury. 10-Not Attempted due to Environmental Limitations-(lack of equipment, weather restraints, etc.). 88-Not Attempted due to Medical Conditions or Safety Concerns. Shower/Bathe Self (QC): 3 (Mod assist overall with sponge bath while seated on BSC. Pt. is able to wash front damari area while seated but requires assistance for LE, and assist for rear damari area in stance.) On/Off Footwear: 2 Toileting Hygiene (QC): 2 (Pt. slightly incontinent of stool while in chair. Transferred to commode with min assist. Pt. required max assist for damari care cleanse after BM.) Toilet Transfer (QC): 3 (Min assist.) Other Treatment Pt. up in chair after transferring back s/p toileting task. Pt. uses walker to stand. Min assist needed and cues for hand placement. Pt. able to maintain weight bear precautions with chair/BSC close. Education OT Patient Education: Correct positioning, Modified ADL techniques, Progress toward Goal/Update tx plan, Purpose of tx/functional activities, Reviewed precautions, Rehab process, Transfer techniques Teaching Recipient: Patient Teaching Methods: Demonstration, Discussion Response to Teaching: Verbalize Understanding, Return Demonstration, Reinforcement Needed OT Youth Coordinator Goals Snf Goals Time Frame: Apr 17, 2021 Eating (QC): 6 Oral Hygiene (QC): 6 Toileting Hygiene (QC): 4 Shower/Bathe Self (QC): 4 Upper Body Dressing (QC): 5 Lower Body Dressing (QC): 4 On/Off Footwear (QC): 4 Additional Goals: 1-Demonstrate ADL Tasks, 2-Verbalize Understanding, 3-ImproveStrength/Marie 1=Demonstrate adherence to instructed precautions during ADL tasks. 2=Patient will verbalize/demonstrate understanding of assistive devices/modifications for ADL. 3=Patient will improve strength/tolerance for activity to enable patient to perform ADL's. OT Education/Plan Problem List/Assessment Assessment: Decreased Activ Tolerance, Dependent Transfers, Impaired Funct Balance, Impaired I ADL's, Impaired Self-Care Skills Discharge Recommendations Plan/Recommendations: Continue POC Therapy Discharge Recommendati: Post Acute OT Treatment Plan/Plan of Care Treatment,Training & Education: Yes Patient would benefit from OT for education, treatment and training to promote independence in ADL's, mobility, safety and/or upper extremity function for ADL's. Plan of Care: ADL Retraining, Functional Mobility, UE Funct Exercise/Act Treatment Duration: Apr 17, 2021 Frequency: 5 times per week Estimated Hrs Per Day: .25 hour per day Agreement: Yes Rehab Potential: Fair Time/GCodes Start Time: 10:10 Stop Time: 10:25 Total Time Billed (hr/min): 15 Billed Treatment Time 1, ADL BRUCE BANDA OT Apr 07, 2021 11:48
[2021-04-07] MEDS: DOCUSATE SODIUM 100 MG (COLACE) CAP PO SCH (11:56)
[2021-04-07] MEDS: ENOXAPARIN 40 MG/0.4 ML (LOVENOX) SYR SC SCH (20:08)
[2021-04-07] MEDS: HYDROcodone/APAP 5 MG/325 MG (LORTAB) TAB PO PRN (20:09)
[2021-04-08] MEDS: LEVOTHYROXINE 50 MCG (LEVOTHROID) TAB PO SCH (05:32)
[2021-04-08 06:23] LABS: BASOPHILS # (AUTO) 0.1 10^3/uL (0.0-0.1); BASOPHILS % (AUTO) 1 % (0-10); EOSINOPHILS # (AUTO) 0.2 10^3/uL (0.0-0.3); EOSINOPHILS % (AUTO) 4 % (0-10); HEMATOCRIT 34 % (35-52); HEMOGLOBIN 10.7 g/dL (11.5-16.0); LYMPHOCYTES # (AUTO) 0.8 10^3/uL (1.0-4.0); LYMPHOCYTES % (AUTO) 17 % (12-44); MEAN CORPUSCULAR HEMOGLOBIN 32 pg (25-34); MEAN CORPUSCULAR HGB CONC 32 g/dL (32-36); MEAN CORPUSCULAR VOLUME 99 fL (80-99); MEAN PLATELET VOLUME 10.1 fL (9.0-12.2); MONOCYTES # (AUTO) 0.5 10^3/uL (0.0-1.0); MONOCYTES % (AUTO) 11 % (0-12); NEUTROPHILS # (AUTO) 3.1 10^3/uL (1.8-7.8); NEUTROPHILS % (AUTO) 67 % (42-75); PLATELET COUNT 228 10^3/uL (130-400); WHITE BLOOD COUNT 4.6 10^3/uL (4.3-11.0)
[2021-04-08 06:34] LABS: POTASSIUM 3.6 MMOL/L (3.6-5.0)
[2021-04-08 06:35] LABS: CALCIUM 8.9 MG/DL (8.5-10.1)
[2021-04-08 06:38] LABS: BILIRUBIN,TOTAL 0.8 MG/DL (0.1-1.0)
[2021-04-08 06:40] LABS: CREATININE SERUM 0.76 MG/DL (0.60-1.30)
--- NOTE | 2021-04-08 08:55 | Discharge Summary ---
Diagnosis/Chief Complaint Date of Admission Apr 04, 2021 at 20:30 Date of Discharge Discharge Summary Discharge Physical Examination Allergies: Coded Allergies: No Known Drug Allergies (Verified , 10/10/17) Vitals & I&Os Vital Signs Date Time Temp Pulse Resp B/P (MAP) Pulse Ox O2 Delivery O2 Flow Rate FiO2 04/08/21 07:00 73 04/08/21 04:16 36.2 20 176/71 92 Room Air 04/07/21 08:59 2.00 Hospital Course Pending Labs Laboratory Tests 04/08/21 05:35: White Blood Count 4.6, Red Blood Count 3.40, Hemoglobin 10.7, Hematocrit 34, Mean Corpuscular Volume 99, Mean Corpuscular Hemoglobin 32, Mean Corpuscular Hemoglobin Concent 32, Red Cell Distribution Width 14.6, Platelet Count 228, Mean Platelet Volume 10.1, Immature Granulocyte % (Auto) 0, Neutrophils (%) (Auto) 67, Lymphocytes (%) (Auto) 17, Monocytes (%) (Auto) 11, Eosinophils (%) (Auto) 4, Basophils (%) (Auto) 1, Neutrophils # (Auto) 3.1, Lymphocytes # (Auto) 0.8, Monocytes # (Auto) 0.5, Eosinophils # (Auto) 0.2, Basophils # (Auto) 0.1, Immature Granulocyte # (Auto) 0.0, Sodium Level 141, Potassium Level 3.6, Chloride Level 107, Carbon Dioxide Level 24, Anion Gap 10, Blood Urea Nitrogen 7, Creatinine 0.76, Estimat Glomerular Filtration Rate 72, BUN/Creatinine Ratio 9, Glucose Level 91, Calcium Level 8.9, Corrected Calcium 9.7, Total Bilirubin 0.8, Aspartate Amino Transf (AST/SGOT) 21, Alanine Aminotransferase (ALT/SGPT) 11, Alkaline Phosphatase 64, Total Protein 5.0, Albumin 3.0 Discharge Instructions to patient/family Please see electronic discharge instructions given to patient. Discharge Medications Reviewed and agree with Discharge Medication list on patient's Discharge In struction sheet Clinical Quality Measures Stroke: Date of last known well: Apr 04, 2021 Time of last known well: 17:35 TANIA STEVE MD Apr 08, 2021 08:55
[2021-04-08] MEDS ORDERED: ASPI325T32 PO (09:05)
[2021-04-08] MEDS ORDERED: ATOR40TA PO (09:05)
[2021-04-08] MEDS ORDERED: TRAM1TAB7 PO (09:05)
--- NOTE | 2021-04-08 09:09 | Discharge Inst-Skilled Nursing ---
Discharge Inst-Skilled NF Reconcile Patient Problems Problems Reviewed?: Yes Patient Instructions Patient Problems: stroke hypertension advanced age Consult/Follow Up/Orders Follow Up Appt.: 1 wk [facility] Skilled NF Admit to: [facility] Certification (SNF) I certify that SNF services are required to be given on an inpatient basis angelo use of the above named patient's need for halfway care on a continuing basis for the conditions(s) for which he/she was receiving inpatient hospital services prior to his/her transfer to the SNF. Jail Facility Order: Nursing Services, [place]-Evaluate & Treat, Physical Therapy-Evaluate & Treat, Speech Language-Evaluate & Treat Oxygen Delivery Method: Room Air Discharge Diet: Regular Diet Daily Activity as Tolerated: Yes Resuscitation Status: Full Code New & Resume Previous Orders Tania Ida Elaina Apr 08, 2021 09:07 Medication List: Active Scripts Active Aspirin EC (Aspirin) 325 Mg Tablet. 325 Mg PO DAILY Lipitor (Atorvastatin Calcium) 40 Mg Tablet 40 Mg PO HS Tramadol-Acetaminophn 37.5-325 (Tramadol HCl/Acetaminophen) 1 Each Tablet 1 Tab PO Q6H PRN Reported Acidophilus-Pectin Capsule (Lactobacillus Acidophilus/Pect) 1 Each Capsule 2 Each PO TIDWM Stool Softener-Laxative Tablet (Sennosides/Docusate Sodium) 1 Each Tablet 1 Each PO BID Metoprolol Tartrate 25 Mg Tablet 25 Mg PO BID Ondansetron Odt (Ondansetron) 4 Mg Tab.rapdis 4 Mg PO Q6H PRN Amox Tr-K Clv 875-125 mg Tab (Amoxicillin/Potassium Clav) 1 Each Tablet 1 Ea PO BID FILLED 04-03-2021 #10/5 DAY SUPPLY Cinacalcet HCl 30 Mg Tablet 30 Mg PO MO,WE,FR Vitamin D3 (Cholecalciferol (Vitamin D3)) 50 Mcg Capsule 50 Mcg PO DAILY Clopidogrel (Clopidogrel Bisulfate) 75 Mg Tablet 75 Mg PO DAILY Folic Acid 0.4 Mg Tablet 0.4 Mg PO DAILY Levothyroxine Sodium 50 Mcg Tablet 50 Mcg PO DAILY Amitriptyline HCl 50 Mg Tablet 50 Mg PO HS Lab results: Laboratory Tests Test 04/07/21 18:00 04/08/21 05:35 Range/Units SARS-CoV-2 RNA (RT-PCR) Not Detected Not Detecte White Blood Count 4.6 4.3-11.0 10^3/uL Red Blood Count 3.40 L 3.80-5.11 10^6/uL Hemoglobin 10.7 L 11.5-16.0 g/dL Hematocrit 34 L 35-52 % Mean Corpuscular Volume 99 80-99 fL Mean Corpuscular Hemoglobin 32 25-34 pg Mean Corpuscular Hemoglobin Concent 32 32-36 g/dL Red Cell Distribution Width 14.6 H 10.0-14.5 % Platelet Count 228 130-400 10^3/uL Mean Platelet Volume 10.1 9.0-12.2 fL Immature Granulocyte % (Auto) 0 % Neutrophils (%) (Auto) 67 42-75 % Lymphocytes (%) (Auto) 17 12-44 % Monocytes (%) (Auto) 11 0-12 % Eosinophils (%) (Auto) 4 0-10 % Basophils (%) (Auto) 1 0-10 % Neutrophils # (Auto) 3.1 1.8-7.8 10^3/uL Lymphocytes # (Auto) 0.8 L 1.0-4.0 10^3/uL Monocytes # (Auto) 0.5 0.0-1.0 10^3/uL Eosinophils # (Auto) 0.2 0.0-0.3 10^3/uL Basophils # (Auto) 0.1 0.0-0.1 10^3/uL Immature Granulocyte # (Auto) 0.0 0.0-0.1 10^3/uL Sodium Level 141 135-145 MMOL/L Potassium Level 3.6 3.6-5.0 MMOL/L Chloride Level 107 98-107 MMOL/L Carbon Dioxide Level 24 21-32 MMOL/L Anion Gap 10 5-14 MMOL/L Blood Urea Nitrogen 7 7-18 MG/DL Creatinine 0.76 0.60-1.30 MG/DL Estimat Glomerular Filtration Rate 72 BUN/Creatinine Ratio 9 Glucose Level 91 70-105 MG/DL Calcium Level 8.9 8.5-10.1 MG/DL Corrected Calcium 9.7 8.5-10.1 MG/DL Total Bilirubin 0.8 0.1-1.0 MG/DL Aspartate Amino Transf (AST/SGOT) 21 5-34 U/L Alanine Aminotransferase (ALT/SGPT) 11 0-55 U/L Alkaline Phosphatase 64 40-136 U/L Total Protein 5.0 L 6.4-8.2 GM/DL Albumin 3.0 L 3.2-4.5 GM/DL My orders: Orders - TANIA STEVE MD [facility] 19 Inhouse Test (04/07/21 14:48) Attending Discharge Inpt/Inobs (04/08/21 08:57) TANIA STEVE MD Apr 08, 2021 09:09
[2021-04-08] MEDS: LACTATED RINGERS 1,000 ML IV SCH (10:10)
[2021-04-08] MEDS: ASPIRIN E.C. 325 MG (ECOTRIN) TABLET PO SCH (10:10)
[2021-04-08] MEDS: CLOPIDOGREL 75 MG (PLAVIX) TABLET PO SCH (10:10)
[2021-04-08] MEDS: DOCUSATE SODIUM 100 MG (COLACE) CAP PO SCH (10:10)
[2021-04-08] MEDS ORDERED: GADOTERATE 0.5 MMOL/ML (CLARISCAN) 15 ML VIAL IV ONE (12:00)
--- NOTE | 2021-04-08 12:17 | Progress Note - Ortho ---
Progress Note Subjective Date of Exam 04/08/21 Chief Complaint Fracture right distal fibula HPI/Events since last exam Mrs. Manley is 4 days since fracture of his right distal fibula. I placed her in a cast on 04/06. I did not see her today she was done an MRI and will be discharged.She will follow up in the office approximately 2 weeks Review of Systems No changes Allergies: Coded Allergies: No Known Drug Allergies (Verified , 10/10/17) Home Meds Active Scripts Aspirin (Aspirin EC) 325 Mg Tablet.dr, 325 MG PO DAILY, #30 TAB 3 Refills Prov:TANIA STEVE MD 04/08/21 Atorvastatin Calcium (Lipitor) 40 Mg Tablet, 40 MG PO HS, #30 TAB 4 Refills Prov:TANIA STEVE MD 04/08/21 Tramadol HCl/Acetaminophen (Tramadol-Acetaminophn 37.5-325) 1 Each Tablet, 1 TAB PO Q6H PRN for PAIN-MODERATE (5-7), #90 TAB Prov:TANIA STEVE MD 04/08/21 Reported Medications Lactobacillus Acidophilus/Pect (Acidophilus-Pectin Capsule) 1 Each Capsule, 2 EACH PO TIDWM, CAP 04/06/21 Sennosides/Docusate Sodium (Stool Softener-Laxative Tablet) 1 Each Tablet, 1 EACH PO BID, TAB 04/06/21 Metoprolol Tartrate (Metoprolol Tartrate) 25 Mg Tablet, 25 MG PO BID, TAB 04/06/21 Ondansetron (Ondansetron Odt) 4 Mg Tab.rapdis, 4 MG PO Q6H PRN for NAUSEA/VOMITING-1ST LINE, TAB 04/06/21 Cinacalcet HCl (Cinacalcet HCl) 30 Mg Tablet, 30 MG PO MO,WE,FR, TAB 04/02/21 Cholecalciferol (Vitamin D3) (Vitamin D3) 50 Mcg Capsule, 50 MCG PO DAILY, CAP 04/02/21 Clopidogrel Bisulfate (Clopidogrel) 75 Mg Tablet, 75 MG PO DAILY 07/25/19 Folic Acid (Folic Acid) 0.4 Mg Tablet, 0.4 MG PO DAILY, TAB 07/25/19 Levothyroxine Sodium (Levothyroxine Sodium) 50 Mcg Tablet, 50 MCG PO DAILY, TAB 10/04/17 Amitriptyline HCl (Amitriptyline HCl) 50 Mg Tablet, 50 MG PO HS, TAB 10/04/17 Discontinued Reported Medications Amoxicillin/Potassium Clav (Amox Tr-K Clv 875-125 mg Tab) 1 Each Tablet, 1 EA PO BID, TAB FILLED 04-03-2021 #10/5 DAY SUPPLY 04/06/21 Cholecalciferol (Vitamin D3) (Vitamin D3) 2,000 Unit Tab.chew, 2000 UNIT PO DAILY, TAB 07/25/19 Discontinued Scripts Amoxicillin/Potassium Clav (Augmentin 875-125 Tablet) 1 Each Tablet, 1 EACH PO BID, #10 TAB Prov:TANIA STEVE MD 04/03/21 Lactobacillus Acidophilus/Pect (Acidophilus-Pectin Capsule) 1 Each Capsule, 2 EACH PO TIDWM, #90 CAP Prov:TANIA STEVE MD 04/03/21 Ondansetron (Ondansetron Odt) 4 Mg Tab.rapdis, 4 MG PO Q6H PRN for NAUSEA/VOMITING-1ST LINE, #30 TAB Prov:TANIA STEVE MD 04/03/21 Sennosides/Docusate Sodium (Stool Softener-Laxative Tablet) 1 Each Tablet, 1 EA PO BID, #60 TAB 4 Refills Prov:TANIA STEVE MD 04/03/21 Metoprolol Tartrate (Metoprolol Tartrate) 25 Mg Tablet, 25 MG PO BID, #60 TAB 3 Refills Prov:TANIA STEVE MD 04/03/21 Hydrocodone/Acetaminophen (Hydrocodone/Acetaminophen 5 MG/325 MG TAB) 1 Each Tablet, 1-2 TAB PO Q4-6HR for Pain MDD 10 TABS, #35 TAB Prov:TUAN GUTIERREZ APRN 07/26/19 Objective Exam Constitutional: [] HEENT: [] Neck: [] Cardiovascular: [] Respiratory: [] Gastrointestinal: [] Genitourinary: [] Skin: [] Back/Spine: [] Extremities: [No exam] Neurologic: [] Psychiatric: [] Hematologic/lymphatic/immunologic: [] Vital Signs Vital Signs Date Time Temp Pulse Resp B/P (MAP) Pulse Ox O2 Delivery O2 Flow Rate FiO2 04/08/21 08:00 Room Air 04/08/21 08:00 36.0 75 16 163/78 93 Room Air 04/08/21 07:00 73 04/08/21 04:16 36.2 83 20 176/71 92 Room Air 04/08/21 01:00 65 04/08/21 00:23 36.5 81 20 150/75 94 Room Air 04/07/21 20:20 37.0 04/07/21 20:05 38.2 84 20 165/68 95 Room Air 04/07/21 19:50 Room Air 04/07/21 19:31 82 04/07/21 16:33 36.8 79 18 178/71 97 Room Air 04/07/21 12:35 36.5 79 18 163/72 95 Room Air I & O 04/08/21 07:00 Intake Total 1030 ml Output Total 1350 ml Balance -320 ml Lab Results Laboratory Tests 04/07/21 18:00: SARS-CoV-2 RNA (RT-PCR) Not Detected 04/08/21 05:35: White Blood Count 4.6, Red Blood Count 3.40L, Hemoglobin 10.7L, Hematocrit 34L, Mean Corpuscular Volume 99, Mean Corpuscular Hemoglobin 32, Mean Corpuscular Hemoglobin Concent 32, Red Cell Distribution Width 14.6H, Platelet Count 228, Mean Platelet Volume 10.1, Immature Granulocyte % (Auto) 0, Neutrophils (%) (Auto) 67, Lymphocytes (%) (Auto) 17, Monocytes (%) (Auto) 11, Eosinophils (%) (Auto) 4, Basophils (%) (Auto) 1, Neutrophils # (Auto) 3.1, Lymphocytes # (Auto) 0.8L, Monocytes # (Auto) 0.5, Eosinophils # (Auto) 0.2, Basophils # (Auto) 0.1, Immature Granulocyte # (Auto) 0.0, Sodium Level 141, Potassium Level 3.6, Chloride Level 107, Carbon Dioxide Level 24, Anion Gap 10, Blood Urea Nitrogen 7, Creatinine 0.76, Estimat Glomerular Filtration Rate 72, BUN/Creatinine Ratio 9, Glucose Level 91, Calcium Level 8.9, Corrected Calcium 9.7, Total Bilirubin 0.8, Aspartate Amino Transf (AST/SGOT) 21, Alanine Aminotransferase (ALT/SGPT) 11, Alkaline Phosphatase 64, Total Protein 5.0L, Albumin 3.0L Microbiology 04/04/21 MRSA Screen - Final, Complete MRSA not isolated 04/04/21 Urine Culture - Final, Complete NO GROWTH Assessment and Plan Assessment No change Problem List Unchanged Plan I spoke with the patient's daughter and son and they decided yesterday that they do not want to proceed with surgical treatment. We discussed the risks and complications of both surgical nonsurgical treatment and they do not again want to proceed with surgery due to the high risk due to her heart disease and her recent strokeIt is my understanding she is leaving today and we will see her in the office in approximately 2 weeks for repeat x-rays and possible cast change Final Diagonsis Displaced fracture right distal fibula Level of the visit: Level 3 Clinical Quality Measures Stroke: Date of last known well: Apr 04, 2021 Time of last known well: 17:35 MATTHIAS ALBA MD Apr 08, 2021 12:17
--- NOTE | 2021-04-08 13:06 | Diagnostic Imaging Report ---
CLINICAL INDICATION: Patient with history of stroke and weakness. EXAM: MRI of the brain performed without and with 15 cc of Clariscan IV contrast. Sequences include axial DWI, ADC map, axial gradient echo, axial T2, axial FLAIR, axial T1, axial T1 post IV contrast, coronal T1 fat-sat post IV contrast, and sagittal T1 post IV contrast. COMPARISON: Head CT without contrast dated 04/05/2021. FINDINGS: There is a small patchy multifocal area of elevated DWI signal and normalized ADC map signal involving the left parietal lobe and posterior medial left temporal lobe. There is a small area of elevated DWI signal with high ADC map signal and high T2 signal involving the anterior medial left cerebellum and medial left brachium pontis. There is an associated 6 mm x 8 mm area of enhancement with this area. There are other focal areas of elevated DWI signal with T2 shine through involving the high left frontal lobe region. There is no evidence of intracranial hemorrhage. There is a 3 mm punctate area of low gradient echo signal involving the right frontal lobe which likely represents remote microhemorrhage. There are small chronic cerebral infarcts involving the right frontal lobe, high left parietal lobe, right parietal lobe, right occipital lobe, and posterior right temporal lobe region laterally. There are multiple focal, patchy, and confluent areas of high T2 signal white matter changes throughout both cerebral hemispheres, periventricular regions, and liam as well as involving both cerebellar hemispheres. These findings are likely related to chronic small vessel ischemic disease. Prominent perivascular spaces are seen in the bilateral basal ganglia regions. There is no hydrocephalus, brain herniation, or midline shift. 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 The basal cisterns are unremarkable. The visualized pam[place]key of [place]etts vascular structures show no significant abnormality. There are post operative changes to both globes which may be related to lens implants. Otherwise, the extracranial soft tissue, skull, and orbits are unremarkable. The paranasal sinuses are clear. There is minimal fluid in the left mastoid air cells. IMPRESSION: 1: There is a small area of subacute infarct involving the left parietal lobe. 2: There is a small area of high T2 signal and associated enhancement involving the anterior aspect of the left cerebellum. This is suspected to represent a subacute infarct. A followup MRI of the brain in 2 months is suggested to evaluate for resolution and exclude an underlying enhancing mass. 3: There are small chronic infarcts involving the right frontal lobe, bilateral parietal lobes, and posterior right temporal lobe region. Dictated by: Dictated on workstation # [id number]
--- NOTE | 2021-04-13 10:56 | Physician Query Clarification ---
PQ-Further Specificity Admission/Discharge Admission Date: Apr 04, 2021 at 20:30 Discharge Date: Apr 08, 2021 at 13:50 Dr. Delaney, The medical record reflects the following clinical scenario: History/Risk Factors: recent CVA, aphasia, complete heart block, bradycardia Clinical Findings: There is a small area of subacute infarct involving the left parietal lobe. Treatment: Plavix, statins, d/c beta blockers, monitor Question: Can you further specify the primary condition responsible for inpatient admission after study per the clinical indicators above? Please document a response in the Progress Notes or Discharge Summary. 1. CVA 2. Complete heart block 3. Other, with explanation of the clinical findings. 4. Clinically undetermined, no explanation for the clinical findings. PHYSICIAN RESPONSE Can you specify per above: 1 Please remember a lack of response to the above will prompt a phone page by [facility] staff. In responding to this query, please exercise your independent professional judgm ent. The purpose of this communication is to more accurately reflect the complexity of your patients condition. The fact that a question is asked does not imply that any particular answer is desired or expected. Thank you for your timely response to this clarification. Requestors name: Anny 4 THIS PHYSICIAN QUERY FORM IS A PERMANENT PART OF THE MEDICAL RECORD ANNY POTTER Apr 13, 2021 10:56 TANIA DELANEY MD Apr 15, 2021 13:22
== END 2021-04-08 13:50 | DRG 65 ==
LOC: EDUNIT# 18:25 → ER 18:26 → EDLOC 20:30 → UNDOADMIN 20:30 → ICU 20:30 → OBSVTOIN 04-05 12:08 → CSD 04-06 19:15 → ICU 04-06 19:15 → 4TH 04-07 12:20 → CSD 04-07 12:20 → UNDODISIN 04-08 13:50 → EDPENDDISTM 04-08 14:30
PROVIDERS: ADMIT Internal Medicine; ATTEND Family Medicine
PROC: 2W3QX2Z Immobilization of Right Lower Leg using Cast (ICD-10-PCS; principal; 2021-04-06)
DX: I63.9 Cerebral infarction, unspecified (principal); I44.2 Atrioventricular block, complete; I16.1 Hypertensive emergency; N39.0 Urinary tract infection, site not specified; R47.01 Aphasia; R29.701 NIHSS score 1; R00.1 Bradycardia, unspecified; S82.831A Other fracture of upper and lower end of right fibula, initial encounter for closed fracture; Z20.822 Contact with and (suspected) exposure to COVID-19; I49.3 Ventricular premature depolarization; I10 Essential (primary) hypertension; I49.1 Atrial premature depolarization; E87.6 Hypokalemia; E83.39 Other disorders of phosphorus metabolism; E03.9 Hypothyroidism, unspecified; M19.91 Primary osteoarthritis, unspecified site; Z96.652 Presence of left artificial knee joint; Z86.73 Personal history of transient ischemic attack (TIA), and cerebral infarction without residual deficits; W19.XXXA Unspecified fall, initial encounter; Y92.012 Bathroom of single-family (private) house as the place of occurrence of the external cause
CPT/HCPCS: 29515; 36415; 51702; 70450; 70496; 70498; 70553; 71045; 73523; 73562; 73610; 80053; 80061; 81000; 82550; 83605; 83735; 84100; 84484; 85007; 85025; 85027; 85379; 85610; 85730; 87081; 87088; 87636; 93005; 93041; 93306; 94760; 96361; 96374; 96376

== ENCOUNTER → 2021-04-22 | Outpatient (CLI) | payer MEDICARE ==
[~2021-04-22] MED LIST changes: +AMOX1TAB12 PO; +ASPI325T32 PO; +ATOR40TA PO; +LACT1CAP76 PO
--- NOTE | 2021-04-22 09:51 | Diagnostic Imaging Report ---
INDICATION: Fibular fracture. COMPARISON: 04/06/2021. FINDINGS: 3 views. The images are obtained through fiberglass cast. Ankle mortise shows widening of the medial space with talotibial space measuring nearly 10 mm. There is approximately 7 mm of medial displacement of the fibular shaft at the fracture site with respect to the lateral malleolus. The distal malleolus appears in good position. The articulating surface of the talus appears normal. The talofibular space appears normal at the syndesmosis. IMPRESSION: There is a widening of the talotibial space now measuring nearly 10 mm. There is a no significant callus formation noted along the fibula fracture. Dictated by: Dictated on workstation # [id number]
== END ==
LOC: ORTHO 09:11
PROVIDERS: ATTEND Orthopaedic Surgery
DX: S82.831A Other fracture of upper and lower end of right fibula, initial encounter for closed fracture (principal); X58.XXXA Exposure to other specified factors, initial encounter
CPT/HCPCS: 29405; 73610

== ENCOUNTER → 2021-05-06 | Outpatient (CLI) | payer MEDICARE ==
--- NOTE | 2021-05-06 09:21 | Diagnostic Imaging Report ---
Indication: Right ankle fracture, follow-up. TIME OF EXAM: 9:07 AM Comparison is made with prior radiograph from 04/22/2021. Ankle is encased in a fiberglass cast obscuring bone detail. Distal fibular fracture is again noted showing slight lateral displacement. There is some blurring of the fracture lines consistent with some healing. There continues to be abnormal widening of the medial clear space. Talar dome is smooth. No other fractures are seen. IMPRESSION: Healing distal fibular fracture. There continues to be abnormal widening of the medial clear space. Dictated by: Dictated on workstation # [id number]
== END ==
LOC: ORTHO 08:46
PROVIDERS: ATTEND Orthopaedic Surgery
DX: S82.831D Other fracture of upper and lower end of right fibula, subsequent encounter for closed fracture with routine healing (principal); X58.XXXD Exposure to other specified factors, subsequent encounter
CPT/HCPCS: 73610